=== PATIENT | male | born 1980 | race Caucasian/White ===

== ENCOUNTER 2019-06-19 14:44 | Outpatient (CLI) | payer MEDICAID, SELFPAY ==
[2019-06-19 16:00] LABS: Basophils # 0.1 10^3/uL (0.0-0.1); Basophils % 0.5 %; Eosinophils # 0.1 10^3/uL (0.0-0.8); Eosinophils % 0.8 %; Hematocrit 31.8 % (42.0-52.0); Hemoglobin 10.6 g/dL (11.7-16.6); Lymphocytes # 2.2 10^3/uL (0.8-4.8); Lymphocytes % 22.1 %; Mean Corpuscular HGB Conc 33.3 g/dL (30.0-36.0); Mean Corpuscular Hemoglobin 29.8 pg (28.0-34.0); Mean Corpuscular Volume 89.3 fL (80-94); Mean Platelet Volume 12.4 fL (7.4-10.4); Monocytes # 0.9 10^3/uL (0.2-0.9); Monocytes % 8.5 %; Neutrophils # 6.8 10^3/uL (1.8-7.7); Neutrophils % 67.5 %; Nucleated Red Blood Cells % 0 %; Platelet Count 339 10^3/cmm (130-400); Red Blood Count 3.56 10^6/uL (4.1-5.3); Red Cell Distribution Width 11.9 % (12.1-15.1)
== END 2019-06-19 14:45 | disposition home or self-care (01) ==
LOC: LAB 14:47
PROVIDERS: Family Provider Family Medicine; PCP Family Medicine; Visit Provider Family Medicine
DX: L02.91 Cutaneous abscess, unspecified (principal)
CPT/HCPCS: 85025

== ENCOUNTER 2019-06-23 13:16 | Outpatient (CLI) | payer MEDICAID, SELFPAY ==
[2019-06-23 13:33] LABS: Basophils % 0.4 %; Eosinophils # 0.1 10^3/uL (0.0-0.8); Eosinophils % 1.7 %; Hematocrit 33.8 % (42.0-52.0); Hemoglobin 11.1 g/dL (11.7-16.6); Lymphocytes # 2.1 10^3/uL (0.8-4.8); Lymphocytes % 28.7 %; Mean Corpuscular HGB Conc 32.8 g/dL (30.0-36.0); Mean Corpuscular Hemoglobin 29.6 pg (28.0-34.0); Mean Corpuscular Volume 90.1 fL (80-94); Mean Platelet Volume 11.8 fL (7.4-10.4); Monocytes # 0.5 10^3/uL (0.2-0.9); Monocytes % 7.2 %; Neutrophils # 4.6 10^3/uL (1.8-7.7); Neutrophils % 61.6 %; Nucleated Red Blood Cells % 0 %; Platelet Count 322 10^3/cmm (130-400); Red Blood Count 3.75 10^6/uL (4.1-5.3); Red Cell Distribution Width 11.9 % (12.1-15.1); White Blood Count 7.5 10^3/uL (4.0-10.0)
[2019-06-23 13:57] LABS: Alanine Aminotransferase 46 U/L (0-41); Albumin Level 3.9 g/dL (3.5-5.2); Alkaline Phosphatase 198 IU/L (40-130); Aspartate Amino Transferase 20 U/L (0-40); Blood Urea Nitrogen 5 mg/dL (6-20); C Reactive Protein 1.4 mg/L (0.0-4.9); Calcium 9.5 mg/Dl (8.6-10.0); Carbon Dioxide 30 mmol/L (22-29); Chloride 92 mmol/L (98-107); Creatine Phosphokinase 55 U/L (39-308); Glomerular Filtration Rate 185.1 mL/min (90-130); Glucose 433 mg/dL (74-109); Sodium 133 mmol/L (136-145); Total Bilirubin 0.2 mg/dL (0.15-1.2); Total Protein 6.9 g/dL (6.6-8.7)
[2019-06-23 14:25] LABS: Erythrocyte Sedimentation Rate 22 mm/hr (0-10)
== END 2019-06-23 13:17 | disposition home or self-care (01) ==
LOC: LAB 13:20
PROVIDERS: Family Provider Family Medicine; PCP Family Medicine; Visit Provider Family Medicine
DX: L02.91 Cutaneous abscess, unspecified (principal); E10.8 Type 1 diabetes mellitus with unspecified complications; K85.90 Acute pancreatitis without necrosis or infection, unspecified
CPT/HCPCS: 80053; 82550; 85025; 85651; 86140

== ENCOUNTER 2019-06-30 17:06 | Outpatient (CLI) | payer MEDICAID, SELFPAY ==
[2019-06-30 17:48] LABS: Basophils % 0.6 %; Eosinophils % 0.8 %; Hematocrit 33.2 % (42.0-52.0); Hemoglobin 10.8 g/dL (11.7-16.6); Lymphocytes # 1.4 10^3/uL (0.8-4.8); Mean Corpuscular HGB Conc 32.5 g/dL (30.0-36.0); Mean Corpuscular Hemoglobin 29.5 pg (28.0-34.0); Mean Corpuscular Volume 90.7 fL (80-94); Mean Platelet Volume 11.9 fL (7.4-10.4); Monocytes # 0.4 10^3/uL (0.2-0.9); Monocytes % 8.7 %; Neutrophils # 3.1 10^3/uL (1.8-7.7); Neutrophils % 61.5 %; Nucleated Red Blood Cells % 0 %; Platelet Count 264 10^3/cmm (130-400); Red Blood Count 3.66 10^6/uL (4.1-5.3); Red Cell Distribution Width 11.9 % (12.1-15.1); White Blood Count 5.1 10^3/uL (4.0-10.0)
[2019-06-30 18:00] LABS: Alanine Aminotransferase 45 U/L (0-41); Albumin Level 4.3 g/dL (3.5-5.2); Alkaline Phosphatase 183 IU/L (40-130); Anion Gap 16.2 (5-19); Aspartate Amino Transferase 44 U/L (0-40); Blood Urea Nitrogen 14 mg/dL (6-20); C Reactive Protein 10.4 mg/L (0.0-4.9); Calcium 9.6 mg/dL (8.5-10.5); Carbon Dioxide 30 mmol/L (22-29); Chloride 89 mmol/L (98-107); Globulin 3.2 g/dL (1.3-4.6); Potassium 4.2 mmol/L (3.5-5.1); Sodium 131 mmol/L (136-145); Total Bilirubin 0.5 mg/dL (0.15-1.2); Total Protein 7.5 g/dL (6.6-8.7)
[2019-06-30 18:05] LABS: Glucose 715 mg/dL (74-109)
[2019-06-30 18:06] LABS: Creatine Phosphokinase 362 U/L (39-308)
[2019-06-30 18:51] LABS: Erythrocyte Sedimentation Rate 37 mm/hr (0-10)
== END 2019-06-30 17:07 | disposition home or self-care (01) ==
PROVIDERS: Family Provider Family Medicine; PCP Family Medicine; Visit Provider Family Medicine
DX: L02.91 Cutaneous abscess, unspecified (principal); E11.9 Type 2 diabetes mellitus without complications
CPT/HCPCS: 80053; 82550; 85025; 85651; 86140

== ENCOUNTER 2019-07-13 04:40 | Emergency (ER) | payer MEDICAID, SELFPAY ==
--- NOTE | 2019-07-13 04:45 | ED_ITS ---
Documented by User: Atif Melton DO 07/13/19 06:51 HPI - Abdominal Pain General: Chief Complaint: Abdominal Pain Stated Complaint: LLQ ABD PAIN Time Seen by Provider: 07/13/19 04:44 History of Present Illness: HPI narrative: 39-year-old male here not infrequently. He complains of epigastric and left upper quadrant belly pain. This is been a problem for him in the past. He states that he has pancreatitis. He has been nauseated but has not vomited. No fever. MD elicited complaint: abdominal pain Onset (ago): day(s) Quality: stabbing Radiation: LUQ Relieving factors: nothing Associated Symptoms: Reports nausea; Denies chills, dysuria, fever(s), hematemesis and vomiting Review of Systems Const: Reports: fatigue; Denies: fever or chills Eyes: Denies: change in vision Card: Denies: chest pain, palpitations or edema Resp: Denies: shortness of breath, productive cough or wheezing GI: Reports: abdominal pain and nausea; Denies: vomiting or vomiting blood : Denies: painful urination, urinary frequency or urinary urgency Neuro: Reports: dizziness; Denies: headache Psych: Reports: anxiety PFSH ED PFSH: Statuses (acute, chronic, etc) shown below reflect problem list status as previously entered and may not be historically accurate Medical History ALC (alcoholic liver cirrhosis) (Acute) Anxiety and depression (Acute) Chronic pancreatitis due to acute alcohol intoxication (Acute) Diabetes (Acute) Social History Smoking and tobacco status: current every day smoker Alcohol intake: current Physical Exam Const: GENERAL APPEARANCE: in distress ORIENTATION/CONSCIOUSNESS: Yes awake, Yes oriented to person, Yes oriented to place and Yes oriented to time HENMT: COMMON NORMALS: normocephalic and external ears normal HEAD & SCALP: normocephalic FACE & SINUS: face symmetric NOSE: mucous membranes and turbinates abnormal (dry) EXTERNAL EAR: Yes external ears normal TEETH & GINGIVA: Yes edentulous Chest: COMMONS NORMALS: inspection of chest normal Resp: COMMON NORMALS: normal respiratory effort, no use of accessory muscles and clear to auscultation bilaterally AUSCULTATION: clear to auscultation bilaterally Cardio: COMMON NORMALS: regular rate and regular rhythm RATE: regular rate RHYTHM: regular rhythm HEART SOUNDS: no murmurs GI: INSPECTION: Yes normal to inspection AUSCULTATION: Yes hypoactive bowel sounds PALPATION: Yes tender Details: LUQ Neuro: SENSORIUM/ORIENTATION: Yes oriented to person, Yes oriented to place and Yes oriented to time Course Vital Signs: Vital signs: Vital Signs Temperature 98.9 F 07/13/19 04:46 Pulse Rate 80 07/13/19 10:10 Respiratory Rate 16 07/13/19 10:10 Blood Pressure 104/67 07/13/19 10:10 Pulse Oximetry 96 07/13/19 10:10 MDM - Abdominal Pain MDM Narrative: Medical decision making narrative: 39-year-old male here with epigastric pain. His blood sugar is 600. His white count is only 9. His lipase is normal. His alk phos however is significantly elevated along with mild elevation of his transaminases he will go to CT. Lab Data: Labs: Lab Results 07/13/19 07/13/19 07/13/19 Range/Units 04:12 04:12 04:51 WBC 9.0 (4.0-10.0) 10^3/ uL RBC 4.17 (4.1-5.3) 10^6/u L Hgb 12.2 (11.7-16.6) g/dL Hct 36.9 L (42.0-52.0) % MCV 88.5 (80-94) fL MCH 29.3 (28.0-34.0) pg MCHC 33.1 (30.0-36.0) g/dL RDW 12.7 (12.1-15.1) % Plt Count 408 H (130-400) 10^3/c mm MPV 11.7 H (7.4-10.4) fL Neut % (Auto) 66.1 % Lymph % (Auto) 24.9 % [place] % (Auto) 6.7 % Eos % (Auto) 0.4 % Baso % (Auto) 0.7 % Neut # (Auto) 5.9 (1.8-7.7) 10^3/u L Lymph # (Auto) 2.2 (0.8-4.8) 10^3/u L [place] # (Auto) 0.6 (0.2-0.9) 10^3/u L Eos # (Auto) 0.0 (0.0-0.8) 10^3/u L Baso # (Auto) 0.1 (0.0-0.1) 10^3/u L Nucleated RBC % (a uto) 0 % Nucleated RBCs # 0.0 /100WBC Sodium 126 L (136-145) mmol/L Potassium 3.7 (3.5-5.1) mmol/L Chloride 85 L (98-107) mmol/L Carbon Dioxide 23 (22-29) mmol/L Anion Gap 21.7 H (5-19) BUN 10 (6-20) mg/dL Creatinine 0.8 (0.7-1.2) mg/dL GFR Calculation 107.6 (90-130) mL/min Glucose 606 H* (65-115) mg/dL POC Glucose (70-110) mg/dL Calcium 9.4 (8.5-10.5) mg/dL Total Bilirubin 0.4 (0.15-1.2) mg/dL AST 42 H (0-40) U/L ALT 54 H (0-41) U/L Alkaline Phosphata se 305 H (40-130) IU/L C-Reactive Protein 8.0 H (0.0-4.9) mg/L Total Protein 6.7 (6.6-8.7) g/dL Albumin 3.6 (3.5-5.2) g/dL Globulin 3.1 (1.3-4.6) g/dL Lipase 4 L (13-60) U/L Urine Color Yellow (Yellow) Urine Appearance Clear (CLEAR) Urine pH 5 (5-7) Ur Specific Gravit y 1.005 (1.005-1.030) Urine Protein Neg (Negative) Urine Glucose (UA) 4+ H (Normal) Urine Ketones Negative (Negative) Urine Occult Blood Neg (Negative) Urine Nitrate Negative (Negative) Urine Bilirubin Neg (NEGATIVE) Urine Urobilinogen Norm (Negative) mg/dL Ur Leukocyte Raisa ase Negative (Negative) Urine Opiates Scre en (Negative) ng/mL Ur Barbiturates Sc reen (Negative) ng/mL Ur Phencyclidine S crn (Negative) ng/mL Ur Amphetamines Sc reen (Negative) ng/mL U Benzodiazepines Scrn (Negative) ng/mL Urine Cocaine Scre en (Negative) ng/mL U Marijuana (THC) Screen (Negative) ng/mL 07/13/19 07/13/19 07/13/19 Range/Units 04:51 07:13 08:15 WBC (4.0-10.0) 10^3/ uL RBC (4.1-5.3) 10^6/u L Hgb (11.7-16.6) g/dL Hct (42.0-52.0) % MCV (80-94) fL MCH (28.0-34.0) pg MCHC (30.0-36.0) g/dL RDW (12.1-15.1) % Plt Count (130-400) 10^3/c mm MPV (7.4-10.4) fL Neut % (Auto) % Lymph % (Auto) % [place] % (Auto) % Eos % (Auto) % Baso % (Auto) % Neut # (Auto) (1.8-7.7) 10^3/u L Lymph # (Auto) (0.8-4.8) 10^3/u L [place] # (Auto) (0.2-0.9) 10^3/u L Eos # (Auto) (0.0-0.8) 10^3/u L Baso # (Auto) (0.0-0.1) 10^3/u L Nucleated RBC % (a uto) % Nucleated RBCs # /100WBC Sodium 136 (136-145) mmol/L Potassium (3.5-5.1) mmol/L Chloride (98-107) mmol/L Carbon Dioxide (22-29) mmol/L Anion Gap (5-19) BUN (6-20) mg/dL Creatinine (0.7-1.2) mg/dL GFR Calculation (90-130) mL/min Glucose (65-115) mg/dL POC Glucose 210 (70-110) mg/dL Calcium (8.5-10.5) mg/dL Total Bilirubin (0.15-1.2) mg/dL AST (0-40) U/L ALT (0-41) U/L Alkaline Phosphata se (40-130) IU/L C-Reactive Protein (0.0-4.9) mg/L Total Protein (6.6-8.7) g/dL Albumin (3.5-5.2) g/dL Globulin (1.3-4.6) g/dL Lipase (13-60) U/L Urine Color (Yellow) Urine Appearance (CLEAR) Urine pH (5-7) Ur Specific Gravit y (1.005-1.030) Urine Protein (Negative) Urine Glucose (UA) (Normal) Urine Ketones (Negative) Urine Occult Blood (Negative) Urine Nitrate (Negative) Urine Bilirubin (NEGATIVE) Urine Urobilinogen (Negative) mg/dL Ur Leukocyte Raisa ase (Negative) Urine Opiates Scre en Positve (Negative) ng/mL Ur Barbiturates Sc reen Negative (Negative) ng/mL Ur Phencyclidine S crn Negative (Negative) ng/mL Ur Amphetamines Sc reen Negative (Negative) ng/mL U Benzodiazepines Scrn Negative (Negative) ng/mL Urine Cocaine Scre en Negative (Negative) ng/mL U Marijuana (THC) Screen Negative (Negative) ng/mL 07/13/19 Range/Units 08:16 WBC (4.0-10.0) 10^3/ uL RBC (4.1-5.3) 10^6/u L Hgb (11.7-16.6) g/dL Hct (42.0-52.0) % MCV (80-94) fL MCH (28.0-34.0) pg MCHC (30.0-36.0) g/dL RDW (12.1-15.1) % Plt Count (130-400) 10^3/c mm MPV (7.4-10.4) fL Neut % (Auto) % Lymph % (Auto) % [place] % (Auto) % Eos % (Auto) % Baso % (Auto) % Neut # (Auto) (1.8-7.7) 10^3/u L Lymph # (Auto) (0.8-4.8) 10^3/u L [place] # (Auto) (0.2-0.9) 10^3/u L Eos # (Auto) (0.0-0.8) 10^3/u L Baso # (Auto) (0.0-0.1) 10^3/u L Nucleated RBC % (a uto) % Nucleated RBCs # /100WBC Sodium (136-145) mmol/L Potassium (3.5-5.1) mmol/L Chloride (98-107) mmol/L Carbon Dioxide (22-29) mmol/L Anion Gap (5-19) BUN (6-20) mg/dL Creatinine (0.7-1.2) mg/dL GFR Calculation (90-130) mL/min Glucose (65-115) mg/dL POC Glucose 155 (70-110) mg/dL Calcium (8.5-10.5) mg/dL Total Bilirubin (0.15-1.2) mg/dL AST (0-40) U/L ALT (0-41) U/L Alkaline Phosphata se (40-130) IU/L C-Reactive Protein (0.0-4.9) mg/L Total Protein (6.6-8.7) g/dL Albumin (3.5-5.2) g/dL Globulin (1.3-4.6) g/dL Lipase (13-60) U/L Urine Color (Yellow) Urine Appearance (CLEAR) Urine pH (5-7) Ur Specific Gravit y (1.005-1.030) Urine Protein (Negative) Urine Glucose (UA) (Normal) Urine Ketones (Negative) Urine Occult Blood (Negative) Urine Nitrate (Negative) Urine Bilirubin (NEGATIVE) Urine Urobilinogen (Negative) mg/dL Ur Leukocyte Raisa ase (Negative) Urine Opiates Scre en (Negative) ng/mL Ur Barbiturates Sc reen (Negative) ng/mL Ur Phencyclidine S crn (Negative) ng/mL Ur Amphetamines Sc reen (Negative) ng/mL U Benzodiazepines Scrn (Negative) ng/mL Urine Cocaine Scre en (Negative) ng/mL U Marijuana (THC) Screen (Negative) ng/mL Discharge Plan Discharge Patient Disposition: Home, Self-Care Clinical Impression: Constipation, Diabetes Condition: Stable Prescriptions: New Citrate of Magnesia Solution 150 ml PO .Q6 hrs PRN (Reason: constipation) Qty: 296 RF: 0 No Action Lantus Solostar U-100 Insulin 100 unit/mL (3 mL) insulin pen 100 unit SUBCUT ONCE RF: 0 insulin lispro [Humalog U-100 Insulin] 100 unit/mL solution 10 unit SUBCUT TID RF: 0 metformin 1,000 mg tablet 1,000 mg PO BID RF: 0 metoprolol tartrate 50 mg tablet 50 mg PO QDAY RF: 0 lorazepam 1 mg tablet 1 mg PO BID PRNRF: 0 sildenafil [Viagra] 100 mg tablet 100 mg PO QDAY PRNRF: 0 pregabalin [Lyrica] 150 mg capsule 150 mg PO BID RF: 0 citalopram 20 mg tablet 20 mg PO BID RF: 0 hydrocodone-acetaminophen 10-325 mg tablet 1 tab PO Q6H PRN (Reason: pain) 30 Days Qty: 120 RF: 0 clonazepam 1 mg tablet 1 mg PO BID 30 Days Qty: 60 RF: 2 Discharge Orders: Discharge Order (Routine); Ordered 07/13/19 Ordered By: Jose Carlos Guillaume Referrals: Oumar Gonzalez MD [Primary Care Provider] - Discharge Diet: Usual diet Discharge Activity: Increase activity as tolerated Activity Restrictions/Additional Instructions: Follow-up with your primary care physician return if worsens Discharge Date/Time: 07/13/19 10:10 Sign Out Sign Out Data: Patient Sign Out occurred on 07/13/19 at 07:09. Patient's care was discussed, and care was transferred from Atif Melton DO to Jose Carlos Guillaume DO. Sign Out Comment: Follow-up on CT findings for epigastric pain, history of pancreatitis, with elevated alk phos. 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 Fwd Documented by User: Jose Carlos Guillaume DO 07/15/19 07:46 HPI - Abdominal Pain General: Chief Complaint: Abdominal Pain Stated Complaint: LLQ ABD PAIN Time Seen by Provider: 07/13/19 04:44 PFSH ED PFSH: Statuses (acute, chronic, etc) shown below reflect problem list status as previously entered and may not be historically accurate Medical History ALC (alcoholic liver cirrhosis) (Acute) Anxiety and depression (Acute) Chronic pancreatitis due to acute alcohol intoxication (Acute) Diabetes (Acute) Social History Smoking and tobacco status: current every day smoker Alcohol intake: current Course ED course: Patient noted to be hyponatremic. CT reviewed no significant findings. We will have lab repeat the sodium level to verify. Blood sugar is significantly improved. Patient has significant constipation. We will have him use mag citrate discharge home follow-up with primary care doctor Vital Signs: Vital signs: Vital Signs Temperature 98.9 F 07/13/19 04:46 Pulse Rate 80 07/13/19 10:10 Respiratory Rate 16 07/13/19 10:10 Blood Pressure 104/67 07/13/19 10:10 Pulse Oximetry 96 07/13/19 10:10 MDM - Abdominal Pain Lab Data: Labs: Lab Results 07/13/19 07/13/19 07/13/19 Range/Units 04:12 04:12 04:51 WBC 9.0 (4.0-10.0) 10^3/ uL RBC 4.17 (4.1-5.3) 10^6/u L Hgb 12.2 (11.7-16.6) g/dL Hct 36.9 L (42.0-52.0) % MCV 88.5 (80-94) fL MCH 29.3 (28.0-34.0) pg MCHC 33.1 (30.0-36.0) g/dL RDW 12.7 (12.1-15.1) % Plt Count 408 H (130-400) 10^3/c mm MPV 11.7 H (7.4-10.4) fL Neut % (Auto) 66.1 % Lymph % (Auto) 24.9 % [place] % (Auto) 6.7 % Eos % (Auto) 0.4 % Baso % (Auto) 0.7 % Neut # (Auto) 5.9 (1.8-7.7) 10^3/u L Lymph # (Auto) 2.2 (0.8-4.8) 10^3/u L [place] # (Auto) 0.6 (0.2-0.9) 10^3/u L Eos # (Auto) 0.0 (0.0-0.8) 10^3/u L Baso # (Auto) 0.1 (0.0-0.1) 10^3/u L Nucleated RBC % (a uto) 0 % Nucleated RBCs # 0.0 /100WBC Sodium 126 L (136-145) mmol/L Potassium 3.7 (3.5-5.1) mmol/L Chloride 85 L (98-107) mmol/L Carbon Dioxide 23 (22-29) mmol/L Anion Gap 21.7 H (5-19) BUN 10 (6-20) mg/dL Creatinine 0.8 (0.7-1.2) mg/dL GFR Calculation 107.6 (90-130) mL/min Glucose 606 H* (65-115) mg/dL POC Glucose (70-110) mg/dL Calcium 9.4 (8.5-10.5) mg/dL Total Bilirubin 0.4 (0.15-1.2) mg/dL AST 42 H (0-40) U/L ALT 54 H (0-41) U/L Alkaline Phosphata se 305 H (40-130) IU/L C-Reactive Protein 8.0 H (0.0-4.9) mg/L Total Protein 6.7 (6.6-8.7) g/dL Albumin 3.6 (3.5-5.2) g/dL Globulin 3.1 (1.3-4.6) g/dL Lipase 4 L (13-60) U/L Urine Color Yellow (Yellow) Urine Appearance Clear (CLEAR) Urine pH 5 (5-7) Ur Specific Gravit y 1.005 (1.005-1.030) Urine Protein Neg (Negative) Urine Glucose (UA) 4+ H (Normal) Urine Ketones Negative (Negative) Urine Occult Blood Neg (Negative) Urine Nitrate Negative (Negative) Urine Bilirubin Neg (NEGATIVE) Urine Urobilinogen Norm (Negative) mg/dL Ur Leukocyte Raisa ase Negative (Negative) Urine Opiates Scre en (Negative) ng/mL Ur Barbiturates Sc reen (Negative) ng/mL Ur Phencyclidine S crn (Negative) ng/mL Ur Amphetamines Sc reen (Negative) ng/mL U Benzodiazepines Scrn (Negative) ng/mL Urine Cocaine Scre en (Negative) ng/mL U Marijuana (THC) Screen (Negative) ng/mL 07/13/19 07/13/19 07/13/19 Range/Units 04:51 07:13 08:15 WBC (4.0-10.0) 10^3/ uL RBC (4.1-5.3) 10^6/u L Hgb (11.7-16.6) g/dL Hct (42.0-52.0) % MCV (80-94) fL MCH (28.0-34.0) pg MCHC (30.0-36.0) g/dL RDW (12.1-15.1) % Plt Count (130-400) 10^3/c mm MPV (7.4-10.4) fL Neut % (Auto) % Lymph % (Auto) % [place] % (Auto) % Eos % (Auto) % Baso % (Auto) % Neut # (Auto) (1.8-7.7) 10^3/u L Lymph # (Auto) (0.8-4.8) 10^3/u L [place] # (Auto) (0.2-0.9) 10^3/u L Eos # (Auto) (0.0-0.8) 10^3/u L Baso # (Auto) (0.0-0.1) 10^3/u L Nucleated RBC % (a uto) % Nucleated RBCs # /100WBC Sodium 136 (136-145) mmol/L Potassium (3.5-5.1) mmol/L Chloride (98-107) mmol/L Carbon Dioxide (22-29) mmol/L Anion Gap (5-19) BUN (6-20) mg/dL Creatinine (0.7-1.2) mg/dL GFR Calculation (90-130) mL/min Glucose (65-115) mg/dL POC Glucose 210 (70-110) mg/dL Calcium (8.5-10.5) mg/dL Total Bilirubin (0.15-1.2) mg/dL AST (0-40) U/L ALT (0-41) U/L Alkaline Phosphata se (40-130) IU/L C-Reactive Protein (0.0-4.9) mg/L Total Protein (6.6-8.7) g/dL Albumin (3.5-5.2) g/dL Globulin (1.3-4.6) g/dL Lipase (13-60) U/L Urine Color (Yellow) Urine Appearance (CLEAR) Urine pH (5-7) Ur Specific Gravit y (1.005-1.030) Urine Protein (Negative) Urine Glucose (UA) (Normal) Urine Ketones (Negative) Urine Occult Blood (Negative) Urine Nitrate (Negative) Urine Bilirubin (NEGATIVE) Urine Urobilinogen (Negative) mg/dL Ur Leukocyte Raisa ase (Negative) Urine Opiates Scre en Positve (Negative) ng/mL Ur Barbiturates Sc reen Negative (Negative) ng/mL Ur Phencyclidine S crn Negative (Negative) ng/mL Ur Amphetamines Sc reen Negative (Negative) ng/mL U Benzodiazepines Scrn Negative (Negative) ng/mL Urine Cocaine Scre en Negative (Negative) ng/mL U Marijuana (THC) Screen Negative (Negative) ng/mL 07/13/19 Range/Units 08:16 WBC (4.0-10.0) 10^3/ uL RBC (4.1-5.3) 10^6/u L Hgb (11.7-16.6) g/dL Hct (42.0-52.0) % MCV (80-94) fL MCH (28.0-34.0) pg MCHC (30.0-36.0) g/dL RDW (12.1-15.1) % Plt Count (130-400) 10^3/c mm MPV (7.4-10.4) fL Neut % (Auto) % Lymph % (Auto) % [place] % (Auto) % Eos % (Auto) % Baso % (Auto) % Neut # (Auto) (1.8-7.7) 10^3/u L Lymph # (Auto) (0.8-4.8) 10^3/u L [place] # (Auto) (0.2-0.9) 10^3/u L Eos # (Auto) (0.0-0.8) 10^3/u L Baso # (Auto) (0.0-0.1) 10^3/u L Nucleated RBC % (a uto) % Nucleated RBCs # /100WBC Sodium (136-145) mmol/L Potassium (3.5-5.1) mmol/L Chloride (98-107) mmol/L Carbon Dioxide (22-29) mmol/L Anion Gap (5-19) BUN (6-20) mg/dL Creatinine (0.7-1.2) mg/dL GFR Calculation (90-130) mL/min Glucose (65-115) mg/dL POC Glucose 155 (70-110) mg/dL Calcium (8.5-10.5) mg/dL Total Bilirubin (0.15-1.2) mg/dL AST (0-40) U/L ALT (0-41) U/L Alkaline Phosphata se (40-130) IU/L C-Reactive Protein (0.0-4.9) mg/L Total Protein (6.6-8.7) g/dL Albumin (3.5-5.2) g/dL Globulin (1.3-4.6) g/dL Lipase (13-60) U/L Urine Color (Yellow) Urine Appearance (CLEAR) Urine pH (5-7) Ur Specific Gravit y (1.005-1.030) Urine Protein (Negative) Urine Glucose (UA) (Normal) Urine Ketones (Negative) Urine Occult Blood (Negative) Urine Nitrate (Negative) Urine Bilirubin (NEGATIVE) Urine Urobilinogen (Negative) mg/dL Ur Leukocyte Raisa ase (Negative) Urine Opiates Scre en (Negative) ng/mL Ur Barbiturates Sc reen (Negative) ng/mL Ur Phencyclidine S crn (Negative) ng/mL Ur Amphetamines Sc reen (Negative) ng/mL U Benzodiazepines Scrn (Negative) ng/mL Urine Cocaine Scre en (Negative) ng/mL U Marijuana (THC) Screen (Negative) ng/mL Discharge Plan Discharge Patient Disposition: Home, Self-Care Clinical Impression: Constipation, Diabetes Condition: Stable Prescriptions: New Citrate of Magnesia Solution 150 ml PO .Q6 hrs PRN (Reason: constipation) Qty: 296 RF: 0 No Action Lantus Solostar U-100 Insulin 100 unit/mL (3 mL) insulin pen 100 unit SUBCUT ONCE RF: 0 insulin lispro [Humalog U-100 Insulin] 100 unit/mL solution 10 unit SUBCUT TID RF: 0 metformin 1,000 mg tablet 1,000 mg PO BID RF: 0 metoprolol tartrate 50 mg tablet 50 mg PO QDAY RF: 0 lorazepam 1 mg tablet 1 mg PO BID PRNRF: 0 sildenafil [Viagra] 100 mg tablet 100 mg PO QDAY PRNRF: 0 pregabalin [Lyrica] 150 mg capsule 150 mg PO BID RF: 0 citalopram 20 mg tablet 20 mg PO BID RF: 0 hydrocodone-acetaminophen 10-325 mg tablet 1 tab PO Q6H PRN (Reason: pain) 30 Days Qty: 120 RF: 0 clonazepam 1 mg tablet 1 mg PO BID 30 Days Qty: 60 RF: 2 Discharge Orders: Discharge Order (Routine); Ordered 07/13/19 Ordered By: Jose Carlos Guillaume Referrals: Oumar Gonzalez MD [Primary Care Provider] - Discharge Diet: Usual diet Discharge Activity: Increase activity as tolerated Activity Restrictions/Additional Instructions: Follow-up with your primary care physician return if worsens Discharge Date/Time: 07/13/19 10:10 Sign Out Sign Out Data: Patient Sign Out occurred on 07/13/19 at 07:09. Patient's care was discussed, and care was transferred from Atif Melton DO to Jose Carlos Guillaume DO. Sign Out Comment: Follow-up on CT findings for epigastric pain, history of pancreatitis, with elevated alk phos. 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
[2019-07-13 04:46] VITALS: BP 127/75; PULSE 107; RESP 18; TEMP 37.2; O2SAT 99; BMI 18.0
[2019-07-13 05:00] LABS: Add Urine Microscopic? NO
[2019-07-13 05:02] LABS: Basophils # 0.1 10^3/uL (0.0-0.1); Basophils % 0.7 %; Eosinophils % 0.4 %; Hematocrit 36.9 % (42.0-52.0); Hemoglobin 12.2 g/dL (11.7-16.6); Lymphocytes # 2.2 10^3/uL (0.8-4.8); Lymphocytes % 24.9 %; Mean Corpuscular HGB Conc 33.1 g/dL (30.0-36.0); Mean Corpuscular Hemoglobin 29.3 pg (28.0-34.0); Mean Corpuscular Volume 88.5 fL (80-94); Mean Platelet Volume 11.7 fL (7.4-10.4); Monocytes # 0.6 10^3/uL (0.2-0.9); Monocytes % 6.7 %; Neutrophils # 5.9 10^3/uL (1.8-7.7); Neutrophils % 66.1 %; Nucleated Red Blood Cells % 0 %; Platelet Count 408 10^3/cmm (130-400); Red Blood Count 4.17 10^6/uL (4.1-5.3); Red Cell Distribution Width 12.7 % (12.1-15.1)
[2019-07-13] MEDS: sodium chloride 0.9% 1,000 ML 999 ML IV (05:05)
[2019-07-13 05:08] LABS: Bilirubin Urine Neg (NEGATIVE); Blood Urine Neg (Negative); Glucose Urine UA 4+ (Normal); Ketones Urine Negative (Negative); Leukocyte Esterase Urine Negative (Negative); Nitrate Urine Negative (Negative); Protein Urine Neg (Negative); Specific Gravity, Urine 1.005 (1.005-1.030); Urine Appearance Clear (CLEAR); Urine Color Yellow (Yellow); Urobilinogen Urine Norm (Negative); pH Urine 5 (5-7)
[2019-07-13] MEDS: morphine 4 mg/mL SDV 1 mL IVP (05:16)
[2019-07-13] MEDS: haloperidol inj 5 mg/mL INJ 1 mL IVP (05:16)
[2019-07-13 05:17] LABS: Alanine Aminotransferase 54 U/L (0-41); Albumin Level 3.6 g/dL (3.5-5.2); Alkaline Phosphatase 305 IU/L (40-130); Anion Gap 21.7 (5-19); Aspartate Amino Transferase 42 U/L (0-40); Blood Urea Nitrogen 10 mg/dL (6-20); Calcium 9.4 mg/dL (8.5-10.5); Carbon Dioxide 23 mmol/L (22-29); Chloride 85 mmol/L (98-107); Globulin 3.1 g/dL (1.3-4.6); Glomerular Filtration Rate 107.6 mL/min (90-130); Lipase 4 U/L (13-60); Potassium 3.7 mmol/L (3.5-5.1); Sodium 126 mmol/L (136-145); Total Bilirubin 0.4 mg/dL (0.15-1.2); Total Protein 6.7 g/dL (6.6-8.7)
[2019-07-13] MEDS: ondansetron 2 mg/ML SDV 2 mL 4 MG IVP (05:18)
[2019-07-13 05:19] LABS: Amphetamines Screen Urine Negative (Negative); Barbiturates Screen Urine Negative (Negative); Benzodiazepines Screen Urine Negative (Negative); Cocaine Screen Urine Negative (Negative); PCP Screen Urine Negative (Negative); THC Screen Urine Negative (Negative)
[2019-07-13 05:20] LABS: Glucose 606 mg/dL (65-115)
--- NOTE | 2019-07-13 05:30 | PC.NURSE ---
Advised Dr. Melton on glucose 606, no orders at this time
[2019-07-13] MEDS: insulin regular-human 100 units/1 mL 12 UNIT IVP (05:40)
--- NOTE | 2019-07-13 05:49 | CTR_ITS ---
PROCEDURE INFORMATION: Exam: CT Abdomen And Pelvis With Contrast Exam date and time: 07/13/2019 6:02 AM Age: 39 years old Clinical indication: Abdominal pain; Patient HX: Epigastric pain. History of chronic pancreatitis. TECHNIQUE: Imaging protocol: Computed tomography of the abdomen and pelvis with intravenous contrast. Total DLP: 558.18 mGy-cm Radiation optimization: All CT scans at this facility use at least one of these dose optimization techniques: automated exposure control; mA and/or kV adjustment per patient size (includes targeted exams where dose is matched to clinical indication); or iterative reconstruction. Contrast material: OMNI 300; Contrast volume: 75 ml; Contrast route: 20G; COMPARISON: CT abdomen pelvis w con* [id number] 03/19/2019 12:27 AM FINDINGS: Lungs: Subtle airspace disease within the lung base. Likely atelectasis. Consider followup CT if indicated. Liver: Hepatomegaly. Mild fatty infiltration. Gallbladder and bile ducts: Normal. No calcified stones. No ductal dilation. Pancreas: Coarse calcifications within an atrophied pancreas consistent with chronic pancreatitis/prior pancreatitis. Spleen: Normal. No splenomegaly. Adrenals: Normal. No mass. Kidneys and ureters: Normal. No hydronephrosis. Stomach and bowel: Large amount of stool throughout the large bowel. Appendix: No evidence of appendicitis. Intraperitoneal space: No free fluid within the pelvis or within the dependent portions of the peritoneum. Vasculature: Unremarkable. No abdominal aortic aneurysm. Lymph nodes: Unremarkable. No enlarged lymph nodes. Bladder: Unremarkable as visualized. Reproductive: Unremarkable as visualized. Bones/joints: Unremarkable. No acute fracture. Soft tissues: Unremarkable. Other findings: No acute intra-abdominal process. No inflammatory process. No obstruction. CT/CT abdomen pelvis w con* [id number] IMPRESSION: 1. No acute intra-abdominal process. No inflammatory process. No obstruction. 2. No free fluid within the pelvis or within the dependent portions of the peritoneum. 3. Coarse calcifications within an atrophied pancreas consistent with chronic pancreatitis/prior pancreatitis. 4. Large amount of stool throughout the large bowel. 5. Subtle airspace disease within the lung base. Likely atelectasis. Consider followup CT if indicated. Possible subtle nodular density within the middle lobe. Radiation Dose CTDIVOL = (mGy): DLP = 558.18 (mGy-cm)
[2019-07-13] MEDS: iohexol 300 mg/mL 100 mL Btl IV (06:26)
[2019-07-13 07:06] VITALS: BP 117/83; PULSE 84; RESP 16; O2SAT 98
[2019-07-13] MEDS: insulin regular-human 100 units/1 mL 5 UNIT IVP (07:16)
[2019-07-13 07:27] LABS: Glucose Point of Care 210 mg/dL (70-110)
--- NOTE | 2019-07-13 07:41 | PC.NURSE ---
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
[2019-07-13] MEDS: sodium chlor 0.9% + KCl 20 mEq 20 MEQ/1,000 ML BAG 125 MEQ IV (08:06)
[2019-07-13 08:18] LABS: Glucose Point of Care 155 mg/dL (70-110)
[2019-07-13 08:24] VITALS: BP 110/54; RESP 17
[2019-07-13 08:46] LABS: Sodium 136 mmol/L (136-145)
[2019-07-13 10:10] VITALS: BP 104/67; PULSE 80; RESP 16; O2SAT 96
== END 2019-07-13 10:10 | disposition home or self-care (01) ==
PROVIDERS: Emergency Medicine; Emergency Provider Family Medicine; Family Provider Family Medicine; PCP Family Medicine
DX: K59.00 Constipation, unspecified (principal); E11.9 Type 2 diabetes mellitus without complications; Z79.4 Long term (current) use of insulin; F17.210 Nicotine dependence, cigarettes, uncomplicated
CPT/HCPCS: 36415; 36416; 74177; 80053; 80307; 81003; 82962; 83690; 84295; 85025; 86140; 96360; 96365; 96366; 96375; 99283; 99284; A9270; J1630; J1815; J2270; J2405; J7030; Q9967

== ENCOUNTER 2019-07-18 07:53 | Emergency (ER) | payer MEDICAID, SELFPAY | END 2019-07-18 09:34 | disposition left against medical advice (07) | LOC: ER 07-24 06:27 | PROVIDERS: Emergency Provider Family Medicine; Family Provider Family Medicine; PCP Family Medicine | DX: E11.65 Type 2 diabetes mellitus with hyperglycemia (principal); E87.1 Hypo-osmolality and hyponatremia; R10.9 Unspecified abdominal pain; G89.29 Other chronic pain; F17.210 Nicotine dependence, cigarettes, uncomplicated; K70.30 Alcoholic cirrhosis of liver without ascites; K86.1 Other chronic pancreatitis; F41.9 Anxiety disorder, unspecified ==

== ENCOUNTER 2019-07-18 07:53 | Emergency (ER) | payer MEDICAID, SELFPAY ==
[2019-07-18 07:54] VITALS: BMI 19.2
--- NOTE | 2019-07-18 07:55 | ED_ITS ---
Entered by Ann Robles, acting as scribe for HPI - General Adult General: Chief complaint: General Medical Stated complaint: HYPERGLYCEMIA; BACK PAIN Time Seen by Provider: 07/18/19 07:55 Source: patient and EMS Mode of arrival: EMS Limitations: no limitations History of Present Illness: MD complaint: high blood sugar, body aches Onset (ago): day(s) (today) Radiation: non-radiation Severity: mild Pain Consistency: constant Relieving factors: none Exacerbating factors: movement Associated symptoms: Reports cough, weakness and other (muscle aches); Deny chest pain or rash Treatments prior to arrival: none Review of Systems General: Reports: 10 or more systems reviewed and unremarkable except in HPI and below Const: Reports: body aches and fatigue ENMT: Denies: throat pain, ear pain, nasal discharge or nasal congestion Card: Denies: chest pain, edema, shortness of breath on exertion or shortness of breath when lying down Resp: Reports: productive cough GI: Reports: abdominal pain (tenderness) : Denies: flank pain, painful urination, urinary frequency or urinary urgency Skin/Breast: Denies: rash or itching PFSH ED PFSH: Social History Smoking and tobacco status: current every day smoker Alcohol intake: current Physical Exam Const: COMMON NORMALS: no apparent distress GENERAL APPEARANCE: cooperative and comfortable ORIENTATION/CONSCIOUSNESS: Yes awake, Yes oriented to person, Yes oriented to place and Yes oriented to time HENMT: COMMON NORMALS: normocephalic, head/scalp atraumatic, hearing grossly normal bilaterally, external ears normal, EAC's normal, TM's normal bilaterally, nasal mucous membranes and turbinates normal, moist oral mucous membranes and oropharynx normal HEAD & SCALP: normocephalic and atraumatic NOSE: nasal mucous membranes and turbinates normal EXTERNAL EAR: Yes external ears normal EXTERNAL AUDITORY CANAL: EAC's normal TYMPANIC MEMBRANE: TM's normal bilaterally Eye: COMMON NORMALS: PERRL, EOMs intact bilaterally, conjunctivae normal and no scleral icterus CONJUNCTIVA: Yes conjunctivae normal PUPIL: Yes PERRL Neck/C-Spine: COMMON NORMALS: full ROM, no lymphadenopathy, supple and no JVD Lymph: LYMPHATIC: no lymphadenopathy noted and no lymphedema noted Resp: COMMON NORMALS: normal respiratory effort, no retractions, no use of accessory muscles and clear to auscultation bilaterally AUSCULTATION: clear to auscultation bilaterally Cardio: COMMON NORMALS: no JVD, regular rate, regular rhythm and no murmurs RATE: regular rate RHYTHM: regular rhythm GI: COMMON NORMALS: soft to palpation and no hepatosplenomegaly AUSCULTATION: Yes normoactive bowel sounds PALPATION: Yes soft, No guarding and Yes no hepatosplenomegaly Extremity: COMMON NORMALS: normal to inspection, normal capillary refill, no clubbing, cyanosis or edema, no calf tenderness and no pedal edema Neuro: SENSORIUM/ORIENTATION: Yes oriented to person, Yes oriented to place and Yes oriented to time Skin: COMMON NORMALS: no rashes or lesions noted GENERAL SKIN EXAM: no rashes or lesions noted Course ED course: Is for sodium was low but on repeat was improved. I was recommending further work-up and IV fluids we did get his glucose down with the IV fluids and insulin. Recommend he stay a little longer for further evaluation but patient became upset he wanted was demanding narcotics immediately. Asked him to allow us to get some more work-up done his main complaint was of cramping in his legs which we are treating with fluids. Patient refused to wait. He stated he wanted to leave AGAINST MEDICAL ADVICE advised him I did not know for certain what all of his issues were today and this could be quite dangerous even potentially with his complicated medical history life-threatening he ackno wledges and still wishes to go. He was concerned about pancreatitis his pain lipase is low today. Vital Signs: Vital signs: Vital Signs Temperature 98.4 F 07/18/19 07:58 Pulse Rate 72 07/18/19 09:33 Respiratory Rate 18 07/18/19 09:33 Blood Pressure 128/64 07/18/19 09:33 Pulse Oximetry 97 07/18/19 09:33 [facility] - General Adult Lab Data: Attestation: I reviewed the patient's lab results. Labs: Lab Results 07/18/19 07/18/19 07/18/19 Range/Units 07:20 07:20 07:20 WBC 10.5 H (4.0-10.0) 10^3/ uL RBC 3.82 L (4.1-5.3) 10^6/u L Hgb 11.1 L (11.7-16.6) g/dL Hct 33.8 L (42.0-52.0) % MCV 88.5 (80-94) fL MCH 29.1 (28.0-34.0) pg MCHC 32.8 (30.0-36.0) g/dL RDW 12.9 (12.1-15.1) % Plt Count 398 (130-400) 10^3/c mm MPV 11.8 H (7.4-10.4) fL Neut % (Auto) 76.1 % Lymph % (Auto) 17.1 % Braxton % (Auto) 5.4 % Eos % (Auto) 0.3 % Baso % (Auto) 0.7 % Neut # (Auto) 8.0 H (1.8-7.7) 10^3/u L Lymph # (Auto) 1.8 (0.8-4.8) 10^3/u L Braxton # (Auto) 0.6 (0.2-0.9) 10^3/u L Eos # (Auto) 0.0 (0.0-0.8) 10^3/u L Baso # (Auto) 0.1 (0.0-0.1) 10^3/u L Nucleated RBC % (a uto) 0 % Nucleated RBCs # 0.0 /100WBC Specimen Type Sample Site ABG pH (7.35-7.45) ABG pCO2 (35-45) mmHg ABG pO2 (80.0-100.0) mmH g ABG HCO3 (22-26) mmol/L ABG O2 Saturation ABG Base Excess (-2.0-2.0) mmol/ L Jonathan Test A-a O2 Gradient (5-10) mmHg Hematocrit (42-52) % Hgb O2 Saturation (95-100) % Carboxyhemoglobin (0.4-20.1) %THgb Methemoglobin (0.4-1.5) % Total Hemoglobin (14-18) g/dL Ionized Calcium (1.1-1.4) mmol/L O2 Delivery Device FiO2 % Assistant Basketball Coach ID Sodium 123 L (136-145) mmol/L Potassium 3.8 (3.5-5.1) mmol/L Chloride 83 L (98-107) mmol/L Carbon Dioxide 24 (22-29) mmol/L Anion Gap 19.8 H (5-19) BUN 7 (6-20) mg/dL Creatinine 0.6 L (0.7-1.2) mg/dL GFR Calculation 150.0 H (90-130) mL/min Glucose 523 H* (65-115) mg/dL POC Glucose (70-110) mg/dL Calcium 9.8 (8.5-10.5) mg/dL Total Bilirubin 0.4 (0.15-1.2) mg/dL AST 100 H (0-40) U/L ALT 95 H (0-41) U/L Alkaline Phosphata se 261 H (40-130) IU/L Total Protein 7.5 (6.6-8.7) g/dL Albumin 4.1 (3.5-5.2) g/dL Globulin 3.4 (1.3-4.6) g/dL Lipase 3 L (13-60) U/L Urine Color (Yellow) Urine Appearance (CLEAR) Urine pH (5-7) Ur Specific Gravit y (1.005-1.030) Urine Protein (Negative) Urine Glucose (UA) (Normal) Urine Ketones (Negative) Urine Occult Blood (Negative) Urine Nitrate (Negative) Urine Bilirubin (NEGATIVE) Urine Urobilinogen (Negative) mg/dL Ur Leukocyte Raisa ase (Negative) Serum Ketones Negative (Negative) 07/18/19 07/18/19 07/18/19 Range/Units 08:00 08:12 08:18 WBC (4.0-10.0) 10^3/ uL RBC (4.1-5.3) 10^6/u L Hgb (11.7-16.6) g/dL Hct (42.0-52.0) % MCV (80-94) fL MCH (28.0-34.0) pg MCHC (30.0-36.0) g/dL RDW (12.1-15.1) % Plt Count (130-400) 10^3/c mm MPV (7.4-10.4) fL Neut % (Auto) % Lymph % (Auto) % Braxton % (Auto) % Eos % (Auto) % Baso % (Auto) % Neut # (Auto) (1.8-7.7) 10^3/u L Lymph # (Auto) (0.8-4.8) 10^3/u L Braxton # (Auto) (0.2-0.9) 10^3/u L Eos # (Auto) (0.0-0.8) 10^3/u L Baso # (Auto) (0.0-0.1) 10^3/u L Nucleated RBC % (a uto) % Nucleated RBCs # /100WBC Specimen Type Arterial Sample Site Radial, left ABG pH 7.40 (7.35-7.45) ABG pCO2 42.4 (35-45) mmHg ABG pO2 94.2 (80.0-100.0) mmH g ABG HCO3 26.3 H (22-26) mmol/L ABG O2 Saturation 98.4 ABG Base Excess 1.3 (-2.0-2.0) mmol/ L Jonathan Test Pos A-a O2 Gradient 3.6 L (5-10) mmHg Hematocrit 30.8 L (42-52) % Hgb O2 Saturation 92.0 L (95-100) % Carboxyhemoglobin 6.1 (0.4-20.1) %THgb Methemoglobin 0.4 (0.4-1.5) % Total Hemoglobin 10.0 L (14-18) g/dL Ionized Calcium 1.2 (1.1-1.4) mmol/L O2 Delivery Device Room air FiO2 21.0 % Assistant Basketball Coach ID amh Sodium 128.0 L (136-145) mmol/L Potassium 3.3 L (3.5-5.1) mmol/L Chloride (98-107) mmol/L Carbon Dioxide (22-29) mmol/L Anion Gap (5-19) BUN (6-20) mg/dL Creatinine (0.7-1.2) mg/dL GFR Calculation (90-130) mL/min Glucose 302.0 H (65-115) mg/dL POC Glucose 342 (70-110) mg/dL Calcium (8.5-10.5) mg/dL Total Bilirubin (0.15-1.2) mg/dL AST (0-40) U/L ALT (0-41) U/L Alkaline Phosphata se (40-130) IU/L Total Protein (6.6-8.7) g/dL Albumin (3.5-5.2) g/dL Globulin (1.3-4.6) g/dL Lipase (13-60) U/L Urine Color Yellow (Yellow) Urine Appearance Clear (CLEAR) Urine pH 5 (5-7) Ur Specific Gravit y 1.000 L (1.005-1.030) Urine Protein Neg (Negative) Urine Glucose (UA) 4+ H (Normal) Urine Ketones Negative (Negative) Urine Occult Blood Neg (Negative) Urine Nitrate Negative (Negative) Urine Bilirubin Neg (NEGATIVE) Urine Urobilinogen Norm (Negative) mg/dL Ur Leukocyte Raisa ase Negative (Negative) Serum Ketones (Negative) 07/18/19 07/18/19 Range/Units 08:52 09:21 WBC (4.0-10.0) 10^3/ uL RBC (4.1-5.3) 10^6/u L Hgb (11.7-16.6) g/dL Hct (42.0-52.0) % MCV (80-94) fL MCH (28.0-34.0) pg MCHC (30.0-36.0) g/dL RDW (12.1-15.1) % Plt Count (130-400) 10^3/c mm MPV (7.4-10.4) fL Neut % (Auto) % Lymph % (Auto) % Braxton % (Auto) % Eos % (Auto) % Baso % (Auto) % Neut # (Auto) (1.8-7.7) 10^3/u L Lymph # (Auto) (0.8-4.8) 10^3/u L Braxton # (Auto) (0.2-0.9) 10^3/u L Eos # (Auto) (0.0-0.8) 10^3/u L Baso # (Auto) (0.0-0.1) 10^3/u L Nucleated RBC % (a uto) % Nucleated RBCs # /100WBC Specimen Type Sample Site ABG pH (7.35-7.45) ABG pCO2 (35-45) mmHg ABG pO2 (80.0-100.0) mmH g ABG HCO3 (22-26) mmol/L ABG O2 Saturation ABG Base Excess (-2.0-2.0) mmol/ L Jonathan Test A-a O2 Gradient (5-10) mmHg Hematocrit (42-52) % Hgb O2 Saturation (95-100) % Carboxyhemoglobin (0.4-20.1) %THgb Methemoglobin (0.4-1.5) % Total Hemoglobin (14-18) g/dL Ionized Calcium (1.1-1.4) mmol/L O2 Delivery Device FiO2 % Assistant Basketball Coach ID Sodium 129 L (136-145) mmol/L Potassium (3.5-5.1) mmol/L Chloride (98-107) mmol/L Carbon Dioxide (22-29) mmol/L Anion Gap (5-19) BUN (6-20) mg/dL Creatinine (0.7-1.2) mg/dL GFR Calculation (90-130) mL/min Glucose (65-115) mg/dL POC Glucose 252 (70-110) mg/dL Calcium (8.5-10.5) mg/dL Total Bilirubin (0.15-1.2) mg/dL AST (0-40) U/L ALT (0-41) U/L Alkaline Phosphata se (40-130) IU/L Total Protein (6.6-8.7) g/dL Albumin (3.5-5.2) g/dL Globulin (1.3-4.6) g/dL Lipase (13-60) U/L Urine Color (Yellow) Urine Appearance (CLEAR) Urine pH (5-7) Ur Specific Gravit y (1.005-1.030) Urine Protein (Negative) Urine Glucose (UA) (Normal) Urine Ketones (Negative) Urine Occult Blood (Negative) Urine Nitrate (Negative) Urine Bilirubin (NEGATIVE) Urine Urobilinogen (Negative) mg/dL Ur Leukocyte Raisa ase (Negative) Serum Ketones (Negative) Discharge Plan Discharge Patient Disposition: Left Against Medical Advice Clinical Impression: Diabetes, Acute hyperglycemia Prescriptions: No Action Lantus Solostar U-100 Insulin 100 unit/mL (3 mL) insulin pen 100 unit SUBCUT ONCE RF: 0 insulin lispro [Humalog U-100 Insulin] 100 unit/mL solution 10 unit SUBCUT TID RF: 0 metformin 1,000 mg tablet 1,000 mg PO BID RF: 0 metoprolol tartrate 50 mg tablet 50 mg PO QDAY RF: 0 lorazepam 1 mg tablet 1 mg PO BID PRNRF: 0 sildenafil [Viagra] 100 mg tablet 100 mg PO QDAY PRNRF: 0 pregabalin [Lyrica] 150 mg capsule 150 mg PO BID RF: 0 citalopram 20 mg tablet 20 mg PO BID RF: 0 hydrocodone-acetaminophen 10-325 mg tablet 1 tab PO Q6H PRN (Reason: pain) 30 Days Qty: 120 RF: 0 clonazepam 1 mg tablet 1 mg PO BID 30 Days Qty: 60 RF: 2 Citrate of Magnesia Solution 150 ml PO .Q6 hrs PRN (Reason: constipation) Qty: 296 RF: 0 Referrals: Oumar Gonzalez MD [Primary Care Provider] - Interventions: ED Discharge Assessment Last Done: 07/18/19 09:33 Stand Alone Forms: Against Medical Advice Discharge Date/Time: 07/18/19 09:34 Coding Level of Care Code ED School Lunch Manager for Chg Fwd Exam Comprehensive The documentation recorded by the Travis de jesus Bridget Annette, accurately reflects the service I personally performed and the decisions made by Aundrea cherry Curtis L, DO Jul 18, 2019 07:53
[2019-07-18 07:58] VITALS: BP 127/85; PULSE 92; RESP 18; TEMP 36.9; O2SAT 98
[2019-07-18 08:02] VITALS: O2SAT 98
[2019-07-18 08:03] LABS: Glucose Point of Care 342 mg/dL (70-110)
--- NOTE | 2019-07-18 08:04 | ECG_ITS ---
Measurements Intervals Commerce Rate: 86 P: 42 TN: 159 QRS: 48 QRSD: 101 T: 41 QT: 381 QTc: 456 SINUS RHYTHM Compared to ECG 03/19/2019 04:09:42 No significant changes Electronically Signed On 07-18-2019 14:26:04 MARKETING INFORMATION MANAGER by Garcia Bang M.D. [email or web address]
--- NOTE | 2019-07-18 08:04 | XR_ITS ---
WS: [id number] XR chest 1V portable [id number] REASON FOR EXAM: dyspnea/cough FINDINGS: The lung loco are well aerated. No pneumonia, pleural effusion, pulmonary edema, or mass effect. No pneumothorax. The heart was normal mediastinal interface normal. There is a mild scoliotic curve convex to the right. Comparisons were made to March 18, 2019. XR/XR chest 1V portable [id number] IMPRESSION: Negative chest for acute findings.
[2019-07-18] MEDS: sodium chloride 0.9% 1,000 ML 999 ML IV (08:12)
[2019-07-18 08:29] LABS: ABG PCO2 42.4 mmHg (35-45); Alveolar-Arterial Oxygen Gradi 3.6 mmHg (5-10); Arterial Blood Gas Hematocrit 30.8 % (42-52); Base Excess ABG 1.3 mmol/L (-2.0-2.0); Blood Gas Allen Test Pos; Blood Gas Operator Identificat amh; Blood Gas Sample Site Radial, left; Blood Gas Sample Type Arterial; Carboxyhemoglobin 6.1 %THgb (0.4-20.1); HCO3 ABG 26.3 mmol/L (22-26); Ionized Calcium Level - ABG 1.2 mmol/L (1.1-1.4); Methemoglobin 0.4 % (0.4-1.5); Oxygen Device ROOM AIR; Oxygen Saturation ABG 98.4; PO2 ABG 94.2 mmHg (80.0-100.0); Potassium Level - ABG 3.3 mmol/L (3.5-5.0)
[2019-07-18 08:29] LABS: Add Urine Microscopic? NO
[2019-07-18 08:41] LABS: Alanine Aminotransferase 95 U/L (0-41); Albumin Level 4.1 g/dL (3.5-5.2); Alkaline Phosphatase 261 IU/L (40-130); Anion Gap 19.8 (5-19); Aspartate Amino Transferase 100 U/L (0-40); Blood Urea Nitrogen 7 mg/dL (6-20); Calcium 9.8 mg/dL (8.5-10.5); Carbon Dioxide 24 mmol/L (22-29); Chloride 83 mmol/L (98-107); Globulin 3.4 g/dL (1.3-4.6); Lipase 3 U/L (13-60); Potassium 3.8 mmol/L (3.5-5.1); Sodium 123 mmol/L (136-145); Total Bilirubin 0.4 mg/dL (0.15-1.2); Total Protein 7.5 g/dL (6.6-8.7)
[2019-07-18 08:44] LABS: Bilirubin Urine Neg (NEGATIVE); Blood Urine Neg (Negative); Glucose Urine UA 4+ (Normal); Ketones Urine Negative (Negative); Leukocyte Esterase Urine Negative (Negative); Nitrate Urine Negative (Negative); Protein Urine Neg (Negative); Urine Appearance Clear (CLEAR); Urine Color Yellow (Yellow); Urobilinogen Urine Norm (Negative); pH Urine 5 (5-7)
[2019-07-18 08:44] LABS: Basophils # 0.1 10^3/uL (0.0-0.1); Basophils % 0.7 %; Eosinophils % 0.3 %; Hematocrit 33.8 % (42.0-52.0); Hemoglobin 11.1 g/dL (11.7-16.6); Lymphocytes # 1.8 10^3/uL (0.8-4.8); Lymphocytes % 17.1 %; Mean Corpuscular HGB Conc 32.8 g/dL (30.0-36.0); Mean Corpuscular Hemoglobin 29.1 pg (28.0-34.0); Mean Corpuscular Volume 88.5 fL (80-94); Mean Platelet Volume 11.8 fL (7.4-10.4); Monocytes # 0.6 10^3/uL (0.2-0.9); Monocytes % 5.4 %; Neutrophils % 76.1 %; Nucleated Red Blood Cells % 0 %; Platelet Count 398 10^3/cmm (130-400); Red Blood Count 3.82 10^6/uL (4.1-5.3); Red Cell Distribution Width 12.9 % (12.1-15.1); White Blood Count 10.5 10^3/uL (4.0-10.0)
[2019-07-18 08:55] LABS: Glucose 523 mg/dL (65-115)
[2019-07-18 08:56] LABS: Ketone (Acetest) Serum Negative (Negative)
[2019-07-18 09:11] LABS: Sodium 129 mmol/L (136-145)
[2019-07-18 09:25] LABS: Glucose Point of Care 252 mg/dL (70-110)
[2019-07-18 09:33] VITALS: BP 128/64; PULSE 72; RESP 18; O2SAT 97
== END 2019-07-18 09:34 | disposition left against medical advice (07) ==
PROVIDERS: Emergency Provider Family Medicine; Family Provider Family Medicine; PCP Family Medicine
DX: E11.65 Type 2 diabetes mellitus with hyperglycemia (principal); Z79.4 Long term (current) use of insulin; F17.200 Nicotine dependence, unspecified, uncomplicated; Z53.29 Procedure and treatment not carried out because of patient's decision for other reasons
CPT/HCPCS: 36415; 36416; 36600; 71045; 80051; 80053; 81003; 82009; 82810; 82962; 83690; 83986; 84295; 85025; 93005; 96360; 96361; 99283; 99284; J7030

== ENCOUNTER 2019-08-10 06:40 | Emergency (ER) | payer MEDICAID, SELFPAY ==
[2019-08-10 06:40] VITALS: BP 132/73; PULSE 75; RESP 16; TEMP 37.2; O2SAT 99; BMI 17.7
--- NOTE | 2019-08-10 06:49 | W.ED.ABDPA2 ---
HPI - Abdominal Pain General: Chief Complaint: Abdominal Pain Stated Complaint: ABD PAIN/ HYPERGLYCEMIA Time Seen by Provider: 08/10/19 06:44 History of Present Illness: HPI narrative: 39-year-old male presents complaining of abdominal pain. Patient frequently is in the emergency room with abdominal pain elevated blood sugars blood sugar control is quite poor. Last several times he has been and he is complained of what he perceives as pancreatitis pain however his lipase has been normal. His exam is inconsistent today. He states he has been vomiting denies hematochezia melena hematemesis or coffee-ground emesis. MD elicited complaint: abdominal pain Associated Symptoms: Reports nausea and vomiting; Denies bloating, chills, coffee ground emesis, constipation, diarrhea, dysuria, fever(s), hematochezia, hematemesis and melena Review of Systems Const: Denies: fever, chills, body aches, change in appetite, fatigue or malaise ENMT: Denies: throat pain, ear pain, nasal discharge or nasal congestion Card: Denies: chest pain, edema, shortness of breath on exertion or shortness of breath when lying down Resp: Denies: shortness of breath, productive cough or non-productive cough GI: Reports: abdominal pain, nausea and vomiting; Denies: vomiting blood, coffee grounds in vomit, diarrhea, constipation, bloating, blood in stool or black tarry stool : Denies: flank pain, painful urination, urinary frequency or urinary urgency Skin/Breast: Denies: rash or itching PFSH ED PFSH: Medical History ALC (alcoholic liver cirrhosis) Anxiety and depression Chronic pancreatitis due to acute alcohol intoxication No change in chronic pain meds in combination w no reliability in compliance Diabetes Social History Smoking and tobacco status: current every day smoker Alcohol intake: current Physical Exam Const: COMMON NORMALS: no apparent distress GENERAL APPEARANCE: cooperative and comfortable ORIENTATION/CONSCIOUSNESS: Yes awake, Yes oriented to person, Yes oriented to place and Yes oriented to time HENMT: COMMON NORMALS: normocephalic, head/scalp atraumatic, hearing grossly normal bilaterally, external ears normal, EAC's normal, TM's normal bilaterally, nasal mucous membranes and turbinates normal, moist oral mucous membranes and oropharynx normal HEAD & SCALP: normocephalic and atraumatic NOSE: nasal mucous membranes and turbinates normal EXTERNAL EAR: Yes external ears normal EXTERNAL AUDITORY CANAL: EAC's normal TYMPANIC MEMBRANE: TM's normal bilaterally Eye: COMMON NORMALS: PERRL, EOMs intact bilaterally, conjunctivae normal and no scleral icterus CONJUNCTIVA: Yes conjunctivae normal PUPIL: Yes PERRL Neck/C-Spine: COMMON NORMALS: full ROM, no lymphadenopathy, supple and no JVD Lymph: LYMPHATIC: no lymphadenopathy noted and no lymphedema noted Resp: COMMON NORMALS: normal respiratory effort, no retractions, no use of accessory muscles and clear to auscultation bilaterally AUSCULTATION: clear to auscultation bilaterally Cardio: COMMON NORMALS: no JVD, regular rate, regular rhythm and no murmurs RATE: regular rate RHYTHM: regular rhythm GI: COMMON NORMALS: soft to palpation and no hepatosplenomegaly AUSCULTATION: Yes normoactive bowel sounds PALPATION: Yes soft, No tender, No guarding and Yes no hepatosplenomegaly OTHER: Patient up and active sitting up without any evidence of pain. Exam normal with distraction. Extremity: COMMON NORMALS: normal to inspection, normal capillary refill, no clubbing, cyanosis or edema, no calf tenderness and no pedal edema Neuro: SENSORIUM/ORIENTATION: Yes oriented to person, Yes oriented to place and Yes oriented to time Skin: COMMON NORMALS: no rashes or lesions noted GENERAL SKIN EXAM: no rashes or lesions noted Course ED course: Blood sugars improved his abdominal pain is inconsistent and does not present with distraction. We will go ahead and discharge him home strongly encouraged him to monitor blood sugars closely follow-up with primary care patient encouraged to use antiemetics. Vital Signs: Vital signs: Vital Signs Temperature 99 F 08/10/19 06:40 Pulse Rate 75 08/10/19 11:17 Respiratory Rate 14 08/10/19 11:17 Blood Pressure 140/75 08/10/19 11:17 Pulse Oximetry 97 08/10/19 11:17 MDM - Abdominal Pain Lab Data: Labs: Lab Results 08/10/19 08/10/19 08/10/19 Range/Units 06:12 06:12 06:48 WBC 11.8 H (4.0-10.0) 10^3/ uL RBC 3.70 L (4.1-5.3) 10^6/u L Hgb 11.0 L (11.7-16.6) g/dL Hct 33.4 L (42.0-52.0) % MCV 90.3 (80-94) fL MCH 29.7 (28.0-34.0) pg MCHC 32.9 (30.0-36.0) g/dL RDW 12.7 (12.1-15.1) % Plt Count 361 (130-400) 10^3/c mm MPV 11.9 H (7.4-10.4) fL Neut % (Auto) 80.1 % Lymph % (Auto) 11.4 % Elmore % (Auto) 7.5 % Eos % (Auto) 0.3 % Baso % (Auto) 0.3 % Neut # (Auto) 9.5 H (1.8-7.7) 10^3/u L Lymph # (Auto) 1.4 (0.8-4.8) 10^3/u L Elmore # (Auto) 0.9 (0.2-0.9) 10^3/u L Eos # (Auto) 0.0 (0.0-0.8) 10^3/u L Baso # (Auto) 0.0 (0.0-0.1) 10^3/u L Nucleated RBC % (a uto) 0 % Nucleated RBCs # 0.0 /100WBC Specimen Type Sample Site ABG pH (7.35-7.45) ABG pCO2 (35-45) mmHg ABG pO2 (80.0-100.0) mmH g ABG HCO3 (22-26) mmol/L ABG O2 Saturation ABG Base Excess (-2.0-2.0) mmol/ L Jonathan Test A-a O2 Gradient (5-10) mmHg Hematocrit (42-52) % Hgb O2 Saturation (95-100) % Carboxyhemoglobin (0.4-20.1) %THgb Methemoglobin (0.4-1.5) % Total Hemoglobin (14-18) g/dL Ionized Calcium (1.1-1.4) mmol/L O2 Delivery Device FiO2 % Water Server ID Sodium 124 L (136-145) mmol/L Potassium 4.1 (3.5-5.1) mmol/L Chloride 86 L (98-107) mmol/L Carbon Dioxide 25 (22-29) mmol/L Anion Gap 17.1 (5-19) BUN 5 L (6-20) mg/dL Creatinine 0.5 L (0.7-1.2) mg/dL GFR Calculation 185.1 H (90-130) mL/min Glucose 636 H* (65-115) mg/dL POC Glucose 581 (70-110) mg/dL Calculated Osmolal ity 284 L (285-295) mOsm/k g Calcium 8.9 (8.5-10.5) mg/dL Total Bilirubin 0.3 (0.15-1.2) mg/dL AST 24 (0-40) U/L ALT 20 (0-41) U/L Alkaline Phosphata se 168 H (40-130) IU/L Total Protein 7.0 (6.6-8.7) g/dL Albumin 3.4 L (3.5-5.2) g/dL Globulin 3.6 (1.3-4.6) g/dL Lipase 5 L (13-60) U/L 08/10/19 08/10/19 08/10/19 Range/Units 07:00 07:43 08:40 WBC (4.0-10.0) 10^3/ uL RBC (4.1-5.3) 10^6/u L Hgb (11.7-16.6) g/dL Hct (42.0-52.0) % MCV (80-94) fL MCH (28.0-34.0) pg MCHC (30.0-36.0) g/dL RDW (12.1-15.1) % Plt Count (130-400) 10^3/c mm MPV (7.4-10.4) fL Neut % (Auto) % Lymph % (Auto) % Elmore % (Auto) % Eos % (Auto) % Baso % (Auto) % Neut # (Auto) (1.8-7.7) 10^3/u L Lymph # (Auto) (0.8-4.8) 10^3/u L Elmore # (Auto) (0.2-0.9) 10^3/u L Eos # (Auto) (0.0-0.8) 10^3/u L Baso # (Auto) (0.0-0.1) 10^3/u L Nucleated RBC % (a uto) % Nucleated RBCs # /100WBC Specimen Type Arterial Sample Site Radial, right ABG pH 7.45 (7.35-7.45) ABG pCO2 40.7 (35-45) mmHg ABG pO2 81.2 (80.0-100.0) mmH g ABG HCO3 28.1 H (22-26) mmol/L ABG O2 Saturation 97.7 ABG Base Excess 3.7 H (-2.0-2.0) mmol/ L Jonathan Test Pos A-a O2 Gradient 18.2 H (5-10) mmHg Hematocrit 30.3 L (42-52) % Hgb O2 Saturation 91.9 L (95-100) % Carboxyhemoglobin 5.1 (0.4-20.1) %THgb Methemoglobin 0.9 (0.4-1.5) % Total Hemoglobin 9.9 L (14-18) g/dL Ionized Calcium 1.1 (1.1-1.4) mmol/L O2 Delivery Device Room air FiO2 21.0 % Water Server ID ed Sodium 125.0 L (136-145) mmol/L Potassium 3.7 (3.5-5.1) mmol/L Chloride (98-107) mmol/L Carbon Dioxide (22-29) mmol/L Anion Gap (5-19) BUN (6-20) mg/dL Creatinine (0.7-1.2) mg/dL GFR Calculation (90-130) mL/min Glucose 530.0 H (65-115) mg/dL POC Glucose 371 285 (70-110) mg/dL Calculated Osmolal ity (285-295) mOsm/k g Calcium (8.5-10.5) mg/dL Total Bilirubin (0.15-1.2) mg/dL AST (0-40) U/L ALT (0-41) U/L Alkaline Phosphata se (40-130) IU/L Total Protein (6.6-8.7) g/dL Albumin (3.5-5.2) g/dL Globulin (1.3-4.6) g/dL Lipase (13-60) U/L 08/10/19 08/10/19 Range/Units 09:30 09:56 WBC (4.0-10.0) 10^3/ uL RBC (4.1-5.3) 10^6/u L Hgb (11.7-16.6) g/dL Hct (42.0-52.0) % MCV (80-94) fL MCH (28.0-34.0) pg MCHC (30.0-36.0) g/dL RDW (12.1-15.1) % Plt Count (130-400) 10^3/c mm MPV (7.4-10.4) fL Neut % (Auto) % Lymph % (Auto) % Elmore % (Auto) % Eos % (Auto) % Baso % (Auto) % Neut # (Auto) (1.8-7.7) 10^3/u L Lymph # (Auto) (0.8-4.8) 10^3/u L Elmore # (Auto) (0.2-0.9) 10^3/u L Eos # (Auto) (0.0-0.8) 10^3/u L Baso # (Auto) (0.0-0.1) 10^3/u L Nucleated RBC % (a uto) % Nucleated RBCs # /100WBC Specimen Type Sample Site ABG pH (7.35-7.45) ABG pCO2 (35-45) mmHg ABG pO2 (80.0-100.0) mmH g ABG HCO3 (22-26) mmol/L ABG O2 Saturation ABG Base Excess (-2.0-2.0) mmol/ L Jonathan Test A-a O2 Gradient (5-10) mmHg Hematocrit (42-52) % Hgb O2 Saturation (95-100) % Carboxyhemoglobin (0.4-20.1) %THgb Methemoglobin (0.4-1.5) % Total Hemoglobin (14-18) g/dL Ionized Calcium (1.1-1.4) mmol/L O2 Delivery Device FiO2 % Water Server ID Sodium 134 L (136-145) mmol/L Potassium 3.7 (3.5-5.1) mmol/L Chloride 98 (98-107) mmol/L Carbon Dioxide 26 (22-29) mmol/L Anion Gap 13.7 (5-19) BUN 3 L (6-20) mg/dL Creatinine 0.4 L (0.7-1.2) mg/dL GFR Calculation 239.5 H (90-130) mL/min Glucose 296 H (65-115) mg/dL POC Glucose 258 (70-110) mg/dL Calculated Osmolal ity 285 (285-295) mOsm/k g Calcium 8.7 (8.5-10.5) mg/dL Total Bilirubin (0.15-1.2) mg/dL AST (0-40) U/L ALT (0-41) U/L Alkaline Phosphata se (40-130) IU/L Total Protein (6.6-8.7) g/dL Albumin (3.5-5.2) g/dL Globulin (1.3-4.6) g/dL Lipase (13-60) U/L Discharge Plan Discharge Patient Disposition: Home, Self-Care Clinical Impression: Chronic abdominal pain, Poorly controlled diabetes mellitus, Hyponatremia Condition: Stable Prescriptions: New Zofran 4 mg tablet 4 mg PO Q6H PRN (Reason: nausea and vomiting) Qty: 20 RF: 0 No Action Lantus Solostar U-100 Insulin 100 unit/mL (3 mL) insulin pen 100 unit SUBCUT ONCE RF: 0 insulin lispro [Humalog U-100 Insulin] 100 unit/mL solution 10 unit SUBCUT TID RF: 0 metformin 1,000 mg tablet 1,000 mg PO BID RF: 0 metoprolol tartrate 50 mg tablet 50 mg PO QDAY RF: 0 lorazepam 1 mg tablet 1 mg PO BID PRNRF: 0 pregabalin [Lyrica] 150 mg capsule 150 mg PO BID RF: 0 citalopram 20 mg tablet 20 mg PO BID RF: 0 clonazepam 1 mg tablet 1 mg PO BID 30 Days Qty: 60 RF: 2 hydrocodone-acetaminophen 10-325 mg tablet 1 tab PO Q6H PRN (Reason: pain) 30 Days Qty: 120 RF: 0 sildenafil [Viagra] 100 mg tablet 100 mg PO QDAY PRN (Reason: sexual activity) Qty: 10 RF: 5 Discharge Orders: Discharge Order (Routine); Ordered 08/10/19 Ordered By: Jose Carlos Guillaume Referrals: Oumar Gonzalez MD [Primary Care Provider] - Discharge Diet: Usual diet Discharge Activity: Increase activity as tolerated Activity Restrictions/Additional Instructions: Continue to use previously prescribed pain medications at home. Follow-up with your primary care doctor for further evaluation. Monitor blood sugars at least 4-5 times a day use sliding scale insulin to supplement your long-acting insulins to maintain blood sugar control. Discharge Date/Time: 08/10/19 11:18 Coding Level of Care Code ED Vp Treasurer for Bladimir Ortiz
[2019-08-10 06:52] LABS: Glucose Point of Care 581 mg/dL (70-110)
[2019-08-10] MEDS: sodium chloride 0.9% 1,000 ML 999 ML IV ×2 (06:56→07:46)
[2019-08-10] MEDS: insulin regular-human 100 units/1 mL 15 UNIT IVP (07:00)
[2019-08-10 07:07] LABS: ABG PCO2 40.7 mmHg (35-45); ABG PH Result 7.45 (7.35-7.45); Alveolar-Arterial Oxygen Gradi 18.2 mmHg (5-10); Arterial Blood Gas Hematocrit 30.3 % (42-52); Base Excess ABG 3.7 mmol/L (-2.0-2.0); Blood Gas Allen Test Pos; Blood Gas Sample Site Radial, right; Blood Gas Sample Type Arterial; Carboxyhemoglobin 5.1 %THgb (0.4-20.1); HCO3 ABG 28.1 mmol/L (22-26); HGB O2 Sat 91.9 % (95-100); Ionized Calcium Level - ABG 1.1 mmol/L (1.1-1.4); Methemoglobin 0.9 % (0.4-1.5); Oxygen Device ROOM AIR; Oxygen Saturation ABG 97.7; PO2 ABG 81.2 mmHg (80.0-100.0); Potassium Level - ABG 3.7 mmol/L (3.5-5.0); Total Hemoglobin 9.9 g/dL (14-18)
[2019-08-10 07:09] LABS: Basophils % 0.3 %; Eosinophils % 0.3 %; Hematocrit 33.4 % (42.0-52.0); Lymphocytes # 1.4 10^3/uL (0.8-4.8); Lymphocytes % 11.4 %; Mean Corpuscular HGB Conc 32.9 g/dL (30.0-36.0); Mean Corpuscular Hemoglobin 29.7 pg (28.0-34.0); Mean Corpuscular Volume 90.3 fL (80-94); Mean Platelet Volume 11.9 fL (7.4-10.4); Monocytes # 0.9 10^3/uL (0.2-0.9); Monocytes % 7.5 %; Neutrophils # 9.5 10^3/uL (1.8-7.7); Neutrophils % 80.1 %; Nucleated Red Blood Cells % 0 %; Platelet Count 361 10^3/cmm (130-400); Red Cell Distribution Width 12.7 % (12.1-15.1); White Blood Count 11.8 10^3/uL (4.0-10.0)
[2019-08-10 07:16] LABS: Alanine Aminotransferase 20 U/L (0-41); Albumin Level 3.4 g/dL (3.5-5.2); Alkaline Phosphatase 168 IU/L (40-130); Anion Gap 17.1 (5-19); Aspartate Amino Transferase 24 U/L (0-40); Blood Urea Nitrogen 5 mg/dL (6-20); Calcium 8.9 mg/dL (8.5-10.5); Carbon Dioxide 25 mmol/L (22-29); Chloride 86 mmol/L (98-107); Creatinine Clr Calc Pharmacy 152.7092; Globulin 3.6 g/dL (1.3-4.6); Glomerular Filtration Rate 185.1 mL/min (90-130); Lipase 5 U/L (13-60); Osmolality Calculated 284 mOsm/kg (285-295); Potassium 4.1 mmol/L (3.5-5.1); Sodium 124 mmol/L (136-145); Total Bilirubin 0.3 mg/dL (0.15-1.2)
[2019-08-10 07:18] LABS: Glucose 636 mg/dL (65-115)
[2019-08-10 07:51] LABS: Glucose Point of Care 371 mg/dL (70-110)
[2019-08-10] MEDS: insulin regular-human 100 units/1 mL 5 UNIT IVP (08:01)
[2019-08-10 08:43] LABS: Glucose Point of Care 285 mg/dL (70-110)
--- NOTE | 2019-08-10 08:44 | PC.NURSE ---
Bedside Glucose: 285 mg/dL @ 0844
--- NOTE | 2019-08-10 08:55 | XRR_ITS ---
PROCEDURE INFORMATION: Exam: XR Chest, 1 View Exam date and time: 08/10/2019 8:55 AM Age: 39 years old Clinical indication: Cough and dyspnea; Additional info: Dyspnea/cough TECHNIQUE: Imaging protocol: XR of the chest Views: 1 view. COMPARISON: CR XR chest 1V portable [id number] 07/18/2019 8:40 AM FINDINGS: Lungs: Unremarkable. No consolidation. Pleural space: Unremarkable. No pleural effusion. No pneumothorax. Heart/Mediastinum: Unremarkable. No cardiomegaly. Bones/joints: Unremarkable. XR/XR chest 1V portable [id number] IMPRESSION: No acute findings.
[2019-08-10 09:49] LABS: Anion Gap 13.7 (5-19); Blood Urea Nitrogen 3 mg/dL (6-20); Calcium 8.7 mg/dL (8.5-10.5); Carbon Dioxide 26 mmol/L (22-29); Chloride 98 mmol/L (98-107); Glomerular Filtration Rate 239.5 mL/min (90-130); Glucose 296 mg/dL (65-115); Osmolality Calculated 285 mOsm/kg (285-295); Potassium 3.7 mmol/L (3.5-5.1); Sodium 134 mmol/L (136-145)
[2019-08-10 09:59] LABS: Glucose Point of Care 258 mg/dL (70-110)
[2019-08-10 11:17] VITALS: BP 140/75; PULSE 75; RESP 14; O2SAT 97
== END 2019-08-10 11:18 | disposition home or self-care (01) ==
PROVIDERS: Emergency Provider Family Medicine; Family Provider Family Medicine; PCP Family Medicine
DX: R10.9 Unspecified abdominal pain (principal); G89.29 Other chronic pain; E11.65 Type 2 diabetes mellitus with hyperglycemia; E87.1 Hypo-osmolality and hyponatremia; F17.200 Nicotine dependence, unspecified, uncomplicated; Z79.4 Long term (current) use of insulin
CPT/HCPCS: 12345; 36415; 36416; 36600; 71045; 80048; 80051; 80053; 82810; 82962; 83690; 83986; 85025; 96360; 96361; 96374; 96375; 96376; 99282; 99284; J1815; J7030

== ENCOUNTER → 2019-08-11 10:58 | Outpatient (BNVA) | payer MEDICAID, SELFPAY | PROVIDERS: Family Provider Family Medicine; PCP Family Medicine; Referring Provider Family Medicine; Visit Provider Orthopaedic Surgery | DX: M25.561 Pain in right knee (principal); M25.562 Pain in left knee | CPT/HCPCS: 73560; 73565 ==

== ENCOUNTER → 2019-10-29 10:38 | Outpatient (BNVA) | payer MEDICAID, SELFPAY | PROVIDERS: Family Provider Family Medicine; PCP Family Medicine; Referring Provider Family Medicine; Visit Provider Family Medicine | DX: M25.461 Effusion, right knee (principal); M25.462 Effusion, left knee; F41.9 Anxiety disorder, unspecified; F32.9 Major depressive disorder, single episode, unspecified; N52.9 Male erectile dysfunction, unspecified; E11.42 Type 2 diabetes mellitus with diabetic polyneuropathy | CPT/HCPCS: 80053; 83036; 85025 ==

== ENCOUNTER → 2019-11-05 10:26 | Outpatient (BNVA) | payer MEDICAID, SELFPAY | PROVIDERS: Family Provider Family Medicine; PCP Family Medicine; Referring Provider Family Medicine; Visit Provider Family Medicine | DX: D50.9 Iron deficiency anemia, unspecified (principal); J18.9 Pneumonia, unspecified organism | CPT/HCPCS: 71046; 80048; 82728; 83540; 85025 ==

== ENCOUNTER 2019-11-08 19:02 | Emergency (ER) | payer MEDICAID, SELFPAY ==
[2019-11-08 19:06] VITALS: PULSE 99; RESP 22; TEMP 36.5; O2SAT 98; BMI 22.1
--- NOTE | 2019-11-08 19:07 | ECG_ITS ---
Measurements Intervals [place] Rate: 97 P: 47 AR: 138 QRS: 26 QRSD: 91 T: 73 QT: 339 QTc: 432 SINUS RHYTHM NONSPECIFIC T-WAVE ABNORMALITY Compared to ECG 07/18/2019 08:23:07 T-wave abnormality now present Electronically Signed On 11-09-2019 19:28:07 CDT by Randell Pedro M.D. [id number]
--- NOTE | 2019-11-08 19:07 | XR_ITS ---
WS: [id number] PORTABLE CHEST HISTORY: cp COMPARISON: 11/05/2019 Prior median sternotomy with valve replacement. Slight elevation of the RIGHT hemidiaphragm and continued airspace disease over the RIGHT hilum and R IGHT lower lung field. LEFT lung is clear with a small amount of pleural fluid or thickening at the L EFT costophrenic angle. No pneumothorax. Cardiac size: Mildly enlarged cardiac silhouette. Mediastinum/Aorta: Normal mediastinum. No osseous abnormality seen. XR/XR chest 1V portable [id number] IMPRESSION: 1. Persistent volume loss and slight elevation of the RIGHT hemidiaphragm and changes suspicious for pneumonia. No improvement since 11/05/2019. 2. Prior CABG. 3. Small bilateral pleural effusions.
--- NOTE | 2019-11-08 19:25 | ED_ITS ---
HPI - Chest Pain General: Chief Complaint: Chest Pain Stated Complaint: cp Time Seen by Provider: 11/08/19 19:07 Source: patient Mode of arrival: ambulatory Limitations: no limitations History of Present Illness: HPI narrative: 39-year-old male who has a history of valve disease and had open heart surgery 1 month ago for valve replacement. Patient states he has chronic chest pain is had increasing pain over the last week. He states the pain is very sharp in nature and rates it an 8 out of 10. He denies any shortness of breath or nausea. He denies any worsening or improv ing factors. MD complaint: chest pain Onset (ago): week(s) Timing of current episode: constant Prior episodes: Yes Associated symptoms: Deny abdominal pain, dyspnea, fever(s), nausea or vomiting Review of Systems Const: Denies: fever(s), chills, body aches or change in appetite Eyes: Denies: blurry vision or eye discomfort ENMT: Denies: throat pain or dental pain Card: Reports: chest pain Resp: Denies: dyspnea GI: Denies: abdominal pain, nausea, vomiting or diarrhea : Denies: dysuria Musc: Denies: neck pain or back pain Skin/Breast: Denies: rash Neuro: Denies: headache(s) Psych: Denies: depression Khanh/Lymph: Denies: easy bruising All/Imm: Denies: urticaria PFSH ED PFSH: Medical History ALC (alcoholic liver cirrhosis) Anxiety and depression Chronic pancreatitis due to acute alcohol intoxication No change in chronic pain meds in combination w no reliability in compliance Diabetes Diabetic peripheral neuropathy Erectile dysfunction Social History Smoking and tobacco status: current every day smoker Alcohol intake: current Physical Exam Const: COMMON NORMALS: no acute distress, patient oriented x3 and healthy appearing HENMT: COMMON NORMALS: normocephalic and atraumatic HEAD & SCALP: normocephalic and atraumatic Eye: COMMON NORMALS: Equal, round and reactive pupils present and EOMs intact bilaterally PUPIL: Yes Equal, round and reactive pupils present Neck/C-Spine: COMMON NORMALS: full ROM and supple Chest: COMMONS NORMALS: normal inspection of the chest and normal palpation of entire chest wall Resp: COMMON NORMALS: normal respiratory effort, No retractions, No use of accessory muscles and clear to auscultation bilaterally AUSCULTATION: clear to auscultation bilaterally Cardio: COMMON NORMALS: regular rate, regular rhythm and No murmurs present (Cardio) RATE: regular rate RHYTHM: regular rhythm GI: COMMON NORMALS: Normal to inspection, nondistended, normoactive bowel sounds present, Soft to palpation, non-tender and no masses PALPATION: Yes Soft to palpation Extremity: COMMON NORMALS: normal to inspection and full ROM Neuro: COMMON NORMALS: patient oriented x3, moves all extremities and no focal motor deficits Psych: COMMON NORMALS: mental status grossly normal, Normal thought process present and cooperative THOUGHT PROCESS: Normal thought process present Skin: COMMON NORMALS: no rashes or lesions noted and no wounds GENERAL SKIN EXAM: no rashes or lesions noted Course Vital Signs: Vital signs: Vital Signs Temperature 97.7 F 11/08/19 19:06 Pulse Rate 99 11/08/19 19:06 Respiratory Rate 22 H 11/08/19 19:06 Pulse Oximetry 98 11/08/19 19:06 MDM - Chest Pain MDM Narrative: Medical decision making narrative: Jagdish presents here with chest pain. Patient is also hyperglycemic and has an elevated troponin. Patient here became upset because he was not able to eat. Patient had already signed out of another hospital earlier today and states that he just does not want to stay in any hospital wants to go and eat. Patient understands the risks and will sign out. Lab Data: Labs: Lab Results 11/08/19 11/08/19 11/08/19 Range/Units 19:45 19:45 19:45 WBC 11.2 H (4.0-10.0) 10^3/ uL RBC 3.26 L (4.1-5.3) 10^6/u L Hgb 8.8 L (11.7-16.6) g/dL Hct 28.9 L (42.0-52.0) % MCV 88.7 (80-94) fL MCH 27.0 L (28.0-34.0) pg MCHC 30.4 (30.0-36.0) g/dL RDW 15.9 H (12.1-15.1) % Plt Count 275 (130-400) 10^3/c mm MPV 10.7 H (7.4-10.4) fL Neut % (Auto) 85.3 % Lymph % (Auto) 6.8 % Sunflower % (Auto) 6.2 % Eos % (Auto) 0.7 % Baso % (Auto) 0.4 % Neut # (Auto) 9.6 H (1.8-7.7) 10^3/u L Lymph # (Auto) 0.8 (0.8-4.8) 10^3/u L Sunflower # (Auto) 0.7 (0.2-0.9) 10^3/u L Eos # (Auto) 0.1 (0.0-0.8) 10^3/u L Baso # (Auto) 0.0 (0.0-0.1) 10^3/u L Nucleated RBC % (a uto) 0 % Nucleated RBCs # 0.0 /100WBC PT 16.60 H (10.5-13.3) SECO NDS INR 1.30 H (0.8-1.2) Specimen Type Sample Site ABG pH (7.35-7.45) ABG pCO2 (35-45) mmHg ABG pO2 (80.0-100.0) mmH g ABG HCO3 (22-26) mmol/L ABG Base Excess (-2.0-2.0) mmol/ L Jonathan Test Hematocrit (42-52) % O2 Delivery Device Technology Sales Consultant ID Sodium 131 L (136-145) mmol/L Potassium 4.0 (3.5-5.1) mmol/L Chloride 93 L (98-107) mmol/L Carbon Dioxide 21 L (22-29) mmol/L Anion Gap 21.0 H (5-19) BUN 8 (6-20) mg/dL Creatinine 0.8 (0.7-1.2) mg/dL GFR Calculation 107.6 (90-130) mL/min Glucose 671 H* (65-115) mg/dL POC Glucose (70-110) mg/dL Calculated Osmolal ity 300 H (285-295) mOsm/k g Calcium 9.0 (8.5-10.5) mg/dL Total Bilirubin 0.2 (0.15-1.2) mg/dL AST 56 H (0-40) U/L ALT 29 (0-41) U/L Alkaline Phosphata se 177 H (40-130) IU/L Troponin T Baselin e (0-15) ng/L Total Protein 6.6 (6.6-8.7) g/dL Albumin 3.1 L (3.5-5.2) g/dL Globulin 3.5 (1.3-4.6) g/dL Lipase 6 L (13-60) U/L 11/08/19 11/08/19 11/08/19 Range/Units 19:45 20:35 20:38 WBC (4.0-10.0) 10^3/ uL RBC (4.1-5.3) 10^6/u L Hgb (11.7-16.6) g/dL Hct (42.0-52.0) % MCV (80-94) fL MCH (28.0-34.0) pg MCHC (30.0-36.0) g/dL RDW (12.1-15.1) % Plt Count (130-400) 10^3/c mm MPV (7.4-10.4) fL Neut % (Auto) % Lymph % (Auto) % Sunflower % (Auto) % Eos % (Auto) % Baso % (Auto) % Neut # (Auto) (1.8-7.7) 10^3/u L Lymph # (Auto) (0.8-4.8) 10^3/u L Sunflower # (Auto) (0.2-0.9) 10^3/u L Eos # (Auto) (0.0-0.8) 10^3/u L Baso # (Auto) (0.0-0.1) 10^3/u L Nucleated RBC % (a uto) % Nucleated RBCs # /100WBC PT (10.5-13.3) SECO NDS INR (0.8-1.2) Specimen Type Arterial Sample Site Radial, right ABG pH 7.44 (7.35-7.45) ABG pCO2 37.6 (35-45) mmHg ABG pO2 66.0 L (80.0-100.0) mmH g ABG HCO3 25.4 (22-26) mmol/L ABG Base Excess 1.2 (-2.0-2.0) mmol/ L Jonathan Test Pos Hematocrit 26.9 L (42-52) % O2 Delivery Device [employer] Sales Consultant ID ellpe Sodium (136-145) mmol/L Potassium (3.5-5.1) mmol/L Chloride (98-107) mmol/L Carbon Dioxide (22-29) mmol/L Anion Gap (5-19) BUN (6-20) mg/dL Creatinine (0.7-1.2) mg/dL GFR Calculation (90-130) mL/min Glucose (65-115) mg/dL POC Glucose > 600 (70-110) mg/dL Calculated Osmolal ity (285-295) mOsm/k g Calcium (8.5-10.5) mg/dL Total Bilirubin (0.15-1.2) mg/dL AST (0-40) U/L ALT (0-41) U/L Alkaline Phosphata se (40-130) IU/L Troponin T Baselin e 104 H* (0-15) ng/L Total Protein (6.6-8.7) g/dL Albumin (3.5-5.2) g/dL Globulin (1.3-4.6) g/dL Lipase (13-60) U/L EKG Data^: EKG 1: Attestation: I personally reviewed and interpreted this EKG as follows: EKG interpretation date: 11/08/19 EKG interpretation time: 19:19 Interpretation: nsr hr [address] or t wave abnormalities qrs 91 qtc 394 Discharge Plan Discharge Patient Disposition: Left Against Medical Advice Clinical Impression: Hyperglycemia Chest pain Qualifiers: Chest pain type: unspecified Qualified Code(s): R07.9 - Chest pain, unspecified Prescriptions: No Action furosemide [Lasix] 40 mg tablet 40 mg PO BID RF: 0 potassium chloride 10 mEq tablet,ER particles/crystals 10 meq PO BID RF: 0 clonazepam 1 mg tablet 1 mg PO BID 30 Days Qty: 60 RF: 2 sildenafil [Viagra] 100 mg tablet 100 mg PO QDAY PRN (Reason: sexual activity) Qty: 10 RF: 2 pregabalin [Lyrica] 150 mg capsule 150 mg PO BID 30 Days Qty: 60 RF: 2 Lantus Solostar U-100 Insulin 100 unit/mL (3 mL) insulin pen 100 unit SUBCUT ONCE RF: 0 insulin lispro [Humalog U-100 Insulin] 100 unit/mL solution 10 unit SUBCUT TID RF: 0 citalopram 20 mg tablet 20 mg PO BID RF: 0 levofloxacin [Levaquin] 500 mg tablet 500 mg PO DAILY Qty: 7 RF: 0 sildenafil [Viagra] 100 mg tablet 100 mg PO QDAY PRN (Reason: sexual activity) Qty: 10 RF: 5 hydrocodone-acetaminophen 10-325 mg tablet 1 tab PO Q6H PRN (Reason: pain) 30 Days Qty: 120 RF: 0 Injectafer 50 iron mg/mL solution 750 mg IVP Q7D Qty: 30 RF: 0 Zofran 4 mg tablet 4 mg PO Q6H PRN (Reason: nausea and vomiting) Qty: 20 RF: 0 Referrals: Oumar Gonzalez MD [Primary Care Provider] - Discharge Date/Time: 11/08/19 21:02 Coding Level of Care Code ED Ethnoarchaeologist for Chg Fwd Exam Comprehensive
[2019-11-08] MEDS: HYDROmorphone 1 mg/mL INJ 1 mL IVP (19:49)
[2019-11-08 19:56] LABS: Basophils % 0.4 %; Eosinophils # 0.1 10^3/uL (0.0-0.8); Eosinophils % 0.7 %; Hematocrit 28.9 % (42.0-52.0); Hemoglobin 8.8 g/dL (11.7-16.6); Lymphocytes # 0.8 10^3/uL (0.8-4.8); Lymphocytes % 6.8 %; Mean Corpuscular HGB Conc 30.4 g/dL (30.0-36.0); Mean Corpuscular Volume 88.7 fL (80-94); Mean Platelet Volume 10.7 fL (7.4-10.4); Monocytes # 0.7 10^3/uL (0.2-0.9); Monocytes % 6.2 %; Neutrophils # 9.6 10^3/uL (1.8-7.7); Neutrophils % 85.3 %; Nucleated Red Blood Cells % 0 %; Platelet Count 275 10^3/cmm (130-400); Red Blood Count 3.26 10^6/uL (4.1-5.3); Red Cell Distribution Width 15.9 % (12.1-15.1); White Blood Count 11.2 10^3/uL (4.0-10.0)
[2019-11-08 20:17] LABS: Alanine Aminotransferase 29 U/L (0-41); Albumin Level 3.1 g/dL (3.5-5.2); Alkaline Phosphatase 177 IU/L (40-130); Aspartate Amino Transferase 56 U/L (0-40); Blood Urea Nitrogen 8 mg/dL (6-20); Carbon Dioxide 21 mmol/L (22-29); Chloride 93 mmol/L (98-107); Creatinine Clr Calc Pharmacy 122.1041; Globulin 3.5 g/dL (1.3-4.6); Glomerular Filtration Rate 107.6 mL/min (90-130); Lipase 6 U/L (13-60); Osmolality Calculated 300 mOsm/kg (285-295); Sodium 131 mmol/L (136-145); Total Bilirubin 0.2 mg/dL (0.15-1.2); Total Protein 6.6 g/dL (6.6-8.7)
[2019-11-08 20:19] LABS: Glucose 671 mg/dL (65-115); Troponin(5th) Baseline 104 ng/L (0-15)
[2019-11-08] MEDS: insulin regular-human 100 units/1 mL 10 UNIT IVP (20:35)
[2019-11-08 20:42] LABS: ABG PCO2 37.6 mmHg (35-45); ABG PH Result 7.44 (7.35-7.45); Arterial Blood Gas Hematocrit 26.9 % (42-52); Base Excess ABG 1.2 mmol/L (-2.0-2.0); Blood Gas Allen Test Pos; Blood Gas Sample Site Radial, right; Blood Gas Sample Type Arterial; HCO3 ABG 25.4 mmol/L (22-26); Oxygen Device NC
[2019-11-08 20:42] LABS: Glucose Point of Care > 600 mg/dL (70-110)
== END 2019-11-08 21:02 | disposition left against medical advice (07) ==
PROVIDERS: Emergency Provider Emergency Medicine; PCP Family Medicine
DX: R07.9 Chest pain, unspecified (principal); E11.65 Type 2 diabetes mellitus with hyperglycemia; Z79.4 Long term (current) use of insulin; Z53.21 Procedure and treatment not carried out due to patient leaving prior to being seen by health care provider; F17.210 Nicotine dependence, cigarettes, uncomplicated
CPT/HCPCS: 12345; 36416; 36600; 71045; 80053; 82803; 82962; 83690; 84484; 85025; 85610; 93005; 96374; 96375; 99282; 99284; J1170; J1815

== ENCOUNTER 2019-11-11 13:22 | Outpatient (RCR) | payer MEDICAID, SELFPAY ==
[2019-11-11 13:40] VITALS: BP 104/89; PULSE 99; RESP 18; TEMP 37.2; O2SAT 98; BMI 22.1
[2019-11-11] MEDS: ferric carboxy (IVPB) 750 MG in sodium chloride 0.9% (100 ml) 100 ML 345 MG IV (14:10)
--- NOTE | 2019-11-18 13:53 | SUR.PREOP ---
[id number] Patient missed appointment for injectafer. When called, significant other in the home stated, He is sleeping . Significant other stated the patient is scheduled to see the doctor tomorrow (11/18) and they will go from there. Dr. Gonzalez's office notified. Spoke with Kiki.
== END 2019-12-01 23:59 | disposition home or self-care (01) ==
LOC: GILAB 13:22
PROVIDERS: PCP Family Medicine; Visit Provider Family Medicine
DX: D50.9 Iron deficiency anemia, unspecified (principal)
CPT/HCPCS: 96365; J1439

== ENCOUNTER 2019-11-26 16:23 | Emergency (ER) | payer MEDICAID, SELFPAY ==
[2019-11-26 16:30] VITALS: BP 114/80; PULSE 94; RESP 16; TEMP 36.9; O2SAT 98
--- NOTE | 2019-11-26 16:30 | XR_ITS ---
WS: [id number] PORTABLE CHEST HISTORY: cp COMPARISON: 11/08/2019 Mild persistent thickening along the minor fissure. Better aeration at the RIGHT lung base as compare d to the prior study. There are several small amount pleural thickening at the RIGHT costophrenic ang le. No pneumonia. No pneumothorax. Cardiac size: Mildly enlarged cardiac silhouette. Mediastinum/Aorta: Prior CABG. Prior cardiac valve replacements. No osseous abnormality seen. XR/XR chest 1V portable [id number] IMPRESSION: 1. Improved aeration at the RIGHT lung base. Minimal persistent pleural thicke rick or effusion on the RIGHT. 2. No pneumonia.
--- NOTE | 2019-11-26 16:30 | ECG_ITS ---
[facility] Test Date: 2019-11-26 Pat Name: Jagdish Clinton Department: Room: Gender: Male Rn Utilization Management Um: : 1980 Requested By: Elfego Benjamin Order Number: [id number] Kendall MD: Randell Pedro M.D. Measurements Intervals [place] Rate: 97 P: 69 VT: 155 QRS: 52 QRSD: 93 T: 40 QT: 285 QTc: 363 Interpretive Statements SINUS RHYTHM POSSIBLE LEFT ATRIAL ENLARGEMENT [-0.1mV P WAVE IN V1/V2] NONSPECIFIC T-WAVE ABNORMALITY Compared to ECG 11/08/2019 19:19:00 No significant changes Electronically Signed On 11-26-2019 21:14:10 CDT by Randell Pedro M.D. [id number]
[2019-11-26 17:06] LABS: Add Urine Microscopic? NO
[2019-11-26 17:15] LABS: Bilirubin Urine Neg (NEGATIVE); Blood Urine Neg (Negative); Glucose Urine UA 4+ (Normal); Ketones Urine Negative (Negative); Leukocyte Esterase Urine Negative (Negative); Nitrate Urine Negative (Negative); Protein Urine Neg (Negative); Specific Gravity, Urine 1.005 (1.005-1.030); Urine Appearance Clear (CLEAR); Urine Color Straw (Yellow); Urobilinogen Urine Norm (Negative); pH Urine 7 (5-7)
[2019-11-26 17:35] LABS: Basophils # 0.1 10^3/uL (0.0-0.1); Basophils % 0.9 %; Eosinophils # 0.3 10^3/uL (0.0-0.8); Eosinophils % 3.2 %; Hematocrit 36.2 % (42.0-52.0); Hemoglobin 11.2 g/dL (11.7-16.6); Lymphocytes # 1.7 10^3/uL (0.8-4.8); Lymphocytes % 21.2 %; Mean Corpuscular HGB Conc 30.9 g/dL (30.0-36.0); Mean Corpuscular Hemoglobin 27.1 pg (28.0-34.0); Mean Corpuscular Volume 87.7 fL (80-94); Mean Platelet Volume 12.1 fL (7.4-10.4); Monocytes # 0.7 10^3/uL (0.2-0.9); Neutrophils # 5.4 10^3/uL (1.8-7.7); Neutrophils % 66.3 %; Nucleated Red Blood Cells % 0 %; Platelet Count 240 10^3/cmm (130-400); Red Blood Count 4.13 10^6/uL (4.1-5.3); Red Cell Distribution Width 18.4 % (12.1-15.1); White Blood Count 8.1 10^3/uL (4.0-10.0)
[2019-11-26] MEDS: nitroglycerin 1 gm/inch oint Pkt 1 INCH TOPICAL (17:35)
[2019-11-26 17:38] VITALS: RESP 18
[2019-11-26] MEDS: fentaNYL 50 mcg/mL INJ 2mL IVP (17:38)
[2019-11-26 17:52] LABS: Troponin(5th) Baseline 64 ng/L (0-15)
[2019-11-26 17:58] LABS: Alanine Aminotransferase 40 U/L (0-41); Albumin Level 3.8 g/dL (3.5-5.2); Alkaline Phosphatase 244 IU/L (40-130); Anion Gap 15.1 (5-19); Aspartate Amino Transferase 47 U/L (0-40); Blood Urea Nitrogen 11 mg/dL (6-20); Calcium 9.1 mg/dL (8.5-10.5); Carbon Dioxide 27 mmol/L (22-29); Chloride 82 mmol/L (98-107); Globulin 2.8 g/dL (1.3-4.6); NT Pro B Type Natriuretic Pept 547 pg/mL (0-125); Potassium 4.1 mmol/L (3.5-5.1); Sodium 120 mmol/L (136-145); Total Bilirubin 0.4 mg/dL (0.15-1.2); Total Protein 6.6 g/dL (6.6-8.7)
[2019-11-26 18:06] LABS: Osmolality Calculated 284 mOsm/kg (285-295)
[2019-11-26 18:26] LABS: Glucose 787 mg/dL (65-115)
--- NOTE | 2019-11-26 18:30 | ECG_ITS ---
[facility] Test Date: 2019-11-26 Pat Name: Jagdish Clinton Department: Room: Gender: Male Cv Tech: : 1980 Requested By: Elfego Benjamin Order Number: [id number] Kendall MD: Randell Pedro M.D. Measurements Intervals [place] Rate: 77 P: 60 OK: 162 QRS: 23 QRSD: 98 T: 47 QT: 428 QTc: 487 Interpretive Statements SINUS RHYTHM Compared to ECG 11/26/2019 16:51:42 T-wave abnormality no longer present Electronically Signed On 11-26-2019 21:15:05 CDT by Randell Pedro M.D. [email or web address].[email or web address] hospitalPerformance Indicatorcleveland clinic union [email or web address]/store/[id number]
[2019-11-26] MEDS: sodium chloride 0.9% 1,000 ML 999 ML IV (18:51)
[2019-11-26 18:53] VITALS: BP 101/79; PULSE 87; RESP 16; O2SAT 100
[2019-11-26 19:08] VITALS: BP 125/81; PULSE 80; RESP 18; TEMP 36.9
[2019-11-26 19:13] LABS: Amphetamines Screen Urine Negative (Negative); Barbiturates Screen Urine Negative (Negative); Benzodiazepines Screen Urine Positive (Negative); Cocaine Screen Urine Negative (Negative); Opiate Screen Urine Positive (Negative); PCP Screen Urine Negative (Negative); THC Screen Urine Negative (Negative)
--- NOTE | 2019-11-26 19:14 | W.ED.CHESTPA ---
HPI - Chest Pain General: Chief Complaint: Chest Pain Stated Complaint: CHEST PAIN Time Seen by Provider: 11/26/19 16:57 Source: patient Mode of arrival: EMS Limitations: no limitations History of Present Illness: HPI narrative: 39-year-old gentleman complains of chest pain that started yesterday.. Is left-sided and nonradiating. No nausea or vomiting. Was given nitro and aspirin in the ambulance with no relief of his pain. Patient states that prior to this the only thing that has helped his pain is Dilaudid. 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 He denies a fever, denies shortness of breath. The patient is also a poorly controlled diabetic. MD complaint: chest pain Associated symptoms: Deny abdominal pain, dyspnea, fever(s), nausea, palpitations or vomiting Review of Systems General: Reports: 10 or more systems reviewed and unremarkable except in HPI and below Const: Denies: fever(s), chills or body aches Eyes: Denies: change in vision or blurry vision ENMT: Denies: throat pain, enlarged tonsils, odynophagia, hoarseness, mouth pain or swelling of lips/tongue Card: Reports: chest pain; Denies: palpitations, irregular heart rhythm, edema or swelling of feet/ankles Resp: Denies: dyspnea, productive cough or non-productive cough GI: Denies: abdominal pain, nausea or vomiting : Denies: flank pain, dysuria, urinary frequency, urinary urgency or urinary hesitancy Musc: Denies: neck pain, back pain or extremity swelling Skin/Breast: Denies: rash, pruritus or erythema Neuro: Denies: headache(s), numbness in extremities or weakness in extremities Endo: Denies: polyuria, polydipsia or tired all the time PFS ED PFSH: Medical History ALC (alcoholic liver cirrhosis) Anxiety and depression Chronic pancreatitis due to acute alcohol intoxication No change in chronic pain meds in combination w no reliability in compliance Diabetes Diabetic peripheral neuropathy Erectile dysfunction Social History Smoking and tobacco status: current every day smoker Alcohol intake: current Physical Exam Const: COMMON NORMALS: no acute distress, average body habitus, patient oriented x3, no limitations, healthy appearing, alert and well nourished HENMT: COMMON NORMALS: normocephalic, atraumatic and moist oral mucous membranes HEAD & SCALP: normocephalic and atraumatic Neck/C-Spine: COMMON NORMALS: no meningeal signs and no JVD Resp: COMMON NORMALS: normal respiratory effort, No retractions, No use of accessory muscles, clear to auscultation bilaterally and percussion normal AUSCULTATION: clear to auscultation bilaterally PERCUSSION: percussion normal Cardio: COMMON NORMALS: no JVD, regular rate, regular rhythm, S1 normal heart sound present, S2 normal heart sound present, No gallops present (Cardio), No clicks present (Cardio), No murmurs present (Cardio), No rub (Cardio) and Peripheral pulses 2+ throughout RATE: regular rate RHYTHM: regular rhythm HEART SOUNDS: S1 normal heart sound present and S2 normal heart sound present PERIPHERAL PULSES: Peripheral pulses 2+ throughout GI: COMMON NORMALS: Normal to inspection, nondistended, normoactive bowel sounds present, Soft to palpation, non-tender, No hepatosplenomegaly present, no masses and no bruits PALPATION: Yes Soft to palpation and Yes No hepatosplenomegaly present : COMMON NORMALS: Yes no CVA tenderness BLADDER/KIDNEY EXAM: Yes no CVA tenderness Back/Pelvis: COMMON NORMALS: no CVA tenderness Extremity: COMMON NORMALS: normal to inspection, full ROM, capillary refill normal, no calf tenderness and no pedal edema Neuro: COMMON NORMALS: patient oriented x3 SENSORIUM/ORIENTATION: Yes alert MENINGEAL SIGNS: Yes no meningeal signs Skin: COMMON NORMALS: no rashes or lesions noted, no wounds, turgor normal, no jaundice, no petechiae and no mottling GENERAL SKIN EXAM: no rashes or lesions noted and turgor normal Course Reevaluation(s): Reevaluation #1: Discussed his lab and imaging findings with the patient and his mother. Elevated glucose improved following the fluid bolus. Baseline troponin elevated but he is delta was flat. And looking through his chart his prior troponin levels have been higher. The patient states that he thinks he needs to be in a fdc to help regulate his glucose and maybe for some physical therapy. I explained that that is probably a good idea but his primary care provider will need to arrange that as he does not meet inpatient criteria. He voiced understanding and he is in agreement with the plan. Time: 21:39 Vital Signs: Vital signs: Vital Signs Temperature 98.4 F 11/26/19 19:08 Pulse Rate 88 11/26/19 21:52 Respiratory Rate 13 11/26/19 21:52 Blood Pressure 120/85 11/26/19 21:52 Pulse Oximetry 98 11/26/19 21:52 MDM - Chest Pain MDM Narrative: Medical decision making narrative: 39-year-old poorly controlled diabetic who presents to the emergency department with chest pain. Evaluation in this emergency department showed an elevated baseline troponin but a flat delta. Last time he was seen his troponins were higher. He also had markedly elevated blood glucose but improved following hydration only. The patient and his mother feel the patient will be best served if he is admitted to a nursing home facility for management of his diabetes. I think this may be a good idea and advised that his primary care provider assist with that. No indication for inpatient care. Chest pain resolved following fentanyl. He slept for several hours following discharge. Medical Records: Attestation: I reviewed the patient's medical records. Lab Data: Attestation: I reviewed the patient's lab results. Labs: Lab Results 11/26/19 11/26/19 11/26/19 Range/Units 16:50 16:50 17:25 WBC 8.1 (4.0-10.0) 10^3/ uL RBC 4.13 (4.1-5.3) 10^6/u L Hgb 11.2 L (11.7-16.6) g/dL Hct 36.2 L (42.0-52.0) % MCV 87.7 (80-94) fL MCH 27.1 L (28.0-34.0) pg MCHC 30.9 (30.0-36.0) g/dL RDW 18.4 H (12.1-15.1) % Plt Count 240 (130-400) 10^3/c mm MPV 12.1 H (7.4-10.4) fL Neut % (Auto) 66.3 % Lymph % (Auto) 21.2 % Craven % (Auto) 8.0 % Eos % (Auto) 3.2 % Baso % (Auto) 0.9 % Neut # (Auto) 5.4 (1.8-7.7) 10^3/u L Lymph # (Auto) 1.7 (0.8-4.8) 10^3/u L Craven # (Auto) 0.7 (0.2-0.9) 10^3/u L Eos # (Auto) 0.3 (0.0-0.8) 10^3/u L Baso # (Auto) 0.1 (0.0-0.1) 10^3/u L Nucleated RBC % (a uto) 0 % Nucleated RBCs # 0.0 /100WBC Sodium (136-145) mmol/L Potassium (3.5-5.1) mmol/L Chloride (98-107) mmol/L Carbon Dioxide (22-29) mmol/L Anion Gap (5-19) BUN (6-20) mg/dL Creatinine (0.7-1.2) mg/dL GFR Calculation (90-130) mL/min Glucose (65-115) mg/dL POC Glucose (70-110) mg/dL Calculated Osmolal ity (285-295) mOsm/k g Calcium (8.5-10.5) mg/dL Total Bilirubin (0.15-1.2) mg/dL AST (0-40) U/L ALT (0-41) U/L Alkaline Phosphata se (40-130) IU/L Troponin T Baselin e (0-15) ng/L Troponin T 120 Min upper [place] (0-15) ng/L Delta Troponin T (0-10) ABS# NT-Pro-B Natriuret Pep (0-125) pg/mL Total Protein (6.6-8.7) g/dL Albumin (3.5-5.2) g/dL Globulin (1.3-4.6) g/dL Urine Color Straw (Yellow) Urine Appearance Clear (CLEAR) Urine pH 7 (5-7) Ur Specific Gravit y 1.005 (1.005-1.030) Urine Protein Neg (Negative) Urine Glucose (UA) 4+ H (Normal) Urine Ketones Negative (Negative) Urine Blood Neg (Negative) Urine Nitrate Negative (Negative) Urine Bilirubin Neg (NEGATIVE) Urine Urobilinogen Norm (Negative) mg/dL Ur Leukocyte Raisa ase Negative (Negative) Urine Opiates Scre en Positive H (Negative) ng/mL Ur Barbiturates Sc reen Negative (Negative) ng/mL Ur Phencyclidine S crn Negative (Negative) ng/mL Ur Amphetamines Sc reen Negative (Negative) ng/mL U Benzodiazepines Scrn Positive H (Negative) ng/mL Urine Cocaine Scre en Negative (Negative) ng/mL U Marijuana (THC) Screen Negative (Negative) ng/mL 11/26/19 11/26/19 11/26/19 Range/Units 17:25 17:25 19:33 WBC (4.0-10.0) 10^3/ uL RBC (4.1-5.3) 10^6/u L Hgb (11.7-16.6) g/dL Hct (42.0-52.0) % MCV (80-94) fL MCH (28.0-34.0) pg MCHC (30.0-36.0) g/dL RDW (12.1-15.1) % Plt Count (130-400) 10^3/c mm MPV (7.4-10.4) fL Neut % (Auto) % Lymph % (Auto) % Craven % (Auto) % Eos % (Auto) % Baso % (Auto) % Neut # (Auto) (1.8-7.7) 10^3/u L Lymph # (Auto) (0.8-4.8) 10^3/u L Craven # (Auto) (0.2-0.9) 10^3/u L Eos # (Auto) (0.0-0.8) 10^3/u L Baso # (Auto) (0.0-0.1) 10^3/u L Nucleated RBC % (a uto) % Nucleated RBCs # /100WBC Sodium 120 L (136-145) mmol/L Potassium 4.1 (3.5-5.1) mmol/L Chloride 82 L (98-107) mmol/L Carbon Dioxide 27 (22-29) mmol/L Anion Gap 15.1 (5-19) BUN 11 (6-20) mg/dL Creatinine 0.6 L (0.7-1.2) mg/dL GFR Calculation 150.0 H (90-130) mL/min Glucose 787 H* (65-115) mg/dL POC Glucose (70-110) mg/dL Calculated Osmolal ity 284 L (285-295) mOsm/k g Calcium 9.1 (8.5-10.5) mg/dL Total Bilirubin 0.4 (0.15-1.2) mg/dL AST 47 H (0-40) U/L ALT 40 (0-41) U/L Alkaline Phosphata se 244 H (40-130) IU/L Troponin T Baselin e 64 H (0-15) ng/L Troponin T 120 Min upper [place] 64.18 H (0-15) ng/L Delta Troponin T 0.18 (0-10) ABS# NT-Pro-B Natriuret Pep 547 H (0-125) pg/mL Total Protein 6.6 (6.6-8.7) g/dL Albumin 3.8 (3.5-5.2) g/dL Globulin 2.8 (1.3-4.6) g/dL Urine Color (Yellow) Urine Appearance (CLEAR) Urine pH (5-7) Ur Specific Gravit y (1.005-1.030) Urine Protein (Negative) Urine Glucose (UA) (Normal) Urine Ketones (Negative) Urine Blood (Negative) Urine Nitrate (Negative) Urine Bilirubin (NEGATIVE) Urine Urobilinogen (Negative) mg/dL Ur Leukocyte Raisa ase (Negative) Urine Opiates Scre en (Negative) ng/mL Ur Barbiturates Sc reen (Negative) ng/mL Ur Phencyclidine S crn (Negative) ng/mL Ur Amphetamines Sc reen (Negative) ng/mL U Benzodiazepines Scrn (Negative) ng/mL Urine Cocaine Scre en (Negative) ng/mL U Marijuana (THC) Screen (Negative) ng/mL 11/25/ Range/Units 21:17 WBC (4.0-10.0) 10^3/ uL RBC (4.1-5.3) 10^6/u L Hgb (11.7-16.6) g/dL Hct (42.0-52.0) % MCV (80-94) fL MCH (28.0-34.0) pg MCHC (30.0-36.0) g/dL RDW (12.1-15.1) % Plt Count (130-400) 10^3/c mm MPV (7.4-10.4) fL Neut % (Auto) % Lymph % (Auto) % Craven % (Auto) % Eos % (Auto) % Baso % (Auto) % Neut # (Auto) (1.8-7.7) 10^3/u L Lymph # (Auto) (0.8-4.8) 10^3/u L Craven # (Auto) (0.2-0.9) 10^3/u L Eos # (Auto) (0.0-0.8) 10^3/u L Baso # (Auto) (0.0-0.1) 10^3/u L Nucleated RBC % (a uto) % Nucleated RBCs # /100WBC Sodium (136-145) mmol/L Potassium (3.5-5.1) mmol/L Chloride (98-107) mmol/L Carbon Dioxide (22-29) mmol/L Anion Gap (5-19) BUN (6-20) mg/dL Creatinine (0.7-1.2) mg/dL GFR Calculation (90-130) mL/min Glucose (65-115) mg/dL POC Glucose 406 (70-110) mg/dL Calculated Osmolal ity (285-295) mOsm/k g Calcium (8.5-10.5) mg/dL Total Bilirubin (0.15-1.2) mg/dL AST (0-40) U/L ALT (0-41) U/L Alkaline Phosphata se (40-130) IU/L Troponin T Baselin e (0-15) ng/L Troponin T 120 Min upper [place] (0-15) ng/L Delta Troponin T (0-10) ABS# NT-Pro-B Natriuret Pep (0-125) pg/mL Total Protein (6.6-8.7) g/dL Albumin (3.5-5.2) g/dL Globulin (1.3-4.6) g/dL Urine Color (Yellow) Urine Appearance (CLEAR) Urine pH (5-7) Ur Specific Gravit y (1.005-1.030) Urine Protein (Negative) Urine Glucose (UA) (Normal) Urine Ketones (Negative) Urine Blood (Negative) Urine Nitrate (Negative) Urine Bilirubin (NEGATIVE) Urine Urobilinogen (Negative) mg/dL Ur Leukocyte Raisa ase (Negative) Urine Opiates Scre en (Negative) ng/mL Ur Barbiturates Sc reen (Negative) ng/mL Ur Phencyclidine S crn (Negative) ng/mL Ur Amphetamines Sc reen (Negative) ng/mL U Benzodiazepines Scrn (Negative) ng/mL Urine Cocaine Scre en (Negative) ng/mL U Marijuana (THC) Screen (Negative) ng/mL Imaging Data^: CXR: Attestation: I personally reviewed and interpreted this imaging study as follows: My impression: No acute findings. EKG Data^: EKG 1: Attestation: I personally reviewed and interpreted this EKG as follows: EKG interpretation date: 11/26/19 EKG interpretation time: 16:51 Prior EKG tracings: not available for review Interpretation: Normal sinus rhythm. Heart rate [address] changes. Normal axis. EKG 2: Attestation: I personally reviewed and interpreted this EKG as follows: EKG interpretation date: 11/26/19 EKG interpretation time: 19:55 Prior EKG tracings: available for review Interpretation: Normal sinus rhythm. Heart rate [address] changes. Normal axis. Discharge Plan Discharge Patient Disposition: Home, Self-Care Clinical Impression: Chest pain Qualifiers: Chest pain type: unspecified Qualified Code(s): R07.9 - Chest pain, unspecified Diabetes mellitus Qualifiers: Diabetes mellitus type: type 2 Diabetes mellitus shelter insulin use: with shelter use Diabetes mellitus complication status: with hyperglycemia Qualified Code(s): E11.65 - Type 2 diabetes mellitus with hyperglycemia Condition: Stable Prescriptions: Continued furosemide [Lasix] 40 mg tablet 40 mg PO BID RF: 0 potassium chloride 10 mEq tablet,ER particles/crystals 10 meq PO BID RF: 0 clonazepam 1 mg tablet 1 mg PO BID 30 Days Qty: 60 RF: 2 pregabalin [Lyrica] 150 mg capsule 150 mg PO BID 30 Days Qty: 60 RF: 2 hydrocodone-acetaminophen 10-325 mg tablet 1 tab PO Q6H PRN (Reason: pain) 30 Days Qty: 120 RF: 0 Lantus Solostar U-100 Insulin 100 unit/mL (3 mL) insulin pen 100 unit SUBCUT ONCE RF: 0 insulin lispro [Humalog U-100 Insulin] 100 unit/mL solution 10 unit SUBCUT TID RF: 0 Injectafer 50 iron mg/mL solution 750 mg IVP Q7D Qty: 30 RF: 0 ondansetron HCl [Zofran] 4 mg tablet 4 mg PO Q6H PRN (Reason: nausea and vomiting) Qty: 20 RF: 0 sildenafil [Viagra] 100 mg tablet 100 mg PO DAILY PRN (Reason: sexual activity) RF: 0 Discharge Orders: Discharge Order (Routine); Ordered 11/26/19 Ordered By: Kinga Hung Referrals: Oumar Gonzalez MD [Primary Care Provider] - 1-3 days Patient Instructions: Chest Pain (ED), Diabetes Mellitus Type 2 in Adults (ED) Activity Restrictions/Additional Instructions: Return for any new or worsening symptoms. Follow-up with your primary care provider tomorrow for further evaluation and to initiate the process of getting you into a fdc. Continue your home medications as prescribed. Discharge Date/Time: 11/26/19 21:55 Coding Level of Care Code ED [employer] for Chg Fwd Exam Comprehensive
[2019-11-26 19:56] LABS: Troponin 5 2HR 64.18 ng/L (0-15); Troponin 5 2HR Delta 0.18 ABS# (0-10)
[2019-11-26 21:21] LABS: Glucose Point of Care 406 mg/dL (70-110)
[2019-11-26 21:52] VITALS: BP 120/85; PULSE 88; RESP 13; O2SAT 98
== END 2019-11-26 21:55 | disposition home or self-care (01) ==
PROVIDERS: Nurse Practitioner Family; Emergency Provider Family Medicine; PCP Family Medicine
DX: R07.9 Chest pain, unspecified (principal); E11.65 Type 2 diabetes mellitus with hyperglycemia; Z79.4 Long term (current) use of insulin; F17.210 Nicotine dependence, cigarettes, uncomplicated
CPT/HCPCS: 12345; 36415; 36416; 71045; 80053; 80306; 81003; 82962; 83880; 84484; 85025; 93005; 96361; 96374; 96375; 99283; 99284; A9270; J3010; J7030

== ENCOUNTER 2019-12-20 04:11 | Inpatient (IN) | payer MEDICAID, SELFPAY ==
[2019-12-20] VITALS (27 sets, daily range): BP systolic 100–147; BP diastolic 55–109; PULSE 74–128; RESP 12–26; TEMP 36.6–37.1; O2SAT 94–99; BMI 17.7
--- NOTE | 2019-12-20 04:15 | XRR_ITS ---
PROCEDURE INFORMATION: Exam: XR Chest, 1 View Exam date and time: 12/20/2019 4:16 AM Age: 39 years old Clinical indication: Chest pain; Type not specified; Prior surgery; Surgery date: 6+ months; Surgery type: Cabg; Additional info: Cp TECHNIQUE: Imaging protocol: XR of the chest Views: 1 view. COMPARISON: CR XR chest 1V portable [id number] 11/26/2019 5:42 PM FINDINGS: Lungs: No pneumonia or pulmonary edema. Pleural space: No pleural effusion or pneumothorax. Heart/Mediastinum: The cardiac silhouette is not enlarged. Prior aortic and mitral valve replacement. The mediastinal contours are normal. Bones/joints: Prior median sternotomy. XR/XR chest 1V portable [id number] IMPRESSION: No acute abnormality.
--- NOTE | 2019-12-20 04:15 | ECG_ITS ---
[facility] Test Date: 2019-12-20 Pat Name: Jagdish Clinton Department: Room: ICU11 Gender: Male [employer]: : 1980 Requested By: Padilla Frias Order Number: [id number] Kendall MD: Randell Pedro M.D. Measurements Intervals [place] Rate: 131 P: 71 MD: 144 QRS: 55 QRSD: 94 T: 15 QT: 310 QTc: 458 Interpretive Statements SINUS TACHYCARDIA LEFT VENTRICULAR HYPERTROPHY AND ST-T CHANGE [VOLTAGE CRITERIA PLUS ST/T ABNORMALITY] Compared to ECG 11/26/2019 19:55:38 Left ventricular hypertrophy now present ST (T wave) deviation now present Sinus rhythm no longer present Electronically Signed On 12-20-2019 22:03:18 CDT by Randell Pedro M.D. [email or web address]
--- NOTE | 2019-12-20 04:17 | W.ED.ABDPA2 ---
HPI - Abdominal Pain General: Chief Complaint: Abdominal Pain Stated Complaint: ABDOMINAL PAIN Time Seen by Provider: 12/20/19 04:14 Source: patient and EMS Mode of arrival: EMS Limitations: no limitations History of Present Illness: HPI narrative: 39-year-old male who states he has chronic pancreatitis. He states he started having abdominal pain today at 3 states his pain is currently a 7 out of 10. States feels like pancreatitis in the past. He states he also had slight radiation into his chest. Denies any vomiting or diarrhea. MD elicited complaint: abdominal pain Severity: severe Quality: sharp Exacerbating factors: nothing Relieving factors: nothing Associated Symptoms: Reports nausea and vomiting; Denies chills, dysuria and fever(s) Review of Systems Const: Denies: fever(s), chills, body aches or change in appetite Eyes: Denies: blurry vision or eye discomfort ENMT: Denies: throat pain or dental pain Card: Denies: chest pain Resp: Denies: dyspnea GI: Reports: abdominal pain, nausea and vomiting : Denies: dysuria Musc: Denies: neck pain or back pain Skin/Breast: Denies: rash Neuro: Denies: headache(s) Psych: Denies: depression Khanh/Lymph: Denies: easy bruising All/Imm: Denies: urticaria PFSH ED PFSH: Medical History ALC (alcoholic liver cirrhosis) Alcohol abuse Anxiety and depression Chronic pancreatitis due to acute alcohol intoxication No change in chronic pain meds in combination w no reliability in compliance Diabetes Diabetic peripheral neuropathy Erectile dysfunction 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 Substance/Drug Use: never Lives independently: Yes Household members: family and other Details: Parents Marital status: Legally Current occupational status: unemployed Physical Exam Const: COMMON NORMALS: no acute distress, patient oriented x3 and healthy appearing HENMT: COMMON NORMALS: normocephalic and atraumatic HEAD & SCALP: normocephalic and atraumatic Eye: COMMON NORMALS: Equal, round and reactive pupils present and EOMs intact bilaterally PUPIL: Yes Equal, round and reactive pupils present Neck/C-Spine: COMMON NORMALS: full ROM and supple Chest: COMMONS NORMALS: normal inspection of the chest and normal palpation of entire chest wall Resp: COMMON NORMALS: normal respiratory effort, No retractions, No use of accessory muscles and clear to auscultation bilaterally AUSCULTATION: clear to auscultation bilaterally Cardio: COMMON NORMALS: regular rhythm and No murmurs present (Cardio) RATE: tachycardic RHYTHM: regular rhythm GI: COMMON NORMALS: Normal to inspection, nondistended, normoactive bowel sounds present, Soft to palpation and no masses PALPATION: Yes Soft to palpation OTHER: Epigastric tenderness Extremity: COMMON NORMALS: normal to inspection and full ROM Neuro: COMMON NORMALS: patient oriented x3, moves all extremities and no focal motor deficits Psych: COMMON NORMALS: mental status grossly normal, Normal thought process present and cooperative THOUGHT PROCESS: Normal thought process present Skin: COMMON NORMALS: no rashes or lesions noted and no wounds GENERAL SKIN EXAM: no rashes or lesions noted Course Vital Signs: Vital signs: Vital Signs Temperature 97.9 F 12/20/19 04:20 Pulse Rate 103 H 12/20/19 16:00 Respiratory Rate 23 H 12/20/19 16:00 Blood Pressure 130/94 12/20/19 16:00 Pulse Oximetry 96 12/20/19 16:00 MDM - Abdominal Pain MDM Narrative: Medical decision making narrative: Patient presents here with abdominal pain and also found in DKA. Patient started on insulin drip and given IV fluids here. Spoke to hospitalist who will admit to the ICU on insulin drip. Lab Data: Labs: Lab Results 12/20/19 12/20/19 12/20/19 Range/Units 04:27 04:40 04:50 WBC 18.9 H (4.0-10.0) 10^3/ uL RBC 6.15 H (4.1-5.3) 10^6/u L Hgb 16.4 (11.7-16.6) g/dL Hct 53.1 H (42.0-52.0) % MCV 86.3 (80-94) fL MCH 26.7 L (28.0-34.0) pg MCHC 30.9 (30.0-36.0) g/dL RDW 16.6 H (12.1-15.1) % Plt Count 280 (130-400) 10^3/c mm MPV 12.3 H (7.4-10.4) fL Neut % (Auto) 85.3 % Lymph % (Auto) 7.8 % Mckean % (Auto) 5.8 % Eos % (Auto) 0.1 % Baso % (Auto) 0.3 % Neut # (Auto) 16.10 H (1.8-7.7) 10^3/u L Lymph # (Auto) 1.5 (0.8-4.8) 10^3/u L Mckean # (Auto) 1.1 H (0.2-0.9) 10^3/u L Eos # (Auto) 0.0 (0.0-0.8) 10^3/u L Baso # (Auto) 0.1 (0.0-0.1) 10^3/u L Nucleated RBC % (a uto) 0 % Nucleated RBCs # 0.0 /100WBC Specimen Type Arterial Sample Site Radial, left ABG pH 7.27 L (7.35-7.45) ABG pCO2 28.5 L (35-45) mmHg ABG pO2 92.6 (80.0-100.0) mmH g ABG HCO3 13.0 L (22-26) mmol/L ABG Base Excess -12.3 L (-2.0-2.0) mmol/ L Jonathan Test Pos Hematocrit 47.2 (42-52) % [employer] Blind Worker ID ellpe Sodium (136-145) mmol/L Potassium (3.5-5.1) mmol/L Chloride (98-107) mmol/L Carbon Dioxide (22-29) mmol/L Anion Gap (5-19) BUN (6-20) mg/dL Creatinine (0.7-1.2) mg/dL GFR Calculation (90-130) mL/min Glucose (65-115) mg/dL POC Glucose > 600 (70-110) mg/dL Calculated Osmolal ity (285-295) mOsm/k g Calcium (8.5-10.5) mg/dL Phosphorus (2.5-4.5) mg/dL Magnesium (1.7-2.3) mg/dL Total Bilirubin (0.15-1.2) mg/dL AST (0-40) U/L ALT (0-41) U/L Alkaline Phosphata se (40-130) IU/L Troponin T Baselin e (0-15) ng/L Total Protein (6.6-8.7) g/dL Albumin (3.5-5.2) g/dL Globulin (1.3-4.6) g/dL Lipase (13-60) U/L Serum Ketones (Negative) 12/20/19 12/20/19 12/20/19 Range/Units 04:50 04:50 04:50 WBC (4.0-10.0) 10^3/ uL RBC (4.1-5.3) 10^6/u L Hgb (11.7-16.6) g/dL Hct (42.0-52.0) % MCV (80-94) fL MCH (28.0-34.0) pg MCHC (30.0-36.0) g/dL RDW (12.1-15.1) % Plt Count (130-400) 10^3/c mm MPV (7.4-10.4) fL Neut % (Auto) % Lymph % (Auto) % Mckean % (Auto) % Eos % (Auto) % Baso % (Auto) % Neut # (Auto) (1.8-7.7) 10^3/u L Lymph # (Auto) (0.8-4.8) 10^3/u L Mckean # (Auto) (0.2-0.9) 10^3/u L Eos # (Auto) (0.0-0.8) 10^3/u L Baso # (Auto) (0.0-0.1) 10^3/u L Nucleated RBC % (a uto) % Nucleated RBCs # /100WBC Specimen Type Sample Site ABG pH (7.35-7.45) ABG pCO2 (35-45) mmHg ABG pO2 (80.0-100.0) mmH g ABG HCO3 (22-26) mmol/L ABG Base Excess (-2.0-2.0) mmol/ L Jonathan Test Hematocrit (42-52) % [employer] Worker ID Sodium 126 L (136-145) mmol/L Potassium 4.8 (3.5-5.1) mmol/L Chloride 76 L (98-107) mmol/L Carbon Dioxide 13 L (22-29) mmol/L Anion Gap 41.8 H (5-19) BUN 24 H (6-20) mg/dL Creatinine 1.2 (0.7-1.2) mg/dL GFR Calculation 67.4 L (90-130) mL/min Glucose 693 H* (65-115) mg/dL POC Glucose (70-110) mg/dL Calculated Osmolal ity 292 (285-295) mOsm/k g Calcium 10.5 (8.5-10.5) mg/dL Phosphorus (2.5-4.5) mg/dL Magnesium (1.7-2.3) mg/dL Total Bilirubin 0.6 (0.15-1.2) mg/dL AST 13 (0-40) U/L ALT 23 (0-41) U/L Alkaline Phosphata se 226 H (40-130) IU/L Troponin T Baselin e 68 H (0-15) ng/L Total Protein 8.1 (6.6-8.7) g/dL Albumin 5.2 (3.5-5.2) g/dL Globulin 2.9 (1.3-4.6) g/dL Lipase 6 L (13-60) U/L Serum Ketones Positive H (Negative) 12/20/19 Range/Units 04:50 WBC (4.0-10.0) 10^3/ uL RBC (4.1-5.3) 10^6/u L Hgb (11.7-16.6) g/dL Hct (42.0-52.0) % MCV (80-94) fL MCH (28.0-34.0) pg MCHC (30.0-36.0) g/dL RDW (12.1-15.1) % Plt Count (130-400) 10^3/c mm MPV (7.4-10.4) fL Neut % (Auto) % Lymph % (Auto) % Mckean % (Auto) % Eos % (Auto) % Baso % (Auto) % Neut # (Auto) (1.8-7.7) 10^3/u L Lymph # (Auto) (0.8-4.8) 10^3/u L Mckean # (Auto) (0.2-0.9) 10^3/u L Eos # (Auto) (0.0-0.8) 10^3/u L Baso # (Auto) (0.0-0.1) 10^3/u L Nucleated RBC % (a uto) % Nucleated RBCs # /100WBC Specimen Type Sample Site ABG pH (7.35-7.45) ABG pCO2 (35-45) mmHg ABG pO2 (80.0-100.0) mmH g ABG HCO3 (22-26) mmol/L ABG Base Excess (-2.0-2.0) mmol/ L Jonathan Test Hematocrit (42-52) % [employer] Blind Worker ID Sodium (136-145) mmol/L Potassium (3.5-5.1) mmol/L Chloride (98-107) mmol/L Carbon Dioxide (22-29) mmol/L Anion Gap (5-19) BUN (6-20) mg/dL Creatinine (0.7-1.2) mg/dL GFR Calculation (90-130) mL/min Glucose (65-115) mg/dL POC Glucose (70-110) mg/dL Calculated Osmolal ity (285-295) mOsm/k g Calcium (8.5-10.5) mg/dL Phosphorus 6.1 H (2.5-4.5) mg/dL Magnesium 1.9 (1.7-2.3) mg/dL Total Bilirubin (0.15-1.2) mg/dL AST (0-40) U/L ALT (0-41) U/L Alkaline Phosphata se (40-130) IU/L Troponin T Baselin e (0-15) ng/L Total Protein (6.6-8.7) g/dL Albumin (3.5-5.2) g/dL Globulin (1.3-4.6) g/dL Lipase (13-60) U/L Serum Ketones (Negative) EKG Data ^: EKG 1: Attestation: I personally reviewed and interpreted this EKG as follows: EKG interpretation date: 12/20/19 EKG interpretation time: 04:23 Interpretation: Sinus tachycardia heart rate [address] or T wave abnormalities Critical Care Time Critical Care Time: Critical Care Time: Yes Total Critical Care Time: 36 Attestation: This case had a high probability of a clinically significant, sudden, or life threatening deterioration of this patient's condition which required my full and direct attention, intervention and personal management. Discharge Plan Discharge Patient Disposition: Admitted As Inpatient Admit Provider: Chace Perera Clinical Impression: DKA (diabetic ketoacidoses) Qualifiers: Diabetes mellitus type: type 1 Diabetes mellitus complication detail: without coma Qualified Code(s): E10.10 - Type 1 diabetes mellitus with ketoacidosis without coma Condition: Stable Referrals: Oumar Gonzalez MD [Primary Care Provider] - Discharge Date/Time: 12/20/19 07:41 Coding Level of Care Code ED Quality Assurance Lab Technician for Chg Fwd Exam Comprehensive
[2019-12-20] MEDS: sodium chloride 0.9% 1,000 ML 999 ML IV ×2 (04:20→04:45)
[2019-12-20] MEDS: diphenhydrAMINE 50 mg/mL SDV 1mL IVP (04:25)
[2019-12-20] MEDS: metoclopramide 5 mg/mL SDV 2 mL 10 MG IVP (04:30)
[2019-12-20 04:32] LABS: Glucose Point of Care > 600 mg/dL (70-110)
[2019-12-20 04:47] LABS: ABG PCO2 28.5 mmHg (35-45); ABG PH Result 7.27 (7.35-7.45); Arterial Blood Gas Hematocrit 47.2 % (42-52); Base Excess ABG -12.3 mmol/L (-2.0-2.0); Blood Gas Allen Test Pos; Blood Gas Sample Site Radial, left; Blood Gas Sample Type Arterial; PO2 ABG 92.6 mmHg (80.0-100.0)
[2019-12-20 05:02] LABS: Basophils # 0.1 10^3/uL (0.0-0.1); Basophils % 0.3 %; Eosinophils % 0.1 %; Hematocrit 53.1 % (42.0-52.0); Hemoglobin 16.4 g/dL (11.7-16.6); Lymphocytes # 1.5 10^3/uL (0.8-4.8); Lymphocytes % 7.8 %; Mean Corpuscular HGB Conc 30.9 g/dL (30.0-36.0); Mean Corpuscular Hemoglobin 26.7 pg (28.0-34.0); Mean Corpuscular Volume 86.3 fL (80-94); Mean Platelet Volume 12.3 fL (7.4-10.4); Monocytes # 1.1 10^3/uL (0.2-0.9); Monocytes % 5.8 %; Neutrophils % 85.3 %; Nucleated Red Blood Cells % 0 %; Platelet Count 280 10^3/cmm (130-400); Red Blood Count 6.15 10^6/uL (4.1-5.3); Red Cell Distribution Width 16.6 % (12.1-15.1); White Blood Count 18.9 10^3/uL (4.0-10.0)
[2019-12-20] MEDS: insulin regular-human 100 units/1 mL 8 UNIT IVP (05:09)
[2019-12-20] MEDS: morphine 4 mg/mL SDV 1 mL IVP (05:14)
[2019-12-20 05:17] LABS: Alanine Aminotransferase 23 U/L (0-41); Albumin Level 5.2 g/dL (3.5-5.2); Alkaline Phosphatase 226 IU/L (40-130); Anion Gap 41.8 (5-19); Aspartate Amino Transferase 13 U/L (0-40); Blood Urea Nitrogen 24 mg/dL (6-20); Calcium 10.5 mg/dL (8.5-10.5); Carbon Dioxide 13 mmol/L (22-29); Chloride 76 mmol/L (98-107); Globulin 2.9 g/dL (1.3-4.6); Glomerular Filtration Rate 67.4 mL/min (90-130); Lipase 6 U/L (13-60); Osmolality Calculated 292 mOsm/kg (285-295); Potassium 4.8 mmol/L (3.5-5.1); Sodium 126 mmol/L (136-145); Total Bilirubin 0.6 mg/dL (0.15-1.2); Total Protein 8.1 g/dL (6.6-8.7); Troponin(5th) Baseline 68 ng/L (0-15)
[2019-12-20 05:23] LABS: Ketone (Acetest) Serum Positive (Negative)
--- NOTE | 2019-12-20 05:27 | CTR_ITS ---
PROCEDURE INFORMATION: Exam: CT Abdomen And Pelvis With Contrast Exam date and time: 12/20/2019 6:12 AM Age: 39 years old Clinical indication: Nausea and vomiting; Abdominal pain; Generalized; Additional info: Abd pain TECHNIQUE: Imaging protocol: Computed tomography of the abdomen and pelvis with intravenous contrast. Radiation optimization: All CT scans at this facility use at least one of these dose optimization techniques: automated exposure control; mA and/or kV adjustment per patient size (includes targeted exams where dose is matched to clinical indication); or iterative reconstruction. Contrast material: OMNI 300; Contrast volume: 75 ml; Contrast route: INTRAVENOUS (IV); COMPARISON: CT abdomen pelvis w con* [id number] 07/13/2019 6:37 AM RADIATION DOSE METRICS: Total DLP (mGy-cm): 517.27 FINDINGS: Lungs: There is asymmetric bibasilar airspace disease, more so on the right, primarily manifesting as ground-glass opacities, though there is focal consolidation in the posterior basal segment of the right lower lobe. This can be due to pneumonia or aspiration pneumonitis. Liver: The liver is not enlarged. There is an ill-defined focus of diminished subcapsular attenuation in segment 4B adjacent to the fissure for the falciform ligament which can be due to focal fatty change or an area of anomalous perfusion. Gallbladder and bile ducts: No calcified gallstones, gallbladder wall thickening, or pericholecystic inflammation. No biliary ductal dilation. Pancreas: Multiple calcifications within the pancreas compatible with chronic calcific pancreatitis. There is dilatation of the pancreatic duct in the body with some atrophy of the pancreatic parenchyma in the body and tail. This might be due to an obstructing calculus in the lumen of the duct at the level of the pancreatic neck. No peripancreatic inflammation. Spleen: The spleen is homogeneous and is not enlarged. Adrenals: No adrenal mass. Kidneys and ureters: No hydronephrosis. No nephrolithiasis. Simple appearing 11 mm right renal cyst. Stomach and bowel: No bowel obstruction, colitis or diverticulitis. Appendix: The appendix has a normal caliber with no wall thickening. No periappendiceal stranding. Intraperitoneal space: No ascites or pneumoperitoneum. Vasculature: No abdominal aortic aneurysm. No iliac or common femoral artery aneurysm. Lymph nodes: No pathologically enlarged lymph nodes. Bladder: No urinary bladder calculus or wall thickening. Reproductive: Unremarkable as visualized. Bones/joints: No acute osseous abnormality. Soft tissues: No acute soft tissue abnormality. CT/CT abdomen pelvis w con* [id number] IMPRESSION: 1. No bowel obstruction, colitis or diverticulitis. 2. Chronic calcific pancreatitis. 3. Normal appendix. COMMENTS: Consistent with the [place] [employer]'s Incidental Findings Committee white paper (J Am Nik Radiol 2018): Any incidental renal lesion less than 1.0 cm or classified as too small to characterize, or any incidental cystic renal lesion characterized as simple-appearing, is likely benign. No follow-up imaging is recommended for these lesions per consensus recommendations based on imaging criteria. Radiation Dose CTDIVOL = (mGy): DLP = 517.27 (mGy-cm)
[2019-12-20 05:28] LABS: Glucose 693 mg/dL (65-115)
[2019-12-20 05:35] LABS: Magnesium 1.9 mg/dL (1.7-2.3); Phosphorus 6.1 mg/dL (2.5-4.5)
--- NOTE | 2019-12-20 05:46 | PC.NURSE ---
during pt rounds, pt stating he is having pain 8/10, requesting pain meds. notified
[2019-12-20 05:58] LABS: Glucose Point of Care 572 mg/dL (70-110)
--- NOTE | 2019-12-20 06:15 | ECG_ITS ---
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 Measurements Intervals [place] Rate: 117 P: 69 MI: 145 QRS: 51 QRSD: 90 T: 89 QT: 340 QTc: 476 Interpretive Statements SINUS TACHYCARDIA LEFT ATRIAL ENLARGEMENT [-0.15mV P WAVE IN V1/V2] NONSPECIFIC ST & T-WAVE ABNORMALITY WARNING: DATA QUALITY MAY AFFECT INTERPRETATION Compared to ECG 12/20/2019 04:26:39 Atrial abnormality now present T-wave abnormality now present Left ventricular hypertrophy no longer present ST (T wave) deviation no longer present Electronically Signed On 12-20-2019 22:05:52 CDT by Randell Pedro M.D. [email or web address]
[2019-12-20] MEDS: iohexol 300 mg/mL 100 mL Btl IV (06:18)
[2019-12-20] MEDS: insulin regular-human 250 UNIT in sodium chloride 0.9% 250 ML 15.6 UNIT IV (06:39)
[2019-12-20 06:59] LABS: Glucose Point of Care 510 mg/dL (70-110)
--- NOTE | 2019-12-20 07:30 | P.HP_ITS ---
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 Pichardo who recently performed a DAGMAR on him with valves found to be functioning well, although denies taking any antiplatelet or anticoagulant, patient reports also history of alcoholic cirrhosis. States that has not had a drink in about 3 years. Presents to the hospital with abdominal pain, lower chest pain. He says the pain has been coming and going. It is central, nonradiating. No particular trigger. It is somewhat confluent with his epigastric pain. He reports history of recurrent pancreatitis previously used to heavy alcohol intake. Reports having oily stools. Reports previously was on Creon, however, has run out of prescription. He reports that yesterday he had a greasy, but also reddish/bloody appearing loose stool. Denies having prior history of colonoscopy or upper endoscopy. He reports that his appetite has not been good since last week. He says that his glucose has been staying okay at home, but does not provide any values. He says he continue taking his insulin. He denies having past history of DKA. He reports he has been having some mild headache, but otherwise denies any fever, chills, muscle aches, or cough. Has mild shortness of breath in that says has some discomfort taking a very deep breath which she ascribes to his abdominal pain. Review of Systems Const: Denies: fever(s), chills, body aches or malaise Eyes: Denies: change in vision or eye redness ENMT: Denies: throat pain, oral sores or ear or mastoid pain Card: Denies: chest pain, edema, pre-syncope or dyspnea on exertion Resp: Denies: dyspnea, productive cough, change in phlegm color or hemoptysis GI: Denies: abdominal pain, nausea, vomiting, diarrhea, constipation, hematochezia or melena : Denies: flank pain, difficulty urinating, urinary frequency or hematuria Musc: Denies: back pain, joint swelling or joint redness Skin/Breast: Denies: rash, sores or new lesions Neuro: Denies: headache(s), numbness in extremities, weakness in extremities, dizziness, confusion or seizure-like activity Endo: Denies: polyuria or polydipsia Khanh/Lymph: Denies: easy bleeding or purpura All/Imm: Denies: urticaria, throat swelling or tongue swelling Medications/Allergies Home Medications Medication Instructions Recorded Confirmed Last Taken Type insulin glargine 100 unit/mL (3 100 unit SUBCUT ONCE 06/22/19 11/26/19 Unknown History mL) subcutaneous pen insulin lispro 100 unit/mL 10 unit SUBCUT TID 06/22/19 11/26/19 11/26/19 History subcutaneous solution ondansetron HCl [Zofran] 4 mg PO Q6H PRN #20 tab 08/10/19 11/26/19 Unknown Rx clonazepam 1 mg tablet 1 mg PO BID 30 Days #60 tab 10/29/19 11/26/19 11/25/19 Rx furosemide 40 mg tablet 40 mg PO BID 10/29/19 11/26/19 11/26/19 History potassium chloride 10 mEq 10 meq PO BID 10/29/19 11/26/19 11/26/19 History tablet,extended release(part/cryst) pregabalin 150 mg capsule 150 mg PO BID 30 Days #60 cap 10/29/19 11/26/19 11/26/19 Rx ferric carboxymaltose 750 mg IVP Q7D #30 ml 11/05/19 11/26/19 11/19/19 Rx hydrocodone 10 mg-acetaminophen 1 tab PO Q6H PRN 30 Days #120 tab 11/19/19 11/26/19 11/26/19 Rx 325 mg tablet sildenafil [Viagra] 100 mg PO DAILY PRN 11/26/19 11/26/19 Unknown History insulin syr/ndl U100 half mckinley #100 each 12/16/19 Unknown Rx pen needle, diabetic 32 gauge x #100 each 12/16/19 Unknown Rx 1/4 Allergies Allergy/AdvReac Type Severity Reaction Status Date / Time codeine Allergy ADR-Headach Verified 11/26/19 16:38 e PFSH Acute PFSH: Medical History ALC (alcoholic liver cirrhosis) Anxiety and depression Chronic pancreatitis due to acute alcohol intoxication No change in chronic pain meds in combination w no reliability in compliance Diabetes Diabetic peripheral neuropathy Erectile dysfunction Surgical History Mitral valve replaced Family History Father CAD (coronary artery disease) Diabetes Stroke Social History Smoking and tobacco status: current every day smoker cigarettes Packs smoked per day: 0.75 Alcohol intake: former Former alcohol use details: Says has not drank any alcohol in 3 years. Substance/Drug Use: never Lives independently: Yes Household members: family and other Details: Parents Marital status: Legally Current occupational status: unemployed Vitals/I&O/Wt Last Vital Signs Temp 97.9 F 12/20/19 04:20 Pulse 95 12/20/19 05:30 Resp 22 H 12/20/19 05:30 BP 145/90 12/20/19 05:30 Pulse Ox 97 12/20/19 05:30 Weight last 48 hrs Weight 54.431 kg Physical Exam Const: COMMON NORMALS: no acute distress, patient oriented x3 and alert GENERAL APPEARANCE: frail appearing OTHER: In discomfort from abdo pain. HENMT: COMMON NORMALS: oropharynx normal Neck/C-Spine: COMMON NORMALS: no JVD Resp: COMMON NORMALS: normal respiratory effort and clear to auscultation bilaterally AUSCULTATION: clear to auscultation bilaterally Cardio: COMMON NORMALS: no JVD, regular rhythm, S1 normal heart sound present, S2 normal heart sound present and No murmurs present (Cardio) RHYTHM: regular rhythm HEART SOUNDS: S1 normal heart sound present and S2 normal heart sound present GI: COMMON NORMALS: Normal to inspection, nondistended, normoactive bowel s ounds present and Soft to palpation PALPATION: Yes Soft to palpation and Yes Tenderness to palpation present (GI) (Epigastrium, LUQ) Extremity: COMMON NORMALS: no joint enlargement and no pedal edema Neuro: COMMON NORMALS: patient oriented x3 and moves all extremities Skin: COMMON NORMALS: no rashes or lesions noted GENERAL SKIN EXAM: no rashes or lesions noted Data : 12/20/19 04:50 12/20/19 04:50 A&P Assessment and plan (1) DKA (diabetic ketoacidoses): Please 7.27, pulse of serum ketones. Glucose 693 on presentation. Dehydrated. Mild acute kidney injury. Admitted to ICU for insulin drip, IV hydration. Will recheck BMP, magnesium, phosphorus at 9 AM. Replace electrolytes as needed. He is agreeable to continue n.p.o. for now. Does not appear to have a clear trigger. Has had a poor appetite over the last week or so. Perhaps mild acute on chronic pancreatitis, although lipase is not, but possibly from being burnt out. Status: Acute Qualifiers: Diabetes mellitus complication detail: without coma Diabetes mellitus type: type 1 Qualified Code(s): E10.10 - Type 1 diabetes mellitus with ketoacidosis without coma (2) Hematochezia: Reports 1 loose stool yesterday with reddish appearance, thought perhaps it was blood. Hemoglobin is not low, although he is given likely hemoconcentrated. Monitor. We will request for Hemoccult. PPI Status: Acute (3) Abdominal pain: CT abdomen pelvis performed, with chronic pancreatitis, otherwise no significant abnormality. This is most likely either secondary to AKA, or chronic or possibly acute on chronic pancreatitis. He reports history of liver cirrhosis as well, but there is no ascites. There is chronically elevated alkaline phosphatase, although without right upper quad tenderness, and without biliary abnormality seen on CT. Would treat DKA, supportive care for pancrea titis at this time, serial abdominal sounds. Monitor alkaline phosphatase and other liver parameters. Sitter additional evaluation depending on clinical course. Status: Acute (4) Chest pain: Reports lower chest pain, daughter, severe, appears to be compliant with his gastric pain. Is in on all 4 quadrants. Pain sounds atypical. Does have a elevation of troponin up to 6-8. EKG discussed with him he is at L of the risk of CT. Complete troponin and EKG series. I not sure why he is not on aspirin given history of mitral replacement. He is receiving iron, perhaps there was anemia ports blood in yesterday. For now hold off on adding aspirin possible GI eating. Or for any recurrence. Check Hemoccult. Monitor hemoglobin. If is not found to have non-STEMI, due to recurrent episodes and risk factors for coronary disease from additional risk education subsequently on less urgent basis. Will request for TTE. He does also report mild difficulty taking very deep breaths. Denies any cough or hemoptysis. No unilateral extremity swelling. Suspicion for PE at this time is probably lower, although given DKA will assess by VQ scan since he has just also gotten IV contrast. For now started only on prophylactic Lovenox. Low threshold to escalate in case concern for PE rises. Status: Acute (5) Chronic pancreatitis due to acute alcohol intoxication: Chronic alcoholic pink otitis. Reports has drank any alcohol in about 3 years. Previously on Creon. May need a new prescription assess ran out of medication. Currently possibly episode of acute on chronic pancreatitis. Status: Acute (6) Mitral valve replaced: [facility] hospital in October. Reports after bloodstream infection due to skin infection. Denies history of IV drug use. Reportedly has had a DAGMAR just recently done by Dr. kaye, and valves were found to be functioning normally. Says it was done to double check that everything was in order. At the same time says he is not on aspirin, other antiplatelet or anticoagulant. Valves are reported to be bioprosthetic. May need to obtain additional records from radiology director office. Status: Acute (7) Troponin level elevated: Mild elevation of troponin up to 68. As above under chest pain. Status: Acute (8) Alkaline phosphatase elevation: Isolated alkaline phosphatase elevation. This appears to be chronic. For now monitor clinical condition and reassess. Status: Acute (9) Metabolic acidosis: Secondary to DKA. Treat as above. Status: Acute (10) Leukocytosis: Suspect this is secondary to hemoconcentration. At this time there is no evidence of acute infection. Monitor clinical condition. Low threshold for additional evaluation given DKA. Status: Acute (11) Hyponatremia: Pseudohyponatremia due to severe hyperglycemia. Follow-up sodium level with improvement in glucose. Status: Acute (12) ALC (alcoholic liver cirrhosis): Reports also alcoholic liver cirrhosis. Denies any history of ascites. No ascites noted on abdominal imaging. Monitor for additional complications. Continue follow-up with outpatient provider. He denies seeing a managing editor or liver specialist. Status: Acute (13) Acute kidney injury: Normal baseline creatinine. Currently elevated up to 1.2. Suspect prerenal with poor oral intake, DKA, dehydration. Fluid challenge bolus given in ER. Continue IVF infusion. Monitor I&O, renal function. Status: Acute Attestations Medical Necessity Statement*: Admission of over 2 midnights is continued for assessment management of DKA, metabolic acidosis, abdominal pain, hematochezia, acute on chronic pancreatitis, chest pain, in the setting of bioprosthetic mitral valve, as well as other problems outlined above. Critical Care Time: 70 minutes critical care time spent on assessment management of mainly life-threatening problems including DKA, with metabolic acidosis, severe hyperglycemia, dehydration, with acute kidney injury, chest pain, in the setting of DKA, reported GI bleeding, acute on chronic pancreatitis, and underlying liver cirrhosis. Patient's condition, assessment and plan discussed in detail with him, to which he verbalized understanding and agreement. Coding Level of Care Code Acute Diorama Model Maker for [facility] Diagnoses DKA (diabetic ketoacidoses) E10.10 Diabetes mellitus complication detail: without coma Diabetes mellitus type: type 1 Hematochezia K92.1 Abdominal pain R10.9 Chest pain R07.9 Chronic pancreatitis due to acute alcohol intoxication K86.0; F10.929 Mitral valve replaced Z95.2 Troponin level elevated R79.89 Alkaline phosphatase elevation R74.8 Metabolic acidosis E87.2 Leukocytosis D72.829 Hyponatremia E87.1 ALC (alcoholic liver cirrhosis) K70.30 Acute kidney injury N17.9
--- NOTE | 2019-12-20 07:33 | PC.NURSE ---
Pt arrives to ICU. Alert ad oriented. Immediately asking for ice chips. Insulin gtt noted to be at 18 unit/hour., infusing into #18 in left arm.
--- NOTE | 2019-12-20 07:35 | PC.NURSE ---
Received report , no changes noted from report. Bood sugar at shift change 510. Insulin bolus completed. According to protocol drip needs to be at 18 units/hr. Confirmed by 2 nurses and pharmacy. Informed nurse in ICU, another blood sugar should be taken at 0804. Pt stable and ready to be taken to floor with monitor and nurse. Insulin on pump. Full report given prior to pt taken to room. Vitals in ICU 11. 132/89, 109. 98%. No temp because has been eating ice.
[2019-12-20] MEDS: enoxaparin 40 mg/0.4 mL Syringe SUBCUT (08:06)
[2019-12-20] MEDS: sodium chloride 0.45% 1,000 ML 150 ML IV (09:02)
[2019-12-20] MEDS: CLONazepam 1 mg Tablet PO ×2 (09:02→17:11)
[2019-12-20] MEDS: pantoprazole DR 40 mg Tablet PO (09:02)
[2019-12-20] MEDS: pregabalin 150 mg Capsule PO ×2 (09:03→17:11)
--- NOTE | 2019-12-20 09:17 | PM.PN ---
Subjective Subjective: Interval history: Admitted overnight. H&P labs noted. Patient was in DKA. This morning he is on insulin drip of 9. No IV fluids running. He is complaining of abdominal pain. Denies of having any further nausea. Labs and vitals noted. Vitals/I&O/Wt Last Vital Signs Temp 97.9 F 12/20/19 04:20 Pulse 120 H 12/20/19 08:45 Resp 18 12/20/19 08:45 BP 135/83 12/20/19 08:45 Pulse Ox 98 12/20/19 08:45 12/19/19 12/20/19 12/20/19 22:59 06:59 14:59 Output Total 400 / 400 Balance -400 / -400 Weight last 48 hrs Weight 54.431 kg Physical Exam Narrative: EXAM NARRATIVE: General: No acute distress, AO x3, severely cachectic HEENT: PERRLA, pupils bilaterally equal and reactive Chest: Normal vesicular breath sounds, no added sounds, equal good air entry bilaterally CVS: S1-S2 regular, no murmurs, no tachycardia, no gallops, no rubs Abdomen: Tender in epigastric region, soft, bowel sounds present. Neuro: No focal deficits, no facial deformity, AO x3, power 5/5 in all limbs Data : 12/20/19 09:35 12/20/19 13:08 A&P Assessment and plan (1) DKA (diabetic ketoacidoses): Status: Acute Qualifiers: Diabetes mellitus complication detail: without coma Diabetes mellitus type: type 1 Qualified Code(s): E10.10 - Type 1 diabetes mellitus with ketoacidosis without coma (2) Metabolic acidosis: Secondary to DKA. Treat as above. Status: Acute (3) Hematochezia: Status: Acute (4) Chronic pancreatitis due to acute alcohol intoxication: Status: Acute (5) Mitral valve replaced: Status: Acute (6) Acute kidney injury: Status: Acute (7) Hyponatremia: Pseudohyponatremia due to severe hyperglycemia. Follow-up sodium level with improvement in glucose. Status: Acute (8) Leukocytosis: Suspect this is secondary to hemoconcentration. At this time there is no evidence of acute infection. Monitor clinical condition. Low threshold for additional evaluation given DKA. Status: Acute (9) Alkaline phosphatase elevation: Status: Acute (10) Troponin level elevated: Mild elevation of troponin up to 68. As above under chest pain. Status: Acute (11) Abdominal pain: Status: Acute (12) Chest pain: Status: Acute (13) ALC (alcoholic liver cirrhosis): Reports also alcoholic liver cirrhosis. Denies any history of ascites. No ascites noted on abdominal imaging. Monitor for additional complications. Continue follow-up with outpatient provider. He denies seeing a petroleum engineering teacher or liver specialist. Status: Acute Additional A&P Information DKA: Continue with insulin drip at DKA protocol. Start patient on normal saline at 100 cc/h. Check BMP every 4 hours. If blood sugars drop below 250 start patient on D5 NS. Once the gap is closed we will stop the insulin drip and start patient on insulin sliding scale. N.p.o. for now. Once the gap closed we will start patient on GI soft diet. Mitral valve replaced: Patient states he had the surgery done after he had infective endocarditis. Done at [facility]. Patient is not on aspirin or any other anticoagulation. Mitral valve replaced shadow on the chest x-ray which was not present from a chest x-ray in August. Check echocardiogram. Check blood cultures to rule out repeat infection. That could be the cause of congenital DKA. For now we will hold off any further antibiotics until patient develops fever. FILEMON: Most likely from dehydration due to DKA. Continue IV hydration. Stat CMP. Continue monitor daily. Medical reconciliation done for nephrotoxic drug. Chronic Pancreatitis/ ALP elevated: CT abdomen done on admission shows dilatation of the pancreatic duct in the body with some atrophy of the pancreatic parenchyma in the body and tail. This might be due to an obstructing calculus in the lumen of the duct at the level of the pancreatic neck. No peripancreatic inflammation. MRCP to r/o pancreatic mass Once patient is started on diet we will also start patient on pancrelipase. Hematochezia: Reports he had 1 bloody bowel movement yesterday. Hemoglobin seems to be stable. Iron panel. Stool softeners are still awaited. Continue Protonix. Abdominal pain: CT abdomen results appreciated. No concerns for colitis/diverticulitis. Most likely because of chronic pancreatitis. We will get MRCP as above. Morphine for pain. Anemia: Most likely because of chronic alcohol abuse in the past. Check iron panel. Start patient on IV iron supplementation. Chest pain: Not having that at present. Troponins negative. We will continue to monitor. We will code. N.p.o. Lovenox for DVT prophylaxis. Attestations Medical Necessity Statement*: DKA, history of mitral valve replacement, FILEMON, chronic pancreatitis Time Spent in Patient Care: Greater than 35 minutes (>than 50% of time spent in counselling and/or direct pt care on unit). Coding Level of Care Code Acute Adult School Counselor for [facility] Fwd Diagnoses DKA (diabetic ketoacidoses) E10.10 Diabetes mellitus complication detail: without coma Diabetes mellitus type: type 1 Metabolic acidosis E87.2 Hematochezia K92.1 Chronic pancreatitis due to acute alcohol intoxication K86.0; F10.929 Mitral valve replaced Z95.2 Acute kidney injury N17.9 Hyponatremia E87.1 Leukocytosis D72.829 Alkaline phosphatase elevation R74.8 Troponin level elevated R79.89 Abdominal pain R10.9 Chest pain R07.9 ALC (alcoholic liver cirrhosis) K70.30
[2019-12-20 10:11] LABS: Basophils % 0.1 %; Eosinophils % 0.1 %; Hematocrit 44.1 % (42.0-52.0); Hemoglobin 14.7 g/dL (11.7-16.6); Lymphocytes # 2.4 10^3/uL (0.8-4.8); Lymphocytes % 15.1 %; Mean Corpuscular Hemoglobin 27.6 pg (28.0-34.0); Mean Corpuscular Volume 82.9 fL (80-94); Mean Platelet Volume 11.9 fL (7.4-10.4); Monocytes % 6.3 %; Neutrophils # 12.51 10^3/uL (1.8-7.7); Neutrophils % 77.7 %; Nucleated Red Blood Cells % 0 %; Platelet Count 279 10^3/cmm (130-400); Red Blood Count 5.32 10^6/uL (4.1-5.3); Red Cell Distribution Width 16.4 % (12.1-15.1); White Blood Count 16.1 10^3/uL (4.0-10.0)
--- NOTE | 2019-12-20 10:15 | ECG_ITS ---
[facility] Test Date: 2019-12-20 Pat Name: Jagdish Clinton Department: Room: ICU11 Gender: Male Analytics Developer: CHANCE : 1980 Requested By: Padilla Frias Order Number: [id number] Reading MD: Randell Pedro M.D. Measurements Intervals Coila Rate: 117 P: 70 KY: 145 QRS: 52 QRSD: 98 T: 81 QT: 341 QTc: 477 Interpretive Statements SINUS TACHYCARDIA LEFT ATRIAL ENLARGEMENT [-0.15mV P WAVE IN V1/V2] ST DEVIATION AND MODERATE T-WAVE ABNORMALITY, CONSIDER LATERAL ISCHEMIA [-0.1+ mV T WAVE IN I/aVL/V5/V6] Compared to ECG 12/20/2019 08:48:52 Possible ischemia now present T-wave abnormality still present Electronically Signed On 12-20-2019 22:05:56 CDT by Randell Pedro M.D. [email or web address]
[2019-12-20] MEDS: ondansetron 2 mg/ML SDV 2 mL 4 MG IVP (10:20)
[2019-12-20] MEDS: morphine 4 mg/mL SDV 1 mL 2 MG IVP ×2 (10:22→17:23)
[2019-12-20 10:28] LABS: Mean Corpuscular HGB Conc 33.3 g/dL (30.0-36.0)
[2019-12-20 10:41] LABS: Anion Gap 19.9 (5-19); Blood Urea Nitrogen 22 mg/dL (6-20); Calcium 10.1 mg/dL (8.5-10.5); Carbon Dioxide 24 mmol/L (22-29); Chloride 93 mmol/L (98-107); Glomerular Filtration Rate 93.9 mL/min (90-130); Glucose 245 mg/dL (65-115); Magnesium 1.7 mg/dL (1.7-2.3); Osmolality Calculated 281 mOsm/kg (285-295); Phosphorus 3.3 mg/dL (2.5-4.5); Potassium 3.9 mmol/L (3.5-5.1); Sodium 133 mmol/L (136-145); Thyroid Stimulating Hormone 0.34 uIU/mL (0.27-4.20)
[2019-12-20] MEDS: dextrose 5%-sod chloride 0.45% 1,000 ML 150 ML IV (11:05)
--- NOTE | 2019-12-20 11:07 | PC.NURSE ---
blood sugar below 200 ivf changed to d51/2 ns at 150
[2019-12-20 11:09] LABS: Procalcitonin 0.43 ng/mL (0-0.5)
[2019-12-20 11:13] LABS: Troponin T (5th) Once 81 ng/L (0-15)
[2019-12-20 11:20] LABS: Iron 34 ug/dL (59-158); Percent Saturation 11.8 % (20-50); Total Iron Binding Capacity 288 mcg/dl; Unsaturated Iron Binding 254 ug/dL (112-347)
[2019-12-20 13:33] LABS: Anion Gap 14.8 (5-19); Blood Urea Nitrogen 19 mg/dL (6-20); Calcium 9.6 mg/dL (8.5-10.5); Carbon Dioxide 27 mmol/L (22-29); Chloride 97 mmol/L (98-107); Glomerular Filtration Rate 107.6 mL/min (90-130); Glucose 119 mg/dL (65-115); Osmolality Calculated 278 mOsm/kg (285-295); Potassium 3.8 mmol/L (3.5-5.1); Sodium 135 mmol/L (136-145)
--- NOTE | 2019-12-20 16:26 | PC.NURSE ---
insulin gtt off at this time after orders to transition to sq sliding scale
[2019-12-20 17:05] LABS: Glucose Point of Care 114 mg/dL (70-110)
[2019-12-20 17:05] LABS: Glucose Point of Care 133 mg/dL (70-110)
[2019-12-20 17:05] LABS: Glucose Point of Care 230 mg/dL (70-110)
[2019-12-20 17:05] LABS: Glucose Point of Care 131 mg/dL (70-110)
[2019-12-20 17:05] LABS: Glucose Point of Care 326 mg/dL (70-110)
[2019-12-20 17:06] LABS: Glucose Point of Care 165 mg/dL (70-110)
[2019-12-20 17:06] LABS: Glucose Point of Care 112 mg/dL (70-110)
[2019-12-20 17:06] LABS: Glucose Point of Care 209 mg/dL (70-110)
[2019-12-20] MEDS: lipase-protease-amylase Capsule 2 EACH PO (17:11)
[2019-12-20] MEDS: iron sucrose 200 MG in sodium chloride 0.9% (100 ml) 100 ML 220 MG IV (17:15)
[2019-12-20] MEDS: sodium chloride 0.9% 1,000 ML 100 ML IV (17:22)
[2019-12-20] MEDS: HYDROcodone-acetaminophen 10-325 mg Tablet 1 TAB PO (20:41)
[2019-12-20 20:45] LABS: Blood Urea Nitrogen 13 mg/dL (6-20); Calcium 9.1 mg/dL (8.5-10.5); Carbon Dioxide 25 mmol/L (22-29); Chloride 100 mmol/L (98-107); Glomerular Filtration Rate 125.5 mL/min (90-130); Glucose 152 mg/dL (65-115); Osmolality Calculated 279 mOsm/kg (285-295); Sodium 135 mmol/L (136-145)
[2019-12-20 21:01] LABS: Glucose Point of Care 152 mg/dL (70-110)
[2019-12-21] VITALS (21 sets, daily range): BP systolic 103–144; BP diastolic 69–92; PULSE 78–98; RESP 8–23; TEMP 36.3–37.1; O2SAT 96–100; BMI 17.7
[2019-12-21] MEDS: morphine 4 mg/mL SDV 1 mL 2 MG IVP ×3 (00:59→10:07)
[2019-12-21] MEDS: sodium chloride 0.9% 1,000 ML 100 ML IV ×3 (01:00→17:40)
[2019-12-21] MEDS: HYDROcodone-acetaminophen 10-325 mg Tablet 1 TAB PO ×4 (02:32→17:39)
[2019-12-21 02:44] LABS: Glucose Point of Care 230 mg/dL (70-110)
[2019-12-21] MEDS: morphine 4 mg/mL SDV 1 mL IVP (04:07)
[2019-12-21 04:57] LABS: Basophils % 0.4 %; Eosinophils # 0.2 10^3/uL (0.0-0.8); Eosinophils % 1.9 %; Hematocrit 38.4 % (42.0-52.0); Hemoglobin 12.4 g/dL (11.7-16.6); Lymphocytes # 1.8 10^3/uL (0.8-4.8); Lymphocytes % 20.8 %; Mean Corpuscular HGB Conc 32.3 g/dL (30.0-36.0); Mean Corpuscular Hemoglobin 27.3 pg (28.0-34.0); Mean Corpuscular Volume 84.6 fL (80-94); Mean Platelet Volume 12.5 fL (7.4-10.4); Monocytes # 0.7 10^3/uL (0.2-0.9); Monocytes % 8.5 %; Neutrophils # 5.74 10^3/uL (1.8-7.7); Neutrophils % 67.8 %; Nucleated Red Blood Cells % 0 %; Platelet Count 223 10^3/cmm (130-400); Red Blood Count 4.54 10^6/uL (4.1-5.3); Red Cell Distribution Width 17.3 % (12.1-15.1); White Blood Count 8.5 10^3/uL (4.0-10.0)
[2019-12-21 05:14] LABS: Alanine Aminotransferase 21 U/L (0-41); Albumin Level 3.6 g/dL (3.5-5.2); Alkaline Phosphatase 180 IU/L (40-130); Anion Gap 13.1 (5-19); Aspartate Amino Transferase 52 U/L (0-40); Blood Urea Nitrogen 13 mg/dL (6-20); Calcium 8.5 mg/dL (8.5-10.5); Carbon Dioxide 24 mmol/L (22-29); Chloride 100 mmol/L (98-107); Glucose 316 mg/dL (65-115); Osmolality Calculated 284 mOsm/kg (285-295); Potassium 4.1 mmol/L (3.5-5.1); Sodium 133 mmol/L (136-145); Total Bilirubin 0.4 mg/dL (0.15-1.2); Total Protein 6.6 g/dL (6.6-8.7)
[2019-12-21 05:28] LABS: Estmated Average Glucose 309; Hemoglobin A1C 12.4 % (4.0-6.0)
--- NOTE | 2019-12-21 06:00 | USCV_ITS ---
Jagdish Clinton Age: 39 Gender: M : 1980 Exam Date: 12/21/2019 09:24 Ordering Phys: Chace Perera MD Technologist: Simon Merchant Exam Location: [facility] [place] Indication: AP POST INCREASED CARD ENZIMES BP: 103 / 69 HR: 163 Rhythm: Sinus Technical Quality: Adequate MEASUREMENTS (Male / Female) Normal Values 2D ECHO LV Diastolic Diameter PLAX 4.0 cm 4.2 - 5.9 / 3.9 - 5.3 cm LV Systolic Diameter PLAX 2.9 cm IVS Diastolic Thickness 1.0 cm 0.6 - 1.0 / 0.6 - 0.9 cm IVS Systolic Thickness 1.5 cm LVPW Diastolic Thickness 0.9 cm 0.6 - 1.0 / 0.6 - 0.9 cm LVPW Systolic Thickness 1.4 cm LVOT Diameter 2.0 cm LV Ejection Fraction 2D Teich 53.4 % LV Ejection Fraction MOD 2C 54.5 % LV Ejection Fraction 2C AL 54.0 % LA Diameter 3.7 cm LA Width 3.7 cm LA Height 2.9 cm RA Width 3.4 cm RA Height 4.2 cm Aorta at Sinotubular Diameter 2.5 cm M-MODE LV Diastolic Diameter MM 5.6 cm 4.2 - 5.9 / 3.9 - 5.3 cm LV Systolic Diameter MM 4.1 cm LV Ejection Fraction MM Teich 52.3 % IVS Diastolic Thickness MM 1.1 cm 0.6 - 1.0 / 0.6 - 0.9 cm IVS Systolic Thickness MM 1.6 cm LVPW Diastolic Thickness MM 0.9 cm 0.6 - 1.0 / 0.6 - 0.9 cm LVPW Systolic Thickness MM 1.9 cm RV Diastolic Diameter MM 1.3 cm Aortic Annulus Diameter 3.4 cm LA Ao Ratio MM 1.1 MV E Point Septal Separation 1.5 cm DOPPLER AV Peak Velocity 189.0 cm/s LVOT Peak Velocity 86.0 cm/s AV Area Cont Eq vti 1.5 cm squared AV Area Cont Eq pk 1.4 cm squared MV Area PHT 5.0 cm squared Mitral E to A Ratio 1.0 MV E' Velocity 6.0 cm/s Mitral E to MV E' Ratio 10.0 Mitral E to LV E' Lateral Ratio 12.1 Mitral E to LV E' Septal Ratio 8.5 TR Peak Velocity 146.0 cm/s TR Peak Gradient 8.5 mmHg Right Atrial Pressure 3.0 mmHg Pulmonary Artery Systolic Pressu 11.5 mmHg FINDINGS Left Ventricle Normal left ventricular cavity size. Mild left ventricular hypertrophy. Mildly decreased left ventricular systolic function. Global left ventricular hypokinesis. Grade I/IV diastolic dysfunction (abnormal relaxation filling pattern), normal to mildly elevated filling pressures. Left ventricular ejection fraction is estimated at 45 %. Right Ventricle Normal right ventricular size and systolic function. Normal right ventricular systolic pressure. Right Atrium The right atrium is normal in size. Left Atrium The left atrium is normal in size. Mitral Valve Structurally normal mitral valve. No obvious mitral regurgitation or stenosis Aortic Valve Aortic valve is poorly seen. There appears to be some calcification. There also appears to be an increase in the velocity across the valve. Mild aortic valve stenosis, mean gradient 6.6 mmHg, MICHELLE 1.5 cm squared. No obvious aortic insufficiency Tricuspid Valve Structurally normal tricuspid valve. Trace tricuspid valve regurgitation. Pulmonic Valve Pulmonic valve not well visualized. Pericardium Normal pericardium without effusion. Aorta Normal ascending aorta dimension. CONCLUSIONS Normal left ventricular cavity size. Mild left ventricular hypertrophy. Mildly decreased left ventricular systolic function. Global left ventricular hypokinesis. Grade I/IV diastolic dysfunction (abnormal relaxation filling pattern), normal to mildly elevated filling pressures. Left ventricular ejection fraction is estimated at 45 %. Aortic valve is poorly seen. There appears to be some calcification. There also appears to be an increase in the velocity across the valve. Mild aortic valve stenosis, mean gradient 6.6 mmHg, MICHELLE 1.5 cm squared. No obvious aortic insufficiency. From the previous echo dictated a year ago, there appears to be a decrease in the ejection fraction from 60% to 45% and now the absence of aortic insufficiency in the presence of mild aortic stenosis. Has there been a TAVR or replacement of the aortic valve? Dr. Garcia Bang MD (Electronically Signed) Final Date: 21 December 2019 17:15 S
[2019-12-21 08:03] LABS: Glucose Point of Care 337 mg/dL (70-110)
[2019-12-21] MEDS: pregabalin 150 mg Capsule PO ×2 (08:15→17:17)
[2019-12-21] MEDS: CLONazepam 1 mg Tablet PO ×2 (08:15→17:18)
[2019-12-21] MEDS: enoxaparin 40 mg/0.4 mL Syringe SUBCUT (08:16)
[2019-12-21] MEDS: pantoprazole DR 40 mg Tablet PO (08:16)
--- NOTE | 2019-12-21 09:07 | PM.PN ---
Subjective Subjective: Interval history: Jagdish reports he is in pain. He wants something to eat 2. He is awaiting his MRI. Medications: Reviewed: Yes Vitals/I&O/Wt Last Vital Signs Temp 98.7 F 12/21/19 04:00 Pulse 86 12/21/19 08:45 Resp 12 12/21/19 08:00 BP 111/84 12/21/19 08:00 Pulse Ox 98 12/21/19 08:45 12/20/19 12/21/19 12/21/19 22:59 06:59 14:59 Intake Total 450 / 506.436 763.333 / 1269.769 Output Total 800 / 1600 700 / 2300 850 / 850 Balance -350 / -1093.564 63.333 / -1030.231 -850 / -850 Weight last 48 hrs Weight 54.431 kg Weight 54.431 kg Physical Exam Narrative: EXAM NARRATIVE: General exam is a cachectic appearing white male, in no obvious distress Cardiovascular regular rate and rhythm Lungs clear Abdomen is soft, subjective global tenderness. Positive bowel sounds. Extremities no cyanosis clubbing or edema Data : 12/21/19 04:37 12/21/19 04:37 Micro: Microbiology 12/20/19 04:50 Blood Culture - Preliminary Blood SPECIMEN COLLECTED 12/20/19 09:35 Blood Culture - Preliminary Blood SPECIMEN COLLECTED A&P Assessment and plan (1) DKA (diabetic ketoacidoses): This appears to have resolved. When he can eat p.o., initiate long-acting insulin Status: Acute Qualifiers: Diabetes mellitus complication detail: without coma Diabetes mellitus type: type 1 Qualified Code(s): E10.10 - Type 1 diabetes mellitus with ketoacidosis without coma (2) Metabolic acidosis: Resolved, secondary to DKA Status: Acute (3) Hematochezia: Consider outpatient work-up. Hemoglobin has remained stable. 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 Resolved Status: Acute (8) Leukocytosis: Resolve Blood cultures negative to date Status: Acute (9) Alkaline phosphatase elevation: Awaiting MRI, ordered for pancreatic duct dilation Status: Acute (10) Troponin level elevated: Type II Status: Acute (11) Abdominal pain: Secondary to pancreatitis Status: Acute (12) Chest pain: Status: Acute (13) ALC (alcoholic liver cirrhosis): Reports also alcoholic liver cirrhosis. Denies any history of ascites. No ascites noted on abdominal imaging. Consider outpatient GI referral Status: Acute Additional A&P Information Anemia, chronic. Iron supplementation given. Lovenox for DVT prophylaxis Full code Attestations Medical Necessity Statement*: Needs continued hospitalization, for treatment of pancreatitis with IV pain medications and to monitor for close resolution of DKA and initiation of long-acting insulin. Coding Level of Care Code Acute Perinatal Tech for [facility] Fwd Diagnoses DKA (diabetic ketoacidoses) E10.10 Diabetes mellitus complication detail: without coma Diabetes mellitus type: type 1 Metabolic acidosis E87.2 Hematochezia K92.1 Chronic pancreatitis due to acute alcohol intoxication K86.0; F10.929 Mitral valve replaced Z95.2 Acute kidney injury N17.9 Hyponatremia E87.1 Leukocytosis D72.829 Alkaline phosphatase elevation R74.8 Troponin level elevated R79.89 Abdominal pain R10.9 Chest pain R07.9 ALC (alcoholic liver cirrhosis) K70.30
[2019-12-21] MEDS: iron sucrose 200 MG in sodium chloride 0.9% (100 ml) 100 ML 220 MG IV (09:24)
[2019-12-21 09:37] LABS: Glucose Point of Care 305 mg/dL (70-110)
--- NOTE | 2019-12-21 09:55 | PC.NURSE ---
consent obtained for MRI.
--- NOTE | 2019-12-21 10:15 | MR_ITS ---
WS: [id number] MRCP (MAGNETIC RESONANCE CHOLANGIOPANCREATOGRAPHY) HISTORY: Chronic pancreatitis, pancreatic duct dilatation, rule out mass COMPARISON: 12/20/2019, 07/21/2017 TECHNIQUE: Multiple sequences are performed to evaluate the intra and extrahepatic ducts. Well-distended gallbladder. No pericholecystic fluid or stones identified. Common bile duct and the i ntrahepatic ducts are normal caliber. The common bile duct through the pancreatic head is normal josh craig. No mass identified. As seen by CT the pancreas is atrophic and the duct is dilated. Consistent w ith history of chronic pancreatitis. Calcifications are better seen on the CT which indicate chronic pancreatitis which has been present since 07/21/2017. Progression of duct dilatation and atrophy pancr eas. Spleen is normal size. No adrenal mass. No significant amount of ascites. 1.2 cm RIGHT renal cyst. MR/MR MRCP [id number] IMPRESSION: 1. No common bile duct dilatation. 2. No pancreatic head mass. 3. Marked dilatation/ectasia of the pancreatic duct with severe pancreas atrop hy. Consistent with history of chronic pancreatitis.
[2019-12-21 11:22] LABS: Glucose Point of Care 137 mg/dL (70-110)
[2019-12-21] MEDS: LORazepam 2 mg/mL INJ 1 mL 1 MG IVP (12:40)
--- NOTE | 2019-12-21 13:53 | PC.NURSE ---
MRI Patient taken to MRI at 1230, patient tolerated well. Patient back to room at this time.
--- NOTE | 2019-12-21 16:04 | PC.RESP ---
Smoking Cessation information sent to patient.
--- NOTE | 2019-12-21 16:21 | PC.NURSE ---
admission Pt arrived to unit by wheelchair. Alert and oriented x3 and able to follow commands. All vitals WNL. No complaints were noted at this time.
[2019-12-21 16:58] LABS: Glucose Point of Care 331 mg/dL (70-110)
[2019-12-21] MEDS: lipase-protease-amylase Capsule 2 EACH PO (17:14)
[2019-12-21 20:43] LABS: Glucose Point of Care 156 mg/dL (70-110)
[2019-12-21] MEDS: insulin glargine 100 units/1 mL 10 UNIT SUBCUT (21:15)
[2019-12-22] VITALS (9 sets, daily range): BP systolic 114–131; BP diastolic 70–88; PULSE 74–89; RESP 18–20; TEMP 36.4–37.2; O2SAT 98–100
[2019-12-22] MEDS: HYDROcodone-acetaminophen 10-325 mg Tablet 1 TAB PO ×3 (00:18→10:11)
[2019-12-22] MEDS: morphine 4 mg/mL SDV 1 mL 2 MG IVP ×2 (01:51→06:57)
[2019-12-22] MEDS: HYDROmorphone 1 mg/mL INJ 1 mL 2 MG IVP (04:02)
[2019-12-22 05:24] LABS: Basophils % 0.3 %; Eosinophils # 0.3 10^3/uL (0.0-0.8); Eosinophils % 3.4 %; Hematocrit 37.6 % (42.0-52.0); Hemoglobin 11.7 g/dL (11.7-16.6); Lymphocytes # 1.8 10^3/uL (0.8-4.8); Lymphocytes % 24.6 %; Mean Corpuscular HGB Conc 31.1 g/dL (30.0-36.0); Mean Corpuscular Hemoglobin 26.6 pg (28.0-34.0); Mean Corpuscular Volume 85.5 fL (80-94); Mean Platelet Volume 12.2 fL (7.4-10.4); Monocytes # 0.7 10^3/uL (0.2-0.9); Monocytes % 9.9 %; Neutrophils # 4.46 10^3/uL (1.8-7.7); Neutrophils % 61.5 %; Nucleated Red Blood Cells % 0 %; Platelet Count 177 10^3/cmm (130-400); Red Cell Distribution Width 17.2 % (12.1-15.1); White Blood Count 7.3 10^3/uL (4.0-10.0)
[2019-12-22 06:11] LABS: Alanine Aminotransferase 18 U/L (0-41); Albumin Level 3.5 g/dL (3.5-5.2); Alkaline Phosphatase 127 IU/L (40-130); Anion Gap 9.7 (5-19); Aspartate Amino Transferase 25 U/L (0-40); Blood Urea Nitrogen 7 mg/dL (6-20); Calcium 8.5 mg/dL (8.5-10.5); Carbon Dioxide 27 mmol/L (22-29); Chloride 102 mmol/L (98-107); Globulin 2.8 g/dL (1.3-4.6); Glomerular Filtration Rate 185.1 mL/min (90-130); Glucose 123 mg/dL (65-115); Osmolality Calculated 277 mOsm/kg (285-295); Potassium 3.7 mmol/L (3.5-5.1); Sodium 135 mmol/L (136-145); Total Bilirubin 0.4 mg/dL (0.15-1.2); Total Protein 6.3 g/dL (6.6-8.7)
[2019-12-22 06:32] LABS: Glucose Point of Care 97 mg/dL (70-110)
[2019-12-22] MEDS: sodium chloride 0.9% 1,000 ML 100 ML IV (08:36)
[2019-12-22] MEDS: CLONazepam 1 mg Tablet PO (08:36)
[2019-12-22] MEDS: pregabalin 150 mg Capsule PO (08:37)
[2019-12-22] MEDS: pantoprazole DR 40 mg Tablet PO (08:37)
[2019-12-22] MEDS: lipase-protease-amylase Capsule 2 EACH PO ×2 (08:42→12:02)
[2019-12-22] MEDS: iron sucrose 200 MG in sodium chloride 0.9% (100 ml) 100 ML 220 MG IV (09:11)
--- NOTE | 2019-12-22 11:09 | PC.NURSE ---
Updated Family This nurse called and updated family member, Daisha. Pt to be discharge today, looking for correction placement. Family member verbalized understanding. All questions were answered. Physician notified.
[2019-12-22 12:00] LABS: Glucose Point of Care 391 mg/dL (70-110)
--- NOTE | 2019-12-22 15:47 | P.DS_ITS ---
Discharge Providers Date of Admission: 12/20/19 05:28 Date of Discharge: December 22, 2019 Attending Provider at Admission: Chace Perera Attending Provider at Discharge: Franklin Mcclelland MD Primary Care Provider: Oumar Gonzalez MD Diagnoses at Discharge Discharge Diagnosis (1) DKA (diabetic ketoacidoses): Status: Acute Problem details: Resolved Qualifiers: Diabetes mellitus complication detail: without coma Diabetes mellitus type: type 1 Qualified Code(s): E10.10 - Type 1 diabetes mellitus with ketoacidosis without coma (2) Metabolic acidosis: Status: Acute (3) Hematochezia: Status: Acute (4) Chronic pancreatitis due to acute alcohol intoxication: Status: Acute Problem details: No change in chronic pain meds in combination w no reliability in compliance (5) Mitral valve replaced: Status: Acute (6) Acute kidney injury: Status: Acute (7) Hyponatremia: Status: Acute (8) Leukocytosis: Status: Acute (9) Alkaline phosphatase elevation: Status: Acute (10) Troponin level elevated: Status: Acute (11) Abdominal pain: Status: Acute (12) Chest pain: Status: Acute (13) ALC (alcoholic liver cirrhosis): Status: Acute Reason for Visit Reason for Visit: ABDOMINAL PAIN Hospital Course Hospital Course: Jagdish is a 39-year-old white male admitted on December 19 with evidence of DKA with metabolic acidosis and elevated sugar. He was reporting chronic abdominal pain consistent with his chronic pancreatitis. He was placed in the ICU, on an insulin drip. Anion gap quickly closed and he was able to start p.o. During his entire hospital stay he continued to complain of significant abdominal discomfort. CT as well as MRI was done demonstrating changes consistent with chronic calcific pancreatitis. Echocardiogram was done secondary to prior history of valve replacement secondary to endocarditis and this demonstrated an EF of 45%, and mildly decreased function. After resolution of the DKA the patient was vigorous about eating, not necessarily following prescribed diet while in the hospital. A day of discharge although complaining of some abdominal pain he ate 3 cheeseburgers, chicken nuggets and a sonic drink. He complained of significant weakness and wanted consideration of retirement placement. We attempted to find placement for him but 3 nursing homes refused. He was ambulatory in the room going back and forth to the bathroom. Physical Exam Narrative: EXAM NARRATIVE: General exam no apparent distress Cardiovascular regular rate and rhythm Lungs clear Abdomen is soft, positive bowel sounds, subjective tenderness Extremities no cyanosis clubbing or edema Discharge Data Data Completed and Pending: Completed Studies During Hospitalization Category Date Time Status CT abdomen pelvis w con* [id number] Urge nt Cat Scan 12/20/19 05:27 Completed XR chest 1V apolinar ble [id number] Stat Exams 12/20/19 04:15 Completed MR MRCP [id number] Rou fabiana MRI 12/21/19 10:15 Completed CV echo complete* [id number] Routine Ultrasound 12/21/19 06:00 Completed Pending at discharge Category Date Time Status Blood Culture Sta t Lab 12/20/19 04:50 Results Complete Blood Co unt w/Auto AM LABS Lab 12/23/19 04:00 Ordered Comprehensive Met abolic Panel AM LA BS Lab 12/23/19 04:00 Ordered Immunochemical Fe mao OCB Routine Lab 12/20/19 07:59 Uncollected Urinalysis Stat Lab 12/20/19 05:15 Uncollected Labs from last 24 hours 12/22/19 12/22/19 12/22/19 11:57 06:17 04:30 WBC RBC Hgb Hct MCV MCH MCHC RDW Plt Count MPV Neut % (Auto) Lymph % (Auto) [place] % (Auto) Eos % (Auto) Baso % (Auto) Neut # (Auto) Lymph # (Auto) [place] # (Auto) Eos # (Auto) Baso # (Auto) Nucleated RBC % (a uto) Nucleated RBCs # Sodium 135 L Potassium 3.7 Chloride 102 Carbon Dioxide 27 Anion Gap 9.7 BUN 7 Creatinine 0.5 L GFR Calculation 185.1 H Glucose 123 H POC Glucose 391 97 Calculated Osmolal ity 277 L Calcium 8.5 Total Bilirubin 0.4 AST 25 ALT 18 Alkaline Phosphata se 127 Total Protein 6.3 L Albumin 3.5 Globulin 2.8 12/22/19 12/21/19 12/21/19 04:30 20:39 16:52 WBC 7.3 RBC 4.40 Hgb 11.7 Hct 37.6 L MCV 85.5 MCH 26.6 L MCHC 31.1 RDW 17.2 H Plt Count 177 MPV 12.2 H Neut % (Auto) 61.5 Lymph % (Auto) 24.6 [place] % (Auto) 9.9 Eos % (Auto) 3.4 Baso % (Auto) 0.3 Neut # (Auto) 4.46 Lymph # (Auto) 1.8 [place] # (Auto) 0.7 Eos # (Auto) 0.3 Baso # (Auto) 0.0 Nucleated RBC % (a uto) 0 Nucleated RBCs # 0.0 Sodium Potassium Chloride Carbon Dioxide Anion Gap BUN Creatinine GFR Calculation Glucose POC Glucose 156 331 Calculated Osmolal ity Calcium Total Bilirubin AST ALT Alkaline Phosphata se Total Protein Albumin Globulin Vitals: Last Vital Signs Temp 98.6 F 12/22/19 15:31 Pulse 74 12/22/19 15:31 Resp 18 12/22/19 15:31 BP 114/70 12/22/19 15:31 Pulse Ox 98 12/22/19 15:31 Discharge Plan Discharge Patient Disposition: Home, Self-Care Condition: Stable Prescriptions: New pantoprazole 40 mg Tablet,Delayed Release (Dr/Ec) 40 mg PO DAILY Qty: 30 RF: 0 Zenpep 5,000-17,000- 24,000 unit Capsule,Delayed Release(Dr/Ec) 2 ea PO TIDWM Qty: 180 RF: 0 Continued clonazepam 1 mg tablet 1 mg PO BID 30 Days Qty: 60 RF: 2 pregabalin [Lyrica] 150 mg capsule 150 mg PO BID 30 Days Qty: 60 RF: 2 Lantus Solostar U-100 Insulin 100 unit/mL (3 mL) insulin pen 20 unit SUBCUT QPM RF: 0 insulin lispro [Humalog U-100 Insulin] 100 unit/mL solution 10 unit SUBCUT TID RF: 0 (DME) pen needle, diabetic [TechLITE Pen Needle] 32 gauge x 1/4 needle See Rx Instructions .ROUTE .MEDSUPPLY Qty: 100 RF: 3 (DME) BD Veo Insulin Syr Half Unit 0.3 mL 31 gauge x 15/64 syringe See Rx Instructions .ROUTE .MEDSUPPLY Qty: 100 RF: 11 ondansetron HCl [Zofran] 4 mg tablet 4 mg PO Q6H PRN (Reason: nausea and vomiting) Qty: 20 RF: 0 hydrocodone-acetaminophen 10-325 mg tablet 1 tab PO Q6H PRN (Reason: pain) 30 Days Qty: 20 RF: 0 Discontinued furosemide [Lasix] 40 mg tablet 40 mg PO BID RF: 0 potassium chloride 10 mEq tablet,ER particles/crystals 10 meq PO BID RF: 0 Injectafer 50 iron mg/mL solution 750 mg IVP Q7D Qty: 30 RF: 0 sildenafil [Viagra] 100 mg tablet 100 mg PO DAILY PRN (Reason: sexual activity) RF: 0 Discharge Orders: Discharge Order (Routine); Ordered 12/22/19 Ordered By: Franklin Mcclelland Referrals: Oumar Gonzalez MD [Primary Care Provider] - 4-7 days Discharge Diet: Diabetic Discharge Activity: Increase activity as tolerated Activity Restrictions/Additional Instructions: Low-fat diet Avoid alcohol Take all medicine as prescribed Follow-up with your primary care provider 3 to 5 days Consideration of outpatient work-up for blood in stool. Discharge Attestations Time Spent in Discharge Care*: greater than 30 min Quality Metrics Clinical Quality Measures During this hospital stay, did patient experience: None Coding Level of Care Code Acute Qa Internship for [facility] Fwd Diagnoses DKA (diabetic ketoacidoses) E10.10 Diabetes mellitus complication detail: without coma Diabetes mellitus type: type 1 Metabolic acidosis E87.2 Hematochezia K92.1 Chronic pancreatitis due to acute alcohol intoxication K86.0; F10.929 Mitral valve replaced Z95.2 Acute kidney injury N17.9 Hyponatremia E87.1 Leukocytosis D72.829 Alkaline phosphatase elevation R74.8 Troponin level elevated R79.89 Abdominal pain R10.9 Chest pain R07.9 ALC (alcoholic liver cirrhosis) K70.30
== END 2019-12-22 16:37 | disposition home or self-care (01) | DRG 638 ==
LOC: ER 05:20 → ICU 06:01 → MEDSURG 12-21 16:04
PROVIDERS: Emergency Medicine; Student in an Organized Health Care Education/Training Program; Admitting Provider Internal Medicine; PCP Family Medicine; Visit Provider Internal Medicine
DX: E10.10 Type 1 diabetes mellitus with ketoacidosis without coma (principal); K92.1 Melena; E87.1 Hypo-osmolality and hyponatremia; N17.9 Acute kidney failure, unspecified; E86.0 Dehydration; K70.30 Alcoholic cirrhosis of liver without ascites; Z95.2 Presence of prosthetic heart valve; F41.8 Other specified anxiety disorders; E10.42 Type 1 diabetes mellitus with diabetic polyneuropathy; F17.210 Nicotine dependence, cigarettes, uncomplicated
CPT/HCPCS: 12345; 36415; 36416; 36600; 71045; 74177; 74181; 80048; 80053; 82009; 82803; 82962; 83036; 83540; 83550; 83690; 83735; 84100; 84145; 84443; 84484; 85025; 87040; 87641; 93005; 93306; 94664; 96365; 96372; 96375; 99283; 99285; J1170; J1200; J1650; J1756; J1815 ×2; J2060; J2270; J2405; J2765; J7030; J7050; J7799; Q9967

== ENCOUNTER 2019-12-26 20:09 | Inpatient (IN) | payer MEDICAID, SELFPAY ==
[2019-12-26 20:11] VITALS: BP 138/103; PULSE 94; RESP 18; TEMP 37; O2SAT 96; BMI 17.7
[2019-12-26] MEDS: sodium chloride 0.9% 1,000 ML 999 ML IV (20:24)
[2019-12-26] MEDS: ondansetron 2 mg/ML SDV 2 mL 4 MG IVP ×2 (20:24→22:37)
[2019-12-26 20:37] LABS: ABG PCO2 42.4 mmHg (35-45); ABG PH Result 7.44 (7.35-7.45); Arterial Blood Gas Hematocrit 38.8 % (42-52); Base Excess ABG 4.1 mmol/L (-2.0-2.0); Blood Gas Allen Test Pos; Blood Gas Sample Site Radial, right; Blood Gas Sample Type Arterial; HCO3 ABG 28.8 mmol/L (22-26); PO2 ABG 72.9 mmHg (80.0-100.0)
[2019-12-26 20:39] LABS: Basophils % 0.6 %; Eosinophils # 0.2 10^3/uL (0.0-0.8); Eosinophils % 2.4 %; Hematocrit 41.5 % (42.0-52.0); Hemoglobin 13.2 g/dL (11.7-16.6); Lymphocytes # 1.7 10^3/uL (0.8-4.8); Lymphocytes % 24.5 %; Mean Corpuscular HGB Conc 31.8 g/dL (30.0-36.0); Mean Corpuscular Hemoglobin 26.7 pg (28.0-34.0); Mean Platelet Volume 11.6 fL (7.4-10.4); Monocytes # 0.6 10^3/uL (0.2-0.9); Neutrophils # 4.48 10^3/uL (1.8-7.7); Neutrophils % 63.1 %; Nucleated Red Blood Cells % 0 %; Platelet Count 262 10^3/cmm (130-400); Red Blood Count 4.94 10^6/uL (4.1-5.3); White Blood Count 7.1 10^3/uL (4.0-10.0)
[2019-12-26 20:57] LABS: INR 0.95 (0.8-1.2)
[2019-12-26 21:05] LABS: Alanine Aminotransferase 21 U/L (0-41); Alkaline Phosphatase 149 IU/L (40-130); Aspartate Amino Transferase 42 U/L (0-40); Blood Urea Nitrogen 4 mg/dL (6-20); C Reactive Protein 5.5 mg/L (0.0-4.9); Calcium 8.7 mg/dL (8.5-10.5); Carbon Dioxide 30 mmol/L (22-29); Chloride 89 mmol/L (98-107); Creatinine Clr Calc Pharmacy 152.7092; Globulin 3.2 g/dL (1.3-4.6); Glomerular Filtration Rate 185.1 mL/min (90-130); Glucose 497 mg/dL (65-115); Lipase 4 U/L (13-60); Osmolality Calculated 284 mOsm/kg (285-295); Sodium 128 mmol/L (136-145); Total Bilirubin 0.3 mg/dL (0.15-1.2); Total Protein 7.2 g/dL (6.6-8.7)
[2019-12-26 21:30] LABS: Alcohol Level < 10 mg/dL (0-10)
--- NOTE | 2019-12-26 21:31 | CTR_ITS ---
PROCEDURE INFORMATION: Exam: CT Abdomen And Pelvis With Contrast Exam date and time: 12/26/2019 9:47 PM Age: 39 years old Clinical indication: Abdominal pain; Generalized; Patient HX: C/O abd pain w n/v TECHNIQUE: Imaging protocol: Computed tomography of the abdomen and pelvis with intravenous contrast. Radiation optimization: All CT scans at this facility use at least one of these dose optimization techniques: automated exposure control; mA and/or kV adjustment per patient size (includes targeted exams where dose is matched to clinical indication); or iterative reconstruction. Contrast material: OMNI 300; Contrast volume: 75 ml; Contrast route: INTRAVENOUS (IV); COMPARISON: CT abdomen pelvis w con* [id number] 12/20/2019 6:11 AM RADIATION DOSE METRICS: Total DLP (mGy-cm): 560.24 FINDINGS: Lungs: There are some strandy opacities present in the right lung base and some consolidation superimposed over the right pleural effusion likely representing atelectasis and infiltrate and pneumonia cannot be excluded. Pleural space: There is a small right pleural effusion. Heart: Status post mitral aortic replacement. Liver: Hypoattenuation seen adjacent to falciform fissure compatible with focal fatty infiltration. Gallbladder and bile ducts: Normal. No calcified stones. No ductal dilation. Pancreas: Diffuse calcifications are seen within the pancreas, findings compatible with chronic pancreatitis. There is irregular dilatation the main pancreatic duct measuring to 7.6 mm. There is a 2.7 mm calcification may be present within the main pancreatic duct causing partial obstruction at the level of the pancreatic neck. Spleen: Normal. No splenomegaly. Adrenals: Normal. No mass. Kidneys and ureters: There is a stable 12 mm right renal cyst present. Stomach and bowel: Unremarkable. No obstruction. No mucosal thickening. Appendix: No evidence of appendicitis. Intraperitoneal space: Unremarkable. No free air. No significant fluid collection. Vasculature: Unremarkable. No abdominal aortic aneurysm. Lymph nodes: Multiple small retroperitoneal lymph nodes are seen that are below CT criteria for lymphadenopathy. Bladder: Unremarkable as visualized. Reproductive: Unremarkable as visualized. Bones/joints: Unremarkable. No acute fracture. Soft tissues: Unremarkable. CT/CT abdomen pelvis w con* [id number] IMPRESSION: 1. Diffuse calcifications within the pancreatic parenchyma compatible with chronic pancreatitis. There is irregular dilatation of the main pancreatic duct maximally measuring 7.6 mm in diameter. Calcification may be present within the main pancreatic duct at the level of the neck the pancreas measuring 2.7 mm. 2. Small right pleural effusion 3. There are strandy opacities present in right lung base most probably representing atelectasis or parenchymal or pleural scarring. Consolidation is seen superimposed over the right pleural effusion possibly representing rounded atelectasis although pneumonia cannot be excluded. Radiation Dose CTDIVOL = (mGy): DLP = 560.24 (mGy-cm)
[2019-12-26] MEDS: iohexol 300 mg/mL 100 mL Btl IV (22:01)
[2019-12-26] MEDS: ketorolac 30 mg/mL INJ IVP (22:38)
[2019-12-26 22:39] VITALS: RESP 18; O2SAT 98
[2019-12-26] MEDS: HYDROmorphone 1 mg/mL INJ 1 mL IVP (22:39)
[2019-12-26 22:43] VITALS: BP 181/118; PULSE 82; RESP 20; O2SAT 99
[2019-12-26] MEDS: insulin regular-human 100 units/1 mL 12 UNIT IVP (23:17)
[2019-12-26 23:20] LABS: Lactate (Lactic Acid level) 0.9 mmol/L (0.5-2.2)
[2019-12-26 23:48] VITALS: BP 160/106; PULSE 68; RESP 18; O2SAT 99
[2019-12-26 23:50] LABS: Add Urine Microscopic? NO
[2019-12-26 23:51] LABS: Urine Appearance Clear (CLEAR); Urine Color Straw (Yellow); pH Urine 7 (5-7)
[2019-12-26 23:52] LABS: Bilirubin Urine Neg (NEGATIVE); Blood Urine Neg (Negative); Glucose Urine UA 4+ (Normal); Ketones Urine Negative (Negative); Leukocyte Esterase Urine Negative (Negative); Nitrate Urine Negative (Negative); Protein Urine Neg (Negative); Specific Gravity, Urine 1.005 (1.005-1.030); Urobilinogen Urine Norm (Negative)
--- NOTE | 2019-12-26 23:56 | PM.HP ---
Providers/Chief Complaint Primary Care Provider: Oumar Gonzalez MD Chief Complaint: ABDOMINAL PAIN/ NAUSEA History of Present Illness Jagdish Clinton is a 39 year old male who carries history of type 2 diabetes, chronic pancreatitis with calcification, noncompliance, alcoholic liver cirrhosis, bioprosthetic mitral valve secondary to endocarditis at [facility], was recently discharged from the hospital about a week ago, today presenting with chief complaint of worsening abdominal pain. Patient is stating that even on day of discharge he was having abdominal pain, his pain never got better, at home he was trying to avoid eating because of worsening abdominal pain. He did not notice any fever, nausea, vomiting, his stools have been semisolid, he has not taken any pancreatic enzymes because he has been trying to avoid eating. His mother is endorsing giving him 10 units of long-acting insulin at night however at the time of discharge 20 units were prescribed. Today he came to the hospital because of worsening abdominal pain. He is endorsing to smoking 1 pack/day, his last alcoholic drink was few years back. Patient endorsing hoarseness of voice in July before his mitral valve replacement. He is denying any history of thyroid disease. Diagnostics in the ER revealed normal hemodynamics with normal lipase level normal ALT mildly abnormal AST, alk phos 149 Emaciated with low creatinine CT abdomen is revealing calcification causing stricture in the pancreatic duct without active pancreatitis Review of Systems Const: Reports: change in appetite, change in weight, fatigue and malaise; Denies: fever(s) or chills Eyes: Denies: change in vision ENMT: Denies: throat pain Card: Denies: chest pain or palpitations Resp: Denies: dyspnea GI: Reports: abdominal pain, nausea and diarrhea; Denies: vomiting or constipation : Denies: flank pain Musc: Denies: neck pain Skin/Breast: Denies: rash Neuro: Denies: headache(s) Psych: Denies: anxiety Endo: Denies: polyuria Khanh/Lymph: Denies: easy bruising All/Imm: Denies: urticaria Medications/Allergies Home Medications Medication Instructions Recorded Confirmed Last Taken Type insulin glargine 100 unit/mL (3 20 unit SUBCUT QPM 06/22/19 12/21/19 Unknown History mL) subcutaneous pen insulin lispro 100 unit/mL 10 unit SUBCUT TID 06/22/19 11/26/1911/25/20 History subcutaneous solution clonazepam 1 mg tablet 1 mg PO BID 30 Days #60 tab 10/29/19 11/26/19 11/25/19 Rx pregabalin 150 mg capsule 150 mg PO BID 30 Days #60 cap 10/29/19 11/26/19 11/26/19 Rx insulin syr/ndl U100 half mckinley #100 each 12/16/19 Unknown Rx pen needle, diabetic 32 gauge x #100 each 12/16/19 Unknown Rx 1/4 Zofran 4 mg PO Q6H PRN #20 tab 12/22/19 Unknown Rx hydrocodone-acetaminophen 1 tab PO Q6H PRN 30 Days #20 tab 12/22/19 Unknown Rx [id number] [Zenpep] 2 ea PO TIDWM #180 cap 12/22/19 Unknown Rx pantoprazole 40 mg PO DAILY #30 tab 12/22/19 Unknown Rx hydrocodone 10 mg-acetaminophen 1 tab PO Q6H PRN 30 Days #120 tab 12/26/19 Unknown Rx 325 mg tablet Allergies Allergy/AdvReac Type Severity Reaction Status Date / Time codeine Allergy ADR-Headach Verified 11/26/19 16:38 e PFSH Acute PFSH: Medical History ALC (alcoholic liver cirrhosis) Alcohol abuse Anxiety and depression Chronic pancreatitis due to acute alcohol intoxication No change in chronic pain meds in combination w no reliability in compliance Diabetes Diabetic peripheral neuropathy Erectile dysfunction 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 Lives independently: Yes Household members: family and other Details: Parents Marital status: Legally Current occupational status: unemployed Vitals/I&O/Wt Last Vital Signs Temp 98.6 F 07/25/20 20:11 Pulse 68 12/26/19 23:48 Resp 18 12/26/19 23:48 BP 160/106 12/26/19 23:48 Pulse Ox 99 12/26/19 23:48 12/26/19 12/26/19 12/27/19 14:59 22:59 06:59 Intake Total 1000 / 1000 Balance 1000 / 1000 Weight last 48 hrs Weight 54.431 kg Physical Exam Narrative: EXAM NARRATIVE: Young male Emaciated malnourished appearance Dehydrated Hoarseness of voice noted S1, S2 loud murmur all over precordium No acute signs of heart failure Abdomen tender on deep palpation around epigastric region, open heart surgery scar mckinley without any active sensitivity or discharge Bowel sounds sluggish Mild rigidity at epigastric area EOMI, PERRLA Sunken eyes Irritable mood Skin shows thin hair Malnourished muscle mass loss Data : 12/26/19 19:55 12/26/19 19:55 A&P Assessment and plan (1) Acute hyperglycemia: Status: Acute (2) Alkaline phosphatase elevation: Status: Acute (3) Mitral valve replaced: Status: Acute (4) Abdominal pain: Status: Acute (5) Diabetes: Status: Acute Qualifiers: Diabetes mellitus type: type 2 Diabetes mellitus fdc insulin use: with tank terminal gauger use Diabetes mellitus complication status: with diabetic arthropathy Diabetes mellitus complication detail: with neuropathic arthropathy Qualified Code(s): E11.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; Z79.4 - terminal carman (current) use of insulin (6) Pancreatic calcification: Status: Acute (7) Sarcopenia: Status: Acute (8) Malnourished: Status: Acute Additional A&P Information Hyperglycemia without DKA Patient is not acidotic Despite taking insulin at home his blood sugar has been consistently above 200 as per his mother, current blood sugar 457 received 12 units of regular insulin in the ER Would manage with high dose sliding scale Continue current regimen of 20 units of Lantus along scheduled pre-meal insulin and sliding scale Last A1c level 12.4 I would avoid increasing Lantus dose to avoid hypoglycemia because he is avoiding to eat because of recurrent abdominal pain Recurrent abdominal pain Patient has 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 I believe he might need ERCP for stent placement because of his persistent abdominal pain Chronic elevated alkaline phosphatase level noted No active pancreatitis noted Family is agreeable to have him transfer to higher level of care once blood sugar and pain is under control, no active signs of cholangitis, cholecystitis, recent MRCP did not show CBD dilation Bioprosthetic mitral valve No active exacerbation Sarco pi?a/malnourished Malnourishment secondary to poor protein calorie intake secondary to abdominal pain Unfortunately I cannot give him supplemental diet because of above-mentioned reasons, patient counseled to use pancreatic enzyme however I do feel he might need pancreatic duct stent for improvement of his symptoms Full code Full liquid diet DVT prophylaxis Lovenox Attestations Medical Necessity Statement*: Anticipating discharge in less than 48 hours currently need management of hyperglycemia and pain management, might need higher level of care Time Spent in Patient Care: (>than 50% of time spent in counselling and/or direct pt care on unit). 40mins Coding Level of Care Code Acute Science Faculty Member for [facility] Fwd Diagnoses Acute hyperglycemia R73.9 Alkaline phosphatase elevation R74.8 Mitral valve replaced Z95.2 Abdominal pain R10.9 Diabetes E11.610; Z79.4 Diabetes mellitus type: type 2 Diabetes mellitus tank terminal gauger insulin use: with tank terminal gauger use Diabetes mellitus complication status: with diabetic arthropathy Diabetes mellitus complication detail: with neuropathic arthropathy Pancreatic calcification K86.89 Sarcopenia M62.84 Malnourished E46
[2019-12-27] VITALS (13 sets, daily range): BP systolic 123–151; BP diastolic 78–92; PULSE 74–97; RESP 16–20; TEMP 36.6–37.3; O2SAT 96–99
[2019-12-27] MEDS: HYDROmorphone 1 mg/mL INJ 1 mL IVP (00:16)
--- NOTE | 2019-12-27 00:20 | W.ED.ABDPA2 ---
HPI - Abdominal Pain General: Chief Complaint: Abdominal Pain Stated Complaint: ABDOMINAL PAIN/ NAUSEA Time Seen by Provider: 12/26/19 20:15 History of Present Illness: HPI narrative: 39-year-old male with a history of chronic pancreatitis here with epigastric discomfort. He denies any fever. He states he is nauseated, but has not vomited. He also notes that his sugars been quite high. He was here last week for the same symptoms, and was in DKA. His pain was controlled at that point, and he was started on a different insulin. It is unclear whether he is using this insulin currently or not. MD elicited complaint: abdominal pain Pertinent past history: other (Pancreatitis) Onset (ago): day(s) Pain Consistency: intermittent Associated Symptoms: Reports hematochezia and nausea; Denies fever(s), hematuria, melena and vomiting Review of Systems Const: Denies: fever(s) Eyes: Denies: change in vision or blurry vision ENMT: Denies: swelling of lips/tongue, change in hearing, post nasal drip or sinus pain Card: Denies: chest pain, palpitations or irregular heart rhythm Resp: Denies: dyspnea, productive cough, non-productive cough or wheezing GI: Reports: abdominal pain, nausea and hematochezia; Denies: vomiting or melena : Denies: difficulty urinating or hematuria Musc: Reports: back pain; Denies: neck pain Skin/Breast: Denies: rash, pruritus or erythema Neuro: Denies: headache(s), dizziness or vertigo Psych: Denies: anxiety or auditory hallucinations PFS ED PFSH: Medical History (Updated 12/27/19 @ 00:34 by Atif Melton DO) ALC (alcoholic liver cirrhosis) Alcohol abuse Anxiety and depression Chronic pancreatitis due to acute alcohol intoxication No change in chronic pain meds in combination w no reliability in compliance Diabetes Diabetic peripheral neuropathy Erectile dysfunction 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 Lives independently: Yes Household members: family and other Details: Parents Marital status: Legally Current occupational status: unemployed Physical Exam Const: GENERAL APPEARANCE: well developed ORIENTATION/CONSCIOUSNESS: Yes oriented to person, Yes oriented to place and Yes oriented to time HENMT: COMMON NORMALS: external ears normal FACE & SINUS: normal facial exam EXTERNAL EAR: Yes external ears normal MOUTH: tongue normal Eye: COMMON NORMALS: Equal, round and reactive pupils present, EOMs intact bilaterally and conjunctivae normal EYELID: eyelids normal CONJUNCTIVA: Yes conjunctivae normal PUPIL: Yes Equal, round and reactive pupils present Neck/C-Spine: GENERAL: No tracheal deviation Chest: COMMONS NORMALS: normal inspection of the chest CHEST: No tenderness Resp: COMMON NORMALS: clear to auscultation bilaterally EFFORT & INSPECTION: No tachypneic, No respiratory distress, No retractions, No uses accessory muscles and No tracheal deviation AUSCULTATION: clear to auscultation bilaterally, no rhonchi, no wheezes and lung sounds not diminished Cardio: COMMON NORMALS: regular rate and regular rhythm RATE: regular rate RHYTHM: regular rhythm HEART SOUNDS: no murmurs PERIPHERAL PULSES: radial pulses present GI: INSPECTION: No abdominal distension AUSCULTATION: No Hyperactive bowel sounds present and No Hypoactive bowel sounds present PALPATION: Yes Tenderness to palpation present (GI) (diffuse), Yes Guarding due to palpation present (GI) and No Rigid due to palpation PERCUSSION: no dullness to percussion and no tympanic to percussion Neuro: SENSORIUM/ORIENTATION: Yes oriented to person, Yes oriented to place and Yes oriented to time Psych: COMMON NORMALS: mental status grossly normal Skin: COMMON NORMALS: no rashes or lesions noted GENERAL SKIN EXAM: no rashes or lesions noted Course Consultations: Consultation #1: betty Vital Signs: Vital signs: Vital Signs Temperature 98.6 F 12/26/19 20:11 Pulse Rate 68 12/26/19 23:48 Respiratory Rate 18 12/27/19 00:16 Blood Pressure 160/106 12/26/19 23:48 Pulse Oximetry 96 12/27/19 00:16 MDM - Abdominal Pain MDM Narrative: Medical decision making narrative: 39-year-old male with a history of chronic pancreatitis. He presents with similar symptoms he presented with last week. The difference is that he is not in DKA this time. He has been given IV insulin. His blood sugars will be checked. His white count 7.1. Sodium is 128. Bicarbonate is 30. 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 This is uncertain as to clinical relevance at this point. He will be observed overnight for control of his sugar, control of his pain, fluid support, etc. Lab Data: Labs: Lab Results 12/26/19 12/26/19 12/26/19 Range/Units 19:55 19:55 19:55 WBC 7.1 (4.0-10.0) 10^3/ uL RBC 4.94 (4.1-5.3) 10^6/u L Hgb 13.2 (11.7-16.6) g/dL Hct 41.5 L (42.0-52.0) % MCV 84.0 (80-94) fL MCH 26.7 L (28.0-34.0) pg MCHC 31.8 (30.0-36.0) g/dL RDW 17.0 H (12.1-15.1) % Plt Count 262 (130-400) 10^3/c mm MPV 11.6 H (7.4-10.4) fL Neut % (Auto) 63.1 % Lymph % (Auto) 24.5 % [place] % (Auto) 9.0 % Eos % (Auto) 2.4 % Baso % (Auto) 0.6 % Neut # (Auto) 4.48 (1.8-7.7) 10^3/u L Lymph # (Auto) 1.7 (0.8-4.8) 10^3/u L [place] # (Auto) 0.6 (0.2-0.9) 10^3/u L Eos # (Auto) 0.2 (0.0-0.8) 10^3/u L Baso # (Auto) 0.0 (0.0-0.1) 10^3/u L Nucleated RBC % (a uto) 0 % Nucleated RBCs # 0.0 /100WBC PT 13.00 (10.5-13.3) SECO NDS INR 0.95 (0.8-1.2) Specimen Type Sample Site ABG pH (7.35-7.45) ABG pCO2 (35-45) mmHg ABG pO2 (80.0-100.0) mmH g ABG HCO3 (22-26) mmol/L ABG Base Excess (-2.0-2.0) mmol/ L Jonathan Test Hematocrit (42-52) % Sterilization Specialist ID Sodium 128 L (136-145) mmol/L Potassium 4.0 (3.5-5.1) mmol/L Chloride 89 L (98-107) mmol/L Carbon Dioxide 30 H (22-29) mmol/L Anion Gap 13.0 (5-19) BUN 4 L (6-20) mg/dL Creatinine 0.5 L (0.7-1.2) mg/dL GFR Calculation 185.1 H (90-130) mL/min Glucose 497 H (65-115) mg/dL Calculated Osmolal ity 284 L (285-295) mOsm/k g Lactate Calcium 8.7 (8.5-10.5) mg/dL Total Bilirubin 0.3 (0.15-1.2) mg/dL AST 42 H (0-40) U/L ALT 21 (0-41) U/L Alkaline Phosphata se 149 H (40-130) IU/L C-Reactive Protein 5.5 H (0.0-4.9) mg/L Total Protein 7.2 (6.6-8.7) g/dL Albumin 4.0 (3.5-5.2) g/dL Globulin 3.2 (1.3-4.6) g/dL Lipase 4 L (13-60) U/L Urine Color (Yellow) Urine Appearance (CLEAR) Urine pH (5-7) Ur Specific Gravit y (1.005-1.030) Urine Protein (Negative) Urine Glucose (UA) (Normal) Urine Ketones (Negative) Urine Blood (Negative) Urine Nitrate (Negative) Urine Bilirubin (NEGATIVE) Urine Urobilinogen (Negative) mg/dL Ur Leukocyte Raisa ase (Negative) Ethyl Alcohol < 10 (0-10) mg/dL 12/26/19 12/26/19 12/26/19 Range/Units 20:20 21:03 22:20 WBC (4.0-10.0) 10^3/ uL RBC (4.1-5.3) 10^6/u L Hgb (11.7-16.6) g/dL Hct (42.0-52.0) % MCV (80-94) fL MCH (28.0-34.0) pg MCHC (30.0-36.0) g/dL RDW (12.1-15.1) % Plt Count (130-400) 10^3/c mm MPV (7.4-10.4) fL Neut % (Auto) % Lymph % (Auto) % [place] % (Auto) % Eos % (Auto) % Baso % (Auto) % Neut # (Auto) (1.8-7.7) 10^3/u L Lymph # (Auto) (0.8-4.8) 10^3/u L [place] # (Auto) (0.2-0.9) 10^3/u L Eos # (Auto) (0.0-0.8) 10^3/u L Baso # (Auto) (0.0-0.1) 10^3/u L Nucleated RBC % (a uto) % Nucleated RBCs # /100WBC PT (10.5-13.3) SECO NDS INR (0.8-1.2) Specimen Type Arterial Sample Site Radial, right ABG pH 7.44 (7.35-7.45) ABG pCO2 42.4 (35-45) mmHg ABG pO2 72.9 L (80.0-100.0) mmH g ABG HCO3 28.8 H (22-26) mmol/L ABG Base Excess 4.1 H (-2.0-2.0) mmol/ L Jonathan Test Pos Hematocrit 38.8 L (42-52) % Sterilization Specialist ID ellpe Sodium (136-145) mmol/L Potassium (3.5-5.1) mmol/L Chloride (98-107) mmol/L Carbon Dioxide (22-29) mmol/L Anion Gap (5-19) BUN (6-20) mg/dL Creatinine (0.7-1.2) mg/dL GFR Calculation (90-130) mL/min Glucose (65-115) mg/dL Calculated Osmolal ity (285-295) mOsm/k g Lactate Cancelled Calcium (8.5-10.5) mg/dL Total Bilirubin (0.15-1.2) mg/dL AST (0-40) U/L ALT (0-41) U/L Alkaline Phosphata se (40-130) IU/L C-Reactive Protein (0.0-4.9) mg/L Total Protein (6.6-8.7) g/dL Albumin (3.5-5.2) g/dL Globulin (1.3-4.6) g/dL Lipase (13-60) U/L Urine Color Straw (Yellow) Urine Appearance Clear (CLEAR) Urine pH 7 (5-7) Ur Specific Gravit y 1.005 (1.005-1.030) Urine Protein Neg (Negative) Urine Glucose (UA) 4+ H (Normal) Urine Ketones Negative (Negative) Urine Blood Neg (Negative) Urine Nitrate Negative (Negative) Urine Bilirubin Neg (NEGATIVE) Urine Urobilinogen Norm (Negative) mg/dL Ur Leukocyte Raisa ase Negative (Negative) Ethyl Alcohol (0-10) mg/dL 12/25/ Range/Units 23:00 WBC (4.0-10.0) 10^3/ uL RBC (4.1-5.3) 10^6/u L Hgb (11.7-16.6) g/dL Hct (42.0-52.0) % MCV (80-94) fL MCH (28.0-34.0) pg MCHC (30.0-36.0) g/dL RDW (12.1-15.1) % Plt Count (130-400) 10^3/c mm MPV (7.4-10.4) fL Neut % (Auto) % Lymph % (Auto) % [place] % (Auto) % Eos % (Auto) % Baso % (Auto) % Neut # (Auto) (1.8-7.7) 10^3/u L Lymph # (Auto) (0.8-4.8) 10^3/u L [place] # (Auto) (0.2-0.9) 10^3/u L Eos # (Auto) (0.0-0.8) 10^3/u L Baso # (Auto) (0.0-0.1) 10^3/u L Nucleated RBC % (a uto) % Nucleated RBCs # /100WBC PT (10.5-13.3) SECO NDS INR (0.8-1.2) Specimen Type Sample Site ABG pH (7.35-7.45) ABG pCO2 (35-45) mmHg ABG pO2 (80.0-100.0) mmH g ABG HCO3 (22-26) mmol/L ABG Base Excess (-2.0-2.0) mmol/ L Jonathan Test Hematocrit (42-52) % Sterilization Specialist ID Sodium (136-145) mmol/L Potassium (3.5-5.1) mmol/L Chloride (98-107) mmol/L Carbon Dioxide (22-29) mmol/L Anion Gap (5-19) BUN (6-20) mg/dL Creatinine (0.7-1.2) mg/dL GFR Calculation (90-130) mL/min Glucose (65-115) mg/dL Calculated Osmolal ity (285-295) mOsm/k g Lactate 0.9 Calcium (8.5-10.5) mg/dL Total Bilirubin (0.15-1.2) mg/dL AST (0-40) U/L ALT (0-41) U/L Alkaline Phosphata se (40-130) IU/L C-Reactive Protein (0.0-4.9) mg/L Total Protein (6.6-8.7) g/dL Albumin (3.5-5.2) g/dL Globulin (1.3-4.6) g/dL Lipase (13-60) U/L Urine Color (Yellow) Urine Appearance (CLEAR) Urine pH (5-7) Ur Specific Gravit y (1.005-1.030) Urine Protein (Negative) Urine Glucose (UA) (Normal) Urine Ketones (Negative) Urine Blood (Negative) Urine Nitrate (Negative) Urine Bilirubin (NEGATIVE) Urine Urobilinogen (Negative) mg/dL Ur Leukocyte Raisa ase (Negative) Ethyl Alcohol (0-10) mg/dL Discharge Plan Discharge Patient Disposition: Placed in Observation Admit Provider: Randell Olivera Clinical Impression: Acute hyperglycemia Pancreatitis Qualifiers: Chronicity: chronic Pancreatitis type: other Qualified Code(s): K86.1 - Other chronic pancreatitis Condition: Stable Coding Level of Care Code ED Employment Counselor for Chg Fwd Exam Comprehensive
[2019-12-27 01:23] LABS: Glucose Point of Care 240 mg/dL (70-110)
[2019-12-27] MEDS: enoxaparin 40 mg/0.4 mL Syringe SUBCUT (01:30)
[2019-12-27] MEDS: HYDROmorphone 1 mg/mL INJ 1 mL 2 MG IVP ×4 (01:47→11:55)
[2019-12-27 02:26] LABS: Glucose Point of Care 181 mg/dL (70-110)
[2019-12-27] MEDS: ondansetron 2 mg/ML SDV 2 mL 4 MG IVP (06:03)
[2019-12-27 06:07] LABS: Basophils % 0.5 %; Eosinophils # 0.2 10^3/uL (0.0-0.8); Eosinophils % 2.1 %; Hematocrit 35.3 % (42.0-52.0); Hemoglobin 11.3 g/dL (11.7-16.6); Lymphocytes # 2.3 10^3/uL (0.8-4.8); Lymphocytes % 28.6 %; Mean Corpuscular Hemoglobin 27.6 pg (28.0-34.0); Mean Corpuscular Volume 86.1 fL (80-94); Mean Platelet Volume 12.3 fL (7.4-10.4); Monocytes # 0.9 10^3/uL (0.2-0.9); Monocytes % 10.6 %; Neutrophils # 4.65 10^3/uL (1.8-7.7); Neutrophils % 57.8 %; Nucleated Red Blood Cells % 0 %; Platelet Count 238 10^3/cmm (130-400)
[2019-12-27 06:31] LABS: Alanine Aminotransferase 14 U/L (0-41); Albumin Level 3.6 g/dL (3.5-5.2); Alkaline Phosphatase 112 IU/L (40-130); Anion Gap 10.7 (5-19); Aspartate Amino Transferase 23 U/L (0-40); Blood Urea Nitrogen 4 mg/dL (6-20); Calcium 8.8 mg/dL (8.5-10.5); Carbon Dioxide 27 mmol/L (22-29); Chloride 100 mmol/L (98-107); Globulin 2.2 g/dL (1.3-4.6); Glomerular Filtration Rate 239.5 mL/min (90-130); Glucose 101 mg/dL (65-115); Magnesium 1.5 mg/dL (1.7-2.3); Osmolality Calculated 274 mOsm/kg (285-295); Potassium 3.7 mmol/L (3.5-5.1); Sodium 134 mmol/L (136-145); Total Bilirubin 0.2 mg/dL (0.15-1.2); Total Protein 5.8 g/dL (6.6-8.7)
[2019-12-27 06:35] LABS: Glucose Point of Care 112 mg/dL (70-110)
[2019-12-27] MEDS: pantoprazole DR 40 mg Tablet PO (08:36)
[2019-12-27] MEDS: thiamine 100 mg Tablet PO (08:36)
[2019-12-27] MEDS: lipase-protease-amylase Capsule 2 EACH PO ×3 (08:36→17:13)
[2019-12-27] MEDS: magnesium sulfate premix 4 GM/100 ML PREMIX IV (08:36)
[2019-12-27] MEDS: folic acid 1 mg Tablet PO (08:36)
[2019-12-27] MEDS: CLONazepam 1 mg Tablet PO ×2 (08:36→17:13)
[2019-12-27] MEDS: HYDROcodone-acetaminophen 10-325 mg Tablet 1 TAB PO ×3 (10:52→19:25)
[2019-12-27 11:40] LABS: Glucose Point of Care 454 mg/dL (70-110)
--- NOTE | 2019-12-27 14:09 | P.PN_ITS ---
Subjective Subjective: Interval history: Patient continues to have epigastric area abdominal pain. Analgesics improve his pain. He is asking for more substantial food. He tolerated clear liquids well. Vitals/I&O/Wt Last Vital Signs Temp 98.4 F 12/27/19 11:11 Pulse 85 12/27/19 11:11 Resp 20 H 12/27/19 11:55 BP 130/84 12/27/19 11:11 Pulse Ox 96 12/27/19 11:11 12/26/19 12/27/19 12/27/19 22:59 06:59 14:59 Intake Total 1000 / 1000 1980 / 2980 1580 / 1580 Output Total 375 / 375 300 / 300 Balance 1000 / 1000 1605 / 2605 1280 / 1280 Weight last 48 hrs Weight 54.431 kg Physical Exam Const: COMMON NORMALS: no acute distress and patient oriented x3 Resp: COMMON NORMALS: normal respiratory effort and clear to auscultation bilaterally AUSCULTATION: clear to auscultation bilaterally Cardio: COMMON NORMALS: regular rate, regular rhythm and S2 normal heart sound present RATE: regular rate RHYTHM: regular rhythm HEART SOUNDS: S2 normal heart sound present OTHER: No lower extremity edema GI: COMMON NORMALS: Normal to inspection, nondistended, normoactive bowel sounds present, Soft to palpation and non-tender PALPATION: Yes Soft to pa lpation Neuro: COMMON NORMALS: patient oriented x3 and no focal motor deficits Data : 12/27/19 05:02 12/27/19 05:02 A&P Assessment and plan (1) Acute hyperglycemia: Status: Acute (2) Alkaline phosphatase elevation: Status: Acute (3) Mitral valve replaced: Status: Acute (4) Abdominal pain: Status: Acute (5) Diabetes: Status: Acute Qualifiers: Diabetes mellitus type: type 2 Diabetes mellitus group home insulin use: with group home use Diabetes mellitus complication status: with diabetic arthropathy Diabetes mellitus complication detail: with neuropathic arthropathy Qualified Code(s): E11.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; Z79.4 - termination clerk (current) use of insulin (6) Pancreatic calcification: Status: Acute (7) Sarcopenia: Status: Acute (8) Malnourished: Status: Acute Additional A&P Information Hyperglycemia without DKA Patient is not acidotic Despite taking insulin at home his blood sugar has been consistently above 200 as per his mother, current blood sugar 457 received 12 units of regular insulin in the ER Would manage with high dose sliding scale Continue current regimen of 20 units of Lantus along scheduled pre-meal insulin and sliding scale Last A1c level 12.4 I would avoid increasing Lantus dose to avoid hypoglycemia because he is avoiding to eat because of recurrent abdominal pain Recurrent abdominal pain Patient has 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 I believe he might need ERCP for stent placement because of his persistent abdominal pain Chronic elevated alkaline phosphatase level noted No active pancreatitis noted Family is agreeable to have him transfer to higher level of care once blood sugar and pain is under control, no active signs of cholangitis, cholecystitis, recent MRCP did not show CBD dilation Bioprosthetic mitral valve No active exacerbation [place] pi?a/malnourished Malnourishment secondary to poor protein calorie intake secondary to abdominal pain Unfortunately I cannot give him supplemental diet because of above-mentioned reasons, patient counseled to use pancreatic enzyme however I do feel he might need pancreatic duct stent for improvement of his symptoms Full code Full liquid diet DVT prophylaxis Lovenox PLAN: I have discussed with patient extensively regarding importance of medical compliance including pancreatic enzymes. Patient voiced understanding. We will advance patient's diet and continue with pain control. If patient tolerates oral intake we will be able to dismiss him home tomorrow. I have discussed with patient options of treatment including EUS for celiac blo ck. Patient agreed to proceed and prefers procedure to be done in [place]. Discussed case with Dr. Soliz, GI specialist who reports that they do not perform this procedure and they send their patients to [facility] or [place]. Discussed case with GI physician at [facility] in [place] as patient's second choice. This procedure is only done by Dr. Alan Cannon and recommendation was to call on outpatient basis at [phone] arrange appointment. Attestations Medical Necessity Statement*: Patient with chronic pancreatitis requires inpatient monitoring and treatment until deemed safe for discharge. Time Spent in Patient Care: Greater than 35 minutes Coding Level of Care Code Acute Effervescent Salts Compounder for Chg Fwd Diagnoses Acute hyperglycemia R73.9 Alkaline phosphatase elevation R74.8 Mitral valve replaced Z95.2 Abdominal pain R10.9 Diabetes E11.610; Z79.4 Diabetes mellitus type: type 2 Diabetes mellitus intermission coordinator insulin use: with intermission coordinator use Diabetes mellitus complication status: with diabetic arthropathy Diabetes mellitus complication detail: with neuropathic arthropathy Pancreatic calcification K86.89 Sarcopenia M62.84 Malnourished E46
[2019-12-27 14:15] LABS: Glucose Point of Care 278 mg/dL (70-110)
[2019-12-27 16:36] LABS: Glucose Point of Care 313 mg/dL (70-110)
[2019-12-27] MEDS: insulin glargine 100 units/1 mL 20 UNIT SUBCUT (17:13)
[2019-12-27 22:04] LABS: Glucose Point of Care 115 mg/dL (70-110)
[2019-12-28 00:30] VITALS: BP 151/89; PULSE 74; RESP 18; TEMP 37; O2SAT 98
[2019-12-28] MEDS: HYDROcodone-acetaminophen 10-325 mg Tablet 1 TAB PO ×3 (01:05→09:11)
[2019-12-28 02:55] LABS: Glucose Point of Care 272 mg/dL (70-110)
[2019-12-28 04:00] VITALS: BP 174/110; PULSE 72; RESP 20; TEMP 36.9; O2SAT 98
[2019-12-28 06:41] LABS: Glucose Point of Care 286 mg/dL (70-110)
[2019-12-28 08:00] VITALS: BP 130/92; PULSE 70; RESP 14; TEMP 37.2; O2SAT 96
[2019-12-28] MEDS: CLONazepam 1 mg Tablet PO (08:25)
[2019-12-28] MEDS: pantoprazole DR 40 mg Tablet PO (08:25)
[2019-12-28] MEDS: lipase-protease-amylase Capsule 2 EACH PO (08:25)
[2019-12-28] MEDS: thiamine 100 mg Tablet PO (08:26)
[2019-12-28] MEDS: folic acid 1 mg Tablet PO (08:26)
--- NOTE | 2019-12-28 09:04 | PM.DCS ---
Discharge Providers Date of Admission: 12/27/19 14:45 Date of Discharge: December 28, 2019 Attending Provider at Admission: Randell Olivera MD Attending Provider at Discharge: Missael Singleton MD Primary Care Provider: Oumar Gonzalez MD Diagnoses at Discharge Discharge Diagnosis (1) Acute hyperglycemia: Status: Acute Problem details: Improved (2) Alkaline phosphatase elevation: Status: Acute Problem details: Resolved. 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 Patient tolerated oral intake well and this morning reports feeling better and strong enough to be dismissed home. We had extensive discussion regarding importance of medical compliance including pancreatic enzymes and insulin. I have discussed with patient's mother yesterday at the bedside as well. I have recommended patient to see Dr. Alan Cannon [phone] for EUS with celiac block procedure and if successful patient may get up to 6 months pain relief. We have discussed regarding chronic nature of his condition which may cause pain off and on. Patient has appointment to see Dr. Gonzalez this morning at 11:00 therefore we will go ahead and dismiss him now. Physical Exam Const: COMMON NORMALS: no acute distress and patient oriented x3 Resp: COMMON NORMALS: normal respiratory effort and clear to auscultation bilaterally AUSCULTATION: clear to auscultation bilaterally Cardio: COMMON NORMALS: regular rate, regular rhythm and S2 normal heart sound present RATE: regular rate RHYTHM: regular rhythm HEART SOUNDS: S2 normal heart sound present OTHER: No lower extremity edema GI: COMMON NORMALS: Normal to inspection, nondistended, normoactive bowel sounds present and Soft to palpation PALPATION: Yes Soft to palpation OTHER: Tender to palpation mostly in epigastric area. Patient does not appear to be in any distress when abdomen not palpated. He is eating without difficulty. Neuro: COMMON NORMALS: patient oriented x3 and no focal motor deficits Discharge Data Data Completed and Pending: Completed Studies During Hospitalization Category Date Time Status CT abdomen pelvis w con* [id number] Urge nt Cat Scan 12/26/19 21:31 Completed Labs from last 24 hours 12/28/19 12/28/19 12/27/19 06:37 02:50 21:20 O2 Delivery Device POC Glucose 286 272 115 12/27/19 12/27/19 12/27/19 16:28 14:12 11:04 O2 Delivery Device POC Glucose 313 278 454 12/26/19 20:20 O2 Delivery Device Not Reportable POC Glucose Vitals: Last Vital Signs Temp 98.9 F 12/28/19 08:00 Pulse 70 12/28/19 08:00 Resp 14 12/28/19 08:00 BP 130/92 12/28/19 08:00 Pulse Ox 96 12/28/19 08:00 Discharge Plan Discharge Patient Disposition: Home Condition: Stable Prescriptions: New ibuprofen 800 mg Tablet 800 mg PO TID PRN (Reason: Pain) Qty: 10 RF: 0 Continued clonazepam 1 mg tablet 1 mg PO BID 30 Days Qty: 60 RF: 2 pregabalin [Lyrica] 150 mg capsule 150 mg PO BID 30 Days Qty: 60 RF: 2 Lantus Solostar U-100 Insulin 100 unit/mL (3 mL) insulin pen 20 unit SUBCUT QPM RF: 0 insulin lispro [Humalog U-100 Insulin] 100 unit/mL solution 10 unit SUBCUT TID RF: 0 (DME) pen needle, diabetic [TechLITE Pen Needle] 32 gauge x 1/4 needle See Rx Instructions .ROUTE .MEDSUPPLY Qty: 100 RF: 3 (DME) BD Veo Insulin Syr Half Unit 0.3 mL 31 gauge x 15/64 syringe See Rx Instructions .ROUTE .MEDSUPPLY Qty: 100 RF: 11 hydrocodone-acetaminophen 10-325 mg tablet 1 tab PO Q6H PRN (Reason: pain) 30 Days Qty: 120 RF: 0 pantoprazole 40 mg Tablet,Delayed Release (Dr/Ec) 40 mg PO DAILY Qty: 30 RF: 0 Zenpep 5,000-17,000- 24,000 unit Capsule,Delayed Release(Dr/Ec) 2 ea PO TIDWM Qty: 180 RF: 0 hydrocodone-acetaminophen 10-325 mg tablet 1 tab PO Q6H PRN (Reason: pain) 30 Days Qty: 20 RF: 0 Zofran 4 mg tablet 4 mg PO Q6H PRN (Reason: nausea and vomiting) Qty: 20 RF: 0 Discharge Orders: Discharge Order (Routine); Ordered 12/28/19 Ordered By: Missael Singleton Referrals: Alan Cannon MD [Referring] - (HIS OFFICE WILL CALL YOU WITH APPOINTMENT WITH ALAN KITCHEN [phone]) Oumar Gonzalez MD [Primary Care Provider] - 12/28/19 11:00 am Discharge Diet: Usual diet Discharge Activity: Resume usual activity Patient Instructions: Ibuprofen (By mouth), Pancreatitis (DC), Diabetic Hyperglycemia (DC) Activity Restrictions/Additional Instructions: Please call your doctor or present to emergency department if your condition worsens or you develop diarrhea, lightheadedness, fatigue or see blood in your stool or black stool. Please take ibuprofen in addition to [place] only if you have severe pain otherwise try to limit ibuprofen as much as possible. We will try to arrange appointment with Dr. Alan Cannon [phone] for EUS to be performed for celiac block to address your chronic pancreatitis pain. Please make sure you take your pancreatic enzymes and make sure you do not run out of prescription. Please keep blood sugar log 3 times daily to present to primary care physician for medication adjustment. Discharge Attestations Time Spent in Discharge Care*: greater than 30 min Quality Metrics Clinical Quality Measures During this hospital stay, did patient experience: None Coding Level of Care Code Acute Welding Machine Operator Electron Beam for Chg Fwd Diagnoses Acute hyperglycemia R73.9 Alkaline phosphatase elevation R74.8 Mitral valve replaced Z95.2 Abdominal pain R10.9 Diabetes E11.610; Z79.4 Diabetes mellitus type: type 2 Diabetes mellitus intermediate insulin use: with intermediate use Diabetes mellitus complication status: with diabetic arthropathy Diabetes mellitus complication detail: with neuropathic arthropathy Pancreatic calcification K86.89 Malnourished E46
[2019-12-28 09:17] VITALS: BP 130/92; PULSE 70; RESP 14; TEMP 37.2; O2SAT 96
== END 2019-12-28 09:19 | disposition home or self-care (01) | DRG 638 ==
LOC: ER 20:53 → MEDSURG 12-27 00:07
PROVIDERS: Emergency Medicine; Admitting Provider Internal Medicine; PCP Family Medicine; Visit Provider Internal Medicine
DX: E11.65 Type 2 diabetes mellitus with hyperglycemia (principal); E46 Unspecified protein-calorie malnutrition; Z68.1 Body mass index [BMI] 19.9 or less, adult; E11.610 Type 2 diabetes mellitus with diabetic neuropathic arthropathy; Z79.4 Long term (current) use of insulin; Z95.2 Presence of prosthetic heart valve; K86.89 Other specified diseases of pancreas; F41.8 Other specified anxiety disorders; G47.01 Insomnia due to medical condition; E11.42 Type 2 diabetes mellitus with diabetic polyneuropathy; F17.210 Nicotine dependence, cigarettes, uncomplicated
CPT/HCPCS: 12345; 36415; 36416; 36600; 74177; 80053; 80307; 81003; 82803; 82962; 83605; 83690; 83735; 85025; 85610; 86140; 96361; 96372; 96374; 96375; 96376; 99283; 99285; G0378; J1170; J1650; J1815 ×2; J1885; J2405; J3475; J7030; Q9967

== ENCOUNTER 2020-01-13 09:47 | Emergency (ER) | payer MEDICAID, SELFPAY ==
[2020-01-13 09:55] VITALS: BP 122/94; PULSE 101; RESP 18; TEMP 36.7; O2SAT 98; BMI 17.7
--- NOTE | 2020-01-13 10:10 | ED_ITS ---
HPI - Abdominal Pain General: Chief Complaint: Abdominal Pain Stated Complaint: LEFT QUAD PAIN Time Seen by Provider: 01/13/20 10:00 History of Present Illness: HPI narrative: Patient states his pancreatitis is been acting up for couple days he has abdominal pain and come in here for relief abdominal pain. Denies any other symptoms MD elicited complaint: abdominal pain Onset (ago): day(s) Pain Consistency: constant Location: Diffuse Severity: severe Associated Symptoms: Denies chills, fever(s), nausea and vomiting Review of Systems Const: Denies: fever(s), chills or body aches Eyes: Denies: change in vision or blurry vision ENMT: Denies: throat pain or nasal congestion Card: Denies: chest pain or dyspnea on exertion Resp: Denies: dyspnea, productive cough or non-productive cough GI: Reports: abdominal pain; Denies: nausea or vomiting : Denies: difficulty urinating Musc: Denies: extremity pain Skin/Breast: Denies: rash Neuro: Denies: headache(s) Psych: Denies: anxiety or depression Khanh/Lymph: Denies: easy bruising PFSH ED PFSH: Medical History ALC (alcoholic liver cirrhosis) Alcohol abuse Anxiety and depression Chronic pancreatitis due to acute alcohol intoxication No change in chronic pain meds in combination w no reliability in compliance Diabetes Diabetic peripheral neuropathy Erectile dysfunction 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 Lives independently: Yes Household members: family and other Details: Parents Marital status: Legally Current occupational status: unemployed Physical Exam Const: COMMON NORMALS: no acute distress, average body habitus and patient oriented x3 HENMT: COMMON NORMALS: normocephalic HEAD & SCALP: normal to inspection and normocephalic FACE & SINUS: normal facial exam Eye: COMMON NORMALS: conjunctivae normal GENERAL EYE: appearance normal, both eyes and all related structures CONJUNCTIVA: Yes conjunctivae normal Neck/C-Spine: COMMON NORMALS: no JVD Chest: COMMONS NORMALS: normal inspection of the chest Resp: COMMON NORMALS: normal respiratory effort and clear to auscultation bilaterally AUSCULTATION: clear to auscultation bilaterally Cardio: COMMON NORMALS: no JVD, regular rate and regular rhythm RATE: regular rate RHYTHM: regular rhythm GI: COMMON NORMALS: Normal to inspection, nondistended, normoactive bowel soun ds present PALPATION: Yes Tenderness to palpation present (GI) (Diffuse) Extremity: COMMON NORMALS: normal to inspection and full ROM Neuro: COMMON NORMALS: patient oriented x3 Course Vital Signs: Vital signs: Vital Signs Temperature 98.1 F 01/13/20 09:55 Pulse Rate 101 H 01/13/20 09:55 Respiratory Rate 18 01/13/20 09:55 Blood Pressure 122/94 01/13/20 09:55 Pulse Oximetry 98 01/13/20 09:55 Discharge Plan Discharge Prescriptions: No Action clonazepam 1 mg tablet 1 mg PO BID 30 Days Qty: 60 RF: 2 pregabalin [Lyrica] 150 mg capsule 150 mg PO BID 30 Days Qty: 60 RF: 2 Lantus Solostar U-100 Insulin 100 unit/mL (3 mL) insulin pen 20 unit SUBCUT QPM RF: 0 insulin lispro [Humalog U-100 Insulin] 100 unit/mL solution 10 unit SUBCUT TID RF: 0 (DME) pen needle, diabetic [TechLITE Pen Needle] 32 gauge x 1/4 needle See Rx Instructions .ROUTE .MEDSUPPLY Qty: 100 RF: 3 (DME) BD Veo Insulin Syr Half Unit 0.3 mL 31 gauge x 15/64 syringe See Rx Instructions .ROUTE .MEDSUPPLY Qty: 100 RF: 11 hydrocodone-acetaminophen 10-325 mg tablet 1 tab PO Q6H PRN (Reason: pain) 30 Days Qty: 120 RF: 0 pantoprazole 40 mg Tablet,Delayed Release (Dr/Ec) 40 mg PO DAILY Qty: 30 RF: 0 Zenpep 5,000-17,000- 24,000 unit Capsule,Delayed Release(Dr/Ec) 2 ea PO TIDWM Qty: 180 RF: 0 Zofran 4 mg tablet 4 mg PO Q6H PRN (Reason: nausea and vomiting) Qty: 20 RF: 0 ibuprofen 800 mg Tablet 800 mg PO TID PRN (Reason: Pain) Qty: 10 RF: 0 Coding Level of Care Code ED Regional Sales Manager for Bladimir Ortiz
[2020-01-13] MEDS: ondansetron 2 mg/ML SDV 2 mL 4 MG IVP (10:18)
[2020-01-13 10:19] VITALS: RESP 16
[2020-01-13] MEDS: morphine 4 mg/mL SDV 1 mL IVP ×2 (10:19→11:14)
[2020-01-13] MEDS: sodium chloride 0.9% 1,000 ML 999 ML IV (10:21)
[2020-01-13 10:24] LABS: Basophils # 0.1 10^3/uL (0.0-0.1); Basophils % 0.9 %; Eosinophils # 0.2 10^3/uL (0.0-0.8); Eosinophils % 2.6 %; Hematocrit 38.4 % (42.0-52.0); Hemoglobin 11.6 g/dL (11.7-16.6); Lymphocytes # 1.8 10^3/uL (0.8-4.8); Lymphocytes % 25.6 %; Mean Corpuscular HGB Conc 30.2 g/dL (30.0-36.0); Mean Corpuscular Volume 89.5 fL (80-94); Monocytes # 0.5 10^3/uL (0.2-0.9); Monocytes % 7.3 %; Neutrophils # 4.33 10^3/uL (1.8-7.7); Neutrophils % 62.9 %; Nucleated Red Blood Cells % 0 %; Platelet Count 299 10^3/cmm (130-400); Red Blood Count 4.29 10^6/uL (4.1-5.3); Red Cell Distribution Width 17.6 % (12.1-15.1); White Blood Count 6.9 10^3/uL (4.0-10.0)
[2020-01-13 10:41] LABS: Alanine Aminotransferase 23 U/L (0-41); Albumin Level 3.6 g/dL (3.5-5.2); Alkaline Phosphatase 143 IU/L (40-130); Anion Gap 10.3 (5-19); Aspartate Amino Transferase 15 U/L (0-40); Blood Urea Nitrogen 10 mg/dL (6-20); Calcium 9.2 mg/dL (8.5-10.5); Carbon Dioxide 28 mmol/L (22-29); Chloride 95 mmol/L (98-107); Creatinine Clr Calc Pharmacy 152.7092; Globulin 2.7 g/dL (1.3-4.6); Glomerular Filtration Rate 185.1 mL/min (90-130); Glucose 425 mg/dL (65-115); Lipase 4 U/L (13-60); Magnesium 1.7 mg/dL (1.7-2.3); Osmolality Calculated 282 mOsm/kg (285-295); Potassium 4.3 mmol/L (3.5-5.1); Sodium 129 mmol/L (136-145); Total Bilirubin 0.2 mg/dL (0.15-1.2); Total Protein 6.3 g/dL (6.6-8.7)
[2020-01-13 10:42] LABS: Lactate (Lactic Acid level) 1.1 mmol/L (0.5-2.2)
[2020-01-13 10:51] LABS: Add Urine Microscopic? NO
[2020-01-13 11:02] LABS: Bilirubin Urine Neg (NEGATIVE); Blood Urine Neg (Negative); Glucose Urine UA 4+ (Normal); Ketones Urine Negative (Negative); Leukocyte Esterase Urine Negative (Negative); Nitrate Urine Negative (Negative); Protein Urine Neg (Negative); Urine Appearance Clear (CLEAR); Urine Color Straw (Yellow); Urobilinogen Urine Norm (Negative); pH Urine 5 (5-7)
[2020-01-13 11:07] LABS: C Reactive Protein 1.6 mg/L (0.0-4.9)
[2020-01-13 11:13] VITALS: BP 132/92; PULSE 90; RESP 14; O2SAT 98
[2020-01-13 11:14] VITALS: RESP 14
[2020-01-13 11:31] VITALS: BP 127/80; PULSE 89; RESP 14; O2SAT 97
== END 2020-01-13 11:32 | disposition home or self-care (01) ==
PROVIDERS: Emergency Provider Nurse Practitioner Family
DX: R10.9 Unspecified abdominal pain (principal); Z79.4 Long term (current) use of insulin; E11.9 Type 2 diabetes mellitus without complications; F17.210 Nicotine dependence, cigarettes, uncomplicated
CPT/HCPCS: 12345; 36415; 80053; 81003; 83605; 83690; 83735; 85025; 86140; 96361; 96374; 96375; 96376; 99282; 99284; J2270; J2405; J7030

== ENCOUNTER 2020-01-15 21:02 | Inpatient (IN) | payer MEDICAID, SELFPAY ==
[2020-01-15 21:11] VITALS: BP 138/103; PULSE 115; RESP 17; TEMP 36.6; O2SAT 99; BMI 20.7
--- NOTE | 2020-01-15 21:35 | ECG_ITS ---
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 Measurements Intervals [place] Rate: 108 P: 58 DC: 162 QRS: 40 QRSD: 91 T: 71 QT: 342 QTc: 459 Interpretive Statements SINUS TACHYCARDIA ABNORMAL RHYTHM ECG Compared to ECG 12/20/2019 08:50:32 Atrial abnormality no longer present T-wave abnormality no longer present Possible ischemia no longer present Electronically Signed On 01-17-2020 18:08:50 CDT by Randell Pedro M.D. [id number]
[2020-01-15 21:45] VITALS: BP 127/84; PULSE 109; RESP 14; O2SAT 98
[2020-01-15 21:46] VITALS: RESP 14; O2SAT 99
[2020-01-15] MEDS: ondansetron 2 mg/ML SDV 2 mL 4 MG IVP (21:46)
[2020-01-15] MEDS: fentaNYL 50 mcg/mL INJ 2mL IVP (21:46)
[2020-01-15 21:57] LABS: Basophils % 0.5 %; Eosinophils # 0.2 10^3/uL (0.0-0.8); Eosinophils % 2.8 %; Hematocrit 38.9 % (42.0-52.0); Hemoglobin 11.9 g/dL (11.7-16.6); Lymphocytes # 1.9 10^3/uL (0.8-4.8); Lymphocytes % 25.4 %; Mean Corpuscular HGB Conc 30.6 g/dL (30.0-36.0); Mean Corpuscular Volume 88.2 fL (80-94); Mean Platelet Volume 11.7 fL (7.4-10.4); Monocytes # 0.7 10^3/uL (0.2-0.9); Monocytes % 9.2 %; Neutrophils # 4.62 10^3/uL (1.8-7.7); Neutrophils % 61.6 %; Nucleated Red Blood Cells % 0 %; Platelet Count 318 10^3/cmm (130-400); Red Blood Count 4.41 10^6/uL (4.1-5.3); Red Cell Distribution Width 17.2 % (12.1-15.1); White Blood Count 7.5 10^3/uL (4.0-10.0)
[2020-01-15 22:15] LABS: Alanine Aminotransferase 28 U/L (0-41); Albumin Level 3.9 g/dL (3.5-5.2); Alkaline Phosphatase 156 IU/L (40-130); Anion Gap 15.8 (5-19); Aspartate Amino Transferase 23 U/L (0-40); Blood Urea Nitrogen 10 mg/dL (6-20); Calcium 9.1 mg/dL (8.5-10.5); Carbon Dioxide 25 mmol/L (22-29); Chloride 93 mmol/L (98-107); Creatine Phosphokinase 41 U/L (39-308); Globulin 2.2 g/dL (1.3-4.6); Glomerular Filtration Rate 107.6 mL/min (90-130); Lipase 5 U/L (13-60); Osmolality Calculated 287 mOsm/kg (285-295); Potassium 4.8 mmol/L (3.5-5.1); Sodium 129 mmol/L (136-145); Total Bilirubin 0.2 mg/dL (0.15-1.2); Total Protein 6.1 g/dL (6.6-8.7)
[2020-01-15 22:19] LABS: Alcohol Level < 10 mg/dL (0-10); Glucose 513 mg/dL (65-115); Lactate (Lactic Acid level) 4.6 mmol/L (0.5-2.2)
[2020-01-15 22:38] LABS: Add Urine Microscopic? NO
[2020-01-15 22:42] LABS: Troponin(5th) Baseline 36 ng/L (0-15)
[2020-01-15 22:44] LABS: Bilirubin Urine Neg (NEGATIVE); Blood Urine Neg (Negative); Glucose Urine UA 4+ (Normal); Ketones Urine Negative (Negative); Leukocyte Esterase Urine Negative (Negative); Nitrate Urine Negative (Negative); Protein Urine Neg (Negative); Urine Appearance Clear (CLEAR); Urine Color Straw (Yellow); Urobilinogen Urine Norm (Negative); pH Urine 5 (5-7)
[2020-01-15 22:50] VITALS: RESP 18
[2020-01-15] MEDS: HYDROmorphone 1 mg/mL INJ 1 mL IVP (22:50)
[2020-01-15] MEDS: sodium chloride 0.9% 2,000 ML 999 ML IV (22:54)
--- NOTE | 2020-01-15 23:08 | CTR_ITS ---
PROCEDURE INFORMATION: Exam: CT Abdomen And Pelvis With Contrast Exam date and time: 01/15/2020 11:21 PM Age: 39 years old Clinical indication: Abdominal pain; Generalized; Prior surgery; Surgery date: 1-6 months; Surgery type: Avr TECHNIQUE: Imaging protocol: Computed tomography of the abdomen and pelvis with intravenous contrast. Radiation optimization: All CT scans at this facility use at least one of these dose optimization techniques: automated exposure control; mA and/or kV adjustment per patient size (includes targeted exams where dose is matched to clinical indication); or iterative reconstruction. Contrast material: OMNI 300; Contrast volume: 95 ml; Contrast route: INTRAVENOUS (IV); COMPARISON: CT abdomen pelvis w con* [id number] 12/26/2019 9:54 PM RADIATION DOSE METRICS: Total DLP (mGy-cm): 326.83 FINDINGS: Lungs: Continued although slightly smaller airspace opacity/consolidation is noted in the right middle lobe and right lower lobe. There is subpleural atelectasis of the dependent portions of the lungs. Pleural space: There is a small right pleural effusion decreased compared to the prior exam. Mediastinal space: A small hiatal hernia is present. Liver: Unremarkable.No mass. Gallbladder and bile ducts: Normal. No calcified stones. No ductal dilation. Pancreas: There are calcifications within the pancreas compatible sequela of chronic pancreatitis. There is unchanged dilatation of the pancreatic duct measuring 11 mm. No findings of acute pancreatitis. Spleen: Normal. No splenomegaly. Adrenals: Normal. No mass. Kidneys and ureters: There are multiple renal hypodensities that cannot be further characterized on the current examination. There is no evidence of hydronephrosis. There is no evidence of renal calcifications. Stomach and bowel: There is mild wall thickening and fluid distention of loops of small bowel compatible with probable mild enteritis. There is a large amount of colonic stool compatible with constipation without impaction. There is no evidence of intestinal perforation or obstruction. Appendix: The appendix is not definitively identified. However, there is no CT evidence of a right lower quadrant inflammatory process. Intraperitoneal space: Unremarkable. No free air. No significant fluid collection. Vasculature: Unremarkable.No abdominal aortic aneurysm. Lymph nodes: Unremarkable.No enlarged lymph nodes. Bladder: Unremarkable as visualized. Reproductive: Unremarkable as visualized. Bones/joints: Unremarkable. No acute fracture. Soft tissues: Unremarkable. Other findings: Basal ganglia and in the ventricles she does have some mild and diffuse edema arm no shift or anything she does have a large mass in her left temporal lobe and skull base and may be weight though was inter basal ganglia was a mass that we really icing but that it hemorrhage at head thank you [address]/CT abdomen pelvis w con* [id number] IMPRESSION: 1. Continued although slightly smaller airspace opacity/consolidation is noted in the right middle lobe and right lower lobe. Decreasing right pleural effusion. 2. There is mild wall thickening and fluid distention of loops of small bowel compatible with probable mild enteritis. No colitis. 3. There are calcifications compatible sequela of chronic pancreatitis. No acute pancreatitis. Unchanged dilated pancreatic duct. 4. There is a large amount of colonic stool compatible with constipation without impaction. Radiation Dose CTDIVOL = (mGy): DLP = 326.83 (mGy-cm)
[2020-01-15 23:30] LABS: C Reactive Protein 0.7 mg/L (0.0-4.9)
--- NOTE | 2020-01-15 23:35 | ECG_ITS ---
[facility] Test Date: 2020-01-16 Pat Name: Jagdish Clinton Department: Room: Gender: Male Supervisor Malted Milk: : 1980 Requested By: Kinga Hung I Order Number: [id number] Kendall MD: Randell Pedro M.D. Measurements Intervals [place] Rate: 95 P: 59 MS: 166 QRS: 41 QRSD: 96 T: 70 QT: 373 QTc: 469 Interpretive Statements SINUS RHYTHM Compared to ECG 01/15/2020 22:19:37 Sinus tachycardia no longer present Electronically Signed On 01-17-2020 18:13:57 CDT by Randell Pedro M.D. [id number]
[2020-01-15] MEDS: iohexol 300 mg/mL 100 mL Btl IV (23:41)
[2020-01-16] VITALS (12 sets, daily range): BP systolic 120–146; BP diastolic 82–90; PULSE 82–91; RESP 17–18; TEMP 36.7–37.1; O2SAT 97–99
[2020-01-16 00:23] LABS: Troponin 5 2HR 38.11 ng/L (0-15); Troponin 5 2HR Delta 2.11 ABS# (0-10)
--- NOTE | 2020-01-16 00:31 | PC.NURSE ---
pt states during pt rounds that pain has increased to 6/10. dr notified
--- NOTE | 2020-01-16 01:25 | W.ED.ABDPA2 ---
HPI - Abdominal Pain General: Chief Complaint: Abdominal Pain Stated Complaint: abd pain Time Seen by Provider: 01/15/20 21:07 Source: patient and family Mode of arrival: ambulatory History of Present Illness: HPI narrative: Patient with a history of chronic pancreatitis and several ED and hospital admissions. Presents with abdominal pain that has been present for several days. Nothing is helping. MD elicited complaint: abdominal pain Pertinent past history: other (Pancreatitis) Onset (ago): day(s) (5) Pain Consistency: constant Location: Epigastric Severity: severe Quality: stabbing Radiation: chest Exacerbating factors: eating and movement Relieving factors: nothing Context: history of similar episodes Associated Symptoms: Reports anorexia, diarrhea, nausea and poor appetite; Denies bloating, change in bowel habits, change in stool character, chills, coffee ground emesis, constipation, GI cramping, dyspepsia, dysuria, excessive flatus, fever(s), heartburn, hematochezia, hematuria, hematemesis, fecal incontinence, loose stools, melena and syncope Review of Systems General: Reports: 10 or more systems reviewed and unremarkable except in HPI and below Const: Denies: fever(s) or chills Eyes: Denies: change in vision or blurry vision ENMT: Denies: throat pain, enlarged tonsils, odynophagia, hoarseness, mouth pain or swelling of lips/tongue Card: Denies: syncope Resp: Denies: dyspnea, productive cough or non-productive cough GI: Reports: nausea and diarrhea; Denies: hematemesis, coffee ground emesis, heartburn, constipation, bloating, GI cramping, excessive flatus, fecal incontinence, change in bowel habits, change in stool character, hematochezia or melena : Denies: dysuria or hematuria Musc: Denies: neck pain, back pain or extremity swelling Skin/Breast: Denies: rash, pruritus or erythema Neuro: Denies: headache(s), numbness in extremities or weakness in extremities Endo: Denies: polyuria, polydipsia or tired all the time PFS ED PFSH: Medical History ALC (alcoholic liver cirrhosis) Alcohol abuse Anxiety and depression Chronic pancreatitis due to acute alcohol intoxication No change in chronic pain meds in combination w no reliability in compliance Diabetes Diabetic peripheral neuropathy Erectile dysfunction 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 Lives independently: Yes Household members: family and other Details: Parents Marital status: Legally Current occupational status: unemployed Physical Exam Const: COMMON NORMALS: no acute distress, average body habitus, patient oriented x3, no limitations, healthy appearing, alert and well nourished HENMT: COMMON NORMALS: normocephalic, atraumatic and moist oral mucous membranes HEAD & SCALP: normocephalic and atraumatic Eye: COMMON NORMALS: Equal, round and reactive pupils present, EOMs intact bilaterally, conjunctivae normal and no scleral icterus CONJUNCTIVA: Yes conjunctivae normal PUPIL: Yes Equal, round and reactive pupils present Neck/C-Spine: COMMON NORMALS: no meningeal signs and no JVD Resp: COMMON NORMALS: normal respiratory effort, No retractions, No use of accessory muscles, clear to auscultation bilaterally and percussion normal AUSCULTATION: clear to auscultation bilaterally PERCUSSION: percussion normal Cardio: COMMON NORMALS: no JVD, regular rate, regular rhythm, S1 normal heart sound present, S2 normal heart sound present, No gallops present (Cardio), No clicks present (Cardio), No murmurs present (Cardio), No rub (Cardio) and Peripheral pulses 2+ throughout RATE: regular rate RHYTHM: regular rhythm HEART SOUNDS: S1 normal heart sound present and S2 normal heart sound present PERIPHERAL PULSES: Peripheral pulses 2+ throughout GI: COMMON NORMALS: Normal to inspection, nondistended, normoactive bowel sounds present, Soft to palpation, No hepatosplenomegaly present, no masses and no bruits PALPATION: Yes Soft to palpation, Yes Tenderness to palpation present (GI) (vague generalized) and Yes No hepatosplenomegaly present Extremity: COMMON NORMALS: normal to inspection, full ROM, capillary refill normal, no calf tenderness and no pedal edema Neuro: COMMON NORMALS: patient oriented x3 SENSORIUM/ORIENTATION: Yes alert MENINGEAL SIGNS: Yes no meningeal signs Skin: COMMON NORMALS: no rashes or lesions noted, no wounds, turgor normal, no jaundice, no petechiae and no mottling GENERAL SKIN EXAM: no rashes or lesions noted and turgor normal Course ED course: 39-year-old gentleman with intractable abdominal pain. Initial evaluation showed severe hyperglycemia but looking through his old labs that is not unusual for him. He also had lactic acidosis but that resolved following fluid resuscitation. Because his pain is well controlled he is admitted overnight for observation and pain control. He has a follow-up appointment with a technical training coordinator in about 2 weeks. Vital Signs: Vital signs: Vital Signs Temperature 97.9 F 01/15/20 21:11 Pulse Rate 109 H 01/15/20 21:45 Respiratory Rate 18 01/15/20 22:50 Blood Pressure 127/84 01/15/20 21:45 Pulse Oximetry 99 01/15/20 21:46 MDM - Abdominal Pain MDM Narrative: Medical decision making narrative: Patient with uncontrolled abdominal pain and uncontrolled diabetes. He had a history of chronic pancreatitis. He is admitted overnight for pain control Medical Records: Attestation: I reviewed the patient's medical records. Lab Data: Attestation: I reviewed the patient's lab results. Labs: Lab Results 01/15/20 01/15/20 01/15/20 Range/Units 21:45 21:45 21:45 WBC 7.5 (4.0-10.0) 10^3/ uL RBC 4.41 (4.1-5.3) 10^6/u L Hgb 11.9 (11.7-16.6) g/dL Hct 38.9 L (42.0-52.0) % MCV 88.2 (80-94) fL MCH 27.0 L (28.0-34.0) pg MCHC 30.6 (30.0-36.0) g/dL RDW 17.2 H (12.1-15.1) % Plt Count 318 (130-400) 10^3/c mm MPV 11.7 H (7.4-10.4) fL Neut % (Auto) 61.6 % Lymph % (Auto) 25.4 % [place] % (Auto) 9.2 % Eos % (Auto) 2.8 % Baso % (Auto) 0.5 % Neut # (Auto) 4.62 (1.8-7.7) 10^3/u L Lymph # (Auto) 1.9 (0.8-4.8) 10^3/u L [place] # (Auto) 0.7 (0.2-0.9) 10^3/u L Eos # (Auto) 0.2 (0.0-0.8) 10^3/u L Baso # (Auto) 0.0 (0.0-0.1) 10^3/u L Nucleated RBC % (a uto) 0 % Nucleated RBCs # 0.0 /100WBC Sodium 129 L (136-145) mmol/L Potassium 4.8 (3.5-5.1) mmol/L Chloride 93 L (98-107) mmol/L Carbon Dioxide 25 (22-29) mmol/L Anion Gap 15.8 (5-19) BUN 10 (6-20) mg/dL Creatinine 0.8 (0.7-1.2) mg/dL GFR Calculation 107.6 (90-130) mL/min Glucose 513 H* (65-115) mg/dL Calculated Osmolal ity 287 (285-295) mOsm/k g Lactic Acid (0.5-2.2) mmol/L Lactate 4.6 H* (0.5-2.2) mmol/L Calcium 9.1 (8.5-10.5) mg/dL Total Bilirubin 0.2 (0.15-1.2) mg/dL AST 23 (0-40) U/L ALT 28 (0-41) U/L Alkaline Phosphata se 156 H (40-130) IU/L Creatine Kinase 41 (39-308) U/L Troponin T Baselin e (0-15) ng/L Troponin T 120 Min [place] (0-15) ng/L Delta Troponin T (0-10) ABS# C-Reactive Protein 0.7 (0.0-4.9) mg/L Total Protein 6.1 L (6.6-8.7) g/dL Albumin 3.9 (3.5-5.2) g/dL Globulin 2.2 (1.3-4.6) g/dL Lipase 5 L (13-60) U/L Urine Color (Yellow) Urine Appearance (CLEAR) Urine pH (5-7) Ur Specific Gravit y (1.005-1.030) Urine Protein (Negative) Urine Glucose (UA) (Normal) Urine Ketones (Negative) Urine Blood (Negative) Urine Nitrate (Negative) Urine Bilirubin (NEGATIVE) Urine Urobilinogen (Negative) mg/dL Ur Leukocyte Rais[place] ase (Negative) Ethyl Alcohol < 10 (0-10) mg/dL 01/15/20 01/15/20 01/15/20 Range/Units 21:45 21:53 23:50 WBC (4.0-10.0) 10^3/ uL RBC (4.1-5.3) 10^6/u L Hgb (11.7-16.6) g/dL Hct (42.0-52.0) % MCV (80-94) fL MCH (28.0-34.0) pg MCHC (30.0-36.0) g/dL RDW (12.1-15.1) % Plt Count (130-400) 10^3/c mm MPV (7.4-10.4) fL Neut % (Auto) % Lymph % (Auto) % [place] % (Auto) % Eos % (Auto) % Baso % (Auto) % Neut # (Auto) (1.8-7.7) 10^3/u L Lymph # (Auto) (0.8-4.8) 10^3/u L [place] # (Auto) (0.2-0.9) 10^3/u L Eos # (Auto) (0.0-0.8) 10^3/u L Baso # (Auto) (0.0-0.1) 10^3/u L Nucleated RBC % (a uto) % Nucleated RBCs # /100WBC Sodium (136-145) mmol/L Potassium (3.5-5.1) mmol/L Chloride (98-107) mmol/L Carbon Dioxide (22-29) mmol/L Anion Gap (5-19) BUN (6-20) mg/dL Creatinine (0.7-1.2) mg/dL GFR Calculation (90-130) mL/min Glucose (65-115) mg/dL Calculated Osmolal ity (285-295) mOsm/k g Lactic Acid (0.5-2.2) mmol/L Lactate (0.5-2.2) mmol/L Calcium (8.5-10.5) mg/dL Total Bilirubin (0.15-1.2) mg/dL AST (0-40) U/L ALT (0-41) U/L Alkaline Phosphata se (40-130) IU/L Creatine Kinase (39-308) U/L Troponin T Baselin e 36 H (0-15) ng/L Troponin T 120 Min [place] 38.11 H (0-15) ng/L Delta Troponin T 2.11 (0-10) ABS# C-Reactive Protein (0.0-4.9) mg/L Total Protein (6.6-8.7) g/dL Albumin (3.5-5.2) g/dL Globulin (1.3-4.6) g/dL Lipase (13-60) U/L Urine Color Straw (Yellow) Urine Appearance Clear (CLEAR) Urine pH 5 (5-7) Ur Specific Gravit y 1.010 (1.005-1.030) Urine Protein Neg (Negative) Urine Glucose (UA) 4+ H (Normal) Urine Ketones Negative (Negative) Urine Blood Neg (Negative) Urine Nitrate Negative (Negative) Urine Bilirubin Neg (NEGATIVE) Urine Urobilinogen Norm (Negative) mg/dL Ur Leukocyte R[place] a[place] Negative (Negative) Ethyl Alcohol (0-10) mg/dL 01/16/20 Range/Units 01:00 WBC (4.0-10.0) 10^3/ uL RBC (4.1-5.3) 10^6/u L Hgb (11.7-16.6) g/dL Hct (42.0-52.0) % MCV (80-94) fL MCH (28.0-34.0) pg MCHC (30.0-36.0) g/dL RDW (12.1-15.1) % Plt Count (130-400) 10^3/c mm MPV (7.4-10.4) fL Neut % (Auto) % Lymph % (Auto) % [place] % (Auto) % Eos % (Auto) % Baso % (Auto) % Neut # (Auto) (1.8-7.7) 10^3/u L Lymph # (Auto) (0.8-4.8) 10^3/u L [place] # (Auto) (0.2-0.9) 10^3/u L Eos # (Auto) (0.0-0.8) 10^3/u L Baso # (Auto) (0.0-0.1) 10^3/u L Nucleated RBC % (a uto) % Nucleated RBCs # /100WBC Sodium (136-145) mmol/L Potassium (3.5-5.1) mmol/L Chloride (98-107) mmol/L Carbon Dioxide (22-29) mmol/L Anion Gap (5-19) BUN (6-20) mg/dL Creatinine (0.7-1.2) mg/dL GFR Calculation (90-130) mL/min Glucose (65-115) mg/dL Calculated Osmolal ity (285-295) mOsm/k g Lactic Acid 0.7 (0.5-2.2) mmol/L Lactate (0.5-2.2) mmol/L Calcium (8.5-10.5) mg/dL Total Bilirubin (0.15-1.2) mg/dL AST (0-40) U/L ALT (0-41) U/L Alkaline Phosphata se (40-130) IU/L Creatine Kinase (39-308) U/L Troponin T Baselin e (0-15) ng/L Troponin T 120 Min [place] (0-15) ng/L Delta Troponin T (0-10) ABS# C-Reactive Protein (0.0-4.9) mg/L Total Protein (6.6-8.7) g/dL Albumin (3.5-5.2) g/dL Globulin (1.3-4.6) g/dL Lipase (13-60) U/L Urine Color (Yellow) Urine Appearance (CLEAR) Urine pH (5-7) Ur Specific Gravit y (1.005-1.030) Urine Protein (Negative) Urine Glucose (UA) (Normal) Urine Ketones (Negative) Urine Blood (Negative) Urine Nitrate (Negative) Urine Bilirubin (NEGATIVE) Urine Urobilinogen (Negative) mg/dL Ur Leukocyte Raisa ase (Negative) Ethyl Alcohol (0-10) mg/dL Imaging Data ^: CT Abd/Pel: Radiologist's impression: [address] [place] [address] CT Scan Report Signed with Addenda Patient: Jagdish Clinton #: [id number] : 1980Acct#:[id number] Age/Sex: 39 / MADM Date: 01/15/20 Loc: ERRoom/Bed: Attending Dr: Ordering Provider/Ordering MD: Kinga Hung MD, [facility] [place] Date of Service: 01/15/20 Procedure(s): CT abdomen pelvis w con* [id number] Accession Number(s): [id number] Report Number: [id number]/CT abdomen pelvis w con* [id number] 01/16/2020 1:21 AM CDT ADDENDUM: The paragraph labeled Other Findings should be ignored or removed as it refers to head findings. Radiation Dose CTDIVOL = (mGy): DLP = 326.83 (mGy-cm) Addendum Dictated By: Obdulia Ramirez MD Addendum Signed By: Obdulia Ramirez MDSigned Date/Time:01/16/20 0127 Addendum Cosigned By: PROCEDURE INFORMATION: Exam: CT Abdomen And Pelvis With Contrast Exam date and time: 01/15/2020 11:21 PM Age: 39 years old Clinical indication: Abdominal pain; Generalized; Prior surgery; Surgery date: 1-6 months; Surgery type: Avr TECHNIQUE: Imaging protocol: Computed tomography of the abdomen and pelvis with intravenous contrast. Radiation optimization: All CT scans at this facility use at least one of these dose optimization techniques: automated exposure control; mA and/or kV adjustment per patient size (includes targeted exams where dose is matched to clinical indication); or iterative reconstruction. Contrast material: OMNI 300; Contrast volume: 95 ml; Contrast route: INTRAVENOUS (IV); COMPARISON: CT abdomen pelvis w con* [id number] 12/26/2019 9:54 PM RADIATION DOSE METRICS: Total DLP (mGy-cm): 326.83 FINDINGS: Lungs: Continued although slightly smaller airspace opacity/consolidation is noted in the right middle lobe and right lower lobe. There is subpleural atelectasis of the dependent portions of the lungs. Pleural space: There is a small right pleural effusion decreased compared to the prior exam. Mediastinal space: A small hiatal hernia is present. Liver: Unremarkable.No mass. Gallbladder and bile ducts: Normal. No calcified stones. No ductal dilation. Pancreas: There are calcifications within the pancreas compatible sequela of chronic pancreatitis. There is unchanged dilatation of the pancreatic duct measuring 11 mm. No findings of acute pancreatitis. Spleen: Normal. No splenomegaly. Adrenals: Normal. No mass. Kidneys and ureters: There are multiple renal hypodensities that cannot be further characterized on the current examination. There is no evidence of hydronephrosis. There is no evidence of renal calcifications. Stomach and bowel: There is mild wall thickening and fluid distention of loops of small bowel compatible with probable mild enteritis. There is a large amount of colonic stool compatible with constipation without impaction. There is no evidence of intestinal perforation or obstruction. Appendix: The appendix is not definitively identified. However, there is no CT evidence of a right lower quadrant inflammatory process. Intraperitoneal space: Unremarkable. No free air. No significant fluid collection. Vasculature: Unremarkable.No abdominal aortic aneurysm. Lymph nodes: Unremarkable.No enlarged lymph nodes. Bladder: Unremarkable as visualized. Reproductive: Unremarkable as visualized. Bones/joints: Unremarkable. No acute fracture. Soft tissues: Unremarkable. CT/CT abdomen pelvis w con* [id number] IMPRESSION: 1. Continued although slightly smaller airspace opacity/consolidation is noted in the right middle lobe and right lower lobe. Decreasing right pleural effusion. 2. There is mild wall thickening and fluid distention of loops of small bowel compatible with probable mild enteritis. No colitis. 3. There are calcifications compatible sequela of chronic pancreatitis. No acute pancreatitis. Unchanged dilated pancreatic duct. 4. There is a large amount of colonic stool compatible with constipation without impaction. Radiation Dose CTDIVOL = (mGy): DLP = 326.83 (mGy-cm) Dictated By:Casandra Leahy Signed By:Panda Leahyigned Date/Time:01/16/209 DD/ Discharge Plan Discharge Prescriptions: No Action clonazepam 1 mg tablet 1 mg PO BID 30 Days Qty: 60 RF: 2 pregabalin [Lyrica] 150 mg capsule 150 mg PO BID 30 Days Qty: 60 RF: 2 Lantus Solostar U-100 Insulin 100 unit/mL (3 mL) insulin pen 20 unit SUBCUT QPM RF: 0 (DME) pen needle, diabetic [TechLITE Pen Needle] 32 gauge x 1/4 needle See Rx Instructions .ROUTE .MEDSUPPLY Qty: 100 RF: 3 (DME) BD Veo Insulin Syr Half Unit 0.3 mL 31 gauge x 15/64 syringe See Rx Instructions .ROUTE .MEDSUPPLY Qty: 100 RF: 11 hydrocodone-acetaminophen 10-325 mg tablet 1 tab PO Q6H PRN (Reason: pain) 30 Days Qty: 120 RF: 0 Novolog Flexpen U-100 Insulin 100 unit/mL (3 mL) insulin pen See Rx Instructions .ROUTE .COMPLEX RF: 0 pantoprazole 40 mg Tablet,Delayed Release (Dr/Ec) 40 mg PO DAILY Qty: 30 RF: 0 Zenpep 5,000-17,000- 24,000 unit Capsule,Delayed Release(Dr/Ec) 2 ea PO TIDWM Qty: 180 RF: 0 ibuprofen 800 mg Tablet 800 mg PO TID PRN (Reason: Pain) Qty: 10 RF: 0 ondansetron HCl [Zofran] 4 mg tablet 4 mg PO TID PRN (Reason: nausea and vomiting) 5 Days Qty: 7 RF: 0 Coding Level of Care Code ED [employer] 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
[2020-01-16 01:29] LABS: Lactic Sepsis W/Reflex 0.7 mmol/L (0.5-2.2)
[2020-01-16] MEDS: ondansetron 2 mg/ML SDV 2 mL 4 MG IVP (03:08)
[2020-01-16] MEDS: sodium chloride 0.9% 1,000 ML 100 ML IV (03:08)
[2020-01-16] MEDS: HYDROmorphone 1 mg/mL INJ 1 mL 2 MG IVP (03:08)
[2020-01-16] MEDS: piperacillin-tazobactam 3.375 GM in sodium chloride 0.9% (plus) 50 ML IV (03:12)
[2020-01-16 03:41] LABS: Glucose Point of Care 376 mg/dL (70-110)
[2020-01-16 06:12] LABS: Glucose Point of Care 391 mg/dL (70-110)
[2020-01-16 07:05] LABS: Glucose Point of Care 385 mg/dL (70-110)
--- NOTE | 2020-01-16 07:48 | P.HP_ITS ---
Providers/Chief Complaint Admitting Physician: Maci Almazan MD Chief Complaint: abd pain History of Present Illness Jagdish Clinton is a 39 year old male with a history of chronic pancreatitis and diabetes mellitus who presents to the emergency room with recurrent acute abdominal pain and inability to tolerate oral intake. He states that pain medication which he has been prescribed does not help. Review of available external medication records indicates that he has had several prescriptions for hydrocodone lately. It is not clear which ones he picked up in which ones he may not have due to cost. He gives me several different answers when I asked him more specific questions about pain medicines that help him or do not help him. He states that the Dilaudid is the most effective for him. He says that the hydrocodone is no longer work. He also asked about having Phenergan for nausea instead of Zofran. Pain he states is located all over his abdomen, sharp, going into his back. It a 10 out of 10. Says it is unrelenting. Work- up in the emergency room including CT of the abdomen and pelvis did not reveal evidence of acute pancreatitis. Patient has a chronically dilated pancreatic duct and calcifications consistent with chronic pancreatitis. There was some mild wall thickening and fluid distention of the loops of small bowel compatible with probable mild enteritis but no colitis. A large amount of colonic stool was also seen. CT described continued though smaller airspace opacities or consolidations in the right middle lobe and right lower lobe. Patient denied any respiratory symptoms to speak of. He was most recently hospitalized December 26 to the . Arrangements were made for him to see a GI specialist in [place] for consideration of a celiac block. That appointment is upcoming according to Mr. Clinton. Hospital stay prior to the last he had had an MRCP. Beyond symptomatic treatment, there is not much more we can offer here. In the ED his blood sugar was elevated at 500 but with some insulin therapy was down to 300s. He received some fluids received a dose of fentanyl and 2 subsequent doses of Dilaudid while in the ER. Him and his mother did not feel comfortable with him going home. He is being admitted for treatment. Denies active vomiting or diarrhea. Review of Systems Const: Reports: change in appetite and malaise; Denies: fever(s) or chills Eyes: Denies: change in vision ENMT: Reports: dry mouth; Denies: throat pain or nasal congestion Card: Denies: chest pain, palpitations or edema Resp: Denies: dyspnea, productive cough or non-productive cough GI: Reports: abdominal pain, nausea, heartburn, bloating and GI cramping; Denies: vomiting, hematemesis, diarrhea, constipation, hematochezia or melena : Denies: difficulty urinating Musc: Reports: back pain Skin/Breast: Denies: rash or pruritus Neuro: Denies: headache(s), numbness in extremities, weakness in extremities or dizziness Psych: Denies: anxiety or depression Khanh/Lymph: Denies: easy bruising or easy bleeding Medications/Allergies Home Medications Medication Instructions Recorded Confirmed Last Taken Type insulin glargine 100 unit/mL (3 20 unit SUBCUT QPM 06/22/19 01/15/20 01/14/20 History mL) subcutaneous pen clonazepam 1 mg tablet 1 mg PO BID 30 Days #60 tab 10/29/19 01/15/20 01/15/20 Rx pregabalin 150 mg capsule 150 mg PO BID 30 Days #60 cap 10/29/19 01/15/20 01/15/20 Rx insulin syr/ndl U100 half mckinley #100 each 12/16/19 01/15/20 Unknown Rx pen needle, diabetic 32 gauge x #100 each 12/16/19 01/15/20 Unknown Rx 1/4 Zenpep 2 ea PO TIDWM #180 cap 12/22/19 01/15/20 01/15/20 Rx pantoprazole 40 mg PO DAILY #30 tab 12/22/19 01/15/20 01/15/20 Rx ibuprofen 800 mg PO TID PRN #10 tab 12/28/19 01/15/20 01/15/20 Rx hydrocodone 10 mg-acetaminophen 1 tab PO Q6H PRN 30 Days #120 tab 01/13/20 01/15/20 01/15/20 Rx 325 mg tablet ondansetron HCl [Zofran] 4 mg PO TID PRN 5 Days #7 tab 01/13/20 01/15/2001/01 Rx insulin aspart U-100 [Novolog See Rx Instructions .ROUTE .COMPLEX 01/15/20 01/15/20 01/15/20 History Flexpen U-100 Insulin] Allergies Allergy/AdvReac Type Severity Reaction Status Date / Time codeine Allergy Intermediate ADR-Headach Verified 01/15/20 21:41 e PFSH Acute PFSH: Medical History (Updated 01/16/20 @ 08:52 by Maci Almazan MD) ALC (alcoholic liver cirrhosis) Alcohol abuse Anxiety and depression Chronic pancreatitis due to acute alcohol intoxication Diabetes Diabetic peripheral neuropathy Erectile dysfunction 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 Pichardo Family History Father CAD (coronary artery disease) Diabetes Stroke Social History Smoking and tobacco status: current every day smoker cigarettes Packs smoked per day: 0.75 Alcohol intake: former Former alcohol use details: Says has not drank any alcohol in 3 years. Lives independently: Yes Household members: family and other Details: Parents Marital status: Legally Current occupational status: unemployed Vitals/I&O/Wt Last Vital Signs Temp 98.4 F 01/16/20 07:29 Pulse 91 01/16/20 07:29 Resp 17 01/16/20 07:29 BP 137/82 01/16/20 07:29 Pulse Ox 98 01/16/20 07:29 Weight last 48 hrs Weight 63.503 kg Physical Exam Const: OTHER: Alert, oriented x3, thin body habitus, chronic rather than acutely ill appearance upon my entry to the room and initial discussion. This however progressed gradually and then more suddenly to him being in acute pain when I began to physically examine him even before I palpated his abdomen. He was tearful during this portion and continued to be so for several minutes after but had calmed down and looks more comfortable prior to my leaving the room HENMT: OTHER: Normocephalic atraumatic, mucous membranes moist Eye: OTHER: Pupils equally round, extraocular movements intact, conjunctive a noninjected Neck/C-Spine: OTHER: Supple Resp: OTHER: Clear to auscultation bilaterally no rales rhonchi or wheezes noted, no accessory muscle use noted Cardio: OTHER: Regular rate and rhythm, no murmurs gallops or rubs. Pulses 2+ and equal at both feet. GI: OTHER: Abdomen soft, nondistended, diffusely tender with voluntary guarding, no rebound, decreased bowel sounds. Pain was most prominent in the left lower quadrant followed by right lower quadrant followed by left upper quadrant then right upper quadrant : OTHER: Deferred Extremity: NARRATIVE EXTREMITY EXAM: No cyanosis, clubbing or edema Neuro: OTHER: Face symmetric, speech clear, handgrip equal, strength equal both feet Skin: NARRATIVE SKIN EXAM: Skin pale, no rashes Data : 01/15/20 21:45 01/15/20 21:45 A&P Assessment and plan (1) Abdominal pain: Status: Acute Qualifiers: Abdominal location: generalized Qualified Code(s): R10.84 - Generalized abdominal pain (2) Elevated lactic acid level: transient Status: Acute (3) Pancreatitis: Status: Chronic Qualifiers: Chronicity: chronic Pancreatitis type: alcohol induced Qualified Code(s): K86.0 - Alcohol-induced chronic pancreatitis (4) Diabetes: Status: Acute Qualifiers: Diabetes mellitus type: type 2 Diabetes mellitus 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 insulin use: with 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 use Diabetes mellitus complication status: with diabetic arthropathy Diabetes mellitus complication detail: with neuropathic arthropathy Qualified Code(s): E11.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; Z79.4 - long term (current) use of insulin (5) ALC (alcoholic liver cirrhosis): Status: Chronic Qualifiers: Ascites presence: without ascites Qualified Code(s): K70.30 - Alcoholic cirrhosis of liver without ascites (6) Anxiety and depression: Status: Chronic Additional A&P Information Narcotic dependence Benzodiazepne dependence CT imaging demonstrating opacities in the right lung without any clinical symptoms to go along with this Observation admission IV fluids Clear liquid diet only Monitor for signs of worsening symptoms Insulin therapy with both long and short acting Try oral Dilaudid for pain control Zofran followed by Phenergan if needed for nausea Explained to patient that he needs to keep the scheduled appointment with GI specialist as there is not much if anything further that we can offer for him here. Reviewed with the patient that he needs to be very upfront about medications that he is taking or not taking and what he has picked up or not picked up due to cost or other reasons. He let me know he not get the ibuprofen last prescribed because it cost $11. I discussed with him that [id number] ibuprofen can usually be purchased for smaller amount. He mentioned not getting some other medications because they cost too much. He does have insurance coverage. He was inconsistent in what he reported to me today, particularly around pain medicines, and explained to him that that is not something that can be tolerated long-term given the chronic narcotic use. We reviewed that chronic pancreatitis can be challenging to treat and can also be associated with narcotic abuse and drug-seeking behavior and that it required cooperation by both him and the providers caring for him to come up with the best options for management without causing more harm. He did express understanding what I was trying to get at and indicated that he would be better prepared to answer questions about the medications he has filled or not filled in the future. Can try to clarify with pharmacist today which narcotic prescriptions he has picked up lately as there are several that have been listed in the last month Continue Zenpep (I seriously question if he is picking this medication up as it is also quite expensive and if he cannot afford $11 ibuprofen I do not know that he could afford the Zenpep) Continue other home medications including clonazepam, Protonix, Lyrica Lovenox for DVT prophylaxis Significant amount of stool noted on CT imaging so we will add laxatives. Producing a good bowel movement may help with pain control For development of any respiratory symptoms that would necessitate further evaluation of findings on CT scan Plans were discussed with patient and he was given an opportunity to ask questions Full code Attestations Medical Necessity Statement*: Anticipated stay less than 2 midnights in a patient with chronic pancreatitis presenting with acute Niels worsening abdominal pain and difficulty taking in oral intake. He had a transiently elevated lactic acid in the emergency room of unclear significance. He is being admitted overnight to ensure no acute worsening. 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
[2020-01-16] MEDS: lactated ringers 1,000 ML 125 ML IV ×2 (08:29→17:10)
[2020-01-16] MEDS: CLONazepam 1 mg Tablet PO ×2 (08:29→17:10)
[2020-01-16] MEDS: pantoprazole DR 40 mg Tablet PO (08:30)
[2020-01-16] MEDS: pregabalin 150 mg Capsule PO ×2 (08:30→17:10)
[2020-01-16] MEDS: HYDROcodone-acetaminophen 10-325 mg Tablet 1 TAB PO (08:30)
[2020-01-16] MEDS: HYDROmorphone 1 mg/mL INJ 1 mL IVP ×2 (08:31→17:12)
[2020-01-16] MEDS: lipase-protease-amylase Capsule 2 EACH PO ×3 (09:49→17:10)
[2020-01-16 11:03] LABS: Glucose Point of Care 445 mg/dL (70-110)
[2020-01-16 11:03] LABS: Glucose Point of Care 496 mg/dL (70-110)
--- NOTE | 2020-01-16 11:49 | PC.CHAP ---
Pastoral Care Encounter/Spiritual Assessment Type of Contact [] Declined business services representative visit [] Patient/Family/Request visit [] Outpatient visit [] Follow-up visit [] Physician referral [] Code/Alert [X] Routine visit [] Staff referral [] Actively dying [] Patient sleeping [] Family support [] [] Out of room [] Palliative care [] [] Receiving care in room [] Pre-surgical visit [] Trauma [] Long length of stay [] ICU visit [] Other: Relational/Emotional Strength [] Patient feels connected with others/family/visitors/staff [] Distress [] Loneliness/isolation [] Abandonment Spirituality of Patient [] Person of Suzie [] Attends Congregational of their Suzie [] Believes in Prayer [] Reads Bible or Sikh materials [] There are Spiritual issues to be addressed Amusement Or Recreation Card Checker Interventions [] Prayer [] Active listening [] Non-anxious presence [] Spiritual/emotional support [] Crisis/trauma care [] Spiritual counseling [] Bereavement support [] Provided bereavement packet [] Provided Bible/devotional materials [] Provided toy/stuffed animal, coloring book to patient or family member [] Provided Communion [] Anointing/[place] [] Salvation [] Completed spiritual assessment [] Other: Impact on Illness or Injury [] Angry [] Fearful [] Anxious [] Often cries [] Exhaustion [] Unable to work [] Unable to attend advent [] Unable to walk/stand [] Unable to read [] Unable to drive [] Unable to eat/drink [] Unable to sleep [] Unable to be with family [] Patient intubated [] Other: Summary Time spent with patient
--- NOTE | 2020-01-16 13:59 | P.PN_ITS ---
Subjective Subjective: Interval history: Chart reviewed, admitted earlier this morning. Accu-Cheks noted, remain in the 3 80-500 range. Hemodynamically stable, afebrile and on room air. On IV fluid hydration, clear liquid diet. Has had multiple Jellos, somnolent. Medications: Reviewed: Yes Medication Review Details: Active Medications Generic Name Dose Route Start Last Admin Trade Name Freq PRN Reason Stop Dose Admin Hydrocodone Bitart /Acetaminophen 1 tab 01/16/20 07:46 01/16/20 08:30 [place] 10-325 Mg PO 1 tab Q6H PRN Administration MODERATE PAIN Lipase/Protease/Am ylase 2 each 01/16/20 08:00 01/16/20 11:07 Zenpep PO 2 each TIDWM DARION Administration Bisacodyl 10 mg 01/16/20 07:41 Dulcolax PO DAILY PRN CONSTIPATION Clonazepam 1 mg 01/16/20 09:00 01/16/20 08:29 Klonopin PO 1 mg BID DARION Administration Dextrose 25 ml 01/16/20 08:35 D50w IVP ONCE PRN hypoglycemia prot ocol Protocol Dextrose 50 ml 01/16/20 08:35 D50w IVP PRN PRN hypoglycemia prot ocol Protocol Docusate Sodium 100 mg 01/16/20 09:00 01/16/20 08:29 Colace PO Not Given BID DARION Enoxaparin Sodium 40 mg 01/16/20 09:00 01/16/20 08:29 Lovenox SUBCUT Not Given Q24H DARION Glucagon 1 mg 01/16/20 08:35 Glucagen IM ONCE PRN Adult Acute Hypog lycemia Prot. Protocol Hydromorphone HCl 2 mg 01/16/20 07:41 Dilaudid Tab PO Q6H PRN Severe Pain first Hydromorphone HCl 1 mg 01/16/20 07:46 01/16/20 08:31 Dilaudid Inj IVP 1 mg 6XD PRN Administration severe pain secon d line Lactated Ringer's 1,000 mls @ 125 m ls/hr 01/16/20 07:45 01/16/20 08:29 Lactated Ringers IV 125 mls/hr .Q8H DARION Administration Dextrose 500 mls @ 100 mls /hr 01/16/20 08:35 D5w IV ONCE PRN Adult Acute Hypog lycemia Prot Protocol Ibuprofen 800 mg 01/16/20 07:46 01/16/20 08:30 Motrin PO 800 mg TID PRN Administration MILD PAIN Insulin Aspart 0 unit 01/16/20 21:00 Novolog SUBCUT BEDTIME DARION Protocol Insulin Aspart 0 unit 01/16/20 12:00 01/16/20 11:07 Novolog SUBCUT 16 unit TIDWM DARION Administration Protocol Insulin Glargine 20 unit 01/16/20 21:00 Lantus SUBCUT BEDTIME DARION Ondansetron HCl 4 mg 01/16/20 02:04 01/16/20 03:08 Zofran IVP 4 mg Q6H PRN Administration NAUSEA AND VOMITI NG Pantoprazole Sodiu m 40 mg 01/16/20 09:00 01/16/20 08:30 Protonix PO 40 mg DAILY DARION Administration Pregabalin 150 mg 01/16/20 09:00 01/16/20 08:30 Lyrica PO 150 mg BID DARION Administration Promethazine HCl 25 mg 01/16/20 07:41 Phenergan PO Q6H PRN Nausea second olayinka e Senna 17.2 mg 01/16/20 21:00 Senna Lax PO BEDTIME DARION codeine Allergy (Intermediate, Verified 01/15/20 21:41) ADR-Headache Vitals/I&O/Wt Last Vital Signs Temp 98.6 F 01/16/20 11:46 Pulse 85 01/16/20 11:46 Resp 18 01/16/20 11:46 BP 146/86 01/16/20 11:46 Pulse Ox 98 01/16/20 11:46 01/15/20 01/16/20 01/16/20 22:59 06:59 14:59 Intake Total 650 / 650 Output Total 600 / 600 Balance 50 / 50 Weight last 48 hrs Weight 63.503 kg Physical Exam Const: COMMON NORMALS: no acute distress and patient oriented x3 GENERAL APPEARANCE: cooperative, comfortable, lethargic and appears older than stated age ORIENTATION/CONSCIOUSNESS: Yes lethargic HENMT: COMMON NORMALS: normocephalic, atraumatic, hearing grossly normal bilaterally and moist oral mucous membranes HEAD & SCALP: normocephalic and atraumatic Eye: COMMON NORMALS: Equal, round and reactive pupils present, EOMs intact bilaterally and conjunctivae normal CONJUNCTIVA: Yes conjunctivae normal PUPIL: Yes Equal, round and reactive pupils present Neck/C-Spine: COMMON NORMALS: full ROM GENERAL: Yes normal visual inspection and Yes trachea midline Resp: COMMON NORMALS: normal respiratory effort, No retractions, No use of accessory muscles and clear to auscultation bilaterally EFFORT & INSPECTION: Yes able to speak in complete sentences, Yes symmetric chest movement and No tachypneic AUSCULTATION: clear to auscultation bilaterally Cardio: COMMON NORMALS: regular rate, regular rhythm, S1 normal heart sound present, S2 normal heart sound present and No murmurs present (Cardio) RATE: regular rate RHYTHM: regular rhythm HEART SOUNDS: S1 normal heart sound present and S2 normal heart sound present GI: COMMON NORMALS: Normal to inspection, nondistended, normoactive bowel sounds present, Soft to palpation and non-tender PALPATION: Yes Soft to palpation, No Guarding due to palpation present (GI) and No Rigid due to palpation Extremity: COMMON NORMALS: normal to inspection, full ROM and no clubbing, cyanosis or edema; negative for no pedal edema Neuro: COMMON NORMALS: patient oriented x3, moves all extremities, no focal motor deficits and no sensory deficits noted SENSORIUM/ORIENTATION: Yes lethargic Psych: COMMON NORMALS: mental status grossly normal, Normal thought process present, cooperative, normal affect and speech normal SPEECH: Yes normal speech THOUGHT PROCESS: Normal thought process present Skin: COMMON NORMALS: no rashes or lesions noted, no jaundice, no petechiae and no mottling GENERAL SKIN EXAM: no rashes or lesions noted Data : 01/15/20 21:45 01/15/20 21:45 A&P Assessment and plan (1) Abdominal pain: -Has had issues with recurrent abdominal pain likely secondary to chronic pancreatitis and noted constipation on imaging -Had previously been referred to GI specialist in [place], pending appointment for consideration of celiac block given persistent pain despite narcotic use -Pain control, antiemetics as needed -Bowel regimen -Clear liquid diet for now, IV fluid hydration -Has had multiple CT scans including yesterday showing mild wall thickening and fluid distention of small bowel loops indicative of possible mild enteritis, chronic pancreatitis, no acute inflammation, large amount of colonic stool, right middle lobe and right lower lobe consolidation and decreasing right pleural effusion -No leukocytosis, afebrile -Continue to monitor vital signs -on PPI -Need to clarify medications particularly narcotics given recent multiple prescriptions for hydrocodone and question of affordability Status: Acute Qualifiers: Abdominal location: generalized Qualified Code(s): R10.84 - Generalized abdominal pain (2) Elevated lactic acid level: -Resolved -Was likely due to dehydration Status: Acute (3) Pancreatitis: -Alcohol screen negative -As noted above, lipase wnl Status: Chronic Qualifiers: Chronicity: chronic Pancreatitis type: alcohol induced Qualified Code(s): K86.0 - Alcohol-induced chronic pancreatitis (4) Chronic hyponatremia: -Baseline sodium appears to be about 129-133 -On IV fluid hydration -Continue to trend sodium levels Status: Chronic (5) Diabetes: -A1c-12.4 -Quite hyperglycemic initially with blood sugars greater than 500; improved with insulin -On Lantus, ISS, may consider initiating scheduled short acting insulin with improved oral intake -Accu-Cheks, hypoglycemia precautions Status: Chronic Qualifiers: Diabetes mellitus complication detail: with neuropathic arthropathy Diabetes mellitus complication status: with diabetic arthropathy Diabetes mellitus prison insulin use: with prison use Diabetes mellitus type: type 2 Qualified Code(s): E11.610 - Type 2 diabetes mellitus with diabetic neuro pathic arthropathy; Z79.4 - cap coverer (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 Time Spent in Patient Care: Greater than 35 minutes (>than 50% of time spent in counselling and/or direct pt care on unit) . Coding Level of Care Code Acute Signal Tower Director for [facility] Fwd Exam Comprehensive Diagnoses Abdominal pain R10.84 Abdominal location: generalized Elevated lactic acid level R79.89 Pancreatitis K86.0 Chronicity: chronic Pancreatitis type: alcohol induced Chronic hyponatremia E87.1 Diabetes E11.610; Z79.4 Diabetes mellitus complication detail: with neuropathic arthropathy Diabetes mellitus complication status: with diabetic arthropathy Diabetes mellitus lead inspector insulin use: with prison use Diabetes mellitus type: type 2
[2020-01-16 17:03] LABS: Glucose Point of Care 300 mg/dL (70-110)
[2020-01-16] MEDS: promethazine 25 mg Tablet PO (17:10)
--- NOTE | 2020-01-16 17:24 | PC.NURSE ---
Pt. blood sugar was 300 per POC at 1700 and was delivered a perera limeade by family. Patient was informed of blood sugar and was educated that side effects of hyperglycemia. Patient stated understanding and wanted the drink anyway. Patient was given 10 units lf Novolog per sliding scale. Patient also refused his stool softner stating that he has had multiple loose stools.
[2020-01-16 21:22] LABS: Glucose Point of Care 179 mg/dL (70-110)
[2020-01-16] MEDS: insulin glargine 100 units/1 mL 20 UNIT SUBCUT (22:10)
[2020-01-17] VITALS (10 sets, daily range): BP systolic 121–159; BP diastolic 68–92; PULSE 70–86; RESP 16–20; TEMP 36.4–37.5; O2SAT 97–99
[2020-01-17] MEDS: lactated ringers 1,000 ML 125 ML IV ×3 (02:45→16:35)
[2020-01-17 04:53] LABS: Basophils % 0.5 %; Eosinophils # 0.2 10^3/uL (0.0-0.8); Eosinophils % 3.2 %; Hemoglobin 11.9 g/dL (11.7-16.6); Lymphocytes # 2.1 10^3/uL (0.8-4.8); Mean Corpuscular HGB Conc 31.3 g/dL (30.0-36.0); Mean Corpuscular Hemoglobin 26.9 pg (28.0-34.0); Monocytes # 0.6 10^3/uL (0.2-0.9); Monocytes % 8.5 %; Neutrophils # 4.41 10^3/uL (1.8-7.7); Neutrophils % 59.4 %; Nucleated Red Blood Cells % 0 %; Platelet Count 316 10^3/cmm (130-400); Red Blood Count 4.42 10^6/uL (4.1-5.3); Red Cell Distribution Width 17.4 % (12.1-15.1); White Blood Count 7.4 10^3/uL (4.0-10.0)
[2020-01-17 05:14] LABS: Magnesium 1.8 mg/dL (1.7-2.3); Phosphorus 4.3 mg/dL (2.5-4.5)
[2020-01-17 05:15] LABS: Alanine Aminotransferase 28 U/L (0-41); Albumin Level 3.7 g/dL (3.5-5.2); Alkaline Phosphatase 134 IU/L (40-130); Anion Gap 11.7 (5-19); Aspartate Amino Transferase 22 U/L (0-40); Blood Urea Nitrogen 5 mg/dL (6-20); Calcium 9.6 mg/dL (8.5-10.5); Carbon Dioxide 28 mmol/L (22-29); Chloride 106 mmol/L (98-107); Globulin 2.5 g/dL (1.3-4.6); Glomerular Filtration Rate 185.1 mL/min (90-130); Glucose 133 mg/dL (65-115); Lipase 3 U/L (13-60); Osmolality Calculated 292 mOsm/kg (285-295); Potassium 3.7 mmol/L (3.5-5.1); Sodium 142 mmol/L (136-145); Total Bilirubin 0.3 mg/dL (0.15-1.2); Total Protein 6.2 g/dL (6.6-8.7)
[2020-01-17 06:33] LABS: Glucose Point of Care 135 mg/dL (70-110)
[2020-01-17] MEDS: pantoprazole DR 40 mg Tablet PO ×2 (08:21→16:35)
[2020-01-17] MEDS: CLONazepam 1 mg Tablet PO ×2 (08:21→16:35)
[2020-01-17] MEDS: pregabalin 150 mg Capsule PO ×2 (08:21→16:36)
[2020-01-17] MEDS: lipase-protease-amylase Capsule 2 EACH PO ×3 (08:38→16:35)
[2020-01-17] MEDS: HYDROcodone-acetaminophen 10-325 mg Tablet 1 TAB PO ×3 (08:38→21:01)
[2020-01-17 11:36] LABS: Glucose Point of Care 400 mg/dL (70-110)
[2020-01-17] MEDS: HYDROmorphone 1 mg/mL INJ 1 mL IVP (13:31)
--- NOTE | 2020-01-17 13:46 | PC.NURSE ---
Pt. had had copious amounts of liquids to drink and to jello to eat. Patient had requested solid food multiple times after being told that he was on GI rest. Diet advanced to GI soft for lunch. Patient tolerated diet well. No nausea or vomiting this shift or over night. Patient still complains of abdominal pain, but only a 4/5 on a 1-10scale. Patient had ambulated the halls with no difficulty. Patient drank 10 large cups of decaf coffee and continues to request it even after educating patient that coffee may cause diarrhea.
[2020-01-17 16:48] LABS: Glucose Point of Care 413 mg/dL (70-110)
--- NOTE | 2020-01-17 19:40 | P.PN_ITS ---
Subjective Subjective: Interval history: Patient seen and examined several times throughout the day, requesting to have his diet advanced, continues to complain of pain though has no difficulty tolerating oral intake and does not look overtly uncomfortable. Discussed discrepancy with his prescribed hydrocodone and timeline which will need to be confirmed once pharmacy is open. He fills his prescriptions at [facility] neither of which are open today. He does not feel comfortable going home without pain medications which she states he ran out of. Updated mother at bedside in the afternoon. She inquires about having him follow-up with endocrinology in light of his poorly controlled diabetes. Seen ambulating without difficulty though states that he may require skilled nursing placement due to difficulty getting around at home. Medications: Reviewed: Yes Medication Review Details: Active Medications Generic Name Dose Route Start Last Admin Trade Name Freq PRN Reason Stop Dose Admin Hydrocodone Bitart /Acetaminophen 1 tab 01/16/20 07:46 01/17/20 15:05 [place] 10-325 Mg PO 1 tab Q6H PRN Administration MODERATE PAIN Lipase/Protease/Am ylase 2 each 01/16/20 08:00 01/17/20 16:35 Zenpep PO 2 each TIDWM DARION Administration Bisacodyl 10 mg 01/16/20 07:41 Dulcolax PO DAILY PRN CONSTIPATION Clonazepam 1 mg 01/16/20 09:00 01/17/20 16:35 Klonopin PO 1 mg BID DARION Administration Dextrose 25 ml 01/16/20 08:35 D50w IVP ONCE PRN hypoglycemia prot ocol Protocol Dextrose 50 ml 01/16/20 08:35 D50w IVP PRN PRN hypoglycemia prot ocol Protocol Docusate Sodium 100 mg 01/16/20 09:00 01/17/20 16:36 Colace PO Not Given BID DARION Enoxaparin Sodium 40 mg 01/16/20 09:00 01/17/20 08:22 Lovenox SUBCUT Not Given Q24H DARION Glucagon 1 mg 01/16/20 08:35 Glucagen IM ONCE PRN Adult Acute Hypog lycemia Prot. Protocol Hydromorphone HCl 2 mg 01/16/20 07:41 01/17/20 18:17 Dilaudid Tab PO 2 mg Q6H PRN Administration Severe Pain first Hydromorphone HCl 1 mg 01/16/20 07:46 01/17/20 13:31 Dilaudid Inj IVP 1 mg 6XD PRN Administration severe pain secon d line Lactated Ringer's 1,000 mls @ 125 m ls/hr 01/16/20 07:45 01/17/20 16:35 Lactated Ringers IV 125 mls/hr .Q8H DARION Administration Dextrose 500 mls @ 100 mls /hr 01/16/20 08:35 D5w IV ONCE PRN Adult Acute Hypog lycemia Prot Protocol Ibuprofen 800 mg 01/16/20 07:46 01/16/20 08:30 Motrin PO 800 mg TID PRN Administration MILD PAIN Insulin Aspart 0 unit 01/16/20 21:00 01/16/20 22:10 Novolog SUBCUT 2 unit BEDTIME DARION Administration Protocol Insulin Aspart 0 unit 01/16/20 12:00 01/17/20 16:50 Novolog SUBCUT 16 unit TIDWM DARION Administration Protocol Insulin Glargine 20 unit 01/16/20 21:00 01/16/20 22:10 Lantus SUBCUT 20 unit BEDTIME DARION Administration Ondansetron HCl 4 mg 01/16/20 02:04 01/16/20 03:08 Zofran IVP 4 mg Q6H PRN Administration NAUSEA AND VOMITI NG Pantoprazole Sodiu m 40 mg 01/16/20 09:00 01/17/20 16:35 Protonix PO 40 mg DAILY DARION Administration Pregabalin 150 mg 01/16/20 09:00 01/17/20 16:36 Lyrica PO 150 mg BID DARION Administration Promethazine HCl 25 mg 01/16/20 07:41 01/16/20 17:10 Phenergan PO 25 mg Q6H PRN Administration Nausea second olayinka e Senna 17.2 mg 01/16/20 21:00 01/16/20 22:12 Senna Lax PO Not Given BEDTIME DARION codeine Allergy (Intermediate, Verified 01/15/20 21:41) ADR-Headache Vitals/I&O/Wt Last Vital Signs Temp 98.3 F 01/17/20 16:00 Pulse 84 01/17/20 16:00 Resp 17 01/17/20 18:17 BP 159/91 01/17/20 16:00 Pulse Ox 98 01/17/20 16:00 01/17/20 01/17/20 01/17/20 06:59 14:59 22:59 Intake Total 1000 / 4090 3682.083 / 3682.083 999 / 4682.083 Balance 1000 / 3490 3682.083 / 3682.083 999 / 4682.083 Weight last 48 hrs Weight 63.503 kg Physical Exam Const: COMMON NORMALS: no acute distress, patient oriented x3 and alert GENERAL APPEARANCE: cooperative, comfortable and appears older than stated age HENMT: COMMON NORMALS: normocephalic, atraumatic, hearing grossly normal rd aterally and moist oral mucous membranes HEAD & SCALP: normocephalic and atraumatic Eye: COMMON NORMALS: Equal, round and reactive pupils present, EOMs intact bilaterally and conjunctivae normal CONJUNCTIVA: Yes conjunctivae normal PUPIL: Yes Equal, round and reactive pupils present Neck/C-Spine: COMMON NORMALS: full ROM GENERAL: Yes normal visual inspection and Yes trachea midline Resp: COMMON NORMALS: normal respiratory effort, No retractions, No use of accessory muscles and clear to auscultation bilaterally EFFORT & INSPECTION: Yes able to speak in complete sentences, Yes symmetric chest movement and No tachypneic AUSCULTATION: clear to auscultation bilaterally Cardio: COMMON NORMALS: regular rate, regular rhythm, S1 normal heart sound present, S2 normal heart sound present and No murmurs present (Cardio) RATE: regular rate RHYTHM: regular rhythm HEART SOUNDS: S1 normal heart sound present and S2 normal heart sound present GI: COMMON NORMALS: Normal to inspection, nondistended, normoactive bowel sounds present, Soft to palpation and non-tender PALPATION: Yes Soft to palpation, No Guarding due to palpation present (GI) and No Rigid due to palpation Extremity: COMMON NORMALS: normal to inspection, full ROM and no clubbing, cyanosis or edema; negative for no pedal edema Neuro: COMMON NORMALS: patient oriented x3, moves all extremities, no focal motor deficits, no sensory deficits noted and gait normal SENSORIUM/ORIENTATION: Yes alert Psych: COMMON NORMALS: mental status grossly normal, Normal thought process present, cooperative, normal affect and speech normal SPEECH: Yes normal speech THOUGHT PROCESS: Normal thought process present Skin: COMMON NORMALS: no rashes or lesions noted, no jaundice, no petechiae and no mottling GENERAL SKIN EXAM: no rashes or lesions noted Data : 01/17/20 04:30 01/17/20 04:30 A&P Assessment and plan (1) Abdominal pain: -Has had issues with recurrent abdominal pain likely secondary to chronic pancreatitis and noted constipation on imaging -Had previously been referred to GI specialist in [place], pending appointment for consideration of celiac block given persistent pain despite narcotic use -Pain control, antiemetics as needed -Bowel regimen; declined as he reports having diarrhea -advance to GI soft diet, d/c IVF as oral hydration improved -Has had multiple CT scans including on 01/14 showing mild wall thickening and fluid distention of small bowel loops indicative of possible mild enteritis, chronic pancreatitis, no acute inflammation, large amount of colonic stool, right middle lobe and right lower lobe consolidation and decreasing right pleural effusion -No leukocytosis, afebrile -Continue to monitor vital signs -on PPI -Need to clarify medications particularly narcotics given recent multiple prescriptions for hydrocodone and question of affordability Status: Acute Qualifiers: Abdominal location: generalized Qualified Code(s): R10.84 - Generalized abdominal pain (2) Elevated lactic acid level: -Resolved -Was likely due to dehydration Status: Resolved (3) Pancreatitis: -Alcohol screen negative -As noted above, lipase wnl Status: Chronic Qualifiers: Chronicity: chronic Pancreatitis type: alcohol induced Qualified Code(s): K86.0 - Alcohol-induced chronic pancreatitis (4) Chronic hyponatremia: -Baseline sodium appears to be about 129-133 -d/c IVF; encourage oral hydration -sodium levels normalized Status: Resolved (5) Diabetes: -A1c-12.4 -Quite hyperglycemic initially with blood sugars greater than 500; improved with insulin -On Lantus, ISS, may consider initiating scheduled short acting insulin with improved oral intake -Accu-Cheks, hypoglycemia precautions -may benefit from Endocrinology f/u as outpatient Status: Chronic Qualifiers: Diabetes mellitus type: type 2 Diabetes mellitus termite renewal inspector insulin use: with termite renewal inspector use Diabetes mellitus complication status: with diabetic arthropathy Diabetes mellitus complication detail: with neuropathic arthropathy Qualified Code(s): E11.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; Z79.4 - intermediate manager (current) use of insulin Additional A&P Information -Anxiety, depression -Alcoholic liver cirrhosis -advance to GI soft diet -GI ppx with PPI -DVT ppx with lovenox -Dispo: lives at home with mother, has in-home services ([facility]) -Code status: FULL code Attestations Medical Necessity Statement*: Patient requires hospitalization for improved pain control and oral intake, diet advanced today, as well as improved BG control. Time Spent in Patient Care: 16 - 35 minutes (>than 50% of time spent in counselling and/or direct pt care on unit) . Coding Level of Care Code Acute System Engineer for Chg Fwd Diagnoses Abdominal pain R10.84 Abdominal location: generalized Elevated lactic acid level R79.89 Pancreatitis K86.0 Chronicity: chronic Pancreatitis type: alcohol induced Chronic hyponatremia E87.1 Diabetes E11.610; Z79.4 Diabetes mellitus type: type 2 Diabetes mellitus retirement insulin use: with termite renewal inspector use Diabetes mellitus complication status: with diabetic arthropathy Diabetes mellitus complication detail: with neuropathic arthropathy
[2020-01-17] MEDS: ondansetron 2 mg/ML SDV 2 mL 4 MG IVP (20:27)
[2020-01-17 21:00] LABS: Glucose Point of Care 323 mg/dL (70-110)
[2020-01-17] MEDS: insulin glargine 100 units/1 mL 20 UNIT SUBCUT (21:00)
[2020-01-17] MEDS: sennosides 8.6 mg Tablet 17.2 MG PO (21:01)
[2020-01-18] VITALS: BP 162/91; PULSE 78; RESP 18; TEMP 36.6; O2SAT 99
[2020-01-18 00:09] VITALS: RESP 17
[2020-01-18] MEDS: HYDROmorphone 1 mg/mL INJ 1 mL IVP (00:09)
--- NOTE | 2020-01-18 01:49 | PC.NURSE ---
pt has been consuming multiple food item/drinks about 2 -3 times an hour tonight. No complaints of nausea or vomiting. pt is resting comfortably in bed w no visible or objective signs of distress, breathing is even and unlabored.
--- NOTE | 2020-01-18 01:56 | PC.NURSE ---
Pt resistant to reeducation attempts on proper diet as it is ordered (GI soft) and diet as it pertains to his elevated blood glucose this evening.
[2020-01-18] MEDS: HYDROcodone-acetaminophen 10-325 mg Tablet 1 TAB PO ×2 (02:54→10:29)
[2020-01-18 04:00] VITALS: BP 137/87; PULSE 94; RESP 18; TEMP 36.8; O2SAT 99
--- NOTE | 2020-01-18 06:21 | PC.NURSE ---
pt has repeatedly came to the nurses station asking for food and drink. i have attempted to educate the patient on his diet order numerous times. To which he stated i haven't given him anything all night . Pt received numerous food and drink items that i myself have given him, as well as other staff. I also provided him education on specific diet plan of GI Soft . Pt is very irritated this morning in regards to the limitations on his diet and would like to speak to the doctor about advancing diet.
[2020-01-18 06:33] VITALS: RESP 18; O2SAT 99
[2020-01-18 07:53] VITALS: BP 157/99; PULSE 78; RESP 18; TEMP 36.8; O2SAT 100
[2020-01-18 08:08] LABS: Glucose Point of Care 370 mg/dL (70-110)
[2020-01-18] MEDS: lipase-protease-amylase Capsule 2 EACH PO (08:50)
[2020-01-18] MEDS: pregabalin 150 mg Capsule PO (08:50)
[2020-01-18] MEDS: CLONazepam 1 mg Tablet PO (08:50)
--- NOTE | 2020-01-18 09:52 | PC.NURSE ---
Pt. has been non-compliant with diet even after education of what makes pancreatitis worse and what foods increase the pain from it. Hand-outs given to patient on pancreatitis and diabetes. Patient verbalizes understanding, but remains non-compliant by asking for multiple cups of coffee, sandwiches, pudding and other foods. Patient also has had food delivered to his room from family from [facility]. Consumed this on top of his breakfast from dietary and and extra sandwich. Tolerated diet well. Requests pain medication as soon as he can have it. Pain reported to be a 4/10. Patient ambulating around the floor with no difficulty. States he wants to go to a prison, but does not qualify under his Medicaid insurance for skilled. Pt. informed of this.
--- NOTE | 2020-01-18 10:51 | P.DS_ITS ---
Discharge Providers Date of Admission: 01/17/20 19:45 Date of Discharge: January 18, 2020 Attending Provider at Admission: Maci Almazan MD Attending Provider at Discharge: Franklin Mcclelland MD Diagnoses at Discharge Discharge Diagnosis (1) Abdominal pain: Status: Acute Problem details: Thought to be secondary to chronic pancreatitis. Qualifiers: Abdominal location: generalized Qualified Code(s): R10.84 - Generalized abdominal pain (2) Elevated lactic acid level: Status: Resolved (3) Pancreatitis: Status: Chronic Qualifiers: Chronicity: chronic Pancreatitis type: alcohol induced Qualified Code(s): K86.0 - Alcohol-induced chronic pancreatitis (4) Chronic hyponatremia: Status: Resolved Problem details: Resolved fall in the hospital (5) Diabetes: Status: Chronic Qualifiers: Diabetes mellitus type: type 2 Diabetes mellitus senior care insulin use: with termite control representative use Diabetes mellitus complication status: with diabetic arthropathy Diabetes mellitus complication detail: with neuropathic arthropathy Qualified Code(s): E11.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; 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 He has a history of chronic pancreatitis. He had had several recent admissions. On admission his lipase was normal. CT scan demonstrated changes consistent with chronic pancreatitis. He was unclear on admission whether he had picked up his hydrocodone,, or whether he was out of this medication. Throughout his hospital stay he remained stable, was able to eat he was noncompliant with his low-fat diet while in the hospital. He had appropriate liquid intake. At the end of his hospital stay when medicines could be reconciled it was found that he had filled 120 hydrocodone on December 27. He has a refill already scheduled for January 26. He h as follow-up with a Dr. Alan Cannon in February for potential celiac block. I discussed with the patient concern for taking too much of his pain medication. I discussed this with his mother as well after I received verbal consent from the patient to discuss his care with his mother. Secondary to his overuse of prescribed medication, just receiving a prescription for narcotics on December 27 another refill of his pain medication was not given at discharge. He should have enough hydrocodone from his prior prescription to last until a refill which is already on hold on January 26 at the pharmacy per his primary. He will need to discuss with his primary if any refill needs to be completed earlier. I also noted that he had a hoarse voice when I evaluated him on his day of discharge. I asked that he follow-up with his primary regarding this. Patient reports this is been consistently present since his heart surgery. Physical Exam Narrative: EXAM NARRATIVE: General exam no apparent distress Cardiovascular regular in rhythm without murmur Lungs clear Abdomen is soft with positive bowel sounds. Tenderness to palpation epigastric area Extremities no cyanosis clubbing or edema Discharge Data Data Completed and Pending: Completed Studies During Hospitalization Category Date Time Status CT abdomen pelvis w con* [id number] Stat Cat Scan 01/15/20 23:08 Completed Labs from last 24 hours 01/18/20 01/17/20 01/17/20 08:00 20:53 16:45 POC Glucose 370 323 413 01/17/20 11:22 POC Glucose 400 Vitals: Last Vital Signs Temp 98.2 F 01/18/20 07:53 Pulse 78 01/18/20 07:53 Resp 18 01/18/20 07:53 BP 157/99 01/18/20 07:53 Pulse Ox 100 01/18/20 07:53 Discharge Plan Discharge Patient Disposition: Home Condition: Stable Prescriptions: Continued clonazepam 1 mg tablet 1 mg PO BID 30 Days Qty: 60 RF: 2 pregabalin [Lyrica] 150 mg capsule 150 mg PO BID 30 Days Qty: 60 RF: 2 Lantus Solostar U-100 Insulin 100 unit/mL (3 mL) insulin pen 20 unit SUBCUT QPM RF: 0 (DME) pen needle, diabetic [TechLITE Pen Needle] 32 gauge x 1/4 needle See Rx Instructions .ROUTE .MEDSUPPLY Qty: 100 RF: 3 (DME) BD Veo Insulin Syr Half Unit 0.3 mL 31 gauge x 15/64 syringe See Rx Instructions .ROUTE .MEDSUPPLY Qty: 100 RF: 11 hydrocodone-acetaminophen 10-325 mg tablet 1 tab PO Q6H PRN (Reason: pain) 30 Days Qty: 120 RF: 0 Novolog Flexpen U-100 Insulin 100 unit/mL (3 mL) insulin pen See Rx Instructions .ROUTE .COMPLEX RF: 0 pantoprazole 40 mg Tablet,Delayed Release (Dr/Ec) 40 mg PO DAILY Qty: 30 RF: 0 Zenpep 5,000-17,000- 24,000 unit Capsule,Delayed Release(Dr/Ec) 2 ea PO TIDWM Qty: 180 RF: 0 ondansetron HCl [Zofran] 4 mg tablet 4 mg PO TID PRN (Reason: nausea and vomiting) 5 Days Qty: 7 RF: 0 Discontinued ibuprofen 800 mg Tablet 800 mg PO TID PRN (Reason: Pain) Qty: 10 RF: 0 Discharge Orders: Discharge Order (Routine); Ordered 01/18/20 Ordered By: Franklin Mcclelland Referrals: Oumar Gonzalez MD [Physician] - 1-3 days Discharge Diet: Diabetic, Low Cholesterol, Low Fat and GI Soft Activity Restrictions/Additional Instructions: Take all medicine as prescribed. Low-fat diet. Discharge Attestations Time Spent in Discharge Care*: greater than 30 min Quality Metrics Clinical Quality Measures During this hospital stay, did patient experience: None Coding Level of Care Code Acute Perpetual Inventory Clerk for g Fwd Diagnoses Abdominal pain R10.84 Abdominal location: generalized Elevated lactic acid level R79.89 Pancreatitis K86.0 Chronicity: chronic Pancreatitis type: alcohol induced Chronic hyponatremia E87.1 Diabetes E11.610; Z79.4 Diabetes mellitus type: type 2 Diabetes mellitus termite control representative insulin use: with senior care use Diabetes mellitus complication status: with diabetic arthropathy Diabetes mellitus complication detail: with neuropathic arthropathy
[2020-01-18 10:56] LABS: Glucose Point of Care 204 mg/dL (70-110)
[2020-01-18 11:22] VITALS: BP 157/99; PULSE 78; RESP 18; TEMP 36.8; O2SAT 100
--- NOTE | 2020-01-18 12:04 | PC.RESP ---
Smoking Cessation information sent to patient.
== END 2020-01-18 12:19 | disposition home or self-care (01) | DRG 440 ==
LOC: ER 21:25 → MEDSURG 01-16 02:32
PROVIDERS: Family Medicine; Admitting Provider Hospitalist; Visit Provider Internal Medicine
DX: K86.0 Alcohol-induced chronic pancreatitis (principal); F10.21 Alcohol dependence, in remission; K70.30 Alcoholic cirrhosis of liver without ascites; E11.42 Type 2 diabetes mellitus with diabetic polyneuropathy; E11.618 Type 2 diabetes mellitus with other diabetic arthropathy; F41.8 Other specified anxiety disorders; N52.9 Male erectile dysfunction, unspecified; Z95.2 Presence of prosthetic heart valve; G47.01 Insomnia due to medical condition; F17.210 Nicotine dependence, cigarettes, uncomplicated; Z79.891 Long term (current) use of opiate analgesic
CPT/HCPCS: 12345; 36415; 36416; 74177; 80053; 80307; 81003; 82550; 82962; 83605; 83690; 83735; 84100; 84484; 85025; 86140; 93005; 96372; 96375; 99283; G0378; J1170; J1815 ×2; J2405; J2543; J3010; J7030; Q0169; Q9967

== ENCOUNTER 2020-01-22 18:52 | Emergency (ER) | payer MEDICAID, SELFPAY ==
[2020-01-22] VITALS (7 sets, daily range): BP systolic 132–168; BP diastolic 78–98; PULSE 76–134; RESP 15–18; TEMP 36.8; O2SAT 96–99; BMI 17.7
[2020-01-22 20:12] LABS: Basophils # 0.1 10^3/uL (0.0-0.1); Basophils % 0.7 %; Eosinophils # 0.3 10^3/uL (0.0-0.8); Eosinophils % 3.7 %; Hematocrit 42.1 % (42.0-52.0); Hemoglobin 13.3 g/dL (11.7-16.6); Lymphocytes # 1.9 10^3/uL (0.8-4.8); Lymphocytes % 28.4 %; Mean Corpuscular HGB Conc 31.6 g/dL (30.0-36.0); Mean Corpuscular Hemoglobin 27.7 pg (28.0-34.0); Mean Corpuscular Volume 87.5 fL (80-94); Mean Platelet Volume 11.7 fL (7.4-10.4); Monocytes # 0.8 10^3/uL (0.2-0.9); Monocytes % 12.1 %; Neutrophils # 3.65 10^3/uL (1.8-7.7); Neutrophils % 54.8 %; Nucleated Red Blood Cells % 0 %; Platelet Count 275 10^3/cmm (130-400); Red Blood Count 4.81 10^6/uL (4.1-5.3); Red Cell Distribution Width 17.4 % (12.1-15.1); White Blood Count 6.7 10^3/uL (4.0-10.0)
[2020-01-22 20:15] LABS: Add Urine Microscopic? NO
[2020-01-22] MEDS: sodium chloride 0.9% 1,000 ML 999 ML IV (20:15)
[2020-01-22 20:25] LABS: INR 0.95 (0.8-1.2)
[2020-01-22 20:27] LABS: Alanine Aminotransferase 42 U/L (0-41); Albumin Level 4.7 g/dL (3.5-5.2); Alkaline Phosphatase 135 IU/L (40-130); Anion Gap 15.1 (5-19); Aspartate Amino Transferase 22 U/L (0-40); Blood Urea Nitrogen 11 mg/dL (6-20); Calcium 9.6 mg/dL (8.5-10.5); Carbon Dioxide 28 mmol/L (22-29); Chloride 99 mmol/L (98-107); Glomerular Filtration Rate 124.9 mL/min (90-130); Glucose 58 mg/dL (65-115); Lipase 3 U/L (13-60); Magnesium 1.9 mg/dL (1.7-2.3); Osmolality Calculated 280 mOsm/kg (285-295); Potassium 4.1 mmol/L (3.5-5.1); Sodium 138 mmol/L (136-145); Total Bilirubin 0.2 mg/dL (0.15-1.2); Total Protein 7.7 g/dL (6.6-8.7)
[2020-01-22 20:28] LABS: Bilirubin Urine Neg (NEGATIVE); Blood Urine Neg (Negative); Glucose Urine UA 4+ (Normal); Ketones Urine Negative (Negative); Leukocyte Esterase Urine Negative (Negative); Nitrate Urine Negative (Negative); Protein Urine Neg (Negative); Specific Gravity, Urine 1.015 (1.005-1.030); Urine Appearance Clear (CLEAR); Urine Color Yellow (Yellow); Urobilinogen Urine Norm (Negative); pH Urine 5 (5-7)
[2020-01-22] MEDS: insulin regular-human 100 units/1 mL 12 UNIT IVP (20:37)
[2020-01-22] MEDS: HYDROmorphone 1 mg/mL INJ 1 mL IVP ×2 (20:37→23:03)
[2020-01-22] MEDS: ondansetron 2 mg/ML SDV 2 mL 4 MG IVP (20:48)
[2020-01-22 21:14] LABS: Glucose Point of Care 45 mg/dL (70-110)
--- NOTE | 2020-01-22 21:22 | PC.NURSE ---
In triage patient had FSBS of 432, patient was given 12 units of insulin following protocol and MD order, before giving insulin patient stated, I have not taken insulin today insulin was given, later patient was in room appeared pale and diaphoretic, FSBS was taken, sugar was 45, patient given 1/2 amp of D50 following MD orders, patient then stated, I think I took some insulin before I came today, I think my mother gave it to me
[2020-01-22 21:39] LABS: Glucose Point of Care 119 mg/dL (70-110)
--- NOTE | 2020-01-22 22:34 | ED_ITS ---
HPI - Abdominal Pain General: Chief Complaint: Abdominal Pain Stated Complaint: ABDOMINAL PAIN Time Seen by Provider: 01/22/20 19:53 History of Present Illness: HPI narrative: 40-year-old male recently discharged from this facility on 01/17. He has a history of chronic pancreatitis. After being sent home from here, he presented the same day to [facility] in [place] with the same complaint. He was treated for pancreatitis and pneumonia there. He came home today from that facility, and re-presents to the emergency department here complaining of belly pain. He was evidently discharged without pain medication from both facilities. This is due to overuse of pain medication, more than prescribed in the past. He is a history of insulin-dependent diabetes, and notes that his sugars have been hard to control. MD elicited complaint: abdominal pain Pertinent past history: other (Pancreatitis) Onset (ago): day(s) Pain Consistency: constant Location: Epigastric and RUQ Severity: similar to previous episodes Radiation: none Exacerbating factors: eating Relieving factors: other (Pain medication) Associated Symptoms: Reports GI cramping and vomiting; Denies chills, constipation, fever(s), hematuria and hematemesis Review of Systems Const: Denies: fever(s) or chills Eyes: Denies: change in vision or blurry vision ENMT: Denies: swelling of lips/tongue or sinus pain Card: Denies: chest pain, palpitations, edema, dyspnea on exertion or orthopnea Resp: Reports: non-productive cough; Denies: dyspnea, productive cough or wheezing GI: Reports: vomiting and GI cramping; Denies: hematemesis or constipation : Denies: difficulty urinating or hematuria Musc: Reports: back pain; Denies: neck pain Skin/Breast: Denies: rash, pruritus or erythema Neuro: Denies: headache(s), dizziness, vertigo, confusion or seizure-like activity Psych: Denies: anxiety PFSH ED PFSH: Medical History (Updated 01/22/20 @ 22:49 by Atif Melton DO) Abdominal pain Thought to be secondary to chronic pancreatitis. 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 Pichardo Family History Father CAD (coronary artery disease) Diabetes Stroke Social History Smoking and tobacco status: current every day smoker cigarettes Packs smoked per day: 0.75 Alcohol intake: former Former alcohol use details: Says has not drank any alcohol in 3 years. Lives independently: Yes Household members: family and other Details: Parents Marital status: Legally Current occupational status: unemployed Physical Exam Const: GENERAL APPEARANCE: cooperative and ill appearing ORIENTATION/CONSCIOUSNESS: Yes oriented to person, Yes oriented to place and Yes oriented to time HENMT: COMMON NORMALS: normocephalic, external ears normal and Normal external nose present HEAD & SCALP: normocephalic FACE & SINUS: normal facial exam NOSE: Normal external nose present and No nasal discharge present EXTERNAL EAR: Yes external ears normal MOUTH: tongue normal Eye: COMMON NORMALS: Equal, round and reactive pupils present, EOMs intact bilaterally and conjunctivae normal EYELID: eyelids normal CONJUNCTIVA: Yes conjunctivae normal PUPIL: Yes Equal, round and reactive pupils present Neck/C-Spine: GENERAL: No tracheal deviation Chest: COMMONS NORMALS: normal inspection of the chest CHEST: No tenderness Resp: COMMON NORMALS: clear to auscultation bilaterally EFFORT & INSPECTION: No tachypneic, No respiratory distress, No retractions, No uses accessory muscles and No tracheal deviation AUSCULTATION: clear to auscultation bilaterally, no rhonchi, no wheezes and lung sounds not diminished Cardio: COMMON NORMALS: regular rate and regular rhythm RATE: regular rate RHYTHM: regular rhythm HEART SOUNDS: no murmurs PERIPHERAL PULSES: radial pulses present GI: INSPECTION: No abdominal distension AUSCULTATION: No Hyperactive bowel sounds present and No Hypoactive bowel sounds present PALPATION: Yes Tenderness to palpation present (GI) (epigastric) Details: RUQ, No Guarding due to palpation present (GI) and No Rigid due to palpation PERCUSSION: no dullness to percussion and no tympanic to percussion Neuro: SENSORIUM/ORIENTATION: Yes oriented to person, Yes oriented to place and Yes oriented to time Psych: COMMON NORMALS: mental status grossly normal Skin: COMMON NORMALS: no rashes or lesions noted GENERAL SKIN EXAM: no rashes or lesions noted Course Vital Signs: Vital signs: Vital Signs Temperature 98.3 F 01/22/20 19:32 Pulse Rate 76 01/22/20 23:30 Respiratory Rate 16 01/22/20 23:30 Blood Pressure 132/87 01/22/20 23:30 Pulse Oximetry 98 01/22/20 22:00 MDM - Abdominal Pain MDM Narrative: Medical decision making narrative: 40-year-old patient with a history of pancreatitis. He is an insulin-dependent diabetic. His blood sugar on arrival was 422. He was given IV insulin. He told his nurse that he had not had any insulin today. About 45 minutes later, his blood sugar was 45. He was given orange juice and peanut butter, and one half amp of D50. This brought her sugar up to 119. He then relayed to the nurse that his mother had given him insulin before leaving for the hospital. His white blood cell count is 6.7. His CRP is not elevated. Electrolytes are normal. His renal function is normal. He had a CT a few days ago, I do not see reason to repeat it. He notes that he was dissatisfied with his pain control at [facility], and that is why he is come here. He is obviously out of pain medication at home. I believe most of his symptoms are coming from narcotic withdrawal, not necessarily pancreatitis. I am not sure if there is any malingering present or not. He has not vomited here. Given lack of objective findings, I do not see a reason for him to be admitted here. He will be sent home with a prescription for a few pain pills, Zofran, and a liquid diet. Lab Data: Labs: Lab Results 01/22/20 01/22/20 01/22/20 Range/Units 20:04 20:04 20:04 WBC 6.7 (4.0-10.0) 10^3/ uL RBC 4.81 (4.1-5.3) 10^6/u L Hgb 13.3 (11.7-16.6) g/dL Hct 42.1 (42.0-52.0) % MCV 87.5 (80-94) fL MCH 27.7 L (28.0-34.0) pg MCHC 31.6 (30.0-36.0) g/dL RDW 17.4 H (12.1-15.1) % Plt Count 275 (130-400) 10^3/c mm MPV 11.7 H (7.4-10.4) fL Neut % (Auto) 54.8 % Lymph % (Auto) 28.4 % [place] % (Auto) 12.1 % Eos % (Auto) 3.7 % Baso % (Auto) 0.7 % Neut # (Auto) 3.65 (1.8-7.7) 10^3/u L Lymph # (Auto) 1.9 (0.8-4.8) 10^3/u L [place] # (Auto) 0.8 (0.2-0.9) 10^3/u L Eos # (Auto) 0.3 (0.0-0.8) 10^3/u L Baso # (Auto) 0.1 (0.0-0.1) 10^3/u L Nucleated RBC % (a uto) 0 % Nucleated RBCs # 0.0 /100WBC PT 13.00 (12.1-14.9) SECO NDS INR 0.95 (0.8-1.2) Sodium 138 (136-145) mmol/L Potassium 4.1 (3.5-5.1) mmol/L Chloride 99 (98-107) mmol/L Carbon Dioxide 28 (22-29) mmol/L Anion Gap 15.1 (5-19) BUN 11 (6-20) mg/dL Creatinine 0.7 (0.7-1.2) mg/dL GFR Calculation 124.9 (90-130) mL/min Glucose 58 L (65-115) mg/dL POC Glucose (70-110) mg/dL Calculated Osmolal ity 280 L (285-295) mOsm/k g Lactate (0.5-2.2) mmol/L Calcium 9.6 (8.5-10.5) mg/dL Magnesium 1.9 (1.7-2.3) mg/dL Total Bilirubin 0.2 (0.15-1.2) mg/dL AST 22 (0-40) U/L ALT 42 H (0-41) U/L Alkaline Phosphata se 135 H (40-130) IU/L Total Protein 7.7 (6.6-8.7) g/dL Albumin 4.7 (3.5-5.2) g/dL Globulin 3.0 (1.3-4.6) g/dL Lipase 3 L (13-60) U/L Urine Color (Yellow) Urine Appearance (CLEAR) Urine pH (5-7) Ur Specific Gravit y (1.005-1.030) Urine Protein (Negative) Urine Glucose (UA) (Normal) Urine Ketones (Negative) Urine Blood (Negative) Urine Nitrate (Negative) Urine Bilirubin (NEGATIVE) Urine Urobilinogen (Negative) mg/dL Ur Leukocyte Raisa ase (Negative) 01/22/20 01/22/20 01/22/20 Range/Units 20:04 20:04 21:09 WBC (4.0-10.0) 10^3/ uL RBC (4.1-5.3) 10^6/u L Hgb (11.7-16.6) g/dL Hct (42.0-52.0) % MCV (80-94) fL MCH (28.0-34.0) pg MCHC (30.0-36.0) g/dL RDW (12.1-15.1) % Plt Count (130-400) 10^3/c mm MPV (7.4-10.4) fL Neut % (Auto) % Lymph % (Auto) % [place] % (Auto) % Eos % (Auto) % Baso % (Auto) % Neut # (Auto) (1.8-7.7) 10^3/u L Lymph # (Auto) (0.8-4.8) 10^3/u L [place] # (Auto) (0.2-0.9) 10^3/u L Eos # (Auto) (0.0-0.8) 10^3/u L Baso # (Auto) (0.0-0.1) 10^3/u L Nucleated RBC % (a uto) % Nucleated RBCs # /100WBC PT (12.1-14.9) SECO NDS INR (0.8-1.2) Sodium (136-145) mmol/L Potassium (3.5-5.1) mmol/L Chloride (98-107) mmol/L Carbon Dioxide (22-29) mmol/L Anion Gap (5-19) BUN (6-20) mg/dL Creatinine (0.7-1.2) mg/dL GFR Calculation (90-130) mL/min Glucose (65-115) mg/dL POC Glucose 45 (70-110) mg/dL Calculated Osmolal ity (285-295) mOsm/k g Lactate 2.0 (0.5-2.2) mmol/L Calcium (8.5-10.5) mg/dL Magnesium (1.7-2.3) mg/dL Total Bilirubin (0.15-1.2) mg/dL AST (0-40) U/L ALT (0-41) U/L Alkaline Phosphata se (40-130) IU/L Total Protein (6.6-8.7) g/dL Albumin (3.5-5.2) g/dL Globulin (1.3-4.6) g/dL Lipase (13-60) U/L Urine Color Yellow (Yellow) Urine Appearance Clear (CLEAR) Urine pH 5 (5-7) Ur Specific Gravit y 1.015 (1.005-1.030) Urine Protein Neg (Negative) Urine Glucose (UA) 4+ H (Normal) Urine Ketones Negative (Negative) Urine Blood Neg (Negative) Urine Nitrate Negative (Negative) Urine Bilirubin Neg (NEGATIVE) Urine Urobilinogen Norm (Negative) mg/dL Ur Leukocyte Raisa ase Negative (Negative) 01/22/20 01/22/20 Range/Units 21:35 23:00 WBC (4.0-10.0) 10^3/ uL RBC (4.1-5.3) 10^6/u L Hgb (11.7-16.6) g/dL Hct (42.0-52.0) % MCV (80-94) fL MCH (28.0-34.0) pg MCHC (30.0-36.0) g/dL RDW (12.1-15.1) % Plt Count (130-400) 10^3/c mm MPV (7.4-10.4) fL Neut % (Auto) % Lymph % (Auto) % [place] % (Auto) % Eos % (Auto) % Baso % (Auto) % Neut # (Auto) (1.8-7.7) 10^3/u L Lymph # (Auto) (0.8-4.8) 10^3/u L [place] # (Auto) (0.2-0.9) 10^3/u L Eos # (Auto) (0.0-0.8) 10^3/u L Baso # (Auto) (0.0-0.1) 10^3/u L Nucleated RBC % (a uto) % Nucleated RBCs # /100WBC PT (12.1-14.9) SECO NDS INR (0.8-1.2) Sodium (136-145) mmol/L Potassium (3.5-5.1) mmol/L Chloride (98-107) mmol/L Carbon Dioxide (22-29) mmol/L Anion Gap (5-19) BUN (6-20) mg/dL Creatinine (0.7-1.2) mg/dL GFR Calculation (90-130) mL/min Glucose (65-115) mg/dL POC Glucose 119 244 (70-110) mg/dL Calculated Osmolal ity (285-295) mOsm/k g Lactate (0.5-2.2) mmol/L Calcium (8.5-10.5) mg/dL Magnesium (1.7-2.3) mg/dL Total Bilirubin (0.15-1.2) mg/dL AST (0-40) U/L ALT (0-41) U/L Alkaline Phosphata se (40-130) IU/L Total Protein (6.6-8.7) g/dL Albumin (3.5-5.2) g/dL Globulin (1.3-4.6) g/dL Lipase (13-60) U/L Urine Color (Yellow) Urine Appearance (CLEAR) Urine pH (5-7) Ur Specific Gravit y (1.005-1.030) Urine Protein (Negative) Urine Glucose (UA) (Normal) Urine Ketones (Negative) Urine Blood (Negative) Urine Nitrate (Negative) Urine Bilirubin (NEGATIVE) Urine Urobilinogen (Negative) mg/dL Ur Leukocyte Raisa ase (Negative) Discharge Plan Discharge Patient Disposition: Home Clinical Impression: Pancreatitis Qualifiers: Chronicity: chronic Pancreatitis type: unspecified pancreatitis type Qualified Code(s): K86.1 - Other chronic pancreatitis Condition: Stable Prescriptions: [place] 7.5-325 mg tablet 1 tab PO Q8H PRN (Reason: pain) Qty: 10 RF: 0 Zofran 4 mg tablet 4 mg PO Q6H PRN (Reason: nausea and vomiting) Qty: 10 RF: 0 No Action clonazepam 1 mg tablet 1 mg PO BID 30 Days Qty: 60 RF: 2 pregabalin [Lyrica] 150 mg capsule 150 mg PO BID 30 Days Qty: 60 RF: 2 Lantus Solostar U-100 Insulin 100 unit/mL (3 mL) insulin pen 20 unit SUBCUT QPM RF: 0 (DME) pen needle, diabetic [TechLITE Pen Needle] 32 gauge x 1/4 needle See Rx Instructions .ROUTE .MEDSUPPLY Qty: 100 RF: 3 (DME) BD Veo Insulin Syr Half Unit 0.3 mL 31 gauge x 15/64 syringe See Rx Instructions .ROUTE .MEDSUPPLY Qty: 100 RF: 11 hydrocodone-acetaminophen 10-325 mg tablet 1 tab PO Q6H PRN (Reason: pain) 30 Days Qty: 120 RF: 0 Novolog Flexpen U-100 Insulin 100 unit/mL (3 mL) insulin pen See Rx Instructions .ROUTE .COMPLEX RF: 0 pantoprazole 40 mg Tablet,Delayed Release (Dr/Ec) 40 mg PO DAILY Qty: 30 RF: 0 Zenpep 5,000-17,000- 24,000 unit Capsule,Delayed Release(Dr/Ec) 2 ea PO TIDWM Qty: 180 RF: 0 Discharge Orders: Discharge Order (Routine); Ordered 01/22/20 Ordered By: Atif Melton Discharge Diet: Clear Liquid Discharge Activity: Increase activity as tolerated Patient Instructions: Pancreatitis (ED), Diabetic Hyperglycemia (ED) Activity Restrictions/Additional Instructions: Watch your sugars very closely, check them often. Follow a liquid diet for the next 48 hours, then you may slowly add food if your pain and vomiting improved. Pain and nausea medication as directed. Return for fever greater than 100, vomiting liquids or medications, other concerning symptoms. Your lab findings did not show objective need for hospitalization. Discharge Date/Time: 01/22/20 23:42 Coding Level of Care Code ED Pneumatic Tube Fitter for Chg Fwd Exam Comprehensive
--- NOTE | 2020-01-22 22:41 | XR_ITS ---
WS: [id number] EXAM: AP CHEST: PORTABLE UPRIGHT DATE OF EXAM: 01/22/2020, 2322 hours COMPARISON: Chest x-ray from 12/20/2019. HISTORY: Patient is 40 years old with shortness of breath and cough. Prior valve replacement procedures. FINDINGS: The cardiac silhouette is normal in size. The mediastinal contours again demonstrate postop sterno brandon changes with findings of aortic as well as mitral valve replacement changes demonstrated. Medias tinal contours are otherwise normal. The pulmonary vascularity is normal. The lungs are clear of i nfiltrate. There is no effusion or pneumothorax. No acute bony abnormality is seen. XR/XR chest 1V [id number] IMPRESSION: No acute pulmonary disease. Old postop aortic and mitral valve replacement brewster ges demonstrated.
[2020-01-22 23:07] LABS: Glucose Point of Care 244 mg/dL (70-110)
[2020-01-22] MEDS: HYDROcodone-acetaminophen 5-325 mg Tablet 2 TAB PO (23:42)
== END 2020-01-22 23:42 | disposition home or self-care (01) ==
PROVIDERS: Emergency Provider Emergency Medicine
DX: K86.1 Other chronic pancreatitis (principal); Z79.4 Long term (current) use of insulin; E11.9 Type 2 diabetes mellitus without complications; F17.210 Nicotine dependence, cigarettes, uncomplicated
CPT/HCPCS: 12345; 36416; 71045; 80053; 81003; 82962; 83605; 83690; 83735; 85025; 85610; 96361; 96374; 96375; 96376; 99283; 99284; J1170; J1815; J2405; J7030

== ENCOUNTER 2020-02-07 22:48 | Emergency (ER) | payer MEDICAID, SELFPAY ==
[2020-02-07 22:49] VITALS: BP 140/96; PULSE 113; RESP 16; TEMP 36.8; O2SAT 96; BMI 17.7
--- NOTE | 2020-02-07 22:58 | ED_ITS ---
HPI - Abdominal Pain General: Chief Complaint: Abdominal Pain Stated Complaint: abd pain History of Present Illness: HPI narrative: Patient arrives via ambulance complaint of chronic pancreatic pain. Recently out of the hospital couple visits for pain control and hyperglycemia patient says prescription Dr. Gonzalez gave him here recently is not controlling his pain. Says blood sugar was 400 here just an hour to go and give himself 10 units of insulin. MD elicited complaint: abdominal pain Pertinent past history: other (Chronic pancreatitis) Onset (ago): year(s) Pain Consistency: intermittent Location: Diffuse Severity: severe Quality: aching Radiation: none Migration to: no migration Associated Symptoms: Reports no associated symptoms and nausea; Denies chills, fever(s) and vomiting Review of Systems Const: Denies: fever(s), chills or body aches Eyes: Denies: change in vision or blurry vision ENMT: Denies: throat pain or nasal congestion Card: Denies: chest pain or dyspnea on exertion Resp: Denies: dyspnea, productive cough or non-productive cough GI: Reports: abdominal pain and nausea; Denies: vomiting : Denies: difficulty urinating Musc: Denies: extremity pain Skin/Breast: Denies: rash Neuro: Denies: headache(s) Psych: Denies: anxiety or depression Endo: Reports: polyuria and polydipsia [place]/Lymph: Denies: easy bruising PFSH ED PFSH: Medical History (Updated 01/30/20 @ 00:01 by ) Abdominal pain Thought to be secondary to chronic pancreatitis. 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 Pichardo Family History Father CAD (coronary artery disease) Diabetes Stroke Social History Smoking and tobacco status: current every day smoker cigarettes Packs smoked per day: 0.75 Alcohol intake: former Former alcohol use details: Says has not drank any alcohol in 3 years. Lives independently: Yes Household members: family and other Details: Parents Marital status: Legally Current occupational status: unemployed Physical Exam Const: COMMON NORMALS: no acute distress, average body habitus and patient oriented x3 HENMT: COMMON NORMALS: normocephalic HEAD & SCALP: normal to inspection and normocephalic FACE & SINUS: normal facial exam Eye: COMMON NORMALS: conjunctivae normal GENERAL EYE: appearance normal, both eyes and all related structures CONJUNCTIVA: Yes conjunctivae normal Neck/C-Spine: COMMON NORMALS: no JVD Chest: COMMONS NORMALS: normal inspection of the chest Resp: COMMON NORMALS: normal respiratory effort and clear to auscultation bilaterally AUSCULTATION: clear to auscultation bilaterally Cardio: COMMON NORMALS: no JVD, regular rate and regular rhythm RATE: regular rate RHYTHM: regular rhythm GI: COMMON NORMALS: Normal to inspection, nondistended, normoactive bowel so unds present PALPATION: Yes Tenderness to palpation present (GI) Extremity: COMMON NORMALS: normal to inspection and full ROM Neuro: COMMON NORMALS: patient oriented x3 Course Vital Signs: Vital signs: Vital Signs Temperature 98.2 F 02/07/20 22:49 Pulse Rate 113 H 02/07/20 22:49 Respiratory Rate 16 02/07/20 22:49 Blood Pressure 140/96 02/07/20 22:49 Pulse Oximetry 96 02/07/20 22:49 Discharge Plan Discharge Prescriptions: No Action Lantus Solostar U-100 Insulin 100 unit/mL (3 mL) insulin pen 20 unit SUBCUT QPM RF: 0 oxycodone-acetaminophen 10-325 mg tablet 1 tab PO Q6H PRN (Reason: pain) 32 Days Qty: 120 RF: 0 (DME) pen needle, diabetic [TechLITE Pen Needle] 32 gauge x 1/4 needle See Rx Instructions .ROUTE .MEDSUPPLY Qty: 100 RF: 3 (DME) BD Veo Insulin Syr Half Unit 0.3 mL 31 gauge x 15/64 syringe See Rx Instructions .ROUTE .MEDSUPPLY Qty: 100 RF: 11 clonazepam 1 mg tablet 1 mg PO BID 30 Days Qty: 60 RF: 2 pregabalin [Lyrica] 150 mg capsule 150 mg PO BID 30 Days Qty: 60 RF: 2 Novolog Flexpen U-100 Insulin 100 unit/mL (3 mL) insulin pen See Rx Instructions .ROUTE .COMPLEX RF: 0 Zofran 4 mg tablet 4 mg PO Q6H PRN (Reason: nausea and vomiting) Qty: 10 RF: 0 pantoprazole 40 mg Tablet,Delayed Release (Dr/Ec) 40 mg PO DAILY Qty: 30 RF: 0 Zenpep 5,000-17,000- 24,000 unit Capsule,Delayed Release(Dr/Ec) 2 ea PO TIDWM Qty: 180 RF: 0 Coding Level of Care Code ED Student Success Advisor for Chg Angel
[2020-02-07 23:08] VITALS: RESP 18
[2020-02-07] MEDS: sodium chloride 0.9% 1,000 ML 999 ML IV (23:08)
[2020-02-07] MEDS: ondansetron 2 mg/ML SDV 2 mL 4 MG IVP (23:08)
[2020-02-07] MEDS: morphine 4 mg/mL SDV 1 mL IVP (23:08)
[2020-02-07 23:38] LABS: Basophils # 0.1 10^3/uL (0.0-0.1); Basophils % 0.6 %; Eosinophils # 0.2 10^3/uL (0.0-0.8); Eosinophils % 2.4 %; Hematocrit 47.9 % (42.0-52.0); Hemoglobin 15.4 g/dL (11.7-16.6); Lymphocytes # 2.3 10^3/uL (0.8-4.8); Lymphocytes % 28.3 %; Mean Corpuscular HGB Conc 32.2 g/dL (30.0-36.0); Mean Corpuscular Hemoglobin 27.9 pg (28.0-34.0); Mean Corpuscular Volume 86.8 fL (80-94); Mean Platelet Volume 11.7 fL (7.4-10.4); Monocytes # 0.5 10^3/uL (0.2-0.9); Monocytes % 6.3 %; Neutrophils # 4.93 10^3/uL (1.8-7.7); Nucleated Red Blood Cells % 0 %; Platelet Count 300 10^3/cmm (130-400); Red Blood Count 5.52 10^6/uL (4.1-5.3); Red Cell Distribution Width 16.9 % (12.1-15.1)
[2020-02-08 00:03] LABS: Alanine Aminotransferase 15 U/L (0-41); Albumin Level 5.2 g/dL (3.5-5.2); Alkaline Phosphatase 141 IU/L (40-130); Anion Gap 14.2 (5-19); Aspartate Amino Transferase 12 U/L (0-40); Blood Urea Nitrogen 10 mg/dL (6-20); Calcium 9.9 mg/dL (8.5-10.5); Carbon Dioxide 31 mmol/L (22-29); Chloride 92 mmol/L (98-107); Globulin 3.3 g/dL (1.3-4.6); Glomerular Filtration Rate 149.2 mL/min (90-130); Glucose 293 mg/dL (65-115); Osmolality Calculated 283 mOsm/kg (285-295); Potassium 4.2 mmol/L (3.5-5.1); Sodium 133 mmol/L (136-145); Total Bilirubin 0.5 mg/dL (0.15-1.2); Total Protein 8.5 g/dL (6.6-8.7)
[2020-02-08 00:17] LABS: Lipase 3 U/L (13-60)
[2020-02-08 00:33] VITALS: BP 133/92; PULSE 92; RESP 18; O2SAT 99
[2020-02-08 00:36] VITALS: RESP 18; O2SAT 99
[2020-02-08] MEDS: morphine 4 mg/mL SDV 1 mL IVP (00:36)
[2020-02-08 00:45] VITALS: BP 133/92; PULSE 90; RESP 18; O2SAT 98
== END 2020-02-08 00:48 | disposition home or self-care (01) ==
PROVIDERS: Emergency Provider Nurse Practitioner Family; PCP Family Medicine
DX: R10.9 Unspecified abdominal pain (principal); Z79.4 Long term (current) use of insulin; E11.9 Type 2 diabetes mellitus without complications; F17.210 Nicotine dependence, cigarettes, uncomplicated
CPT/HCPCS: 12345; 80053; 83690; 85025; 96361; 96374; 96375; 96376; 99283; J2270; J2405; J7030

== ENCOUNTER 2020-02-17 10:23 | Emergency (ER) | payer MEDICAID, SELFPAY ==
[2020-02-17] VITALS (7 sets, daily range): BP systolic 106–157; BP diastolic 78–104; PULSE 70–112; RESP 14–18; TEMP 36.9; O2SAT 98–100; BMI 19.9
--- NOTE | 2020-02-17 10:33 | W.ED.ABDPA2 ---
Documented by User: ARUN Ni 02/17/20 14:09 HPI - Abdominal Pain General: Chief Complaint: Abdominal Pain Stated Complaint: abd pain Time Seen by Provider: 02/17/20 10:24 Source: patient and EMS Mode of arrival: EMS Limitations: no limitations History of Present Illness: HPI narrative: Patient is a 40-year-old male with a history of chronic pancreatitis here for upper abdominal pain that began yesterday. He states he is having nausea without vomiting. His last bowel movement was this morning and normal. Urinary habits have been normal. He has not been running fevers. Patient states his glucose has been running high. Patient tells me he is a fragile diabetic . States his PCP Dr. Gonzalez is managing this. He was recently prescribed 120 tabs oxycodone tabs (30 day supply) from Gonzalez. States these are not helping with his pain. Patient was recently evaluated by Deepthi Wallace on Saturday. He tells me they are scheduling him for a colonoscopy and pancreatic stent placement. MD elicited complaint: abdominal pain Pertinent past history: other (chronic pancreatitis) Pain Consistency: constant Location: Epigastric, LUQ and RUQ Associated Symptoms: Reports nausea; Denies change in bowel habits, change in stool character, chills, diarrhea, dysuria, fever(s), hematochezia, melena and vomiting Review of Systems Const: Denies: fever(s), chills, body aches, fatigue or malaise Eyes: Denies: change in vision, blurry vision or photophobia ENMT: Denies: odynophagia Card: Denies: chest pain Resp: Denies: dyspnea GI: Reports: abdominal pain and nausea; Denies: vomiting, diarrhea, change in bowel habits, change in stool character, hematochezia, melena or white/light colored stool : Denies: flank pain, difficulty urinating, dysuria, urinary frequency, urinary urgency or urinary hesitancy Musc: Denies: neck pain or back pain Skin/Breast: Denies: rash Neuro: Denies: headache(s), numbness in extremities, weakness in extremities or sensory changes PFSH ED PFSH: Medical History (Updated 02/17/20 @ 13:59 by ARUN Ni) Abdominal pain Thought to be secondary to chronic pancreatitis. 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 Pichardo Family History Father CAD (coronary artery disease) Diabetes Stroke Social History Smoking and tobacco status: current every day smoker cigarettes Packs smoked per day: 0.75 Alcohol intake: former Former alcohol use details: Says has not drank any alcohol in 3 years. Lives independently: Yes Household members: family and other Details: Parents Marital status: Legally Current occupational status: unemployed Physical Exam Const: COMMON NORMALS: average body habitus, patient oriented x3, no limitations and alert GENERAL APPEARANCE: cooperative and in distress (uncomfortable due to pain) ORIENTATION/CONSCIOUSNESS: Yes oriented to person, Yes oriented to place and Yes oriented to time HENMT: COMMON NORMALS: normocephalic and atraumatic HEAD & SCALP: normocephalic and atraumatic Resp: COMMON NORMALS: normal respiratory effort and clear to auscultation bilaterally AUSCULTATION: clear to auscultation bilaterally Cardio: RATE: tachycardic RHYTHM: abnormal rhythm GI: COMMON NORMALS: Normal to inspection, nondistended, normoactive bowel sounds present, Soft to palpation, No hepatosplenomegaly present and no masses PALPATION: Yes Soft to palpation, Yes Tenderness to palpation present (GI) (throughout upper abdomen) and Yes No hepatosplenomegaly present : COMMON NORMALS: Yes no CVA tenderness BLADDER/KIDNEY EXAM: Yes no CVA tenderness Back/Pelvis: COMMON NORMALS: no CVA tenderness Extremity: COMMON NORMALS: normal to inspection, full ROM and no pedal edema GENERAL: Yes normal exam except as noted Neuro: RAMON COMA SCALE: document GCS findings Ramon coma scale eye opening: Spontaneous Commerce coma scale verbal response: Orientated Commerce coma scale motor response: Obey commands Commerce coma scale total score: 15 COMMON NORMALS: patient oriented x3 SENSORIUM/ORIENTATION: Yes alert, Yes oriented to person, Yes oriented to place and Yes oriented to time Skin: COMMON NORMALS: no rashes or lesions noted GENERAL SKIN EXAM: no rashes or lesions noted Course ED course: pt reports his pain/nausea is much improved with haldol, ativan, zofran, and fluids; insulin and fluids have pts glucose to the 300s which is about at his baseline; he has no evidence for DKA at this time; he has elevations to his LFTs which I have no explanation for; lipase is normal; US gallbladder and CT ab/pelvis normal; his hepatitis panel, coags, alcohol, and acetaminophen are all normal; UDS positive for benzos which he takes however is negative for opiates which pt tells me he has been taking his oxycodone that was prescribed by PCP; he has a lactate of 8.2; I had spoken to Dr. Guillaume who agreed that pt most likely needed admission; he spoke to hospitalist Dr. Mcclelland who felt patient was stable for DC if lactate was decreasing on redraw; this did decrease to 2.6; at this time we will go ahead and discharge pt home with instructions to follow up with his GI specialist Vital Signs: Vital signs: Vital Signs Temperature 98.4 F 02/17/20 10:24 Pulse Rate 99 02/17/20 14:10 Respiratory Rate 18 02/17/20 14:10 Blood Pressure 130/90 02/17/20 14:10 Pulse Oximetry 100 02/17/20 14:10 MDM - Abdominal Pain Lab Data: Labs: Lab Results 02/17/20 02/17/20 02/17/20 Range/Units 10:30 10:30 10:30 WBC 7.6 (4.0-10.0) 10^3/ uL RBC 4.45 (4.1-5.3) 10^6/u L Hgb 12.7 (11.7-16.6) g/dL Hct 39.4 L (42.0-52.0) % MCV 88.5 (80-94) fL MCH 28.5 (28.0-34.0) pg MCHC 32.2 (30.0-36.0) g/dL RDW 14.8 (12.1-15.1) % Plt Count 229 (130-400) 10^3/c mm MPV 12.8 H (7.4-10.4) fL Neut % (Auto) 61.5 % Lymph % (Auto) 25.4 % Summers % (Auto) 9.8 % Eos % (Auto) 1.8 % Baso % (Auto) 0.8 % Neut # (Auto) 4.69 (1.8-7.7) 10^3/u L Lymph # (Auto) 1.9 (0.8-4.8) 10^3/u L Summers # (Auto) 0.8 (0.2-0.9) 10^3/u L Eos # (Auto) 0.1 (0.0-0.8) 10^3/u L Baso # (Auto) 0.1 (0.0-0.1) 10^3/u L Nucleated RBC % (a uto) 0 % Nucleated RBCs # 0.0 /100WBC PT (12.1-14.9) SECO NDS INR (0.8-1.2) APTT (23.9-36.7) SECO NDS Specimen Type Sample Site ABG pH (7.35-7.45) ABG pCO2 (35-45) mmHg ABG pO2 (80.0-100.0) mmH g ABG HCO3 (22-26) mmol/L ABG O2 Saturation ABG Base Excess (-2.0-2.0) mmol/ L Jonathan Test A-a O2 Gradient (5-10) mmHg Hematocrit (42-52) % Hgb O2 Saturation (95-100) % Carboxyhemoglobin (0.4-20.1) %THgb Methemoglobin (0.4-1.5) % Total Hemoglobin (14-18) g/dL Ionized Calcium (1.1-1.4) mmol/L O2 Delivery Device FiO2 % Printed Circuit [employer] Panels Trimmer ID Sodium 125 L (136-145) mmol/L Potassium 4.3 (3.5-5.1) mmol/L Chloride 85 L (98-107) mmol/L Carbon Dioxide 21 L (22-29) mmol/L Anion Gap 23.3 H (5-19) BUN 11 (6-20) mg/dL Creatinine 0.9 (0.7-1.2) mg/dL GFR Calculation 93.5 (90-130) mL/min Glucose 622 H* (65-115) mg/dL POC Glucose (70-110) mg/dL Calculated Osmolal ity 285 (285-295) mOsm/k g Lactic Acid (0.5-2.2) mmol/L Lactic Acid (Sepsi s) (0.5-2.2) mmol/L Calcium 9.7 (8.5-10.5) mg/dL Total Bilirubin 0.3 (0.15-1.2) mg/dL AST 428 H (0-40) U/L ALT 295 H (0-41) U/L Alkaline Phosphata se 258 H (40-130) IU/L Creatine Kinase (39-308) U/L Total Protein 7.2 (6.6-8.7) g/dL Albumin 4.2 (3.5-5.2) g/dL Globulin 3.0 (1.3-4.6) g/dL Lipase 4 L (13-60) U/L Urine Color Straw (Yellow) Urine Appearance Clear (CLEAR) Urine pH 5 (5-7) Ur Specific Gravit y 1.005 (1.005-1.030) Urine Protein Neg (Negative) Urine Glucose (UA) 4+ H (Normal) Urine Ketones Negative (Negative) Urine Blood Neg (Negative) Urine Nitrate Negative (Negative) Urine Bilirubin Neg (Negative) Urine Urobilinogen Norm (Negative) mg/dL Ur Leukocyte Raisa ase Negative (Negative) Urine Opiates Scre en (Negative) ng/mL Acetaminophen (10-30) ug/mL Ur Barbiturates Sc reen (Negative) ng/mL Ur Phencyclidine S crn (Negative) ng/mL Ur Amphetamines Sc reen (Negative) ng/mL U Benzodiazepines Scrn (Negative) ng/mL Urine Cocaine Scre en (Negative) ng/mL U Marijuana (THC) Screen (Negative) ng/mL Ethyl Alcohol (0-10) mg/dL Serum Ketones Negative (Negative) Hepatitis A IgM Ab (Nonreactive) Hep Bs Antigen (Nonreactive) Hep B Core IgM Ab (Nonreactive) Hepatitis C Antibo dy (Nonreactive) 02/17/20 02/17/20 02/17/20 Range/Units 10:30 10:30 10:30 WBC (4.0-10.0) 10^3/ uL RBC (4.1-5.3) 10^6/u L Hgb (11.7-16.6) g/dL Hct (42.0-52.0) % MCV (80-94) fL MCH (28.0-34.0) pg MCHC (30.0-36.0) g/dL RDW (12.1-15.1) % Plt Count (130-400) 10^3/c mm MPV (7.4-10.4) fL Neut % (Auto) % Lymph % (Auto) % Summers % (Auto) % Eos % (Auto) % Baso % (Auto) % Neut # (Auto) (1.8-7.7) 10^3/u L Lymph # (Auto) (0.8-4.8) 10^3/u L Summers # (Auto) (0.2-0.9) 10^3/u L Eos # (Auto) (0.0-0.8) 10^3/u L Baso # (Auto) (0.0-0.1) 10^3/u L Nucleated RBC % (a uto) % Nucleated RBCs # /100WBC PT 12.60 (12.1-14.9) SECO NDS INR 0.92 (0.8-1.2) APTT 25.4 (23.9-36.7) SECO NDS Specimen Type Sample Site ABG pH (7.35-7.45) ABG pCO2 (35-45) mmHg ABG pO2 (80.0-100.0) mmH g ABG HCO3 (22-26) mmol/L ABG O2 Saturation ABG Base Excess (-2.0-2.0) mmol/ L Jonathan Test A-a O2 Gradient (5-10) mmHg Hematocrit (42-52) % Hgb O2 Saturation (95-100) % Carboxyhemoglobin (0.4-20.1) %THgb Methemoglobin (0.4-1.5) % Total Hemoglobin (14-18) g/dL Ionized Calcium (1.1-1.4) mmol/L O2 Delivery Device FiO2 % Printed [employer] Panels Trimmer ID Sodium (136-145) mmol/L Potassium (3.5-5.1) mmol/L Chloride (98-107) mmol/L Carbon Dioxide (22-29) mmol/L Anion Gap (5-19) BUN (6-20) mg/dL Creatinine (0.7-1.2) mg/dL GFR Calculation (90-130) mL/min Glucose (65-115) mg/dL POC Glucose (70-110) mg/dL Calculated Osmolal ity (285-295) mOsm/k g Lactic Acid 8.2 H* (0.5-2.2) mmol/L Lactic Acid (Sepsi s) (0.5-2.2) mmol/L Calcium (8.5-10.5) mg/dL Total Bilirubin (0.15-1.2) mg/dL AST (0-40) U/L ALT (0-41) U/L Alkaline Phosphata se (40-130) IU/L Creatine Kinase (39-308) U/L Total Protein (6.6-8.7) g/dL Albumin (3.5-5.2) g/dL Globulin (1.3-4.6) g/dL Lipase (13-60) U/L Urine Color (Yellow) Urine Appearance (CLEAR) Urine pH (5-7) Ur Specific Gravit y (1.005-1.030) Urine Protein (Negative) Urine Glucose (UA) (Normal) Urine Ketones (Negative) Urine Blood (Negative) Urine Nitrate (Negative) Urine Bilirubin (Negative) Urine Urobilinogen (Negative) mg/dL Ur Leukocyte Raisa ase (Negative) Urine Opiates Scre en Negative (Negative) ng/mL Acetaminophen (10-30) ug/mL Ur Barbiturates Sc reen Negative (Negative) ng/mL Ur Phencyclidine S crn Negative (Negative) ng/mL Ur Amphetamines Sc reen Negative (Negative) ng/mL U Benzodiazepines Scrn Positive H (Negative) ng/mL Urine Cocaine Scre en Negative (Negative) ng/mL U Marijuana (THC) Screen Negative (Negative) ng/mL Ethyl Alcohol (0-10) mg/dL Serum Ketones (Negative) Hepatitis A IgM Ab (Nonreactive) Hep Bs Antigen (Nonreactive) Hep B Core IgM Ab (Nonreactive) Hepatitis C Antibo dy (Nonreactive) 02/17/20 02/17/20 02/17/20 Range/Units 10:30 10:30 10:30 WBC (4.0-10.0) 10^3/ uL RBC (4.1-5.3) 10^6/u L Hgb (11.7-16.6) g/dL Hct (42.0-52.0) % MCV (80-94) fL MCH (28.0-34.0) pg MCHC (30.0-36.0) g/dL RDW (12.1-15.1) % Plt Count (130-400) 10^3/c mm MPV (7.4-10.4) fL Neut % (Auto) % Lymph % (Auto) % Summers % (Auto) % Eos % (Auto) % Baso % (Auto) % Neut # (Auto) (1.8-7.7) 10^3/u L Lymph # (Auto) (0.8-4.8) 10^3/u L Summers # (Auto) (0.2-0.9) 10^3/u L Eos # (Auto) (0.0-0.8) 10^3/u L Baso # (Auto) (0.0-0.1) 10^3/u L Nucleated RBC % (a uto) % Nucleated RBCs # /100WBC PT (12.1-14.9) SECO NDS INR (0.8-1.2) APTT (23.9-36.7) SECO NDS Specimen Type Sample Site ABG pH (7.35-7.45) ABG pCO2 (35-45) mmHg ABG pO2 (80.0-100.0) mmH g ABG HCO3 (22-26) mmol/L ABG O2 Saturation ABG Base Excess (-2.0-2.0) mmol/ L Jonathan Test A-a O2 Gradient (5-10) mmHg Hematocrit (42-52) % Hgb O2 Saturation (95-100) % Carboxyhemoglobin (0.4-20.1) %THgb Methemoglobin (0.4-1.5) % Total Hemoglobin (14-18) g/dL Ionized Calcium (1.1-1.4) mmol/L O2 Delivery Device FiO2 % Printed [employer] Panels Trimmer ID Sodium (136-145) mmol/L Potassium (3.5-5.1) mmol/L Chloride (98-107) mmol/L Carbon Dioxide (22-29) mmol/L Anion Gap (5-19) BUN (6-20) mg/dL Creatinine (0.7-1.2) mg/dL GFR Calculation (90-130) mL/min Glucose (65-115) mg/dL POC Glucose (70-110) mg/dL Calculated Osmolal ity (285-295) mOsm/k g Lactic Acid (0.5-2.2) mmol/L Lactic Acid (Sepsi s) (0.5-2.2) mmol/L Calcium (8.5-10.5) mg/dL Total Bilirubin (0.15-1.2) mg/dL AST (0-40) U/L ALT (0-41) U/L Alkaline Phosphata se (40-130) IU/L Creatine Kinase (39-308) U/L Total Protein (6.6-8.7) g/dL Albumin (3.5-5.2) g/dL Globulin (1.3-4.6) g/dL Lipase (13-60) U/L Urine Color (Yellow) Urine Appearance (CLEAR) Urine pH (5-7) Ur Specific Gravit y (1.005-1.030) Urine Protein (Negative) Urine Glucose (UA) (Normal) Urine Ketones (Negative) Urine Blood (Negative) Urine Nitrate (Negative) Urine Bilirubin (Negative) Urine Urobilinogen (Negative) mg/dL Ur Leukocyte Raisa ase (Negative) Urine Opiates Scre en (Negative) ng/mL Acetaminophen < 5.0 L (10-30) ug/mL Ur Barbiturates Sc reen (Negative) ng/mL Ur Phencyclidine S crn (Negative) ng/mL Ur Amphetamines Sc reen (Negative) ng/mL U Benzodiazepines Scrn (Negative) ng/mL Urine Cocaine Scre en (Negative) ng/mL U Marijuana (THC) Screen (Negative) ng/mL Ethyl Alcohol < 10 (0-10) mg/dL Serum Ketones (Negative) Hepatitis A IgM Ab Non-reactive (Nonreactive) Hep Bs Antigen Non-reactive (Nonreactive) Hep B Core IgM Ab Non-reactive (Nonreactive) Hepatitis C Antibo dy Non-reactive (Nonreactive) 02/17/20 02/17/20 02/17/20 Range/Units 10:30 10:38 10:53 WBC (4.0-10.0) 10^3/ uL RBC (4.1-5.3) 10^6/u L Hgb (11.7-16.6) g/dL Hct (42.0-52.0) % MCV (80-94) fL MCH (28.0-34.0) pg MCHC (30.0-36.0) g/dL RDW (12.1-15.1) % Plt Count (130-400) 10^3/c mm MPV (7.4-10.4) fL Neut % (Auto) % Lymph % (Auto) % Summers % (Auto) % Eos % (Auto) % Baso % (Auto) % Neut # (Auto) (1.8-7.7) 10^3/u L Lymph # (Auto) (0.8-4.8) 10^3/u L Summers # (Auto) (0.2-0.9) 10^3/u L Eos # (Auto) (0.0-0.8) 10^3/u L Baso # (Auto) (0.0-0.1) 10^3/u L Nucleated RBC % (a uto) % Nucleated RBCs # /100WBC PT (12.1-14.9) SECO NDS INR (0.8-1.2) APTT (23.9-36.7) SECO NDS Specimen Type Arterial Sample Site Radial, left ABG pH 7.42 (7.35-7.45) ABG pCO2 37.1 (35-45) mmHg ABG pO2 87.3 (80.0-100.0) mmH g ABG HCO3 24.0 (22-26) mmol/L ABG O2 Saturation 98.2 ABG Base Excess -0.2 (-2.0-2.0) mmol/ L Jonathan Test Pos A-a O2 Gradient 2.1 L (5-10) mmHg Hematocrit 39.4 L (42-52) % Hgb O2 Saturation 90.8 L (95-100) % Carboxyhemoglobin 6.6 (0.4-20.1) %THgb Methemoglobin 0.9 (0.4-1.5) % Total Hemoglobin 12.9 L (14-18) g/dL Ionized Calcium 1.2 (1.1-1.4) mmol/L O2 Delivery Device Room air FiO2 21.0 % Printed Circuit Board Panels Trimmer ID Amh Sodium 126.0 L (136-145) mmol/L Potassium 4.2 (3.5-5.1) mmol/L Chloride (98-107) mmol/L Carbon Dioxide (22-29) mmol/L Anion Gap (5-19) BUN (6-20) mg/dL Creatinine (0.7-1.2) mg/dL GFR Calculation (90-130) mL/min Glucose 510.0 H (65-115) mg/dL POC Glucose 566 (70-110) mg/dL Calculated Osmolal ity (285-295) mOsm/k g Lactic Acid (0.5-2.2) mmol/L Lactic Acid (Sepsi s) (0.5-2.2) mmol/L Calcium (8.5-10.5) mg/dL Total Bilirubin (0.15-1.2) mg/dL AST (0-40) U/L ALT (0-41) U/L Alkaline Phosphata se (40-130) IU/L Creatine Kinase 64 (39-308) U/L Total Protein (6.6-8.7) g/dL Albumin (3.5-5.2) g/dL Globulin (1.3-4.6) g/dL Lipase (13-60) U/L Urine Color (Yellow) Urine Appearance (CLEAR) Urine pH (5-7) Ur Specific Gravit y (1.005-1.030) Urine Protein (Negative) Urine Glucose (UA) (Normal) Urine Ketones (Negative) Urine Blood (Negative) Urine Nitrate (Negative) Urine Bilirubin (Negative) Urine Urobilinogen (Negative) mg/dL Ur Leukocyte Raisa ase (Negative) Urine Opiates Scre en (Negative) ng/mL Acetaminophen (10-30) ug/mL Ur Barbiturates Sc reen (Negative) ng/mL Ur Phencyclidine S crn (Negative) ng/mL Ur Amphetamines Sc reen (Negative) ng/mL U Benzodiazepines Scrn (Negative) ng/mL Urine Cocaine Scre en (Negative) ng/mL U Marijuana (THC) Screen (Negative) ng/mL Ethyl Alcohol (0-10) mg/dL Serum Ketones (Negative) Hepatitis A IgM Ab (Nonreactive) Hep Bs Antigen (Nonreactive) Hep B Core IgM Ab (Nonreactive) Hepatitis C Antibo dy (Nonreactive) 02/17/20 02/17/20 Range/Units 12:15 13:20 WBC (4.0-10.0) 10^3/ uL RBC (4.1-5.3) 10^6/u L Hgb (11.7-16.6) g/dL Hct (42.0-52.0) % MCV (80-94) fL MCH (28.0-34.0) pg MCHC (30.0-36.0) g/dL RDW (12.1-15.1) % Plt Count (130-400) 10^3/c mm MPV (7.4-10.4) fL Neut % (Auto) % Lymph % (Auto) % Summers % (Auto) % Eos % (Auto) % Baso % (Auto) % Neut # (Auto) (1.8-7.7) 10^3/u L Lymph # (Auto) (0.8-4.8) 10^3/u L Summers # (Auto) (0.2-0.9) 10^3/u L Eos # (Auto) (0.0-0.8) 10^3/u L Baso # (Auto) (0.0-0.1) 10^3/u L Nucleated RBC % (a uto) % Nucleated RBCs # /100WBC PT (12.1-14.9) SECO NDS INR (0.8-1.2) APTT (23.9-36.7) SECO NDS Specimen Type Sample Site ABG pH (7.35-7.45) ABG pCO2 (35-45) mmHg ABG pO2 (80.0-100.0) mmH g ABG HCO3 (22-26) mmol/L ABG O2 Saturation ABG Base Excess (-2.0-2.0) mmol/ L Jonathan Test A-a O2 Gradient (5-10) mmHg Hematocrit (42-52) % Hgb O2 Saturation (95-100) % Carboxyhemoglobin (0.4-20.1) %THgb Methemoglobin (0.4-1.5) % Total Hemoglobin (14-18) g/dL Ionized Calcium (1.1-1.4) mmol/L O2 Delivery Device FiO2 % Printed Circuit Board Panels Trimmer ID Sodium (136-145) mmol/L Potassium (3.5-5.1) mmol/L Chloride (98-107) mmol/L Carbon Dioxide (22-29) mmol/L Anion Gap (5-19) BUN (6-20) mg/dL Creatinine (0.7-1.2) mg/dL GFR Calculation (90-130) mL/min Glucose (65-115) mg/dL POC Glucose 371 (70-110) mg/dL Calculated Osmolal ity (285-295) mOsm/k g Lactic Acid (0.5-2.2) mmol/L Lactic Acid (Sepsi s) 2.6 H (0.5-2.2) mmol/L Calcium (8.5-10.5) mg/dL Total Bilirubin (0.15-1.2) mg/dL AST (0-40) U/L ALT (0-41) U/L Alkaline Phosphata se (40-130) IU/L Creatine Kinase (39-308) U/L Total Protein (6.6-8.7) g/dL Albumin (3.5-5.2) g/dL Globulin (1.3-4.6) g/dL Lipase (13-60) U/L Urine Color (Yellow) Urine Appearance (CLEAR) Urine pH (5-7) Ur Specific Gravit y (1.005-1.030) Urine Protein (Negative) Urine Glucose (UA) (Normal) Urine Ketones (Negative) Urine Blood (Negative) Urine Nitrate (Negative) Urine Bilirubin (Negative) Urine Urobilinogen (Negative) mg/dL Ur Leukocyte Raisa ase (Negative) Urine Opiates Scre en (Negative) ng/mL Acetaminophen (10-30) ug/mL Ur Barbiturates Sc reen (Negative) ng/mL Ur Phencyclidine S crn (Negative) ng/mL Ur Amphetamines Sc reen (Negative) ng/mL U Benzodiazepines Scrn (Negative) ng/mL Urine Cocaine Scre en (Negative) ng/mL U Marijuana (THC) Screen (Negative) ng/mL Ethyl Alcohol (0-10) mg/dL Serum Ketones (Negative) Hepatitis A IgM Ab (Nonreactive) Hep Bs Antigen (Nonreactive) Hep B Core IgM Ab (Nonreactive) Hepatitis C Antibo dy (Nonreactive) Imaging Data ^: US gallbladder: Radiologist's impression: [address] [place] [address] Ultrasound Report Signed Patient: Jagdish Clinton Unit #: [id number] : 1980 Age/Sex: 40 / M ADM Date: 02/17/20 Loc: ER Room/Bed: Attending Dr: Ordering Provider/Ordering MD: Savana Hale Date of Service: 02/17/20 Procedure(s): US gall bladder [id number] Accession Number(s): [id number] Report Number: [id number] WS: [id number] RIGHT UPPER QUADRANT ULTRASOUND HISTORY: pain, elevated LFTs COMPARISON: 11/04/2018 Liver: 18.8 cm in length. Mildly enlarged liver. No mass or bile duct dilatation. Gallbladder: Normally distended gallbladder with no stones or wall thickening. CBD: 0.4 cm Pancreas: Poorly visualized head and tail. Body is negative. Right kidney: 11.9 cm in length. Normal size. No hydronephrosis. Cortical cyst upper pole measures 1.0 cm. Aorta and IVC: Unremarkable abdominal aorta and IVC. No ascites. Small RIGHT pleural effusion. US/US gall bladder [id number] IMPRESSION: 1. Mild hepatomegaly. 2. Negative gallbladder. 3. Small RIGHT pleural effusion. Dictated By: Danielle Kowalski DO Signed By: Danielle Kowalski DO Signed Date/Time: 02/17/20 1157 DD/ 1156 CT Abd/Pel: Radiologist's impression: [address] [place] [id number] CT Scan Report Signed Patient: Jagdish Clinton Unit #: [id number] : 1980 Age/Sex: 40 / M ADM Date: 02/17/20 Loc: ER Room/Bed: Attending Dr: Ordering Provider/Ordering MD: Savana Hale Date of Service: 02/17/20 Procedure(s): CT abdomen pelvis w con* [id number] Accession Number(s): [id number] Report Number: [id number] WS: [id number] CT ABDOMEN AND PELVIS WITH CONTRAST HISTORY: abdominal pain, elevated LFTs, nausea, elevated lactate TECHNIQUE: Imaging performed of the abdomen and pelvis with IV contrast. Single phase imaging of the abdomen. Coronal and sagittal reformats are submitted. All CT scans at [facility] use at least one of these dose optimization techniques: automated exposure control; mA and/or kV adjustment per patient size (includes targeted exams where dose is matched to clinical indication); or iterative reconstruction. IV CONTRAST: Omnipaque 300; 95 mL IV. Oral contrast: No DLP: 300.67 mGy.cm COMPARISON: 01/15/2020 Lower thorax: Mild improvement in the wedge-shaped opacification at the RIGHT lung base. Small adjacent pleural effusion. Heart is slightly enlarged. Prior valve replacements. No pericardial effusion. No hiatal hernia. Liver/biliary system: Normal size with no intrahepatic dilatation. Gallbladder: Mildly contracted gallbladder, no stones identified. Pancreas: Atrophy of the pancreas with marked dilatation of the pancreatic duct. Scattered calcifications are most significant within the pancreatic head and uncinate process. No significant interval change. Spleen: Normal. Adrenal glands: Normal RIGHT adrenal gland. Stable LEFT adrenal nodule at 10 mm. Right kidney: Normal size RIGHT kidney. Stable cortical cyst upper pole measures 1.3 cm. There is mild dilatation of the RIGHT renal pelvis and RIGHT ureter as compared to prior studies. May be secondary to the overly distended bladder. No calcification or reason for the obstruction otherwise. Left kidney: Normal. Aorta: Normal. Lymphadenopathy: None. Free fluid: None. GI tract: Mild diffuse constipation. There is mild small bowel wall distention fluid. No mucosal thickening. The appendix is normal. Abdominal wall: Unremarkable abdominal wall. No hernia. Pelvis: Markedly distended urinary bladder stent over length of 16 cm to the umbilicus. Bones: Unremarkable. CT/CT abdomen pelvis w con* [id number] IMPRESSION: 1. Evidence for chronic pancreatitis with pancreatic duct dilatation and pancreatic calcifications which is stable. 2. Small RIGHT pleural effusion and wedge-shaped opacification at the RIGHT lung base. Similar to prior studies and may be related to scarring or chronic atelectasis. 3. Markedly distended urinary bladder. There is also mild dilatation of the RIGHT renal pelvis and ureter which may be secondary to the distended urinary bladder. 4. Mild fluid distention of small bowel with no obstruction. No free air. Dictated By: Danielle Kowalski DO Signed By: Danielle Kowalski DO Signed Date/Time: 02/17/20 1307 DD/ [id number] Discharge Plan Discharge Patient Disposition: Home Clinical Impression: Elevated LFTs, History of chronic pancreatitis Uncontrolled diabetes mellitus Qualifiers: Diabetes mellitus type: type 2 Glycemic state: with hyperglycemia Qualified Code(s): E11.65 - Type 2 diabetes mellitus with hyperglycemia Condition: Stable Prescriptions: No Action Lantus Solostar U-100 Insulin 100 unit/mL (3 mL) insulin pen 20 unit SUBCUT QPM RF: 0 oxycodone-acetaminophen 10-325 mg tablet 1 tab PO Q6H PRN (Reason: pain) 32 Days Qty: 120 RF: 0 (DME) pen needle, diabetic [TechLITE Pen Needle] 32 gauge x 1/4 needle See Rx Instructions .ROUTE .MEDSUPPLY Qty: 100 RF: 3 (DME) BD Veo Insulin Syr Half Unit 0.3 mL 31 gauge x 15/64 syringe See Rx Instructions .ROUTE .MEDSUPPLY Qty: 100 RF: 11 clonazepam 1 mg tablet 1 mg PO BID 30 Days Qty: 60 RF: 2 pregabalin [Lyrica] 150 mg capsule 150 mg PO BID 30 Days Qty: 60 RF: 2 Zofran 4 mg tablet 4 mg PO Q6H PRN (Reason: nausea and vomiting) Qty: 10 RF: 0 pantoprazole 40 mg tablet,delayed release (DR/EC) 40 mg PO DAILY Qty: 30 RF: 0 insulin aspart U-100 [Novolog Flexpen U-100 Insulin] 100 unit/mL (3 mL) insulin pen See Rx Instructions .ROUTE .COMPLEX RF: 0 Zenpep 5,000-17,000- 24,000 unit Capsule,Delayed Release(Dr/Ec) 2 ea PO TIDWM Qty: 180 RF: 0 Discharge Orders: Discharge Order (Routine); Ordered 02/17/20 Ordered By: Savana Hale Referrals: Oumar Gonzalez MD [Primary Care Provider] - Activity Restrictions/Additional Instructions: As discussed you need to follow-up with your GI specialist as directed. If your primary care provider is providing you pain medications, they can continue doing this will refer you to a paint factory worker. You may return to the emergency department for worsening/severe/uncontrollable pain, repetitive episodes of vomiting, blood in your vomit or stools, fevers, or any other concerns you may have. Primary care also needs to continue managing your diabetes as you still do not have very good control of this. Discharge Date/Time: 02/17/20 14:47 Coding Level of Care Code ED Senior Research Consultant for [employer]g Fwd Exam Comprehensive Documented by User: Jose Carlos Guillaume DO 02/17/20 14:48 HPI - Abdominal Pain General: Chief Complaint: Abdominal Pain Stated Complaint: abd pain Time Seen by Provider: 02/17/20 10:24 PFSH ED PFSH: Medical History (Updated 02/17/20 @ 13:59 by ARUN Ni) Abdominal pain Thought to be secondary to chronic pancreatitis. 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 Pichardo Family History Father CAD (coronary artery disease) Diabetes Stroke Social History Smoking and tobacco status: current every day smoker cigarettes Packs smoked per day: 0.75 Alcohol intake: former Former alcohol use details: Says has not drank any alcohol in 3 years. Lives independently: Yes Household members: family and other Details: Parents Marital status: Legally Current occupational status: unemployed Course Vital Signs: Vital signs: Vital Signs Temperature 98.4 F 02/17/20 10:24 Pulse Rate 99 02/17/20 14:10 Respiratory Rate 18 02/17/20 14:10 Blood Pressure 130/90 02/17/20 14:10 Pulse Oximetry 100 02/17/20 14:10 MDM - Abdominal Pain MDM Narrative: Medical decision making narrative: Reviewed course of care labs in chart with ARUN Ni. Also reviewed with Dr. Mcclelland we did a follow-up lactic acid which was down to 2.6 patient was able to eat working to go ahead and discharge him home based on the improvement that he has had and his ability to eat he can return if he has any further problems continue to follow-up with GI as planned. Lab Data: Labs: Lab Results 02/17/20 02/17/20 02/17/20 Range/Units 10:30 10:30 10:30 WBC 7.6 (4.0-10.0) 10^3/ uL RBC 4.45 (4.1-5.3) 10^6/u L Hgb 12.7 (11.7-16.6) g/dL Hct 39.4 L (42.0-52.0) % MCV 88.5 (80-94) fL MCH 28.5 (28.0-34.0) pg MCHC 32.2 (30.0-36.0) g/dL RDW 14.8 (12.1-15.1) % Plt Count 229 (130-400) 10^3/c mm MPV 12.8 H (7.4-10.4) fL Neut % (Auto) 61.5 % Lymph % (Auto) 25.4 % Summers % (Auto) 9.8 % Eos % (Auto) 1.8 % Baso % (Auto) 0.8 % Neut # (Auto) 4.69 (1.8-7.7) 10^3/u L Lymph # (Auto) 1.9 (0.8-4.8) 10^3/u L Summers # (Auto) 0.8 (0.2-0.9) 10^3/u L Eos # (Auto) 0.1 (0.0-0.8) 10^3/u L Baso # (Auto) 0.1 (0.0-0.1) 10^3/u L Nucleated RBC % (a uto) 0 % Nucleated RBCs # 0.0 /100WBC PT (12.1-14.9) SECO NDS INR (0.8-1.2) APTT (23.9-36.7) SECO NDS Specimen Type Sample Site ABG pH (7.35-7.45) ABG pCO2 (35-45) mmHg ABG pO2 (80.0-100.0) mmH g ABG HCO3 (22-26) mmol/L ABG O2 Saturation ABG Base Excess (-2.0-2.0) mmol/ L Jonathan Test A-a O2 Gradient (5-10) mmHg Hematocrit (42-52) % Hgb O2 Saturation (95-100) % Carboxyhemoglobin (0.4-20.1) %THgb Methemoglobin (0.4-1.5) % Total Hemoglobin (14-18) g/dL Ionized Calcium (1.1-1.4) mmol/L O2 Delivery Device FiO2 % [employer]ed Circuit [employer] Panels Trimmer ID Sodium 125 L (136-145) mmol/L Potassium 4.3 (3.5-5.1) mmol/L Chloride 85 L (98-107) mmol/L Carbon Dioxide 21 L (22-29) mmol/L Anion Gap 23.3 H (5-19) BUN 11 (6-20) mg/dL Creatinine 0.9 (0.7-1.2) mg/dL GFR Calculation 93.5 (90-130) mL/min Glucose 622 H* (65-115) mg/dL POC Glucose (70-110) mg/dL Calculated Osmolal ity 285 (285-295) mOsm/k g Lactic Acid (0.5-2.2) mmol/L Lactic Acid (Sepsi s) (0.5-2.2) mmol/L Calcium 9.7 (8.5-10.5) mg/dL Total Bilirubin 0.3 (0.15-1.2) mg/dL AST 428 H (0-40) U/L ALT 295 H (0-41) U/L Alkaline Phosphata se 258 H (40-130) IU/L Creatine Kinase (39-308) U/L Total Protein 7.2 (6.6-8.7) g/dL Albumin 4.2 (3.5-5.2) g/dL Globulin 3.0 (1.3-4.6) g/dL Lipase 4 L (13-60) U/L Urine Color Straw (Yellow) Urine Appearance Clear (CLEAR) Urine pH 5 (5-7) Ur Specific Gravit y 1.005 (1.005-1.030) Urine Protein Neg (Negative) Urine Glucose (UA) 4+ H (Normal) Urine Ketones Negative (Negative) Urine Blood Neg (Negative) Urine Nitrate Negative (Negative) Urine Bilirubin Neg (Negative) Urine Urobilinogen Norm (Negative) mg/dL Ur Leukocyte Raisa ase Negative (Negative) Urine Opiates Scre en (Negative) ng/mL Acetaminophen (10-30) ug/mL Ur Barbiturates Sc reen (Negative) ng/mL Ur Phencyclidine S crn (Negative) ng/mL Ur Amphetamines Sc reen (Negative) ng/mL U Benzodiazepines Scrn (Negative) ng/mL Urine Cocaine Scre en (Negative) ng/mL U Marijuana (THC) Screen (Negative) ng/mL Ethyl Alcohol (0-10) mg/dL Serum Ketones Negative (Negative) Hepatitis A IgM Ab (Nonreactive) Hep Bs Antigen (Nonreactive) Hep B Core IgM Ab (Nonreactive) Hepatitis C Antibo dy (Nonreactive) 02/17/20 02/17/20 02/17/20 Range/Units 10:30 10:30 10:30 WBC (4.0-10.0) 10^3/ uL RBC (4.1-5.3) 10^6/u L Hgb (11.7-16.6) g/dL Hct (42.0-52.0) % MCV (80-94) fL MCH (28.0-34.0) pg MCHC (30.0-36.0) g/dL RDW (12.1-15.1) % Plt Count (130-400) 10^3/c mm MPV (7.4-10.4) fL Neut % (Auto) % Lymph % (Auto) % Summers % (Auto) % Eos % (Auto) % Baso % (Auto) % Neut # (Auto) (1.8-7.7) 10^3/u L Lymph # (Auto) (0.8-4.8) 10^3/u L Summers # (Auto) (0.2-0.9) 10^3/u L Eos # (Auto) (0.0-0.8) 10^3/u L Baso # (Auto) (0.0-0.1) 10^3/u L Nucleated RBC % (a uto) % Nucleated RBCs # /100WBC PT 12.60 (12.1-14.9) SECO NDS INR 0.92 (0.8-1.2) APTT 25.4 (23.9-36.7) SECO NDS Specimen Type Sample Site ABG pH (7.35-7.45) ABG pCO2 (35-45) mmHg ABG pO2 (80.0-100.0) mmH g ABG HCO3 (22-26) mmol/L ABG O2 Saturation ABG Base Excess (-2.0-2.0) mmol/ L Jonathan Test A-a O2 Gradient (5-10) mmHg Hematocrit (42-52) % Hgb O2 Saturation (95-100) % Carboxyhemoglobin (0.4-20.1) %THgb Methemoglobin (0.4-1.5) % Total Hemoglobin (14-18) g/dL Ionized Calcium (1.1-1.4) mmol/L O2 Delivery Device FiO2 % Printed [employer] Panels Trimmer ID Sodium (136-145) mmol/L Potassium (3.5-5.1) mmol/L Chloride (98-107) mmol/L Carbon Dioxide (22-29) mmol/L Anion Gap (5-19) BUN (6-20) mg/dL Creatinine (0.7-1.2) mg/dL GFR Calculation (90-130) mL/min Glucose (65-115) mg/dL POC Glucose (70-110) mg/dL Calculated Osmolal ity (285-295) mOsm/k g Lactic Acid 8.2 H* (0.5-2.2) mmol/L Lactic Acid (Sepsi s) (0.5-2.2) mmol/L Calcium (8.5-10.5) mg/dL Total Bilirubin (0.15-1.2) mg/dL AST (0-40) U/L ALT (0-41) U/L Alkaline Phosphata se (40-130) IU/L Creatine Kinase (39-308) U/L Total Protein (6.6-8.7) g/dL Albumin (3.5-5.2) g/dL Globulin (1.3-4.6) g/dL Lipase (13-60) U/L Urine Color (Yellow) Urine Appearance (CLEAR) Urine pH (5-7) Ur Specific Gravit y (1.005-1.030) Urine Protein (Negative) Urine Glucose (UA) (Normal) Urine Ketones (Negative) Urine Blood (Negative) Urine Nitrate (Negative) Urine Bilirubin (Negative) Urine Urobilinogen (Negative) mg/dL Ur Leukocyte Raisa ase (Negative) Urine Opiates Scre en Negative (Negative) ng/mL Acetaminophen (10-30) ug/mL Ur Barbiturates Sc reen Negative (Negative) ng/mL Ur Phencyclidine S crn Negative (Negative) ng/mL Ur Amphetamines Sc reen Negative (Negative) ng/mL U Benzodiazepines Scrn Positive H (Negative) ng/mL Urine Cocaine Scre en Negative (Negative) ng/mL U Marijuana (THC) Screen Negative (Negative) ng/mL Ethyl Alcohol (0-10) mg/dL Serum Ketones (Negative) Hepatitis A IgM Ab (Nonreactive) Hep Bs Antigen (Nonreactive) Hep B Core IgM Ab (Nonreactive) Hepatitis C Antibo dy (Nonreactive) 02/17/20 02/17/20 02/17/20 Range/Units 10:30 10:30 10:30 WBC (4.0-10.0) 10^3/ uL RBC (4.1-5.3) 10^6/u L Hgb (11.7-16.6) g/dL Hct (42.0-52.0) % MCV (80-94) fL MCH (28.0-34.0) pg MCHC (30.0-36.0) g/dL RDW (12.1-15.1) % Plt Count (130-400) 10^3/c mm MPV (7.4-10.4) fL Neut % (Auto) % Lymph % (Auto) % Summers % (Auto) % Eos % (Auto) % Baso % (Auto) % Neut # (Auto) (1.8-7.7) 10^3/u L Lymph # (Auto) (0.8-4.8) 10^3/u L Summers # (Auto) (0.2-0.9) 10^3/u L Eos # (Auto) (0.0-0.8) 10^3/u L Baso # (Auto) (0.0-0.1) 10^3/u L Nucleated RBC % (a uto) % Nucleated RBCs # /100WBC PT (12.1-14.9) SECO NDS INR (0.8-1.2) APTT (23.9-36.7) SECO NDS Specimen Type Sample Site ABG pH (7.35-7.45) ABG pCO2 (35-45) mmHg ABG pO2 (80.0-100.0) mmH g ABG HCO3 (22-26) mmol/L ABG O2 Saturation ABG Base Excess (-2.0-2.0) mmol/ L Jonathan Test A-a O2 Gradient (5-10) mmHg Hematocrit (42-52) % Hgb O2 Saturation (95-100) % Carboxyhemoglobin (0.4-20.1) %THgb Methemoglobin (0.4-1.5) % Total Hemoglobin (14-18) g/dL Ionized Calcium (1.1-1.4) mmol/L O2 Delivery Device FiO2 % Printed [employer] Panels Trimmer ID Sodium (136-145) mmol/L Potassium (3.5-5.1) mmol/L Chloride (98-107) mmol/L Carbon Dioxide (22-29) mmol/L Anion Gap (5-19) BUN (6-20) mg/dL Creatinine (0.7-1.2) mg/dL GFR Calculation (90-130) mL/min Glucose (65-115) mg/dL POC Glucose (70-110) mg/dL Calculated Osmolal ity (285-295) mOsm/k g Lactic Acid (0.5-2.2) mmol/L Lactic Acid (Sepsi s) (0.5-2.2) mmol/L Calcium (8.5-10.5) mg/dL Total Bilirubin (0.15-1.2) mg/dL AST (0-40) U/L ALT (0-41) U/L Alkaline Phosphata se (40-130) IU/L Creatine Kinase (39-308) U/L Total Protein (6.6-8.7) g/dL Albumin (3.5-5.2) g/dL Globulin (1.3-4.6) g/dL Lipase (13-60) U/L Urine Color (Yellow) Urine Appearance (CLEAR) Urine pH (5-7) Ur Specific Gravit y (1.005-1.030) Urine Protein (Negative) Urine Glucose (UA) (Normal) Urine Ketones (Negative) Urine Blood (Negative) Urine Nitrate (Negative) Urine Bilirubin (Negative) Urine Urobilinogen (Negative) mg/dL Ur Leukocyte Raisa ase (Negative) Urine Opiates Scre en (Negative) ng/mL Acetaminophen < 5.0 L (10-30) ug/mL Ur Barbiturates Sc reen (Negative) ng/mL Ur Phencyclidine S crn (Negative) ng/mL Ur Amphetamines Sc reen (Negative) ng/mL U Benzodiazepines Scrn (Negative) ng/mL Urine Cocaine Scre en (Negative) ng/mL U Marijuana (THC) Screen (Negative) ng/mL Ethyl Alcohol < 10 (0-10) mg/dL Serum Ketones (Negative) Hepatitis A IgM Ab Non-reactive (Nonreactive) Hep Bs Antigen Non-reactive (Nonreactive) Hep B Core IgM Ab Non-reactive (Nonreactive) Hepatitis C Antibo dy Non-reactive (Nonreactive) 02/17/20 02/17/20 02/17/20 Range/Units 10:30 10:38 10:53 WBC (4.0-10.0) 10^3/ uL RBC (4.1-5.3) 10^6/u L Hgb (11.7-16.6) g/dL Hct (42.0-52.0) % MCV (80-94) fL MCH (28.0-34.0) pg MCHC (30.0-36.0) g/dL RDW (12.1-15.1) % Plt Count (130-400) 10^3/c mm MPV (7.4-10.4) fL Neut % (Auto) % Lymph % (Auto) % Summers % (Auto) % Eos % (Auto) % Baso % (Auto) % Neut # (Auto) (1.8-7.7) 10^3/u L Lymph # (Auto) (0.8-4.8) 10^3/u L Summers # (Auto) (0.2-0.9) 10^3/u L Eos # (Auto) (0.0-0.8) 10^3/u L Baso # (Auto) (0.0-0.1) 10^3/u L Nucleated RBC % (a uto) % Nucleated RBCs # /100WBC PT (12.1-14.9) SECO NDS INR (0.8-1.2) APTT (23.9-36.7) SECO NDS Specimen Type Arterial Sample Site Radial, left ABG pH 7.42 (7.35-7.45) ABG pCO2 37.1 (35-45) mmHg ABG pO2 87.3 (80.0-100.0) mmH g ABG HCO3 24.0 (22-26) mmol/L ABG O2 Saturation 98.2 ABG Base Excess -0.2 (-2.0-2.0) mmol/ L Jonathan Test Pos A-a O2 Gradient 2.1 L (5-10) mmHg Hematocrit 39.4 L (42-52) % Hgb O2 Saturation 90.8 L (95-100) % Carboxyhemoglobin 6.6 (0.4-20.1) %THgb Methemoglobin 0.9 (0.4-1.5) % Total Hemoglobin 12.9 L (14-18) g/dL Ionized Calcium 1.2 (1.1-1.4) mmol/L O2 Delivery Device Room air FiO2 21.0 % Printed [employer] Panels Trimmer ID Amh Sodium 126.0 L (136-145) mmol/L Potassium 4.2 (3.5-5.1) mmol/L Chloride (98-107) mmol/L Carbon Dioxide (22-29) mmol/L Anion Gap (5-19) BUN (6-20) mg/dL Creatinine (0.7-1.2) mg/dL GFR Calculation (90-130) mL/min Glucose 510.0 H (65-115) mg/dL POC Glucose 566 (70-110) mg/dL Calculated Osmolal ity (285-295) mOsm/k g Lactic Acid (0.5-2.2) mmol/L Lactic Acid (Sepsi s) (0.5-2.2) mmol/L Calcium (8.5-10.5) mg/dL Total Bilirubin (0.15-1.2) mg/dL AST (0-40) U/L ALT (0-41) U/L Alkaline Phosphata se (40-130) IU/L Creatine Kinase 64 (39-308) U/L Total Protein (6.6-8.7) g/dL Albumin (3.5-5.2) g/dL Globulin (1.3-4.6) g/dL Lipase (13-60) U/L Urine Color (Yellow) Urine Appearance (CLEAR) Urine pH (5-7) Ur Specific Gravit y (1.005-1.030) Urine Protein (Negative) Urine Glucose (UA) (Normal) Urine Ketones (Negative) Urine Blood (Negative) Urine Nitrate (Negative) Urine Bilirubin (Negative) Urine Urobilinogen (Negative) mg/dL Ur Leukocyte Raisa ase (Negative) Urine Opiates Scre en (Negative) ng/mL Acetaminophen (10-30) ug/mL Ur Barbiturates Sc reen (Negative) ng/mL Ur Phencyclidine S crn (Negative) ng/mL Ur Amphetamines Sc reen (Negative) ng/mL U Benzodiazepines Scrn (Negative) ng/mL Urine Cocaine Scre en (Negative) ng/mL U Marijuana (THC) Screen (Negative) ng/mL Ethyl Alcohol (0-10) mg/dL Serum Ketones (Negative) Hepatitis A IgM Ab (Nonreactive) Hep Bs Antigen (Nonreactive) Hep B Core IgM Ab (Nonreactive) Hepatitis C Antibo dy (Nonreactive) 02/17/20 02/17/20 Range/Units 12:15 13:20 WBC (4.0-10.0) 10^3/ uL RBC (4.1-5.3) 10^6/u L Hgb (11.7-16.6) g/dL Hct (42.0-52.0) % MCV (80-94) fL MCH (28.0-34.0) pg MCHC (30.0-36.0) g/dL RDW (12.1-15.1) % Plt Count (130-400) 10^3/c mm MPV (7.4-10.4) fL Neut % (Auto) % Lymph % (Auto) % Summers % (Auto) % Eos % (Auto) % Baso % (Auto) % Neut # (Auto) (1.8-7.7) 10^3/u L Lymph # (Auto) (0.8-4.8) 10^3/u L Summers # (Auto) (0.2-0.9) 10^3/u L Eos # (Auto) (0.0-0.8) 10^3/u L Baso # (Auto) (0.0-0.1) 10^3/u L Nucleated RBC % (a uto) % Nucleated RBCs # /100WBC PT (12.1-14.9) SECO NDS INR (0.8-1.2) APTT (23.9-36.7) SECO NDS Specimen Type Sample Site ABG pH (7.35-7.45) ABG pCO2 (35-45) mmHg ABG pO2 (80.0-100.0) mmH g ABG HCO3 (22-26) mmol/L ABG O2 Saturation ABG Base Excess (-2.0-2.0) mmol/ L Jonathan Test A-a O2 Gradient (5-10) mmHg Hematocrit (42-52) % Hgb O2 Saturation (95-100) % Carboxyhemoglobin (0.4-20.1) %THgb Methemoglobin (0.4-1.5) % Total Hemoglobin (14-18) g/dL Ionized Calcium (1.1-1.4) mmol/L O2 Delivery Device FiO2 % Printed Circuit [employer] Panels Trimmer ID Sodium (136-145) mmol/L Potassium (3.5-5.1) mmol/L Chloride (98-107) mmol/L Carbon Dioxide (22-29) mmol/L Anion Gap (5-19) BUN (6-20) mg/dL Creatinine (0.7-1.2) mg/dL GFR Calculation (90-130) mL/min Glucose (65-115) mg/dL POC Glucose 371 (70-110) mg/dL Calculated Osmolal ity (285-295) mOsm/k g Lactic Acid (0.5-2.2) mmol/L Lactic Acid (Sepsi s) 2.6 H (0.5-2.2) mmol/L Calcium (8.5-10.5) mg/dL Total Bilirubin (0.15-1.2) mg/dL AST (0-40) U/L ALT (0-41) U/L Alkaline Phosphata se (40-130) IU/L Creatine Kinase (39-308) U/L Total Protein (6.6-8.7) g/dL Albumin (3.5-5.2) g/dL Globulin (1.3-4.6) g/dL Lipase (13-60) U/L Urine Color (Yellow) Urine Appearance (CLEAR) Urine pH (5-7) Ur Specific Gravit y (1.005-1.030) Urine Protein (Negative) Urine Glucose (UA) (Normal) Urine Ketones (Negative) Urine Blood (Negative) Urine Nitrate (Negative) Urine Bilirubin (Negative) Urine Urobilinogen (Negative) mg/dL Ur Leukocyte Raisa ase (Negative) Urine Opiates Scre en (Negative) ng/mL Acetaminophen (10-30) ug/mL Ur Barbiturates Sc reen (Negative) ng/mL Ur Phencyclidine S crn (Negative) ng/mL Ur Amphetamines Sc reen (Negative) ng/mL U Benzodiazepines Scrn (Negative) ng/mL Urine Cocaine Scre en (Negative) ng/mL U Marijuana (THC) Screen (Negative) ng/mL Ethyl Alcohol (0-10) mg/dL Serum Ketones (Negative) Hepatitis A IgM Ab (Nonreactive) Hep Bs Antigen (Nonreactive) Hep B Core IgM Ab (Nonreactive) Hepatitis C Antibo dy (Nonreactive) Discharge Plan Discharge Patient Disposition: Home Clinical Impression: Elevated LFTs, History of chronic pancreatitis Uncontrolled diabetes mellitus Qualifiers: Diabetes mellitus type: type 2 Glycemic state: with hyperglycemia Qualified Code(s): E11.65 - Type 2 diabetes mellitus with hyperglycemia Condition: Stable Prescriptions: No Action Lantus Solostar U-100 Insulin 100 unit/mL (3 mL) insulin pen 20 unit SUBCUT QPM RF: 0 oxycodone-acetaminophen 10-325 mg tablet 1 tab PO Q6H PRN (Reason: pain) 32 Days Qty: 120 RF: 0 (DME) pen needle, diabetic [TechLITE Pen Needle] 32 gauge x 1/4 needle See Rx Instructions .ROUTE .MEDSUPPLY Qty: 100 RF: 3 (DME) BD Veo Insulin Syr Half Unit 0.3 mL 31 gauge x 15/64 syringe See Rx Instructions .ROUTE .MEDSUPPLY Qty: 100 RF: 11 clonazepam 1 mg tablet 1 mg PO BID 30 Days Qty: 60 RF: 2 pregabalin [Lyrica] 150 mg capsule 150 mg PO BID 30 Days Qty: 60 RF: 2 Zofran 4 mg tablet 4 mg PO Q6H PRN (Reason: nausea and vomiting) Qty: 10 RF: 0 pantoprazole 40 mg tablet,delayed release (DR/EC) 40 mg PO DAILY Qty: 30 RF: 0 insulin aspart U-100 [Novolog Flexpen U-100 Insulin] 100 unit/mL (3 mL) insulin pen See Rx Instructions .ROUTE .COMPLEX RF: 0 Zenpep 5,000-17,000- 24,000 unit Capsule,Delayed Release(Dr/Ec) 2 ea PO TIDWM Qty: 180 RF: 0 Discharge Orders: Discharge Order (Routine); Ordered 02/17/20 Ordered By: Savana Hale Referrals: Oumar Gonzalez MD [Primary Care Provider] - Activity Restrictions/Additional Instructions: As discussed you need to follow-up with your GI specialist as directed. If your primary care provider is providing you pain medications, they can continue doing this will refer you to a paint factory worker. You may return to the emergency department for worsening/severe/uncontrollable pain, repetitive episodes of vomiting, blood in your vomit or stools, fevers, or any other concerns you may have. Primary care also needs to continue managing your diabetes as you still do not have very good control of this. Discharge Date/Time: 02/17/20 14:47 Coding Level of Care Code ED Senior Research Consultant for [employer] Fwd Exam Comprehensive
[2020-02-17 10:50] LABS: Basophils # 0.1 10^3/uL (0.0-0.1); Basophils % 0.8 %; Eosinophils # 0.1 10^3/uL (0.0-0.8); Eosinophils % 1.8 %; Hematocrit 39.4 % (42.0-52.0); Hemoglobin 12.7 g/dL (11.7-16.6); Lymphocytes # 1.9 10^3/uL (0.8-4.8); Lymphocytes % 25.4 %; Mean Corpuscular HGB Conc 32.2 g/dL (30.0-36.0); Mean Corpuscular Hemoglobin 28.5 pg (28.0-34.0); Mean Corpuscular Volume 88.5 fL (80-94); Mean Platelet Volume 12.8 fL (7.4-10.4); Monocytes # 0.8 10^3/uL (0.2-0.9); Monocytes % 9.8 %; Neutrophils # 4.69 10^3/uL (1.8-7.7); Neutrophils % 61.5 %; Nucleated Red Blood Cells % 0 %; Platelet Count 229 10^3/cmm (130-400); Red Blood Count 4.45 10^6/uL (4.1-5.3); Red Cell Distribution Width 14.8 % (12.1-15.1); White Blood Count 7.6 10^3/uL (4.0-10.0)
[2020-02-17 10:55] LABS: Ketone (Acetest) Serum Negative (Negative)
[2020-02-17 11:02] LABS: Alanine Aminotransferase 295 U/L (0-41); Albumin Level 4.2 g/dL (3.5-5.2); Alkaline Phosphatase 258 IU/L (40-130); Anion Gap 23.3 (5-19); Aspartate Amino Transferase 428 U/L (0-40); Blood Urea Nitrogen 11 mg/dL (6-20); Calcium 9.7 mg/dL (8.5-10.5); Carbon Dioxide 21 mmol/L (22-29); Chloride 85 mmol/L (98-107); Glomerular Filtration Rate 93.5 mL/min (90-130); Lipase 4 U/L (13-60); Osmolality Calculated 285 mOsm/kg (285-295); Potassium 4.3 mmol/L (3.5-5.1); Sodium 125 mmol/L (136-145); Total Bilirubin 0.3 mg/dL (0.15-1.2); Total Protein 7.2 g/dL (6.6-8.7)
[2020-02-17 11:04] LABS: ABG PCO2 37.1 mmHg (35-45); ABG PH Result 7.42 (7.35-7.45); Alveolar-Arterial Oxygen Gradi 2.1 mmHg (5-10); Arterial Blood Gas Hematocrit 39.4 % (42-52); Base Excess ABG -0.2 mmol/L (-2.0-2.0); Blood Gas Allen Test Pos; Blood Gas Operator Identificat AMH; Blood Gas Sample Site Radial, left; Blood Gas Sample Type Arterial; Carboxyhemoglobin 6.6 %THgb (0.4-20.1); HGB O2 Sat 90.8 % (95-100); Ionized Calcium Level - ABG 1.2 mmol/L (1.1-1.4); Methemoglobin 0.9 % (0.4-1.5); Oxygen Device ROOM AIR; Oxygen Saturation ABG 98.2; PO2 ABG 87.3 mmHg (80.0-100.0); Potassium Level - ABG 4.2 mmol/L (3.5-5.0); Total Hemoglobin 12.9 g/dL (14-18)
[2020-02-17 11:10] LABS: Glucose 622 mg/dL (65-115)
--- NOTE | 2020-02-17 11:11 | US_ITS ---
WS: [id number] RIGHT UPPER QUADRANT ULTRASOUND HISTORY: pain, elevated LFTs COMPARISON: 11/04/2018 Liver: 18.8 cm in length. Mildly enlarged liver. No mass or bile duct dilatation. Gallbladder: Normally distended gallbladder with no stones or wall thickening. CBD: 0.4 cm Pancreas: Poorly visualized head and tail. Body is negative. Right kidney: 11.9 cm in length. Normal size. No hydronephrosis. Cortical cyst upper pole measures 1. 0 cm. Aorta and IVC: Unremarkable abdominal aorta and IVC. No ascites. Small RIGHT pleural effusion. US/US gall bladder [id number] IMPRESSION: 1. Mild hepatomegaly. 2. Negative gallbladder. 3. Small RIGHT pleural effusion.
[2020-02-17 11:16] LABS: Add Urine Microscopic? NO
[2020-02-17] MEDS: LORazepam 2 mg/mL INJ 1 mL 1 MG IVP (11:20)
[2020-02-17] MEDS: ondansetron 2 mg/ML SDV 2 mL 4 MG IVP (11:20)
[2020-02-17] MEDS: haloperidol inj 5 mg/mL INJ 1 mL IVP (11:20)
[2020-02-17 11:24] LABS: Bilirubin Urine Neg (Negative); Blood Urine Neg (Negative); Glucose Urine UA 4+ (Normal); Ketones Urine Negative (Negative); Leukocyte Esterase Urine Negative (Negative); Nitrate Urine Negative (Negative); Protein Urine Neg (Negative); Specific Gravity, Urine 1.005 (1.005-1.030); Urine Appearance Clear (CLEAR); Urine Color Straw (Yellow); Urobilinogen Urine Norm (Negative); pH Urine 5 (5-7)
[2020-02-17] MEDS: sodium chloride 0.9% 1,000 ML 999 ML IV ×2 (11:24→12:16)
[2020-02-17] MEDS: insulin regular-human 100 units/1 mL 5 UNIT IVP ×2 (11:29→12:16)
[2020-02-17 11:33] LABS: Amphetamines Screen Urine Negative (Negative); Barbiturates Screen Urine Negative (Negative); Benzodiazepines Screen Urine Positive (Negative); Cocaine Screen Urine Negative (Negative); Opiate Screen Urine Negative (Negative); PCP Screen Urine Negative (Negative); THC Screen Urine Negative (Negative)
--- NOTE | 2020-02-17 11:37 | PC.NURSE ---
US at bedside
[2020-02-17 12:19] LABS: Glucose Point of Care 371 mg/dL (70-110)
--- NOTE | 2020-02-17 12:19 | PC.NURSE ---
BS 371
[2020-02-17 12:32] LABS: Lactic Sepsis W/Reflex 8.2 mmol/L (0.5-2.2)
--- NOTE | 2020-02-17 12:37 | CT_ITS ---
WS: [id number] CT ABDOMEN AND PELVIS WITH CONTRAST HISTORY: abdominal pain, elevated LFTs, nausea, elevated lactate TECHNIQUE: Imaging performed of the abdomen and pelvis with IV contrast. Single phase imaging of the abdomen. Coronal and sagittal reformats are submitted. All CT scans at [facility] use at least one of these dose optimization techniques: automated exposure control; mA and/or kV adjustment per patient size (includes targeted exams where dose is matched to clinical indication); or iterativ e reconstruction. IV CONTRAST: Omnipaque 300; 95 mL IV. Oral contrast: No DLP: 300.67 mGy.cm COMPARISON: 01/15/2020 Lower thorax: Mild improvement in the wedge-shaped opacification at the RIGHT lung base. Small adjace nt pleural effusion. Heart is slightly enlarged. Prior valve replacements. No pericardial effusion. N o hiatal hernia. Liver/biliary system: Normal size with no intrahepatic dilatation. Gallbladder: Mildly contracted gallbladder, no stones identified. Pancreas: Atrophy of the pancreas with marked dilatation of the pancreatic duct. Scattered calcificat ions are most significant within the pancreatic head and uncinate process. No significant interval ch katy. Spleen: Normal. Adrenal glands: Normal RIGHT adrenal gland. Stable LEFT adrenal nodule at 10 mm. Right kidney: Normal size RIGHT kidney. Stable cortical cyst upper pole measures 1.3 cm. There is mil d dilatation of the RIGHT renal pelvis and RIGHT ureter as compared to prior studies. May be secondar y to the overly distended bladder. No calcification or reason for the obstruction otherwise. Left kidney: Normal. Aorta: Normal. Lymphadenopathy: None. Free fluid: None. GI tract: Mild diffuse constipation. There is mild small bowel wall distention fluid. No mucosal thic kening. The appendix is normal. Abdominal wall: Unremarkable abdominal wall. No hernia. Pelvis: Markedly distended urinary bladder stent over length of 16 cm to the umbilicus. Bones: Unremarkable. CT/CT abdomen pelvis w con* [id number] IMPRESSION: 1. Evidence for chronic pancreatitis with pancreatic duct dilatation and pancr eatic calcifications which is stable. 2. Small RIGHT pleural effusion and wedge-shaped opacification at the RIGHT rimma ng base. Similar to prior studies and may be related to scarring or chronic ate lectasis. 3. Markedly distended urinary bladder. There is also mild dilatation of the RI GHT renal pelvis and ureter which may be secondary to the distended urinary shell dder. 4. Mild fluid distention of small bowel with no obstruction. No free air.
[2020-02-17 12:42] LABS: Glucose Point of Care 566 mg/dL (70-110)
[2020-02-17 12:43] LABS: INR 0.92 (0.8-1.2)
[2020-02-17 12:44] LABS: Partial Thromboplastin Time 25.4 SECONDS (23.9-36.7)
[2020-02-17 12:51] LABS: Hepatitis A Antibody IgM Non-Reactive (Nonreactive); Hepatitis B Core IgM Non-Reactive (Nonreactive); Hepatitis B Surface Antigen Non-Reactive (Nonreactive); Hepatitis C Virus Antibody Non-Reactive (Nonreactive)
[2020-02-17] MEDS: iohexol 300 mg/mL 100 mL Btl IV (12:56)
[2020-02-17 13:10] LABS: Reflex Lactate Order REFLEX LACTIC ORDERD
[2020-02-17 13:11] LABS: Acetaminophen < 5.0 ug/mL (10-30)
[2020-02-17 13:12] LABS: Alcohol Level < 10 mg/dL (0-10)
[2020-02-17 13:45] LABS: Lactic Acid level (Lactate) 2.6 mmol/L (0.5-2.2)
[2020-02-17 13:53] LABS: Creatine Phosphokinase 64 U/L (39-308)
== END 2020-02-17 14:47 | disposition home or self-care (01) ==
PROVIDERS: Emergency Provider Physician Assistant; PCP Family Medicine
DX: E11.65 Type 2 diabetes mellitus with hyperglycemia (principal); K86.1 Other chronic pancreatitis; R79.89 Other specified abnormal findings of blood chemistry
CPT/HCPCS: 12345; 36415; 36416; 36600; 74177; 76705; 80051; 80053; 80074; 80306; 80307; 81003; 82009; 82550; 82810; 82962; 83605; 83690; 83986; 85025; 85610; 85730; 96361; 96374; 96375; 99284; J1630; J1815; J2060; J2405; J7030; Q9967

== ENCOUNTER 2020-02-24 16:41 | Emergency (ER) | payer MEDICAID, SELFPAY ==
[2020-02-24 16:41] VITALS: BP 124/87; PULSE 105; RESP 18; TEMP 36.8; O2SAT 95; BMI 19.9
--- NOTE | 2020-02-24 16:49 | ED_ITS ---
HPI - Back Pain/Injury General: Chief Complaint: Back Pain/Injury Stated Complaint: BACK PAIN Time Seen by Provider: 02/24/20 16:43 Source: patient and EMS Mode of arrival: EMS Limitations: no limitations History of Present Illness: HPI Narrative: 40-year-old male who is chronic back pain. He states he took his last hydrocodone this morning and has had worsening pain throughout the day and has not been able to get into his PCP. Patient states his pain is chronic and rates it a 6 out of 10. Denies any difficulty walking or bowel or bladder incontinence. He denies any fever. He states that he was hyperglycemic and did take 10 units of insulin. He is a type I diabetic. Associated symptoms: Deny abdominal pain, chills, dysuria, fever(s), nausea or vomiting Review of Systems Const: Denies: fever(s), chills, body aches or change in appetite Eyes: Denies: blurry vision or eye discomfort ENMT: Denies: throat pain or dental pain Card: Denies: chest pain Resp: Denies: dyspnea GI: Denies: abdominal pain, nausea, vomiting or diarrhea : Denies: dysuria Musc: Reports: back pain; Denies: neck pain Skin/Breast: Denies: rash Neuro: Denies: headache(s) Psych: Denies: depression Khanh/Lymph: Denies: easy bruising All/Imm: Denies: urticaria PFSH ED PFSH: Medical History (Updated 02/24/20 @ 19:41 by Padilla Frias MD) Abdominal pain Thought to be secondary to chronic pancreatitis. 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 Pichardo Family History Father CAD (coronary artery disease) Diabetes Stroke Social History Smoking and tobacco status: current every day smoker cigarettes Packs smoked per day: 0.75 Alcohol intake: former Former alcohol use details: Says has not drank any alcohol in 3 years. Lives independently: Yes Household members: family and other Details: Parents Marital status: Legally Current occupational status: unemployed Physical Exam Const: COMMON NORMALS: no acute distress, patient oriented x3 and healthy appearing HENMT: COMMON NORMALS: normocephalic and atraumatic HEAD & SCALP: normocephalic and atraumatic Eye: COMMON NORMALS: Equal, round and reactive pupils present and EOMs intact bilaterally PUPIL: Yes Equal, round and reactive pupils present Neck/C-Spine: COMMON NORMALS: full ROM and supple Chest: COMMONS NORMALS: normal inspection of the chest and normal palpation of entire chest wall Resp: COMMON NORMALS: normal respiratory effort, No retractions, No use of accessory muscles and clear to auscultation bilaterally AUSCULTATION: clear to auscultation bilaterally Cardio: COMMON NORMALS: regular rate, regular rhythm and No murmurs present (Cardio) RATE: regular rate RHYTHM: regular rhythm GI: COMMON NORMALS: Normal to inspection, nondistended, normoactive bowel sounds present, Soft to palpation, non-tender and no masses PALPATION: Yes Soft to palpation Back/Pelvis: OTHER: No midline back tenderness 5 out of 5 strength bilateral extremities no saddle anesthesia Extremity: COMMON NORMALS: normal to inspection and full ROM Neuro: COMMON NORMALS: patient oriented x3, moves all extremities and no focal motor deficits Psych: COMMON NORMALS: mental status grossly normal, Normal thought process present and cooperative THOUGHT PROCESS: Normal thought process present Skin: COMMON NORMALS: no rashes or lesions noted and no wounds GENERAL SKIN EXAM: no rashes or lesions noted Course Vital Signs: Vital signs: Vital Signs Temperature 98.3 F 02/24/20 16:41 Pulse Rate 96 02/24/20 17:22 Respiratory Rate 18 02/24/20 19:42 Blood Pressure 149/94 02/24/20 17:22 Pulse Oximetry 98 02/24/20 19:42 MDM - Back Pain/Injury MDM Narrative: Medical decision making narrative: Jagdish presents with back pain that is chronic in nature. Patient is to follow-up with his PCP for his refill of hydrocodone's. His pain is improved here. He has no signs of cord compression or epidural abscess. Patient was hyperglycemic that is improved as well. He is not in DKA. He is to return if worsening. Patient prescribed Naprosyn and Robaxin for home. Lab Data: Labs: Lab Results 02/24/20 02/24/20 02/24/20 Range/Units 16:59 17:25 17:52 Sodium 129 L (136-145) mmol/L Potassium 4.3 (3.5-5.1) mmol/L Chloride 92 L (98-107) mmol/L Carbon Dioxide 25 (22-29) mmol/L Anion Gap 16.3 (5-19) BUN 15 (6-20) mg/dL Creatinine 0.7 (0.7-1.2) mg/dL GFR Calculation 124.9 (90-130) mL/min Glucose 442 H (65-115) mg/dL POC Glucose 452 391 (70-110) mg/dL Calculated Osmolal ity 288 (285-295) mOsm/k g Calcium 9.3 (8.5-10.5) mg/dL 02/24/20 02/24/20 02/24/20 Range/Units 18:31 18:37 19:39 Sodium (136-145) mmol/L Potassium (3.5-5.1) mmol/L Chloride (98-107) mmol/L Carbon Dioxide (22-29) mmol/L Anion Gap (5-19) BUN (6-20) mg/dL Creatinine (0.7-1.2) mg/dL GFR Calculation (90-130) mL/min Glucose (65-115) mg/dL POC Glucose 436 373 210 (70-110) mg/dL Calculated Osmolal ity (285-295) mOsm/k g Calcium (8.5-10.5) mg/dL Discharge Plan Discharge Patient Disposition: Home Clinical Impression: Low back pain, Hyperglycemia Condition: Stable Prescriptions: New Robaxin-750 750 mg tablet 750 mg PO Q6H Qty: 30 RF: 0 Naprosyn 500 mg tablet 500 mg PO BID PRN (Reason: pain) Qty: 20 RF: 0 No Action Lantus Solostar U-100 Insulin 100 unit/mL (3 mL) insulin pen 20 unit SUBCUT QPM RF: 0 clonazepam 1 mg tablet 1 mg PO BID 30 Days Qty: 60 RF: 2 Zofran 4 mg tablet 4 mg PO Q6H PRN (Reason: nausea and vomiting) Qty: 10 RF: 0 pantoprazole 40 mg tablet,delayed release (DR/EC) 40 mg PO DAILY Qty: 30 RF: 0 oxycodone-acetaminophen 10-325 mg tablet 1 tab PO Q6H PRN (Reason: pain) 30 Days Qty: 120 RF: 0 insulin aspart U-100 [Novolog Flexpen U-100 Insulin] 100 unit/mL (3 mL) insulin pen See Rx Instructions .ROUTE .COMPLEX RF: 0 Zenpep 5,000-17,000- 24,000 unit Capsule,Delayed Release(Dr/Ec) 2 ea PO TIDWM Qty: 180 RF: 0 hydrocodone-acetaminophen 10-325 mg Tablet 1 tab PO QID PRN (Reason: Pain) RF: 0 Lyrica 150 mg capsule 150 mg PO TID RF: 0 Discharge Orders: Discharge Order (Routine); Ordered 02/24/20 Ordered By: Padilla Frias Referrals: Oumar Gonzalez MD [Primary Care Provider] - 1-3 days Discharge Diet: Advance as tolerated Discharge Activity: Resume usual activity Patient Instructions: Chronic Back Pain (ED) Coding Level of Care Code ED [employer] for Chg Fwd Exam Comprehensive
[2020-02-24 17:03] LABS: Glucose Point of Care 452 mg/dL (70-110)
[2020-02-24] MEDS: insulin regular-human 100 units/1 mL 8 UNIT IVP (17:12)
[2020-02-24 17:14] VITALS: RESP 18
[2020-02-24] MEDS: HYDROmorphone 1 mg/mL INJ 1 mL IVP ×2 (17:14→19:42)
[2020-02-24] MEDS: ketorolac 30 mg/mL INJ IVP (17:14)
[2020-02-24] MEDS: sodium chloride 0.9% 1,000 ML 999 ML IV ×2 (17:17→18:41)
[2020-02-24 17:19] VITALS: BP 149/94; PULSE 93; RESP 20; O2SAT 96
[2020-02-24 17:22] VITALS: BP 149/94; PULSE 96; RESP 20; O2SAT 96
[2020-02-24 17:44] LABS: Anion Gap 16.3 (5-19); Blood Urea Nitrogen 15 mg/dL (6-20); Calcium 9.3 mg/dL (8.5-10.5); Carbon Dioxide 25 mmol/L (22-29); Chloride 92 mmol/L (98-107); Glomerular Filtration Rate 124.9 mL/min (90-130); Glucose 442 mg/dL (65-115); Osmolality Calculated 288 mOsm/kg (285-295); Potassium 4.3 mmol/L (3.5-5.1); Sodium 129 mmol/L (136-145)
[2020-02-24 17:55] LABS: Glucose Point of Care 391 mg/dL (70-110)
[2020-02-24] MEDS: metoclopramide 5 mg/mL SDV 2 mL 10 MG IVP (18:10)
[2020-02-24] MEDS: diphenhydrAMINE 50 mg/mL SDV 1mL IVP (18:10)
[2020-02-24 18:35] LABS: Glucose Point of Care 436 mg/dL (70-110)
[2020-02-24 18:40] LABS: Glucose Point of Care 373 mg/dL (70-110)
[2020-02-24] MEDS: insulin regular-human 100 units/1 mL 10 UNIT IVP (18:40)
--- NOTE | 2020-02-24 19:04 | PC.NURSE ---
report received from July Santos RN
[2020-02-24 19:42] VITALS: RESP 18; O2SAT 98
[2020-02-24 19:46] LABS: Glucose Point of Care 210 mg/dL (70-110)
--- NOTE | 2020-02-24 20:26 | PC.NURSE ---
during dc instructions, pt and mother requesting pain med to take home since pharmacies may be closed tonight. orders obtained for norco to be dispensed to take home
[2020-02-24 20:29] VITALS: BP 145/94; PULSE 86; RESP 18; O2SAT 97
== END 2020-02-24 20:31 | disposition home or self-care (01) ==
PROVIDERS: Emergency Provider Emergency Medicine; PCP Family Medicine
DX: M54.5 Low back pain (principal); E11.65 Type 2 diabetes mellitus with hyperglycemia; Z79.4 Long term (current) use of insulin; E11.42 Type 2 diabetes mellitus with diabetic polyneuropathy; F17.210 Nicotine dependence, cigarettes, uncomplicated
CPT/HCPCS: 12345; 36415; 36416; 80048; 82962; 96361; 96374; 96375; 96376; 99283; 99284; J1170; J1200; J1815; J1885; J2765; J7030

== ENCOUNTER 2020-02-25 20:11 | Emergency (ER) | payer MEDICAID, SELFPAY ==
--- NOTE | 2020-02-25 20:12 | W.ED.GENADLT ---
Documented by User: Thea Dickens 02/25/20 21:04 HPI - General Adult General: Chief complaint: General Medical Stated complaint: back pain Time Seen by Provider: 02/25/20 20:12 Source: patient and EMS Mode of arrival: EMS Limitations: no limitations History of Present Illness: HPI narrative: Jagdish is a 40-year-old male who comes in complaining of low back pain. Patient states this is chronic pain just made worse. Patient states that the hydrocodone's that he takes are not cutting it for his pain. Patient denies any loss of bowel or bladder control, saddle anesthesia, abdominal pain, fever and adamantly denies any an injection drug use. Patient states this is his chronic pain just made worse. He does state that the other day he was working on a lawnmower and may have twisted his back and aggravated it. EMS relates the patient was seen here yesterday for the same. Patient states movement or exertion makes his pain worse. Said the pain was primarily located in the low lumbar spine. It is bilateral. Rest makes it better. Patient is a type I diabetic and his blood sugars been running high today but he denies any nausea, vomiting, diarrhea or other symptoms consistent with DKA. Associated symptoms: Deny chest pain, dyspnea, headache(s), nausea, rash, palpitations, syncope or vomiting Review of Systems Const: Denies: fever(s) Eyes: Denies: change in vision or blurry vision ENMT: Denies: throat pain, hoarseness or swelling of lips/tongue Card: Denies: chest pain, palpitations, syncope, pre-syncope or dyspnea on exertion Resp: Denies: dyspnea, productive cough, non-productive cough, wheezing, change in phlegm color or hemoptysis GI: Denies: abdominal pain, nausea, vomiting or diarrhea : Denies: flank pain, dysuria, urinary frequency or urinary urgency Musc: Reports: back pain; Denies: neck pain or extremity pain Skin/Breast: Denies: rash or pruritus Neuro: Denies: headache(s), numbness in extremities, weakness in extremities or dizziness Khanh/Lymph: Denies: easy bruising, easy bleeding, petechiae or purpura All/Imm: Denies: urticaria or throat swelling PFSH ED PFSH: Medical History Abdominal pain Thought to be secondary to chronic pancreatitis. 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 Pichardo Family History Father CAD (coronary artery disease) Diabetes Stroke Social History Smoking and tobacco status: current every day smoker cigarettes Packs smoked per day: 0.75 Alcohol intake: former Former alcohol use details: Says has not drank any alcohol in 3 years. Lives independently: Yes Household members: family and other Details: Parents Marital status: Legally Current occupational status: unemployed Physical Exam Const: COMMON NORMALS: no acute distress, patient oriented x3, no limitations and alert GENERAL APPEARANCE: cooperative HENMT: COMMON NORMALS: normocephalic, atraumatic, external ears normal, EAC's normal and Normal external nose present HEAD & SCALP: normal to inspection, normocephalic and atraumatic FACE & SINUS: normal facial exam and face symmetric NOSE: Normal external nose present and Normal nares present EXTERNAL EAR: Yes external ears normal EXTERNAL AUDITORY CANAL: EAC's normal MOUTH: Normal oral and palatal mucosa present, lip normal and tongue normal Eye: COMMON NORMALS: Equal, round and reactive pupils present and conjunctivae normal GENERAL EYE: appearance normal, both eyes and all related structures ALIGNMENT: Yes alignment normal PERIORBITAL: periorbital findings normal EYELID: eyelids normal CONJUNCTIVA: Yes conjunctivae normal SCLERA: sclerae normal PUPIL: Yes Equal, round and reactive pupils present Neck/C-Spine: COMMON NORMALS: full ROM, no lymphadenopathy, supple, no meningeal signs and no JVD GENERAL: Yes normal visual inspection and Yes trachea midline Chest: COMMONS NORMALS: normal inspection of the chest and normal palpation of entire chest wall Resp: COMMON NORMALS: normal respiratory effort, No retractions, No use of accessory muscles and clear to auscultation bilaterally EFFORT & INSPECTION: Yes able to speak in complete sentences and Yes symmetric chest movement AUSCULTATION: clear to auscultation bilaterally, no crackles, no rales, no rhonchi and no wheezes Cardio: COMMON NORMALS: no JVD, regular rate, regular rhythm, S1 normal heart sound present and S2 normal heart sound present RATE: regular rate RHYTHM: regular rhythm HEART SOUNDS: S1 normal heart sound present, S2 normal heart sound present, no click, no gallops, no murmurs and no rubs GI: COMMON NORMALS: Soft to palpation and No hepatosplenomegaly present PALPATION: Yes Soft to palpation, No Tenderness to palpation present (GI), No Guarding due to palpation present (GI), No Rigid due to palpation, Yes No hepatosplenomegaly present, No Hernia present, No Palpable mass present and No Pulsatile mass present RECTAL EXAM: Yes visual inspection normal and Yes normal sphincter tone OTHER: No saddle anesthesia. Extremity: COMMON NORMALS: normal to inspection, full ROM, capillary refill normal, no joint enlargement, no clubbing, cyanosis or edema and no calf tenderness Neuro: COMMON NORMALS: patient oriented x3, CN's II-XII intact bilaterally, moves all extremities, no focal motor deficits and no sensory deficits noted SENSORIUM/ORIENTATION: Yes alert MENINGEAL SIGNS: Yes no meningeal signs SPEECH: speech normal MOTOR EXAM: 5/5 motor strength present throughout, no tremor noted and Normal motor muscle tone present throughout DEEP TENDON REFLEXES: Right patellar reflex intensity grade: 2+, Left patellar reflex intensity grade: 2+, Right ankle reflex intensity grade: 2+ and Left ankle reflex intensity grade: 2+ Psych: COMMON NORMALS: mental status grossly normal, Normal thought process present, cooperative, normal affect, speech normal and activity/motor behavior normal SPEECH: Yes normal speech THOUGHT PROCESS: Normal thought process present Skin: COMMON NORMALS: no rashes or lesions noted, turgor normal, no jaundice, no petechiae and no mottling GENERAL SKIN EXAM: no rashes or lesions noted and turgor normal Course Vital Signs: Vital signs: Vital Signs Temperature 98.3 F 02/25/20 20:14 Pulse Rate 87 02/26/20 01:09 Respiratory Rate 16 02/26/20 01:09 Blood Pressure 134/87 02/26/20 01:09 Pulse Oximetry 98 02/26/20 01:09 [facility] - General Adult Medical Records: Attestation: I reviewed the patient's medical records. Medical records narrative: ER chart from yesterday reviewed. Patient claimed that he was out of his hydrocodone's at that time but now he is stating he does have them they are just not working. As patient is a return visit I will evaluate for DKA but also look further for possible other source of his pain. Lab Data: Labs: Lab Results 02/25/20 02/25/20 02/25/20 Range/Units 20:17 20:30 20:30 WBC 10.7 H (4.0-10.0) 10^3/ uL RBC 4.24 (4.1-5.3) 10^6/u L Hgb 12.1 (11.7-16.6) g/dL Hct 37.9 L (42.0-52.0) % MCV 89.4 (80-94) fL MCH 28.5 (28.0-34.0) pg MCHC 31.9 (30.0-36.0) g/dL RDW 15.0 (12.1-15.1) % Plt Count 314 (130-400) 10^3/c mm MPV 11.7 H (7.4-10.4) fL Neut % (Auto) 70.3 % Lymph % (Auto) 18.1 % [place] % (Auto) 8.3 % Eos % (Auto) 2.2 % Baso % (Auto) 0.5 % Neut # (Auto) 7.50 (1.8-7.7) 10^3/u L Lymph # (Auto) 1.9 (0.8-4.8) 10^3/u L [place] # (Auto) 0.9 (0.2-0.9) 10^3/u L Eos # (Auto) 0.2 (0.0-0.8) 10^3/u L Baso # (Auto) 0.1 (0.0-0.1) 10^3/u L Nucleated RBC % (a uto) 0 % Nucleated RBCs # 0.0 /100WBC ESR (0-10) mm/hr Specimen Type Jonathan Test VBG pH (7.32-7.42) VBG pCO2 (41-51) mmHg VBG pO2 (25-40) mmHg VBG HCO3 (24-28) mmol/L VBG Base Excess (-3.0-3.0) mmol/ L O2 Delivery Device FiO2 % Specimen Drawn By Hardware Engineering Manager ID Sodium 131 L (136-145) mmol/L Potassium 4.1 (3.5-5.1) mmol/L Chloride 93 L (98-107) mmol/L Carbon Dioxide 23 (22-29) mmol/L Anion Gap 19.1 H (5-19) BUN 6 (6-20) mg/dL Creatinine 0.6 L (0.7-1.2) mg/dL GFR Calculation 149.2 H (90-130) mL/min Glucose 329 H (65-115) mg/dL POC Glucose 325 (70-110) mg/dL Calculated Osmolal ity 282 L (285-295) mOsm/k g Calcium 9.4 (8.5-10.5) mg/dL Total Bilirubin 0.4 (0.15-1.2) mg/dL AST 13 (0-40) U/L ALT 38 (0-41) U/L Alkaline Phosphata se 170 H (40-130) IU/L C-Reactive Protein 35.3 H (0.0-4.9) mg/L Total Protein 7.0 (6.6-8.7) g/dL Albumin 4.4 (3.5-5.2) g/dL Globulin 2.6 (1.3-4.6) g/dL Urine Color (Yellow) Urine Appearance (CLEAR) Urine pH (5-7) Ur Specific Gravit y (1.005-1.030) Urine Protein (Negative) Urine Glucose (UA) (Normal) Urine Ketones (Negative) Urine Blood (Negative) Urine Nitrate (Negative) Urine Bilirubin (Negative) Urine Urobilinogen (Negative) mg/dL Ur Leukocyte Raisa ase (Negative) Urine RBC (0-2) /hpf Urine WBC (0-5) /hpf Ur Squamous Epith Cells (0-5) /hpf Amorphous Sediment Urine Bacteria (NONE) /hpf Urine Opiates Scre en (Negative) ng/mL Ur Barbiturates Sc reen (Negative) ng/mL Ur Phencyclidine S crn (Negative) ng/mL Ur Amphetamines Sc reen (Negative) ng/mL U Benzodiazepines Scrn (Negative) ng/mL Urine Cocaine Scre en (Negative) ng/mL U Marijuana (THC) Screen (Negative) ng/mL Serum Ketones Negative (Negative) 02/25/20 02/25/20 02/25/20 Range/Units 20:30 20:30 20:56 WBC (4.0-10.0) 10^3/ uL RBC (4.1-5.3) 10^6/u L Hgb (11.7-16.6) g/dL Hct (42.0-52.0) % MCV (80-94) fL MCH (28.0-34.0) pg MCHC (30.0-36.0) g/dL RDW (12.1-15.1) % Plt Count (130-400) 10^3/c mm MPV (7.4-10.4) fL Neut % (Auto) % Lymph % (Auto) % [place] % (Auto) % Eos % (Auto) % Baso % (Auto) % Neut # (Auto) (1.8-7.7) 10^3/u L Lymph # (Auto) (0.8-4.8) 10^3/u L [place] # (Auto) (0.2-0.9) 10^3/u L Eos # (Auto) (0.0-0.8) 10^3/u L Baso # (Auto) (0.0-0.1) 10^3/u L Nucleated RBC % (a uto) % Nucleated RBCs # /100WBC ESR 25 H (0-10) mm/hr Specimen Type Venous Jonathan Test N/a VBG pH 7.39 (7.32-7.42) VBG pCO2 44.0 (41-51) mmHg VBG pO2 13.9 L (25-40) mmHg VBG HCO3 26.0 (24-28) mmol/L VBG Base Excess 0.5 (-3.0-3.0) mmol/ L O2 Delivery Device Room air FiO2 21.0 % Specimen Drawn By Jet Hardware Engineering Manager ID Jet Sodium (136-145) mmol/L Potassium (3.5-5.1) mmol/L Chloride (98-107) mmol/L Carbon Dioxide (22-29) mmol/L Anion Gap (5-19) BUN (6-20) mg/dL Creatinine (0.7-1.2) mg/dL GFR Calculation (90-130) mL/min Glucose (65-115) mg/dL POC Glucose (70-110) mg/dL Calculated Osmolal ity (285-295) mOsm/k g Calcium (8.5-10.5) mg/dL Total Bilirubin (0.15-1.2) mg/dL AST (0-40) U/L ALT (0-41) U/L Alkaline Phosphata se (40-130) IU/L C-Reactive Protein (0.0-4.9) mg/L Total Protein (6.6-8.7) g/dL Albumin (3.5-5.2) g/dL Globulin (1.3-4.6) g/dL Urine Color Yellow (Yellow) Urine Appearance Clear (CLEAR) Urine pH 5 (5-7) Ur Specific Gravit y 1.020 (1.005-1.030) Urine Protein Neg (Negative) Urine Glucose (UA) 4+ H (Normal) Urine Ketones 1+ H (Negative) Urine Blood Neg (Negative) Urine Nitrate Negative (Negative) Urine Bilirubin Neg (Negative) Urine Urobilinogen Norm (Negative) mg/dL Ur Leukocyte Raisa ase Negative (Negative) Urine RBC None (0-2) /hpf Urine WBC Rare (0-5) /hpf Ur Squamous Epith Cells None (0-5) /hpf Amorphous Sediment Not Reportable Urine Bacteria None (NONE) /hpf Urine Opiates Scre en (Negative) ng/mL Ur Barbiturates Sc reen (Negative) ng/mL Ur Phencyclidine S crn (Negative) ng/mL Ur Amphetamines Sc reen (Negative) ng/mL U Benzodiazepines Scrn (Negative) ng/mL Urine Cocaine Scre en (Negative) ng/mL U Marijuana (THC) Screen (Negative) ng/mL Serum Ketones (Negative) 02/25/20 02/26/20 Range/Units 20:56 00:41 WBC (4.0-10.0) 10^3/ uL RBC (4.1-5.3) 10^6/u L Hgb (11.7-16.6) g/dL Hct (42.0-52.0) % MCV (80-94) fL MCH (28.0-34.0) pg MCHC (30.0-36.0) g/dL RDW (12.1-15.1) % Plt Count (130-400) 10^3/c mm MPV (7.4-10.4) fL Neut % (Auto) % Lymph % (Auto) % [place] % (Auto) % Eos % (Auto) % Baso % (Auto) % Neut # (Auto) (1.8-7.7) 10^3/u L Lymph # (Auto) (0.8-4.8) 10^3/u L [place] # (Auto) (0.2-0.9) 10^3/u L Eos # (Auto) (0.0-0.8) 10^3/u L Baso # (Auto) (0.0-0.1) 10^3/u L Nucleated RBC % (a uto) % Nucleated RBCs # /100WBC ESR (0-10) mm/hr Specimen Type Jonathan Test VBG pH (7.32-7.42) VBG pCO2 (41-51) mmHg VBG pO2 (25-40) mmHg VBG HCO3 (24-28) mmol/L VBG Base Excess (-3.0-3.0) mmol/ L O2 Delivery Device FiO2 % Specimen Drawn By Hardware Engineering Manager ID Sodium (136-145) mmol/L Potassium (3.5-5.1) mmol/L Chloride (98-107) mmol/L Carbon Dioxide (22-29) mmol/L Anion Gap (5-19) BUN (6-20) mg/dL Creatinine (0.7-1.2) mg/dL GFR Calculation (90-130) mL/min Glucose (65-115) mg/dL POC Glucose 307 (70-110) mg/dL Calculated Osmolal ity (285-295) mOsm/k g Calcium (8.5-10.5) mg/dL Total Bilirubin (0.15-1.2) mg/dL AST (0-40) U/L ALT (0-41) U/L Alkaline Phosphata se (40-130) IU/L C-Reactive Protein (0.0-4.9) mg/L Total Protein (6.6-8.7) g/dL Albumin (3.5-5.2) g/dL Globulin (1.3-4.6) g/dL Urine Color (Yellow) Urine Appearance (CLEAR) Urine pH (5-7) Ur Specific Gravit y (1.005-1.030) Urine Protein (Negative) Urine Glucose (UA) (Normal) Urine Ketones (Negative) Urine Blood (Negative) Urine Nitrate (Negative) Urine Bilirubin (Negative) Urine Urobilinogen (Negative) mg/dL Ur Leukocyte Raisa ase (Negative) Urine RBC (0-2) /hpf Urine WBC (0-5) /hpf Ur Squamous Epith Cells (0-5) /hpf Amorphous Sediment Urine Bacteria (NONE) /hpf Urine Opiates Scre en Positive H (Negative) ng/mL Ur Barbiturates Sc reen Negative (Negative) ng/mL Ur Phencyclidine S crn Negative (Negative) ng/mL Ur Amphetamines Sc reen Negative (Negative) ng/mL U Benzodiazepines Scrn Negative (Negative) ng/mL Urine Cocaine Scre en Negative (Negative) ng/mL U Marijuana (THC) Screen Negative (Negative) ng/mL Serum Ketones (Negative) Imaging Data^: CT Lumbar Spine: Radiologist's impression: [place] [address] CT Scan Report Signed Patient: Jagdish Clinton Unit #: [id number] : [id number] Age/Sex: 40 / M ADM Date: 02/25/20 Loc: ER Room/Bed: Attending Dr: Ordering Provider/Ordering MD: Thea Dickens DO Date of Service: 02/25/20 Procedure(s): CT lumbar spine wo con* [id number] Accession Number(s): [id number] Report Number: [id number] PROCEDURE INFORMATION: Exam: CT Lumbar Spine Without Contrast Exam date and time: 02/25/2020 8:25 PM Age: 40 years old Clinical indication: Low back pain TECHNIQUE: Imaging protocol: Computed tomography images of the lumbar spine without contrast. Radiation optimization: All CT scans at this facility use at least one of these dose optimization techniques: automated exposure control; mA and/or kV adjustment per patient size (includes targeted exams where dose is matched to clinical indication); or iterative reconstruction. COMPARISON: [place] [id number] 03/15/2019 3:02 PM RADIATION DOSE METRICS: Total DLP (mGy-cm): 1523.99 FINDINGS: Vertebrae: No acute fracture. Normal alignment. No canal stenosis or neural foraminal narrowing is seen in the lumbar spine. Soft tissues: Unremarkable. Other findings: Chronic pancreatitis changes are appreciated. CT/CT lumbar spine wo con* [id number] IMPRESSION: 1. No acute abnormality is seen. 2. Chronic pancreatitis. Radiation Dose CTDIVOL = (mGy): DLP = 1523.99 (mGy-cm) Dictated By: Dean Collado MD Signed By: Dean Collado MD Signed Date/Time: 02/25/202057 DD/ 55 Discharge Plan Discharge Patient Disposition: Home Clinical Impression: Low back pain Qualifiers: Chronicity: chronic Back pain laterality: bilateral Sciatica presence: unspecified whether sciatica present Qualified Code(s): M54.5 - Low back pain Condition: Stable Prescriptions: No Action Lantus Solostar U-100 Insulin 100 unit/mL (3 mL) insulin pen 20 unit SUBCUT QPM RF: 0 clonazepam 1 mg tablet 1 mg PO BID 30 Days Qty: 60 RF: 2 Zofran 4 mg tablet 4 mg PO Q6H PRN (Reason: nausea and vomiting) Qty: 10 RF: 0 pantoprazole 40 mg tablet,delayed release (DR/EC) 40 mg PO DAILY Qty: 30 RF: 0 oxycodone-acetaminophen 10-325 mg tablet 1 tab PO Q6H PRN (Reason: pain) 30 Days Qty: 120 RF: 0 insulin aspart U-100 [Novolog Flexpen U-100 Insulin] 100 unit/mL (3 mL) insulin pen See Rx Instructions .ROUTE .COMPLEX RF: 0 Zenpep 5,000-17,000- 24,000 unit Capsule,Delayed Release(Dr/Ec) 2 ea PO TIDWM Qty: 180 RF: 0 hydrocodone-acetaminophen 10-325 mg Tablet 1 tab PO QID PRN (Reason: Pain) RF: 0 pregabalin [Lyrica] 150 mg capsule 150 mg PO TID RF: 0 methocarbamol [Robaxin-750] 750 mg tablet 750 mg PO Q6H Qty: 30 RF: 0 Discharge Orders: Discharge Order (Routine); Ordered 02/26/20 Ordered By: Atif Melton Referrals: Oumar Gonzalez MD [Primary Care Provider] - 4-7 days Discharge Diet: Advance as tolerated Discharge Activity: Increase activity as tolerated Patient Instructions: Chronic Back Pain (ED) Activity Restrictions/Additional Instructions: We are unable to provide you more pain medication for home at this time, as you have received pain medication prescription from the ER in the past. Your MRIs of the spine were essentially negative. Follow-up with your primary care physician. Discharge Date/Time: 02/26/20 01:11 Coding Level of Care Code ED Automation Design Engineer for Chg Fwd Exam Comprehensive Documented by User: Atif Melton, 02/26/20 05:24 HPI - General Adult General: Chief complaint: General Medical Stated complaint: back pain Time Seen by Provider: 02/25/20 20:12 PFSH ED PFSH: Medical History Abdominal pain Thought to be secondary to chronic pancreatitis. 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 Pichardo Family History Father CAD (coronary artery disease) Diabetes Stroke Social History Smoking and tobacco status: current every day smoker cigarettes Packs smoked per day: 0.75 Alcohol intake: former Former alcohol use details: Says has not drank any alcohol in 3 years. Lives independently: Yes Household members: family and other Details: Parents Marital status: Legally Current occupational status: unemployed Course Vital Signs: Vital signs: Vital Signs Temperature 98.3 F 02/25/20 20:14 Pulse Rate 87 02/26/20 01:09 Respiratory Rate 16 02/26/20 01:09 Blood Pressure 134/87 02/26/20 01:09 Pulse Oximetry 98 02/26/20 01:09 MDM - General Adult MDM Narrative: Medical decision making narrative: 40-year-old male received in checkout from Dr. Lorenz. This patient complains of lumbar low back pain. He has had endocarditis in the past. His white blood cell count was mildly high as was his inflammatory markers. He has been to MR of the thoracic and lumbar spines, which are both negative for epidural abscess. He has hydrocodone at home, but states they are not working. This is a different story than he gave the ER physician last night. He has a history of chronic medication use for pain. He has presented here many times with pain complaints. He'll be discharged. Lab Data: Labs: Lab Results 02/25/20 02/25/20 02/25/20 Range/Units 20:17 20:30 20:30 WBC 10.7 H (4.0-10.0) 10^3/ uL RBC 4.24 (4.1-5.3) 10^6/u L Hgb 12.1 (11.7-16.6) g/dL Hct 37.9 L (42.0-52.0) % MCV 89.4 (80-94) fL MCH 28.5 (28.0-34.0) pg MCHC 31.9 (30.0-36.0) g/dL RDW 15.0 (12.1-15.1) % Plt Count 314 (130-400) 10^3/c mm MPV 11.7 H (7.4-10.4) fL Neut % (Auto) 70.3 % Lymph % (Auto) 18.1 % [place] % (Auto) 8.3 % Eos % (Auto) 2.2 % Baso % (Auto) 0.5 % Neut # (Auto) 7.50 (1.8-7.7) 10^3/u L Lymph # (Auto) 1.9 (0.8-4.8) 10^3/u L [place] # (Auto) 0.9 (0.2-0.9) 10^3/u L Eos # (Auto) 0.2 (0.0-0.8) 10^3/u L Baso # (Auto) 0.1 (0.0-0.1) 10^3/u L Nucleated RBC % (a uto) 0 % Nucleated RBCs # 0.0 /100WBC ESR (0-10) mm/hr Specimen Type Jonathan Test VBG pH (7.32-7.42) VBG pCO2 (41-51) mmHg VBG pO2 (25-40) mmHg VBG HCO3 (24-28) mmol/L VBG Base Excess (-3.0-3.0) mmol/ L O2 Delivery Device FiO2 % Specimen Drawn By Hardware Engineering Manager ID Sodium 131 L (136-145) mmol/L Potassium 4.1 (3.5-5.1) mmol/L Chloride 93 L (98-107) mmol/L Carbon Dioxide 23 (22-29) mmol/L Anion Gap 19.1 H (5-19) BUN 6 (6-20) mg/dL Creatinine 0.6 L (0.7-1.2) mg/dL GFR Calculation 149.2 H (90-130) mL/min Glucose 329 H (65-115) mg/dL POC Glucose 325 (70-110) mg/dL Calculated Osmolal ity 282 L (285-295) mOsm/k g Calcium 9.4 (8.5-10.5) mg/dL Total Bilirubin 0.4 (0.15-1.2) mg/dL AST 13 (0-40) U/L ALT 38 (0-41) U/L Alkaline Phosphata se 170 H (40-130) IU/L C-Reactive Protein 35.3 H (0.0-4.9) mg/L Total Protein 7.0 (6.6-8.7) g/dL Albumin 4.4 (3.5-5.2) g/dL Globulin 2.6 (1.3-4.6) g/dL Urine Color (Yellow) Urine Appearance (CLEAR) Urine pH (5-7) Ur Specific Gravit y (1.005-1.030) Urine Protein (Negative) Urine Glucose (UA) (Normal) Urine Ketones (Negative) Urine Blood (Negative) Urine Nitrate (Negative) Urine Bilirubin (Negative) Urine Urobilinogen (Negative) mg/dL Ur Leukocyte Raisa ase (Negative) Urine RBC (0-2) /hpf Urine WBC (0-5) /hpf Ur Squamous Epith Cells (0-5) /hpf Amorphous Sediment Urine Bacteria (NONE) /hpf Urine Opiates Scre en (Negative) ng/mL Ur Barbiturates Sc reen (Negative) ng/mL Ur Phencyclidine S crn (Negative) ng/mL Ur Amphetamines Sc reen (Negative) ng/mL U Benzodiazepines Scrn (Negative) ng/mL Urine Cocaine Scre en (Negative) ng/mL U Marijuana (THC) Screen (Negative) ng/mL Serum Ketones Negative (Negative) 02/25/20 02/25/20 02/25/20 Range/Units 20:30 20:30 20:56 WBC (4.0-10.0) 10^3/ uL RBC (4.1-5.3) 10^6/u L Hgb (11.7-16.6) g/dL Hct (42.0-52.0) % MCV (80-94) fL MCH (28.0-34.0) pg MCHC (30.0-36.0) g/dL RDW (12.1-15.1) % Plt Count (130-400) 10^3/c mm MPV (7.4-10.4) fL Neut % (Auto) % Lymph % (Auto) % [place] % (Auto) % Eos % (Auto) % Baso % (Auto) % Neut # (Auto) (1.8-7.7) 10^3/u L Lymph # (Auto) (0.8-4.8) 10^3/u L [place] # (Auto) (0.2-0.9) 10^3/u L Eos # (Auto) (0.0-0.8) 10^3/u L Baso # (Auto) (0.0-0.1) 10^3/u L Nucleated RBC % (a uto) % Nucleated RBCs # /100WBC ESR 25 H (0-10) mm/hr Specimen Type Venous Jonathan Test N/a VBG pH 7.39 (7.32-7.42) VBG pCO2 44.0 (41-51) mmHg VBG pO2 13.9 L (25-40) mmHg VBG HCO3 26.0 (24-28) mmol/L VBG Base Excess 0.5 (-3.0-3.0) mmol/ L O2 Delivery Device Room air FiO2 21.0 % Specimen Drawn By Jefst Hardware Engineering Manager ID Jefst Sodium (136-145) mmol/L Potassium (3.5-5.1) mmol/L Chloride (98-107) mmol/L Carbon Dioxide (22-29) mmol/L Anion Gap (5-19) BUN (6-20) mg/dL Creatinine (0.7-1.2) mg/dL GFR Calculation (90-130) mL/min Glucose (65-115) mg/dL POC Glucose (70-110) mg/dL Calculated Osmolal ity (285-295) mOsm/k g Calcium (8.5-10.5) mg/dL Total Bilirubin (0.15-1.2) mg/dL AST (0-40) U/L ALT (0-41) U/L Alkaline Phosphata se (40-130) IU/L C-Reactive Protein (0.0-4.9) mg/L Total Protein (6.6-8.7) g/dL Albumin (3.5-5.2) g/dL Globulin (1.3-4.6) g/dL Urine Color Yellow (Yellow) Urine Appearance Clear (CLEAR) Urine pH 5 (5-7) Ur Specific Gravit y 1.020 (1.005-1.030) Urine Protein Neg (Negative) Urine Glucose (UA) 4+ H (Normal) Urine Ketones 1+ H (Negative) Urine Blood Neg (Negative) Urine Nitrate Negative (Negative) Urine Bilirubin Neg (Negative) Urine Urobilinogen Norm (Negative) mg/dL Ur Leukocyte Raisa ase Negative (Negative) Urine RBC None (0-2) /hpf Urine WBC Rare (0-5) /hpf Ur Squamous Epith Cells None (0-5) /hpf Amorphous Sediment Not Reportable Urine Bacteria None (NONE) /hpf Urine Opiates Scre en (Negative) ng/mL Ur Barbiturates Sc reen (Negative) ng/mL Ur Phencyclidine S crn (Negative) ng/mL Ur Amphetamines Sc reen (Negative) ng/mL U Benzodiazepines Scrn (Negative) ng/mL Urine Cocaine Scre en (Negative) ng/mL U Marijuana (THC) Screen (Negative) ng/mL Serum Ketones (Negative) 02/25/20 02/26/20 Range/Units 20:56 00:41 WBC (4.0-10.0) 10^3/ uL RBC (4.1-5.3) 10^6/u L Hgb (11.7-16.6) g/dL Hct (42.0-52.0) % MCV (80-94) fL MCH (28.0-34.0) pg MCHC (30.0-36.0) g/dL RDW (12.1-15.1) % Plt Count (130-400) 10^3/c mm MPV (7.4-10.4) fL Neut % (Auto) % Lymph % (Auto) % [place] % (Auto) % Eos % (Auto) % Baso % (Auto) % Neut # (Auto) (1.8-7.7) 10^3/u L Lymph # (Auto) (0.8-4.8) 10^3/u L [place] # (Auto) (0.2-0.9) 10^3/u L Eos # (Auto) (0.0-0.8) 10^3/u L Baso # (Auto) (0.0-0.1) 10^3/u L Nucleated RBC % (a uto) % Nucleated RBCs # /100WBC ESR (0-10) mm/hr Specimen Type Jonathan Test VBG pH (7.32-7.42) VBG pCO2 (41-51) mmHg VBG pO2 (25-40) mmHg VBG HCO3 (24-28) mmol/L VBG Base Excess (-3.0-3.0) mmol/ L O2 Delivery Device FiO2 % Specimen Drawn By Hardware Engineering Manager ID Sodium (136-145) mmol/L Potassium (3.5-5.1) mmol/L Chloride (98-107) mmol/L Carbon Dioxide (22-29) mmol/L Anion Gap (5-19) BUN (6-20) mg/dL Creatinine (0.7-1.2) mg/dL GFR Calculation (90-130) mL/min Glucose (65-115) mg/dL POC Glucose 307 (70-110) mg/dL Calculated Osmolal ity (285-295) mOsm/k g Calcium (8.5-10.5) mg/dL Total Bilirubin (0.15-1.2) mg/dL AST (0-40) U/L ALT (0-41) U/L Alkaline Phosphata se (40-130) IU/L C-Reactive Protein (0.0-4.9) mg/L Total Protein (6.6-8.7) g/dL Albumin (3.5-5.2) g/dL Globulin (1.3-4.6) g/dL Urine Color (Yellow) Urine Appearance (CLEAR) Urine pH (5-7) Ur Specific Gravit y (1.005-1.030) Urine Protein (Negative) Urine Glucose (UA) (Normal) Urine Ketones (Negative) Urine Blood (Negative) Urine Nitrate (Negative) Urine Bilirubin (Negative) Urine Urobilinogen (Negative) mg/dL Ur Leukocyte Raisa ase (Negative) Urine RBC (0-2) /hpf Urine WBC (0-5) /hpf Ur Squamous Epith Cells (0-5) /hpf Amorphous Sediment Urine Bacteria (NONE) /hpf Urine Opiates Scre en Positive H (Negative) ng/mL Ur Barbiturates Sc reen Negative (Negative) ng/mL Ur Phencyclidine S crn Negative (Negative) ng/mL Ur Amphetamines Sc reen Negative (Negative) ng/mL U Benzodiazepines Scrn Negative (Negative) ng/mL Urine Cocaine Scre en Negative (Negative) ng/mL U Marijuana (THC) Screen Negative (Negative) ng/mL Serum Ketones (Negative) Discharge Plan Discharge Patient Disposition: Home Clinical Impression: Low back pain Qualifiers: Chronicity: chronic Back pain laterality: bilateral Sciatica presence: unspecified whether sciatica present Qualified Code(s): M54.5 - Low back pain Condition: Stable Prescriptions: No Action Lantus Solostar U-100 Insulin 100 unit/mL (3 mL) insulin pen 20 unit SUBCUT QPM RF: 0 clonazepam 1 mg tablet 1 mg PO BID 30 Days Qty: 60 RF: 2 Zofran 4 mg tablet 4 mg PO Q6H PRN (Reason: nausea and vomiting) Qty: 10 RF: 0 pantoprazole 40 mg tablet,delayed release (DR/EC) 40 mg PO DAILY Qty: 30 RF: 0 oxycodone-acetaminophen 10-325 mg tablet 1 tab PO Q6H PRN (Reason: pain) 30 Days Qty: 120 RF: 0 insulin aspart U-100 [Novolog Flexpen U-100 Insulin] 100 unit/mL (3 mL) insulin pen See Rx Instructions .ROUTE .COMPLEX RF: 0 Zenpep 5,000-17,000- 24,000 unit Capsule,Delayed Release(Dr/Ec) 2 ea PO TIDWM Qty: 180 RF: 0 hydrocodone-acetaminophen 10-325 mg Tablet 1 tab PO QID PRN (Reason: Pain) RF: 0 pregabalin [Lyrica] 150 mg capsule 150 mg PO TID RF: 0 methocarbamol [Robaxin-750] 750 mg tablet 750 mg PO Q6H Qty: 30 RF: 0 Discharge Orders: Discharge Order (Routine); Ordered 02/26/20 Ordered By: Atif Melton Referrals: Oumar Gonzalez MD [Primary Care Provider] - 4-7 days Discharge Diet: Advance as tolerated Discharge Activity: Increase activity as tolerated Patient Instructions: Chronic Back Pain (ED) Activity Restrictions/Additional Instructions: We are unable to provide you more pain medication for home at this time, as you have received pain medication prescription from the ER in the past. Your MRIs of the spine were essentially negative. Follow-up with your primary care physician. Discharge Date/Time: 02/26/20 01:11 Coding Level of Care Code ED Automation Design Engineer for Chg Fwd Exam Comprehensive
[2020-02-25 20:14] VITALS: BP 130/91; PULSE 102; RESP 19; TEMP 36.8; O2SAT 99; BMI 19.2
--- NOTE | 2020-02-25 20:18 | CTR_ITS ---
PROCEDURE INFORMATION: Exam: CT Lumbar Spine Without Contrast Exam date and time: 02/25/2020 8:25 PM Age: 40 years old Clinical indication: Low back pain TECHNIQUE: Imaging protocol: Computed tomography images of the lumbar spine without contrast. Radiation optimization: All CT scans at this facility use at least one of these dose optimization techniques: automated exposure control; mA and/or kV adjustment per patient size (includes targeted exams where dose is matched to clinical indication); or iterative reconstruction. COMPARISON: [place] [id number] 03/15/2019 3:02 PM RADIATION DOSE METRICS: Total DLP (mGy-cm): 1523.99 FINDINGS: Vertebrae: No acute fracture. Normal alignment. No canal stenosis or neural foraminal narrowing is seen in the lumbar spine. Soft tissues: Unremarkable. Other findings: Chronic pancreatitis changes are appreciated. CT/CT lumbar spine wo con* [id number] IMPRESSION: 1. No acute abnormality is seen. 2. Chronic pancreatitis. Radiation Dose CTDIVOL = (mGy): DLP = 1523.99 (mGy-cm)
[2020-02-25 20:21] LABS: Glucose Point of Care 325 mg/dL (70-110)
[2020-02-25 20:43] LABS: Basophils # 0.1 10^3/uL (0.0-0.1); Basophils % 0.5 %; Eosinophils # 0.2 10^3/uL (0.0-0.8); Eosinophils % 2.2 %; Hematocrit 37.9 % (42.0-52.0); Hemoglobin 12.1 g/dL (11.7-16.6); Lymphocytes # 1.9 10^3/uL (0.8-4.8); Lymphocytes % 18.1 %; Mean Corpuscular HGB Conc 31.9 g/dL (30.0-36.0); Mean Corpuscular Hemoglobin 28.5 pg (28.0-34.0); Mean Corpuscular Volume 89.4 fL (80-94); Mean Platelet Volume 11.7 fL (7.4-10.4); Monocytes # 0.9 10^3/uL (0.2-0.9); Monocytes % 8.3 %; Neutrophils % 70.3 %; Nucleated Red Blood Cells % 0 %; Platelet Count 314 10^3/cmm (130-400); Red Blood Count 4.24 10^6/uL (4.1-5.3); White Blood Count 10.7 10^3/uL (4.0-10.0)
[2020-02-25 20:49] LABS: Blood Gas Sample Type Venous; Oxygen Device ROOM AIR
[2020-02-25 20:53] LABS: Base Excess VBG 0.5 mmol/L (-3.0-3.0); PO2 VBG 13.9 mmHg (25-40); pH VBG 7.39 (7.32-7.42)
[2020-02-25] MEDS: HYDROmorphone 1 mg/mL INJ 1 mL 0.5 MG IVP ×2 (21:01→21:16)
[2020-02-25] MEDS: ondansetron 2 mg/ML SDV 2 mL 4 MG IVP ×2 (21:02→23:15)
[2020-02-25] MEDS: sodium chloride 0.9% 1,000 ML 999 ML IV (21:02)
[2020-02-25] MEDS: orphenadrine 30 mg/mL Inj 2 mL 60 MG IM (21:02)
[2020-02-25 21:06] VITALS: BP 139/87; PULSE 87; RESP 16; O2SAT 99
[2020-02-25 21:12] LABS: Alanine Aminotransferase 38 U/L (0-41); Albumin Level 4.4 g/dL (3.5-5.2); Alkaline Phosphatase 170 IU/L (40-130); Aspartate Amino Transferase 13 U/L (0-40); Blood Urea Nitrogen 6 mg/dL (6-20); C Reactive Protein 35.3 mg/L (0.0-4.9); Calcium 9.4 mg/dL (8.5-10.5); Carbon Dioxide 23 mmol/L (22-29); Chloride 93 mmol/L (98-107); Globulin 2.6 g/dL (1.3-4.6); Glomerular Filtration Rate 149.2 mL/min (90-130); Glucose 329 mg/dL (65-115); Osmolality Calculated 282 mOsm/kg (285-295); Sodium 131 mmol/L (136-145); Total Bilirubin 0.4 mg/dL (0.15-1.2)
[2020-02-25 21:33] LABS: Anion Gap 19.1 (5-19); Potassium 4.1 mmol/L (3.5-5.1)
[2020-02-25 21:34] LABS: Ketone (Acetest) Serum Negative (Negative)
[2020-02-25 21:40] LABS: Erythrocyte Sedimentation Rate 25 mm/hr (0-10)
--- NOTE | 2020-02-25 21:45 | MRR_ITS ---
PROCEDURE INFORMATION: Exam: MR Lumbar Spine Without and With Contrast. Exam date and time: 02/25/2020 10:41 PM Age: 40 years old Clinical indication: Low back pain; Patient HX: Looking for possible abcess TECHNIQUE: Imaging protocol: Multiplanar magnetic resonance images of the lumbar spine without and with intravenous contrast. Contrast material: PROHANCE; Contrast volume: 17 ml; Contrast route: INTRAVENOUS (IV); COMPARISON: CT lumbar spine wo con* [id number] 02/25/2020 8:28 PM FINDINGS: Vertebrae: No acute fracture. Spinal alignment is normal. Spinal cord: Normal signal. No cord compression. No epidural fluid collection or abscess is seen. L1-L2: No disc disease, canal stenosis or neural foraminal narrowing. L2-L3: No disc disease, canal stenosis or neural foraminal narrowing. L3-L4: No disc disease, canal stenosis or neural foraminal narrowing. L4-L5: No disc disease, canal stenosis or neural foraminal narrowing. L5-S1: Mild disc desiccation is seen at L5-S1. A tiny posterior annular tear is also present at this level. No canal stenosis or neural foraminal narrowing. Kidneys and ureters: A small 11 mm right renal cyst is noted. No hydronephrosis. Soft tissues: Unremarkable. MR/MR lumbar spine wo/w con [id number] IMPRESSION: 1. No acute abnormality is seen. No epidural fluid collection or abscess is seen. 2. Small right renal cyst.
--- NOTE | 2020-02-25 21:45 | MRR_ITS ---
PROCEDURE INFORMATION: Exam: MR Thoracic Spine Without and With Contrast Exam date and time: 02/25/2020 10:41 PM Age: 40 years old Clinical indication: Pain in thoracic spine TECHNIQUE: Imaging protocol: Multiplanar magnetic resonance images of the thoracic spine without and with intravenous contrast. Contrast material: PROHANCE; Contrast volume: 17 ml; Contrast route: INTRAVENOUS (IV); COMPARISON: No relevant prior studies available. FINDINGS: Vertebrae: Unremarkable. No acute fracture. Normal alignment. Spinal cord: Normal signal. No cord compression. No epidural fluid collection or abscess. T1-T2: No disc disease. No canal stenosis. T2-T3: No disc disease. No canal stenosis. T3-T4: No disc disease. No canal stenosis. T4-T5: No disc disease. No canal stenosis. T5-T6: No disc disease. No canal stenosis. T6-T7: No disc disease. No canal stenosis. T7-T8: No disc disease. No canal stenosis. T8-T9: No disc disease. No canal stenosis. T9-T10: No disc disease. No canal stenosis. T10-T11: No disc disease. No canal stenosis. T11-T12: No disc disease. No canal stenosis. Lungs: Right lung base opacity may be atelectasis or pneumonia. Soft tissues: Unremarkable. MR/MR thoracic spine wo/w [id number] IMPRESSION: 1. No acute abnormality is seen in the thoracic spine. No epidural fluid collection or abscess is seen. 2. Right lung base atelectasis versus pneumonia.
[2020-02-25 21:52] LABS: Amphetamines Screen Urine Negative (Negative); Barbiturates Screen Urine Negative (Negative); Benzodiazepines Screen Urine Negative (Negative); Bilirubin Urine Neg (Negative); Blood Urine Neg (Negative); Cocaine Screen Urine Negative (Negative); Glucose Urine UA 4+ (Normal); Ketones Urine 1+ (Negative); Leukocyte Esterase Urine Negative (Negative); Nitrate Urine Negative (Negative); Opiate Screen Urine Positive (Negative); PCP Screen Urine Negative (Negative); Protein Urine Neg (Negative); THC Screen Urine Negative (Negative); Urine Appearance Clear (CLEAR); Urine Color Yellow (Yellow); Urobilinogen Urine Norm (Negative); WBC Urine RARE /hpf (0-5); pH Urine 5 (5-7)
[2020-02-25] MEDS: HYDROmorphone 1 mg/mL INJ 1 mL IVP (23:15)
[2020-02-26 00:45] LABS: Glucose Point of Care 307 mg/dL (70-110)
[2020-02-26 00:47] VITALS: BP 132/87; PULSE 87; RESP 18; O2SAT 96
[2020-02-26 01:09] VITALS: BP 134/87; PULSE 87; RESP 16; O2SAT 98
[2020-02-26] MEDS: oxyCODONE-APAP 5-325 mg Tablet 2 TAB PO (01:09)
== END 2020-02-26 01:11 | disposition home or self-care (01) ==
PROVIDERS: Emergency Medicine; Emergency Provider Emergency Medicine; PCP Family Medicine
DX: G89.29 Other chronic pain (principal); M54.5 Low back pain; Z79.4 Long term (current) use of insulin; E11.40 Type 2 diabetes mellitus with diabetic neuropathy, unspecified; F17.210 Nicotine dependence, cigarettes, uncomplicated
CPT/HCPCS: 12345; 36416; 72131; 72157; 72158; 80053; 80306; 81001; 82009; 82803; 82962; 85025; 85651; 86140; 96372; 99283; A9579; J0131; J1170; J2360; J2405; J7030

== ENCOUNTER 2020-03-14 02:28 | Emergency (ER) | payer MEDICAID, SELFPAY ==
[2020-03-14] VITALS (9 sets, daily range): BP systolic 104–131; BP diastolic 62–87; PULSE 76–102; RESP 14–18; TEMP 36.9–37.2; O2SAT 97–100; BMI 19.2
--- NOTE | 2020-03-14 02:33 | US_ITS ---
WS: [id number] Complete ABDOMINAL ULTRASOUND HISTORY: Abdominal Pain COMPARISON: 02/17/2020 Liver: 15.7 cm in length. Liver is slightly enlarged. No mass or bile duct dilatation. Gallbladder: Normally distended with no gallstones, wall thickening or pericholecystic fluid. Gallbladder wall thickness: 0.3 cm. Pancreas: Poorly visualized pancreas. Pancreas is of decreased echogenicity and shadowing. Calcificat ions and mild duct dilatation and changes of chronic pancreatitis noted on the CT of 03/14/2020. CBD: 0.5 cm. Right kidney: 10.8 cm x 6.0 cm x 5.7 cm. No mass, cortical thickening or hydronephrosis. Left kidney: 12.9 cm x 5.5 cm x 6.5 cm. No mass, cortical thickening or hydronephrosis. Spleen: Normal size and echogenicity. Abdominal aorta and IVC are within normal limits. No ascites. US/US abdomen complete* [id number] IMPRESSION: 1. Normal gallbladder. 2. Mild stable hepatomegaly. 3. Changes of chronic pancreatitis with calcifications and duct dilatation.
--- NOTE | 2020-03-14 02:34 | ECG_ITS ---
[facility] Test Date: 2020-03-14 Pat Name: Jagdish Clinton Department: Room: Gender: Male Manager Discovery: : 1980 Requested By: Thea Draper Order Number: [id number] Kendall MD: Lidia Mahan M.D. Measurements Intervals [place] Rate: 82 P: 56 IA: 159 QRS: 18 QRSD: 94 T: 48 QT: 391 QTc: 457 Interpretive Statements SINUS RHYTHM Compared to ECG 01/16/2020 00:39:23 No significant changes Electronically Signed On 03-14-2020 19:56:43 CDT by Lidia Mahan M.D. [email or web address]
--- NOTE | 2020-03-14 02:45 | W.ED.ABDPA2 ---
Documented by User: Thea Dickens 03/14/20 05:00 HPI - Abdominal Pain General: Chief Complaint: Abdominal Pain Stated Complaint: HIGH BLOOD SUGAR Time Seen by Provider: 03/14/20 02:29 Source: patient and EMS Mode of arrival: EMS Limitations: no limitations History of Present Illness: HPI narrative: Jagdish is a 40-year-old male who comes in complaining of upper abdominal pain for the past day. He has associated nausea but has not vomited. He has had no diarrhea. Patient states his blood sugar was running high at home up to 508 but he was able to give himself a dose of insulin 10 units at approximately 930. He later checked his blood sugar and it continued to go up. He was concerned about being in diabetic ketoacidosis and having a recurrence of his pancreatitis. The patient states he is had a history of pancreatitis. Patient denies any chest pain or shortness of breath. There is been no blood in his stools. Patient denies any other complaints. Associated Symptoms: Denies chills, coffee ground emesis, constipation, GI cramping, diarrhea, dysuria, fever(s), heartburn, hematochezia, hematuria, hematemesis, melena, nausea, syncope and vomiting Review of Systems Const: Denies: fever(s), chills, body aches, fatigue, malaise or diaphoresis Eyes: Denies: change in vision, blurry vision, photophobia, eye discomfort, eye discharge, eye redness or yellow eyes ENMT: Denies: throat pain, odynophagia, hoarseness, swelling of lips/tongue, ear or mastoid pain, ear discharge, change in hearing or nasal discharge Card: Denies: chest pain, palpitations, irregular heart rhythm, edema, lightheadedness, syncope, pre-syncope, dyspnea on exertion or orthopnea Resp: Denies: dyspnea, productive cough, non-productive cough, wheezing, hemoptysis or chest congestion GI: Reports: abdominal pain; Denies: nausea, vomiting, hematemesis, coffee ground emesis, heartburn, diarrhea, constipation, GI cramping, hematochezia or melena : Denies: flank pain, dysuria, urinary frequency, urinary urgency or hematuria Musc: Denies: neck pain, back pain, extremity pain, extremity swelling, joint pain, joint swelling, joint redness, joint warmth or joint stiffness Skin/Breast: Denies: rash, pruritus, erythema, skin pain or skin tenderness Neuro: Denies: headache(s), numbness in extremities, weakness in extremities, sensory changes, lack of coordination, difficulty walking, dizziness, vertigo, confusion, Slurred speech present or seizure-like activity Khanh/Lymph: Denies: easy bruising, easy bleeding, petechiae, purpura or enlarged lymph nodes All/Imm: Denies: urticaria, throat swelling, tongue swelling, facial swelling or acute wheezing PFSH ED PFSH: Medical History Abdominal pain Thought to be secondary to chronic pancreatitis. 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 Pichardo Family History Father CAD (coronary artery disease) Diabetes Stroke Social History Smoking and tobacco status: current every day smoker cigarettes Packs smoked per day: 0.75 Alcohol intake: former Former alcohol use details: Says has not drank any alcohol in 3 years. Lives independently: Yes Household members: family and other Details: Parents Marital status: Legally Current occupational status: unemployed Course ED course: 0456 -patient's blood sugar is down to the 300s at this time. He is feeling much better. We will complete his work-up with a CT of the abdomen and pelvis. Vital Signs: Vital signs: Vital Signs Temperature 98.9 F 03/14/20 02:32 Pulse Rate 76 03/14/20 06:00 Respiratory Rate 16 03/14/20 06:00 Blood Pressure 114/78 03/14/20 06:00 Pulse Oximetry 97 03/14/20 06:00 MDM - Abdominal Pain Lab Data: Attestation: I reviewed the patient's lab results. Labs: Lab Results 03/14/20 03/14/20 03/14/20 Range/Units 02:30 02:30 02:30 WBC 7.5 (4.0-10.0) 10^3/ uL RBC 4.36 (4.1-5.3) 10^6/u L Hgb 12.7 (11.7-16.6) g/dL Hct 40.4 L (42.0-52.0) % MCV 92.7 (80-94) fL MCH 29.1 (28.0-34.0) pg MCHC 31.4 (30.0-36.0) g/dL RDW 14.6 (12.1-15.1) % Plt Count 242 (130-400) 10^3/c mm MPV 12.9 H (7.4-10.4) fL Neut % (Auto) 70.0 % Lymph % (Auto) 20.3 % [place] % (Auto) 6.8 % Eos % (Auto) 1.3 % Baso % (Auto) 0.7 % Neut # (Auto) 5.22 (1.8-7.7) 10^3/u L Lymph # (Auto) 1.5 (0.8-4.8) 10^3/u L [place] # (Auto) 0.5 (0.2-0.9) 10^3/u L Eos # (Auto) 0.1 (0.0-0.8) 10^3/u L Baso # (Auto) 0.1 (0.0-0.1) 10^3/u L Nucleated RBC % (a uto) 0 % Nucleated RBCs # 0.0 /100WBC Specimen Type Sample Site ABG pH (7.35-7.45) ABG pCO2 (35-45) mmHg ABG pO2 (80.0-100.0) mmH g ABG HCO3 (22-26) mmol/L ABG Base Excess (-2.0-2.0) mmol/ L Jonathan Test Hematocrit (42-52) % Emergency Department Technician ID Sodium 128 L (136-145) mmol/L Potassium 5.2 H (3.5-5.1) mmol/L Chloride 89 L (98-107) mmol/L Carbon Dioxide 25 (22-29) mmol/L Anion Gap 19.2 H (5-19) BUN 10 (6-20) mg/dL Creatinine 0.9 (0.7-1.2) mg/dL GFR Calculation 93.5 (90-130) mL/min Glucose 686 H* (65-115) mg/dL POC Glucose (70-110) mg/dL Calculated Osmolal ity 298 H (285-295) mOsm/k g Lactic Acid (0.5-2.2) mmol/L Calcium 9.4 (8.5-10.5) mg/dL Magnesium 1.7 (1.7-2.3) mg/dL Total Bilirubin 0.4 (0.15-1.2) mg/dL AST 58 H (0-40) U/L ALT 50 H (0-41) U/L Alkaline Phosphata se 178 H (40-130) IU/L Troponin T Gen 5 n g/L Cancelled Troponin T Baselin e (0-15) ng/L Troponin T [address] [place] Delta Troponin T Total Protein 6.6 (6.6-8.7) g/dL Albumin 4.2 (3.5-5.2) g/dL Globulin 2.4 (1.3-4.6) g/dL Lipase 4 L (13-60) U/L Urine Color (Yellow) Urine Appearance (CLEAR) Urine pH (5-7) Ur Specific Gravit y (1.005-1.030) Urine Protein (Negative) Urine Glucose (UA) (Normal) Urine Ketones (Negative) Urine Blood (Negative) Urine Nitrate (Negative) Urine Bilirubin (Negative) Urine Urobilinogen (Negative) mg/dL Ur Leukocyte Raisa ase (Negative) Urine RBC (0-2) /hpf Urine WBC (0-5) /hpf Ur Squamous Epith Cells (0-5) /hpf Amorphous Sediment Urine Bacteria (NONE) /hpf Urine Opiates Scre en (Negative) ng/mL Ur Barbiturates Sc reen (Negative) ng/mL Ur Phencyclidine S crn (Negative) ng/mL Ur Amphetamines Sc reen (Negative) ng/mL U Benzodiazepines Scrn (Negative) ng/mL Urine Cocaine Scre en (Negative) ng/mL U Marijuana (THC) Screen (Negative) ng/mL Ethyl Alcohol < 10 (0-10) mg/dL Serum Ketones Negative (Negative) 10/12/20 10/12/20 10/12/20 Range/Units 02:30 02:30 02:30 WBC (4.0-10.0) 10^3/ uL RBC (4.1-5.3) 10^6/u L Hgb (11.7-16.6) g/dL Hct (42.0-52.0) % MCV (80-94) fL MCH (28.0-34.0) pg MCHC (30.0-36.0) g/dL RDW (12.1-15.1) % Plt Count (130-400) 10^3/c mm MPV (7.4-10.4) fL Neut % (Auto) % Lymph % (Auto) % [place] % (Auto) % Eos % (Auto) % Baso % (Auto) % Neut # (Auto) (1.8-7.7) 10^3/u L Lymph # (Auto) (0.8-4.8) 10^3/u L [place] # (Auto) (0.2-0.9) 10^3/u L Eos # (Auto) (0.0-0.8) 10^3/u L Baso # (Auto) (0.0-0.1) 10^3/u L Nucleated RBC % (a uto) % Nucleated RBCs # /100WBC Specimen Type Sample Site ABG pH (7.35-7.45) ABG pCO2 (35-45) mmHg ABG pO2 (80.0-100.0) mmH g ABG HCO3 (22-26) mmol/L ABG Base Excess (-2.0-2.0) mmol/ L Jonathan Test Hematocrit (42-52) % Emergency Department Technician ID Sodium (136-145) mmol/L Potassium (3.5-5.1) mmol/L Chloride (98-107) mmol/L Carbon Dioxide (22-29) mmol/L Anion Gap (5-19) BUN (6-20) mg/dL Creatinine (0.7-1.2) mg/dL GFR Calculation (90-130) mL/min Glucose (65-115) mg/dL POC Glucose (70-110) mg/dL Calculated Osmolal ity (285-295) mOsm/k g Lactic Acid (0.5-2.2) mmol/L Calcium (8.5-10.5) mg/dL Magnesium (1.7-2.3) mg/dL Total Bilirubin (0.15-1.2) mg/dL AST (0-40) U/L ALT (0-41) U/L Alkaline Phosphata se (40-130) IU/L Troponin T Gen 5 n g/L Troponin T Baselin e 39 H (0-15) ng/L Troponin T [address] [place] Troponin T Total Protein (6.6-8.7) g/dL Albumin (3.5-5.2) g/dL Globulin (1.3-4.6) g/dL Lipase (13-60) U/L Urine Color Yellow (Yellow) Urine Appearance Clear (CLEAR) Urine pH 5 (5-7) Ur Specific Gravit y 1.010 (1.005-1.030) Urine Protein Neg (Negative) Urine Glucose (UA) 4+ H (Normal) Urine Ketones Negative (Negative) Urine Blood Neg (Negative) Urine Nitrate Negative (Negative) Urine Bilirubin Neg (Negative) Urine Urobilinogen Norm (Negative) mg/dL Ur Leukocyte Raisa ase Negative (Negative) Urine RBC None (0-2) /hpf Urine WBC None (0-5) /hpf Ur Squamous Epith Cells None (0-5) /hpf Amorphous Sediment Not Reportable Urine Bacteria Trace (NONE) /hpf Urine Opiates Scre en Positive H (Negative) ng/mL Ur Barbiturates Sc reen Negative (Negative) ng/mL Ur Phencyclidine S crn Negative (Negative) ng/mL Ur Amphetamines Sc reen Negative (Negative) ng/mL U Benzodiazepines Scrn Negative (Negative) ng/mL Urine Cocaine Scre en Negative (Negative) ng/mL U Marijuana (THC) Screen Negative (Negative) ng/mL Ethyl Alcohol (0-10) mg/dL Serum Ketones (Negative) 03/14/20 03/14/20 03/14/20 Range/Units 03:05 03:10 04:45 WBC (4.0-10.0) 10^3/ uL RBC (4.1-5.3) 10^6/u L Hgb (11.7-16.6) g/dL Hct (42.0-52.0) % MCV (80-94) fL MCH (28.0-34.0) pg MCHC (30.0-36.0) g/dL RDW (12.1-15.1) % Plt Count (130-400) 10^3/c mm MPV (7.4-10.4) fL Neut % (Auto) % Lymph % (Auto) % [place] % (Auto) % Eos % (Auto) % Baso % (Auto) % Neut # (Auto) (1.8-7.7) 10^3/u L Lymph # (Auto) (0.8-4.8) 10^3/u L [place] # (Auto) (0.2-0.9) 10^3/u L Eos # (Auto) (0.0-0.8) 10^3/u L Baso # (Auto) (0.0-0.1) 10^3/u L Nucleated RBC % (a uto) % Nucleated RBCs # /100WBC Specimen Type Arterial Sample Site Radial, right ABG pH 7.39 (7.35-7.45) ABG pCO2 45.5 H (35-45) mmHg ABG pO2 78.6 L (80.0-100.0) mmH g ABG HCO3 27.2 H (22-26) mmol/L ABG Base Excess 1.7 (-2.0-2.0) mmol/ L Jonathan Test Pos Hematocrit 35.0 L (42-52) % Emergency Department Technician ID lyle Sodium (136-145) mmol/L Potassium (3.5-5.1) mmol/L Chloride (98-107) mmol/L Carbon Dioxide (22-29) mmol/L Anion Gap (5-19) BUN (6-20) mg/dL Creatinine (0.7-1.2) mg/dL GFR Calculation (90-130) mL/min Glucose (65-115) mg/dL POC Glucose (70-110) mg/dL Calculated Osmolal ity (285-295) mOsm/k g Lactic Acid 1.5 (0.5-2.2) mmol/L Calcium (8.5-10.5) mg/dL Magnesium (1.7-2.3) mg/dL Total Bilirubin (0.15-1.2) mg/dL AST (0-40) U/L ALT (0-41) U/L Alkaline Phosphata se (40-130) IU/L Troponin T Gen 5 n g/L Troponin T Baselin e (0-15) ng/L Troponin T 120 Min [place] Cancelled Delta Troponin T Cancelled Total Protein (6.6-8.7) g/dL Albumin (3.5-5.2) g/dL Globulin (1.3-4.6) g/dL Lipase (13-60) U/L Urine Color (Yellow) Urine Appearance (CLEAR) Urine pH (5-7) Ur Specific Gravit y (1.005-1.030) Urine Protein (Negative) Urine Glucose (UA) (Normal) Urine Ketones (Negative) Urine Blood (Negative) Urine Nitrate (Negative) Urine Bilirubin (Negative) Urine Urobilinogen (Negative) mg/dL Ur Leukocyte Raisa ase (Negative) Urine RBC (0-2) /hpf Urine WBC (0-5) /hpf Ur Squamous Epith Cells (0-5) /hpf Amorphous Sediment Urine Bacteria (NONE) /hpf Urine Opiates Scre en (Negative) ng/mL Ur Barbiturates Sc reen (Negative) ng/mL Ur Phencyclidine S crn (Negative) ng/mL Ur Amphetamines Sc reen (Negative) ng/mL U Benzodiazepines Scrn (Negative) ng/mL Urine Cocaine Scre en (Negative) ng/mL U Marijuana (THC) Screen (Negative) ng/mL Ethyl Alcohol (0-10) mg/dL Serum Ketones (Negative) 03/14/20 03/14/20 03/14/20 Range/Units 04:49 05:15 05:32 WBC (4.0-10.0) 10^3/ uL RBC (4.1-5.3) 10^6/u L Hgb (11.7-16.6) g/dL Hct (42.0-52.0) % MCV (80-94) fL MCH (28.0-34.0) pg MCHC (30.0-36.0) g/dL RDW (12.1-15.1) % Plt Count (130-400) 10^3/c mm MPV (7.4-10.4) fL Neut % (Auto) % Lymph % (Auto) % [place] % (Auto) % Eos % (Auto) % Baso % (Auto) % Neut # (Auto) (1.8-7.7) 10^3/u L Lymph # (Auto) (0.8-4.8) 10^3/u L [place] # (Auto) (0.2-0.9) 10^3/u L Eos # (Auto) (0.0-0.8) 10^3/u L Baso # (Auto) (0.0-0.1) 10^3/u L Nucleated RBC % (a uto) % Nucleated RBCs # /100WBC Specimen Type Sample Site ABG pH (7.35-7.45) ABG pCO2 (35-45) mmHg ABG pO2 (80.0-100.0) mmH g ABG HCO3 (22-26) mmol/L ABG Base Excess (-2.0-2.0) mmol/ L Jonathan Test Hematocrit (42-52) % Emergency Department Technician ID Sodium (136-145) mmol/L Potassium (3.5-5.1) mmol/L Chloride (98-107) mmol/L Carbon Dioxide (22-29) mmol/L Anion Gap (5-19) BUN (6-20) mg/dL Creatinine (0.7-1.2) mg/dL GFR Calculation (90-130) mL/min Glucose (65-115) mg/dL POC Glucose 386 316 (70-110) mg/dL Calculated Osmolal ity (285-295) mOsm/k g Lactic Acid (0.5-2.2) mmol/L Calcium (8.5-10.5) mg/dL Magnesium (1.7-2.3) mg/dL Total Bilirubin (0.15-1.2) mg/dL AST (0-40) U/L ALT (0-41) U/L Alkaline Phosphata se (40-130) IU/L Troponin T Gen 5 n g/L Troponin T Baselin e (0-15) ng/L Troponin T [address] [place] 42.11 H Delta Troponin T 3.11 Total Protein (6.6-8.7) g/dL Albumin (3.5-5.2) g/dL Globulin (1.3-4.6) g/dL Lipase (13-60) U/L Urine Color (Yellow) Urine Appearance (CLEAR) Urine pH (5-7) Ur Specific Gravit y (1.005-1.030) Urine Protein (Negative) Urine Glucose (UA) (Normal) Urine Ketones (Negative) Urine Blood (Negative) Urine Nitrate (Negative) Urine Bilirubin (Negative) Urine Urobilinogen (Negative) mg/dL Ur Leukocyte Raisa ase (Negative) Urine RBC (0-2) /hpf Urine WBC (0-5) /hpf Ur Squamous Epith Cells (0-5) /hpf Amorphous Sediment Urine Bacteria (NONE) /hpf Urine Opiates Scre en (Negative) ng/mL Ur Barbiturates Sc reen (Negative) ng/mL Ur Phencyclidine S crn (Negative) ng/mL Ur Amphetamines Sc reen (Negative) ng/mL U Benzodiazepines Scrn (Negative) ng/mL Urine Cocaine Scre en (Negative) ng/mL U Marijuana (THC) Screen (Negative) ng/mL Ethyl Alcohol (0-10) mg/dL Serum Ketones (Negative) 03/14/20 Range/Units 06:07 WBC (4.0-10.0) 10^3/ uL RBC (4.1-5.3) 10^6/u L Hgb (11.7-16.6) g/dL Hct (42.0-52.0) % MCV (80-94) fL MCH (28.0-34.0) pg MCHC (30.0-36.0) g/dL RDW (12.1-15.1) % Plt Count (130-400) 10^3/c mm MPV (7.4-10.4) fL Neut % (Auto) % Lymph % (Auto) % [place] % (Auto) % Eos % (Auto) % Baso % (Auto) % Neut # (Auto) (1.8-7.7) 10^3/u L Lymph # (Auto) (0.8-4.8) 10^3/u L [place] # (Auto) (0.2-0.9) 10^3/u L Eos # (Auto) (0.0-0.8) 10^3/u L Baso # (Auto) (0.0-0.1) 10^3/u L Nucleated RBC % (a uto) % Nucleated RBCs # /100WBC Specimen Type Sample Site ABG pH (7.35-7.45) ABG pCO2 (35-45) mmHg ABG pO2 (80.0-100.0) mmH g ABG HCO3 (22-26) mmol/L ABG Base Excess (-2.0-2.0) mmol/ L Jonathan Test Hematocrit (42-52) % Emergency Department Technician ID Sodium (136-145) mmol/L Potassium (3.5-5.1) mmol/L Chloride (98-107) mmol/L Carbon Dioxide (22-29) mmol/L Anion Gap (5-19) BUN (6-20) mg/dL Creatinine (0.7-1.2) mg/dL GFR Calculation (90-130) mL/min Glucose (65-115) mg/dL POC Glucose 204 (70-110) mg/dL Calculated Osmolal ity (285-295) mOsm/k g Lactic Acid (0.5-2.2) mmol/L Calcium (8.5-10.5) mg/dL Magnesium (1.7-2.3) mg/dL Total Bilirubin (0.15-1.2) mg/dL AST (0-40) U/L ALT (0-41) U/L Alkaline Phosphata se (40-130) IU/L Troponin T Gen 5 n g/L Troponin T Baselin e (0-15) ng/L Troponin T 120 Min [place] Troponin T Total Protein (6.6-8.7) g/dL Albumin (3.5-5.2) g/dL Globulin (1.3-4.6) g/dL Lipase (13-60) U/L Urine Color (Yellow) Urine Appearance (CLEAR) Urine pH (5-7) Ur Specific Gravit y (1.005-1.030) Urine Protein (Negative) Urine Glucose (UA) (Normal) Urine Ketones (Negative) Urine Blood (Negative) Urine Nitrate (Negative) Urine Bilirubin (Negative) Urine Urobilinogen (Negative) mg/dL Ur Leukocyte Raisa ase (Negative) Urine RBC (0-2) /hpf Urine WBC (0-5) /hpf Ur Squamous Epith Cells (0-5) /hpf Amorphous Sediment Urine Bacteria (NONE) /hpf Urine Opiates Scre en (Negative) ng/mL Ur Barbiturates Sc reen (Negative) ng/mL Ur Phencyclidine S crn (Negative) ng/mL Ur Amphetamines Sc reen (Negative) ng/mL U Benzodiazepines Scrn (Negative) ng/mL Urine Cocaine Scre en (Negative) ng/mL U Marijuana (THC) Screen (Negative) ng/mL Ethyl Alcohol (0-10) mg/dL Serum Ketones (Negative) Imaging Data ^: US: My impression: Ultrasound abdomen complete, tech interpretation -chronic pancreatitis with calcifications in small pancreas noted. Gallbladder normal. Kidneys unremarkable. Liver enlargement. CXR: Attestation: I personally reviewed and interpreted this imaging study as follows: My impression: Questionable right lower lobe infiltrate. Discharge Plan Discharge Patient Disposition: Home Clinical Impression: Abdominal pain, Diabetes mellitus, Hyperglycemia, Diabetic gastroparesis Condition: Stable Prescriptions: New metoclopramide HCl 10 mg tablet 10 mg PO Q6H 7 Days Qty: 28 RF: 0 No Action pregabalin [Lyrica] 150 mg capsule 150 mg PO TID Qty: 90 RF: 2 clonazepam 1 mg tablet 1 mg PO BID 30 Days Qty: 60 RF: 2 Zofran 4 mg tablet 4 mg PO Q12H PRN (Reason: nausea and vomiting) Qty: 60 RF: 2 pantoprazole 40 mg tablet,delayed release (DR/EC) 40 mg PO DAILY Qty: 30 RF: 0 oxycodone-acetaminophen 10-325 mg tablet 1 tab PO Q6H PRN (Reason: pain) 30 Days Qty: 120 RF: 0 Lantus Solostar U-100 Insulin 100 unit/mL (3 mL) insulin pen 20 unit SUBCUT QPM Qty: 15 RF: 4 insulin aspart U-100 [Novolog Flexpen U-100 Insulin] 100 unit/mL (3 mL) insulin pen See Rx Instructions .ROUTE .COMPLEX Qty: 15 RF: 5 Zenpep 5,000-17,000- 24,000 unit Capsule,Delayed Release(Dr/Ec) 2 ea PO TIDWM Qty: 180 RF: 0 Discharge Orders: Discharge Order (Routine); Ordered 03/14/20 Ordered By: Jose Carlos Guillaume Referrals: Oumar Gonzalez MD [Primary Care Provider] - Discharge Diet: Clear Liquid Discharge Activity: Increase activity as tolerated Activity Restrictions/Additional Instructions: Clear liquid diet for 12 to 24 hours. Then advance as tolerated monitor blood sugars closely return if is worsening problem. Follow-up with your primary care doctor within the week. Sign Out Sign Out Data: Patient Sign Out occurred on 03/14/20 at 06:10. Patient's care was discussed, and care was transferred from Thea Dickens to Jose Carlos Guillaume DO. Sign Out Comment: Case turned over to Dr. Guillaume at change of shift. Last updated by Thea Dickens at 03/14/20 06:01 Coding Level of Care Code ED Auto Service Dispatcher for Chg Fwd Documented by User: Jose Carlos Guillaume DO 03/14/20 07:14 HPI - Abdominal Pain General: Chief Complaint: Abdominal Pain Stated Complaint: HIGH BLOOD SUGAR Time Seen by Provider: 03/14/20 02:29 PFSH ED PFSH: Medical History Abdominal pain Thought to be secondary to chronic pancreatitis. 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 Pichardo Family History Father CAD (coronary artery disease) Diabetes Stroke Social History Smoking and tobacco status: current every day smoker cigarettes Packs smoked per day: 0.75 Alcohol intake: former Former alcohol use details: Says has not drank any alcohol in 3 years. Lives independently: Yes Household members: family and other Details: Parents Marital status: Legally Current occupational status: unemployed Physical Exam Const: COMMON NORMALS: no acute distress ORIENTATION/CONSCIOUSNESS: Yes awake, Yes oriented to person, Yes oriented to place and Yes oriented to time Neck/C-Spine: COMMON NORMALS: no JVD Resp: COMMON NORMALS: normal respiratory effort, No retractions, No use of accessory muscles and clear to auscultation bilaterally AUSCULTATION: clear to auscultation bilaterally Cardio: COMMON NORMALS: no JVD, regular rate, regular rhythm and No murmurs present (Cardio) RATE: regular rate RHYTHM: regular rhythm GI: COMMON NORMALS: Soft to palpation and No hepatosplenomegaly present AUSCULTATION: Yes normoactive bowel sounds PALPATION: Yes Soft to palpation, No Tenderness to palpation present (GI), No Guarding due to palpation present (GI) and Yes No hepatosplenomegaly present Extremity: COMMON NORMALS: normal to inspection, capillary refill normal, no clubbing, cyanosis or edema, no calf tenderness and no pedal edema Neuro: SENSORIUM/ORIENTATION: Yes oriented to person, Yes oriented to place and Yes oriented to time Skin: COMMON NORMALS: no rashes or lesions noted GENERAL SKIN EXAM: no rashes or lesions noted Course Vital Signs: Vital signs: Vital Signs Temperature 98.9 F 03/14/20 02:32 Pulse Rate 76 03/14/20 06:00 Respiratory Rate 16 03/14/20 06:00 Blood Pressure 114/78 03/14/20 06:00 Pulse Oximetry 97 03/14/20 06:00 MDM - Abdominal Pain MDM Narrative: Medical decision making narrative: Care assumed at change of shift. Ultrasound read is pending blood sugar is improved CT shows renal cyst, but no acute changes. Patient is anxious to leave and would like to go he is already called his ride. We will go ahead and discharge. We will redraw a BMP as he was hyponatremic and hyperkalemic on arrival with suspect most of this has corrected with his blood sugar going down. Patient is anxious to go his ride is here we will follow up with a BMP when it is completed gave him Reglan to use scheduled follow-up with his primary to consider gastric emptying study. Lab Data: Attestation: I reviewed the patient's lab results. Labs: Lab Results 03/14/20 03/14/20 03/14/20 Range/Units 02:30 02:30 02:30 WBC 7.5 (4.0-10.0) 10^3/ uL RBC 4.36 (4.1-5.3) 10^6/u L Hgb 12.7 (11.7-16.6) g/dL Hct 40.4 L (42.0-52.0) % MCV 92.7 (80-94) fL MCH 29.1 (28.0-34.0) pg MCHC 31.4 (30.0-36.0) g/dL RDW 14.6 (12.1-15.1) % Plt Count 242 (130-400) 10^3/c mm MPV 12.9 H (7.4-10.4) fL Neut % (Auto) 70.0 % Lymph % (Auto) 20.3 % [place] % (Auto) 6.8 % Eos % (Auto) 1.3 % Baso % (Auto) 0.7 % Neut # (Auto) 5.22 (1.8-7.7) 10^3/u L Lymph # (Auto) 1.5 (0.8-4.8) 10^3/u L [place] # (Auto) 0.5 (0.2-0.9) 10^3/u L Eos # (Auto) 0.1 (0.0-0.8) 10^3/u L Baso # (Auto) 0.1 (0.0-0.1) 10^3/u L Nucleated RBC % (a uto) 0 % Nucleated RBCs # 0.0 /100WBC Specimen Type Sample Site ABG pH (7.35-7.45) ABG pCO2 (35-45) mmHg ABG pO2 (80.0-100.0) mmH g ABG HCO3 (22-26) mmol/L ABG Base Excess (-2.0-2.0) mmol/ L Jonathan Test Hematocrit (42-52) % Emergency Department Technician ID Sodium 128 L (136-145) mmol/L Potassium 5.2 H (3.5-5.1) mmol/L Chloride 89 L (98-107) mmol/L Carbon Dioxide 25 (22-29) mmol/L Anion Gap 19.2 H (5-19) BUN 10 (6-20) mg/dL Creatinine 0.9 (0.7-1.2) mg/dL GFR Calculation 93.5 (90-130) mL/min Glucose 686 H* (65-115) mg/dL POC Glucose (70-110) mg/dL Calculated Osmolal ity 298 H (285-295) mOsm/k g Lactic Acid (0.5-2.2) mmol/L Calcium 9.4 (8.5-10.5) mg/dL Magnesium 1.7 (1.7-2.3) mg/dL Total Bilirubin 0.4 (0.15-1.2) mg/dL AST 58 H (0-40) U/L ALT 50 H (0-41) U/L Alkaline Phosphata se 178 H (40-130) IU/L Troponin T Gen 5 n g/L Cancelled Troponin T Baselin e (0-15) ng/L Troponin T 120 Min [place] Troponin T Total Protein 6.6 (6.6-8.7) g/dL Albumin 4.2 (3.5-5.2) g/dL Globulin 2.4 (1.3-4.6) g/dL Lipase 4 L (13-60) U/L Urine Color (Yellow) Urine Appearance (CLEAR) Urine pH (5-7) Ur Specific Gravit y (1.005-1.030) Urine Protein (Negative) Urine Glucose (UA) (Normal) Urine Ketones (Negative) Urine Blood (Negative) Urine Nitrate (Negative) Urine Bilirubin (Negative) Urine Urobilinogen (Negative) mg/dL Ur Leukocyte Raisa ase (Negative) Urine RBC (0-2) /hpf Urine WBC (0-5) /hpf Ur Squamous Epith Cells (0-5) /hpf Amorphous Sediment Urine Bacteria (NONE) /hpf Urine Opiates Scre en (Negative) ng/mL Ur Barbiturates Sc reen (Negative) ng/mL Ur Phencyclidine S crn (Negative) ng/mL Ur Amphetamines Sc reen (Negative) ng/mL U Benzodiazepines Scrn (Negative) ng/mL Urine Cocaine Scre en (Negative) ng/mL U Marijuana (THC) Screen (Negative) ng/mL Ethyl Alcohol < 10 (0-10) mg/dL Serum Ketones Negative (Negative) 03/14/20 03/14/20 03/14/20 Range/Units 02:30 02:30 02:30 WBC (4.0-10.0) 10^3/ uL RBC (4.1-5.3) 10^6/u L Hgb (11.7-16.6) g/dL Hct (42.0-52.0) % MCV (80-94) fL MCH (28.0-34.0) pg MCHC (30.0-36.0) g/dL RDW (12.1-15.1) % Plt Count (130-400) 10^3/c mm MPV (7.4-10.4) fL Neut % (Auto) % Lymph % (Auto) % [place] % (Auto) % Eos % (Auto) % Baso % (Auto) % Neut # (Auto) (1.8-7.7) 10^3/u L Lymph # (Auto) (0.8-4.8) 10^3/u L [place] # (Auto) (0.2-0.9) 10^3/u L Eos # (Auto) (0.0-0.8) 10^3/u L Baso # (Auto) (0.0-0.1) 10^3/u L Nucleated RBC % (a uto) % Nucleated RBCs # /100WBC Specimen Type Sample Site ABG pH (7.35-7.45) ABG pCO2 (35-45) mmHg ABG pO2 (80.0-100.0) mmH g ABG HCO3 (22-26) mmol/L ABG Base Excess (-2.0-2.0) mmol/ L Jonathan Test Hematocrit (42-52) % Emergency Department Technician ID Sodium (136-145) mmol/L Potassium (3.5-5.1) mmol/L Chloride (98-107) mmol/L Carbon Dioxide (22-29) mmol/L Anion Gap (5-19) BUN (6-20) mg/dL Creatinine (0.7-1.2) mg/dL GFR Calculation (90-130) mL/min Glucose (65-115) mg/dL POC Glucose (70-110) mg/dL Calculated Osmolal ity (285-295) mOsm/k g Lactic Acid (0.5-2.2) mmol/L Calcium (8.5-10.5) mg/dL Magnesium (1.7-2.3) mg/dL Total Bilirubin (0.15-1.2) mg/dL AST (0-40) U/L ALT (0-41) U/L Alkaline Phosphata se (40-130) IU/L Troponin T Gen 5 n g/L Troponin T Baselin e 39 H (0-15) ng/L Troponin T 120 [address] [place] Delta Troponin T Total Protein (6.6-8.7) g/dL Albumin (3.5-5.2) g/dL Globulin (1.3-4.6) g/dL Lipase (13-60) U/L Urine Color Yellow (Yellow) Urine Appearance Clear (CLEAR) Urine pH 5 (5-7) Ur Specific Gravit y 1.010 (1.005-1.030) Urine Protein Neg (Negative) Urine Glucose (UA) 4+ H (Normal) Urine Ketones Negative (Negative) Urine Blood Neg (Negative) Urine Nitrate Negative (Negative) Urine Bilirubin Neg (Negative) Urine Urobilinogen Norm (Negative) mg/dL Ur Leukocyte Raisa ase Negative (Negative) Urine RBC None (0-2) /hpf Urine WBC None (0-5) /hpf Ur Squamous Epith Cells None (0-5) /hpf Amorphous Sediment Not Reportable Urine Bacteria Trace (NONE) /hpf Urine Opiates Scre en Positive H (Negative) ng/mL Ur Barbiturates Sc reen Negative (Negative) ng/mL Ur Phencyclidine S crn Negative (Negative) ng/mL Ur Amphetamines Sc reen Negative (Negative) ng/mL U Benzodiazepines Scrn Negative (Negative) ng/mL Urine Cocaine Scre en Negative (Negative) ng/mL U Marijuana (THC) Screen Negative (Negative) ng/mL Ethyl Alcohol (0-10) mg/dL Serum Ketones (Negative) 03/14/20 03/14/20 03/14/20 Range/Units 03:05 03:10 04:45 WBC (4.0-10.0) 10^3/ uL RBC (4.1-5.3) 10^6/u L Hgb (11.7-16.6) g/dL Hct (42.0-52.0) % MCV (80-94) fL MCH (28.0-34.0) pg MCHC (30.0-36.0) g/dL RDW (12.1-15.1) % Plt Count (130-400) 10^3/c mm MPV (7.4-10.4) fL Neut % (Auto) % Lymph % (Auto) % [place] % (Auto) % Eos % (Auto) % Baso % (Auto) % Neut # (Auto) (1.8-7.7) 10^3/u L Lymph # (Auto) (0.8-4.8) 10^3/u L [place] # (Auto) (0.2-0.9) 10^3/u L Eos # (Auto) (0.0-0.8) 10^3/u L Baso # (Auto) (0.0-0.1) 10^3/u L Nucleated RBC % (a uto) % Nucleated RBCs # /100WBC Specimen Type Arterial Sample Site Radial, right ABG pH 7.39 (7.35-7.45) ABG pCO2 45.5 H (35-45) mmHg ABG pO2 78.6 L (80.0-100.0) mmH g ABG HCO3 27.2 H (22-26) mmol/L ABG Base Excess 1.7 (-2.0-2.0) mmol/ L Jonathan Test Pos Hematocrit 35.0 L (42-52) % Emergency Department Technician ID ellpe Sodium (136-145) mmol/L Potassium (3.5-5.1) mmol/L Chloride (98-107) mmol/L Carbon Dioxide (22-29) mmol/L Anion Gap (5-19) BUN (6-20) mg/dL Creatinine (0.7-1.2) mg/dL GFR Calculation (90-130) mL/min Glucose (65-115) mg/dL POC Glucose (70-110) mg/dL Calculated Osmolal ity (285-295) mOsm/k g Lactic Acid 1.5 (0.5-2.2) mmol/L Calcium (8.5-10.5) mg/dL Magnesium (1.7-2.3) mg/dL Total Bilirubin (0.15-1.2) mg/dL AST (0-40) U/L ALT (0-41) U/L Alkaline Phosphata se (40-130) IU/L Troponin T Gen 5 n g/L Troponin T Baselin e (0-15) ng/L Troponin T 120 Min [place] Cancelled Delta Troponin T Cancelled Total Protein (6.6-8.7) g/dL Albumin (3.5-5.2) g/dL Globulin (1.3-4.6) g/dL Lipase (13-60) U/L Urine Color (Yellow) Urine Appearance (CLEAR) Urine pH (5-7) Ur Specific Gravit y (1.005-1.030) Urine Protein (Negative) Urine Glucose (UA) (Normal) Urine Ketones (Negative) Urine Blood (Negative) Urine Nitrate (Negative) Urine Bilirubin (Negative) Urine Urobilinogen (Negative) mg/dL Ur Leukocyte Raisa ase (Negative) Urine RBC (0-2) /hpf Urine WBC (0-5) /hpf Ur Squamous Epith Cells (0-5) /hpf Amorphous Sediment Urine Bacteria (NONE) /hpf Urine Opiates Scre en (Negative) ng/mL Ur Barbiturates Sc reen (Negative) ng/mL Ur Phencyclidine S crn (Negative) ng/mL Ur Amphetamines Sc reen (Negative) ng/mL U Benzodiazepines Scrn (Negative) ng/mL Urine Cocaine Scre en (Negative) ng/mL U Marijuana (THC) Screen (Negative) ng/mL Ethyl Alcohol (0-10) mg/dL Serum Ketones (Negative) 03/14/20 03/14/20 03/14/20 Range/Units 04:49 05:15 05:32 WBC (4.0-10.0) 10^3/ uL RBC (4.1-5.3) 10^6/u L Hgb (11.7-16.6) g/dL Hct (42.0-52.0) % MCV (80-94) fL MCH (28.0-34.0) pg MCHC (30.0-36.0) g/dL RDW (12.1-15.1) % Plt Count (130-400) 10^3/c mm MPV (7.4-10.4) fL Neut % (Auto) % Lymph % (Auto) % [place] % (Auto) % Eos % (Auto) % Baso % (Auto) % Neut # (Auto) (1.8-7.7) 10^3/u L Lymph # (Auto) (0.8-4.8) 10^3/u L [place] # (Auto) (0.2-0.9) 10^3/u L Eos # (Auto) (0.0-0.8) 10^3/u L Baso # (Auto) (0.0-0.1) 10^3/u L Nucleated RBC % (a uto) % Nucleated RBCs # /100WBC Specimen Type Sample Site ABG pH (7.35-7.45) ABG pCO2 (35-45) mmHg ABG pO2 (80.0-100.0) mmH g ABG HCO3 (22-26) mmol/L ABG Base Excess (-2.0-2.0) mmol/ L Jonathan Test Hematocrit (42-52) % Emergency Department Technician ID Sodium (136-145) mmol/L Potassium (3.5-5.1) mmol/L Chloride (98-107) mmol/L Carbon Dioxide (22-29) mmol/L Anion Gap (5-19) BUN (6-20) mg/dL Creatinine (0.7-1.2) mg/dL GFR Calculation (90-130) mL/min Glucose (65-115) mg/dL POC Glucose 386 316 (70-110) mg/dL Calculated Osmolal ity (285-295) mOsm/k g Lactic Acid (0.5-2.2) mmol/L Calcium (8.5-10.5) mg/dL Magnesium (1.7-2.3) mg/dL Total Bilirubin (0.15-1.2) mg/dL AST (0-40) U/L ALT (0-41) U/L Alkaline Phosphata se (40-130) IU/L Troponin T Gen 5 n g/L Troponin T Baselin e (0-15) ng/L Troponin T 120 Min [place] 42.11 H Delta Troponin T 3.11 Total Protein (6.6-8.7) g/dL Albumin (3.5-5.2) g/dL Globulin (1.3-4.6) g/dL Lipase (13-60) U/L Urine Color (Yellow) Urine Appearance (CLEAR) Urine pH (5-7) Ur Specific Gravit y (1.005-1.030) Urine Protein (Negative) Urine Glucose (UA) (Normal) Urine Ketones (Negative) Urine Blood (Negative) Urine Nitrate (Negative) Urine Bilirubin (Negative) Urine Urobilinogen (Negative) mg/dL Ur Leukocyte Raisa ase (Negative) Urine RBC (0-2) /hpf Urine WBC (0-5) /hpf Ur Squamous Epith Cells (0-5) /hpf Amorphous Sediment Urine Bacteria (NONE) /hpf Urine Opiates Scre en (Negative) ng/mL Ur Barbiturates Sc reen (Negative) ng/mL Ur Phencyclidine S crn (Negative) ng/mL Ur Amphetamines Sc reen (Negative) ng/mL U Benzodiazepines Scrn (Negative) ng/mL Urine Cocaine Scre en (Negative) ng/mL U Marijuana (THC) Screen (Negative) ng/mL Ethyl Alcohol (0-10) mg/dL Serum Ketones (Negative) 03/14/20 Range/Units 06:07 WBC (4.0-10.0) 10^3/ uL RBC (4.1-5.3) 10^6/u L Hgb (11.7-16.6) g/dL Hct (42.0-52.0) % MCV (80-94) fL MCH (28.0-34.0) pg MCHC (30.0-36.0) g/dL RDW (12.1-15.1) % Plt Count (130-400) 10^3/c mm MPV (7.4-10.4) fL Neut % (Auto) % Lymph % (Auto) % [place] % (Auto) % Eos % (Auto) % Baso % (Auto) % Neut # (Auto) (1.8-7.7) 10^3/u L Lymph # (Auto) (0.8-4.8) 10^3/u L [place] # (Auto) (0.2-0.9) 10^3/u L Eos # (Auto) (0.0-0.8) 10^3/u L Baso # (Auto) (0.0-0.1) 10^3/u L Nucleated RBC % (a uto) % Nucleated RBCs # /100WBC Specimen Type Sample Site ABG pH (7.35-7.45) ABG pCO2 (35-45) mmHg ABG pO2 (80.0-100.0) mmH g ABG HCO3 (22-26) mmol/L ABG Base Excess (-2.0-2.0) mmol/ L Jonathan Test Hematocrit (42-52) % Emergency Department Technician ID Sodium (136-145) mmol/L Potassium (3.5-5.1) mmol/L Chloride (98-107) mmol/L Carbon Dioxide (22-29) mmol/L Anion Gap (5-19) BUN (6-20) mg/dL Creatinine (0.7-1.2) mg/dL GFR Calculation (90-130) mL/min Glucose (65-115) mg/dL POC Glucose 204 (70-110) mg/dL Calculated Osmolal ity (285-295) mOsm/k g Lactic Acid (0.5-2.2) mmol/L Calcium (8.5-10.5) mg/dL Magnesium (1.7-2.3) mg/dL Total Bilirubin (0.15-1.2) mg/dL AST (0-40) U/L ALT (0-41) U/L Alkaline Phosphata se (40-130) IU/L Troponin T Gen 5 n g/L Troponin T Baselin e (0-15) ng/L Troponin T 120 Min [place] Troponin T Total Protein (6.6-8.7) g/dL Albumin (3.5-5.2) g/dL Globulin (1.3-4.6) g/dL Lipase (13-60) U/L Urine Color (Yellow) Urine Appearance (CLEAR) Urine pH (5-7) Ur Specific Gravit y (1.005-1.030) Urine Protein (Negative) Urine Glucose (UA) (Normal) Urine Ketones (Negative) Urine Blood (Negative) Urine Nitrate (Negative) Urine Bilirubin (Negative) Urine Urobilinogen (Negative) mg/dL Ur Leukocyte Raisa ase (Negative) Urine RBC (0-2) /hpf Urine WBC (0-5) /hpf Ur Squamous Epith Cells (0-5) /hpf Amorphous Sediment Urine Bacteria (NONE) /hpf Urine Opiates Scre en (Negative) ng/mL Ur Barbiturates Sc reen (Negative) ng/mL Ur Phencyclidine S crn (Negative) ng/mL Ur Amphetamines Sc reen (Negative) ng/mL U Benzodiazepines Scrn (Negative) ng/mL Urine Cocaine Scre en (Negative) ng/mL U Marijuana (THC) Screen (Negative) ng/mL Ethyl Alcohol (0-10) mg/dL Serum Ketones (Negative) Discharge Plan Discharge Patient Disposition: Home Clinical Impression: Abdominal pain, Diabetes mellitus, Hyperglycemia, Diabetic gastroparesis Condition: Stable Prescriptions: New metoclopramide HCl 10 mg tablet 10 mg PO Q6H 7 Days Qty: 28 RF: 0 No Action pregabalin [Lyrica] 150 mg capsule 150 mg PO TID Qty: 90 RF: 2 clonazepam 1 mg tablet 1 mg PO BID 30 Days Qty: 60 RF: 2 Zofran 4 mg tablet 4 mg PO Q12H PRN (Reason: nausea and vomiting) Qty: 60 RF: 2 pantoprazole 40 mg tablet,delayed release (DR/EC) 40 mg PO DAILY Qty: 30 RF: 0 oxycodone-acetaminophen 10-325 mg tablet 1 tab PO Q6H PRN (Reason: pain) 30 Days Qty: 120 RF: 0 Lantus Solostar U-100 Insulin 100 unit/mL (3 mL) insulin pen 20 unit SUBCUT QPM Qty: 15 RF: 4 insulin aspart U-100 [Novolog Flexpen U-100 Insulin] 100 unit/mL (3 mL) insulin pen See Rx Instructions .ROUTE .COMPLEX Qty: 15 RF: 5 Zenpep 5,000-17,000- 24,000 unit Capsule,Delayed Release(Dr/Ec) 2 ea PO TIDWM Qty: 180 RF: 0 Discharge Orders: Discharge Order (Routine); Ordered 03/14/20 Ordered By: Jose Carlos Guillaume Referrals: Oumar Gonzalez MD [Primary Care Provider] - Discharge Diet: Clear Liquid Discharge Activity: Increase activity as tolerated Activity Restrictions/Additional Instructions: Clear liquid diet for 12 to 24 hours. Then advance as tolerated monitor blood sugars closely return if is worsening problem. Follow-up with your primary care doctor within the week. Sign Out Sign Out Data: Patient Sign Out occurred on 03/14/20 at 06:10. Patient's care was discussed, and care was transferred from Thea Dickens to Jose Carlos Guillaume DO. Sign Out Comment: Case turned over to Dr. Guillaume at change of shift. Last updated by Thea Dickens at 03/14/20 06:01 Coding Level of Care Code ED Auto Service Dispatcher for Chg Fwdianna
[2020-03-14 02:53] LABS: Basophils # 0.1 10^3/uL (0.0-0.1); Basophils % 0.7 %; Eosinophils # 0.1 10^3/uL (0.0-0.8); Eosinophils % 1.3 %; Hematocrit 40.4 % (42.0-52.0); Hemoglobin 12.7 g/dL (11.7-16.6); Lymphocytes # 1.5 10^3/uL (0.8-4.8); Lymphocytes % 20.3 %; Mean Corpuscular HGB Conc 31.4 g/dL (30.0-36.0); Mean Corpuscular Hemoglobin 29.1 pg (28.0-34.0); Mean Corpuscular Volume 92.7 fL (80-94); Mean Platelet Volume 12.9 fL (7.4-10.4); Monocytes # 0.5 10^3/uL (0.2-0.9); Monocytes % 6.8 %; Neutrophils # 5.22 10^3/uL (1.8-7.7); Nucleated Red Blood Cells % 0 %; Platelet Count 242 10^3/cmm (130-400); Red Blood Count 4.36 10^6/uL (4.1-5.3); Red Cell Distribution Width 14.6 % (12.1-15.1); White Blood Count 7.5 10^3/uL (4.0-10.0)
[2020-03-14 03:04] LABS: Ketone (Acetest) Serum Negative (Negative)
[2020-03-14] MEDS: metoclopramide 5 mg/mL SDV 2 mL 10 MG IV (03:05)
[2020-03-14] MEDS: diphenhydrAMINE 50 mg/mL SDV 1mL 25 MG IVP (03:06)
[2020-03-14] MEDS: HYDROmorphone 1 mg/mL INJ 1 mL IVP ×2 (03:06→04:31)
[2020-03-14 03:12] LABS: Alanine Aminotransferase 50 U/L (0-41); Albumin Level 4.2 g/dL (3.5-5.2); Alcohol Level < 10 mg/dL (0-10); Alkaline Phosphatase 178 IU/L (40-130); Anion Gap 19.2 (5-19); Aspartate Amino Transferase 58 U/L (0-40); Blood Urea Nitrogen 10 mg/dL (6-20); Calcium 9.4 mg/dL (8.5-10.5); Carbon Dioxide 25 mmol/L (22-29); Chloride 89 mmol/L (98-107); Globulin 2.4 g/dL (1.3-4.6); Glomerular Filtration Rate 93.5 mL/min (90-130); Lipase 4 U/L (13-60); Magnesium 1.7 mg/dL (1.7-2.3); Osmolality Calculated 298 mOsm/kg (285-295); Potassium 5.2 mmol/L (3.5-5.1); Sodium 128 mmol/L (136-145); Total Bilirubin 0.4 mg/dL (0.15-1.2); Total Protein 6.6 g/dL (6.6-8.7)
[2020-03-14 03:13] LABS: ABG PCO2 45.5 mmHg (35-45); ABG PH Result 7.39 (7.35-7.45); Base Excess ABG 1.7 mmol/L (-2.0-2.0); Blood Gas Allen Test Pos; Blood Gas Sample Site Radial, right; Blood Gas Sample Type Arterial; HCO3 ABG 27.2 mmol/L (22-26); PO2 ABG 78.6 mmHg (80.0-100.0)
[2020-03-14 03:13] LABS: Glucose 686 mg/dL (65-115)
[2020-03-14 03:34] LABS: Amphetamines Screen Urine Negative (Negative); Barbiturates Screen Urine Negative (Negative); Benzodiazepines Screen Urine Negative (Negative); Cocaine Screen Urine Negative (Negative); Opiate Screen Urine Positive (Negative); PCP Screen Urine Negative (Negative); THC Screen Urine Negative (Negative)
[2020-03-14] MEDS: sodium chloride 0.9% 1,000 ML 999 ML IV ×2 (03:34→05:01)
[2020-03-14 03:37] LABS: Lactic Sepsis W/Reflex 1.5 mmol/L (0.5-2.2)
[2020-03-14 03:41] LABS: Bilirubin Urine Neg (Negative); Blood Urine Neg (Negative); Glucose Urine UA 4+ (Normal); Ketones Urine Negative (Negative); Leukocyte Esterase Urine Negative (Negative); Nitrate Urine Negative (Negative); Protein Urine Neg (Negative); Urine Appearance Clear (CLEAR); Urine Color Yellow (Yellow); Urobilinogen Urine Norm (Negative); pH Urine 5 (5-7)
[2020-03-14 03:42] LABS: Add Urine Culture? No; Bacteria Urine TRACE /hpf
[2020-03-14 04:02] LABS: Troponin(5th) Baseline 39 ng/L (0-15)
--- NOTE | 2020-03-14 04:40 | XR_ITS ---
WS: [id number] PORTABLE CHEST HISTORY: Upper abdominal pain COMPARISON: 01/22/2020 New mild haziness and increasing opacification at the medial RIGHT lung base otherwise lungs are nedra r. No pleural effusion or pneumothorax. Cardiac size: Normal. Prior valve replacement. Prior median sternotomy. Mediastinum/Aorta: Normal mediastinum. No osseous abnormality seen. XR/XR chest 1V portable [id number] IMPRESSION: Developing area of pneumonitis medial RIGHT lung base.
--- NOTE | 2020-03-14 04:41 | CTR_ITS ---
PROCEDURE INFORMATION: Exam: CT Abdomen And Pelvis With Contrast Exam date and time: 03/14/2020 4:41 AM Age: 40 years old Clinical indication: Abdominal pain; Prior surgery; Surgery type: Mitral valve; Patient HX: Epigastric pain. History of pancreatitis. TECHNIQUE: Imaging protocol: Computed tomography of the abdomen and pelvis with intravenous contrast. Radiation optimization: All CT scans at this facility use at least one of these dose optimization techniques: automated exposure control; mA and/or kV adjustment per patient size (includes targeted exams where dose is matched to clinical indication); or iterative reconstruction. Contrast material: OMNI 300; Contrast volume: 95 ml; Contrast route: INTRAVENOUS (IV); COMPARISON: CT abdomen pelvis w con* [id number] 02/17/2020 12:47 PM RADIATION DOSE METRICS: Total DLP (mGy-cm): 345.43 FINDINGS: Lungs: Continued apparent rounded atelectasis in the right posterior sulcus. Pleural space: Interval decrease in the right pleural effusion. Liver: Still no apparent liver disease. Gallbladder and bile ducts: No calcified stones. No ductal dilation. Pancreas: Continued presence of multiple calcifications in the pancreas and variable dilatation of the pancreatic duct. Spleen: Still no splenomegaly. Adrenals: Continued fullness of the medial left adrenal gland not definitely due to a mass. Still no right adrenal mass. Kidneys and ureters: Continued 11 mm homogeneous intracortical mass in the upper right kidney; interval decrease in the density in this mass to 23 HU. Mild bilateral hydronephrosis and bilateral hydroureter still present. No ureteral stone. Stomach and bowel: Interval appearance of the moderate rectal impaction and the prominent feces throughout the rest of the colon. Still no small bowel obstruction. Appendix: Still no appendicitis. Intraperitoneal space: Still no free air. Vasculature: Unremarkable. No abdominal aortic aneurysm. Lymph nodes: Still no enlarged nodes. Urinary bladder: Interval decrease in the amount of bladder distension. No stones. Reproductive: Still no prostatic enlargement. Bones/joints: Median sternotomy again evident. Old mild compression fractures again evident. Soft tissues: Minimal body wall edema in the pelvis still likely. CT/CT abdomen pelvis w con* [id number] IMPRESSION: 1. No acute abdominal findings. Interval appearance of the rectal impaction and constipation. 2. Chronic pancreatitis and variable pancreatic ductal dilatation again evident. 3. Continued bilateral hydronephrosis and hydroureter. Interval decrease in the amount of bladder distension. 4. Interval decrease in the right pleural effusion. Continued apparent rounded atelectasis in the right posterior sulcus. 5. No change in size of the 11 mm right renal mass containing density slightly higher than expected for a simple cyst. Report of the lumbar spine MRI on 02/25/2020 noted to indicate an 11 mm right renal cyst. Consider follow-up nonemergent MR without and with contrast in 3-6 months. Other findings detailed above. Radiation Dose CTDIVOL = (mGy): DLP = 345.43 (mGy-cm)
[2020-03-14 04:55] LABS: Glucose Point of Care 386 mg/dL (70-110)
[2020-03-14] MEDS: sodium chloride 0.9% 1,000 ML 150 ML IV (04:59)
[2020-03-14] MEDS: iohexol 300 mg/mL 100 mL Btl IV (04:59)
--- NOTE | 2020-03-14 05:00 | PC.NURSE ---
0445 FSBS 384 mg/dl reported to Dr Dickens
[2020-03-14] MEDS: HYDROmorphone 1 mg/mL INJ 1 mL 0.5 MG IVP (05:15)
[2020-03-14 05:35] LABS: Glucose Point of Care 316 mg/dL (70-110)
--- NOTE | 2020-03-14 05:37 | ECG_ITS ---
[facility] Test Date: 2020-03-14 Pat Name: Jagdish Clinton Department: Room: Gender: Male [employer]: : 1980 Requested By: Thea Draper Order Number: [id number] Kendall MD: Lidia Mahan M.D. Measurements Intervals [place] Rate: 81 P: 57 IA: 171 QRS: 32 QRSD: 96 T: 59 QT: 390 QTc: 454 Interpretive Statements SINUS RHYTHM Compared to ECG 03/14/2020 03:28:43 No significant changes Electronically Signed On 03-14-2020 20:19:29 CDT by Lidia Mahan M.D. [id number]
[2020-03-14 05:47] LABS: Troponin 5 2HR 42.11 ng/L (0-15); Troponin 5 2HR Delta 3.11 ABS# (0-10)
[2020-03-14 06:10] LABS: Glucose Point of Care 204 mg/dL (70-110)
--- NOTE | 2020-03-14 06:19 | PC.NURSE ---
604 FSBS 215 mg/dl reported to Dr Dickens 3rd 1000 of NS infused- saline locked
[2020-03-14 07:59] LABS: Anion Gap 12.1 (5-19); Blood Urea Nitrogen 8 mg/dL (6-20); Calcium 8.8 mg/dL (8.5-10.5); Carbon Dioxide 27 mmol/L (22-29); Chloride 101 mmol/L (98-107); Glomerular Filtration Rate 149.2 mL/min (90-130); Glucose 252 mg/dL (65-115); Osmolality Calculated 289 mOsm/kg (285-295); Potassium 4.1 mmol/L (3.5-5.1); Sodium 136 mmol/L (136-145)
[2020-03-14 08:03] LABS: INR 0.99 (0.8-1.2); Partial Thromboplastin Time 27.8 SECONDS (23.9-36.7)
== END 2020-03-14 07:29 | disposition home or self-care (01) ==
PROVIDERS: Emergency Medicine; Emergency Provider Family Medicine; PCP Family Medicine
DX: E11.43 Type 2 diabetes mellitus with diabetic autonomic (poly)neuropathy (principal); E11.65 Type 2 diabetes mellitus with hyperglycemia; K31.84 Gastroparesis; Z79.4 Long term (current) use of insulin; E11.42 Type 2 diabetes mellitus with diabetic polyneuropathy; F17.210 Nicotine dependence, cigarettes, uncomplicated
CPT/HCPCS: 12345; 36416; 36600; 71045; 74177; 76700; 80048; 80053; 80306; 80307; 81001; 82009; 82803; 82962; 83605; 83690; 83735; 84484; 85025; 85610; 85730; 93005; 96361; 96372; 96374; 96375; 96376; 99284; J0131; J1170; J1200; J1815; J2765; J7030; Q9967

== ENCOUNTER → 2020-03-29 15:18 | Outpatient (BNVA) | payer MEDICAID, SELFPAY | PROVIDERS: PCP Family Medicine; Visit Provider Internal Medicine | DX: K86.89 Other specified diseases of pancreas (principal); E08.42 Diabetes mellitus due to underlying condition with diabetic polyneuropathy; R60.0 Localized edema; S36.209S Unspecified injury of unspecified part of pancreas, sequela; Z95.2 Presence of prosthetic heart valve | CPT/HCPCS: 99204 ==

== ENCOUNTER → 2020-05-04 14:08 | Outpatient (BNVA) | payer MEDICAID, SELFPAY | PROVIDERS: PCP Family Medicine; Visit Provider Nurse Practitioner Family | DX: Z20.828 Contact with and (suspected) exposure to other viral communicable diseases (principal) | CPT/HCPCS: 87635 ==

== ENCOUNTER 2020-05-14 16:34 | Inpatient (IN) | payer MEDICAID, SELFPAY ==
[2020-05-14] VITALS (8 sets, daily range): BP systolic 119–153; BP diastolic 73–111; PULSE 88–124; RESP 12–20; TEMP 36.6–37; O2SAT 96–99; BMI 20.7
--- NOTE | 2020-05-14 16:46 | W.ED.ABDPA2 ---
HPI - Abdominal Pain General: Chief Complaint: Abdominal Pain Stated Complaint: ABD PAIN; Hx OF PANCREATITIS Time Seen by Provider: 05/14/20 16:36 Source: patient and EMS Mode of arrival: EMS Limitations: no limitations History of Present Illness: HPI narrative: 40-year-old male has a history of chronic abdominal pain with chronic pancreatitis. Patient states he takes hydrocodone at home for his pain but had worsening pain over the last 2 to 3 days. States pain is epigastric in nature. He has had nausea with no vomiting. Denies any fever. Denies any worsening improving factors. MD elicited complaint: abdominal pain Onset (ago): day(s) Pain Consistency: constant Location: Epigastric Severity: moderate Quality: sharp Radiation: none Migration to: no migration Associated Symptoms: Reports nausea; Denies chills, dysuria, fever(s) and vomiting Review of Systems Const: Denies: fever(s), chills, body aches or change in appetite Eyes: Denies: blurry vision or eye discomfort ENMT: Denies: throat pain or dental pain Card: Denies: chest pain Resp: Denies: dyspnea GI: Reports: abdominal pain and nausea; Denies: vomiting : Denies: dysuria Musc: Denies: neck pain or back pain Skin/Breast: Denies: rash Neuro: Denies: headache(s) Psych: Denies: depression Khanh/Lymph: Denies: easy bruising All/Imm: Denies: urticaria PFSH ED PFSH: Medical History Abdominal pain Thought to be secondary to chronic pancreatitis. 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 Pichardo Family History Father CAD (coronary artery disease) Diabetes Stroke Social History Smoking and tobacco status: current every day smoker cigarettes Packs smoked per day: 0.75 Alcohol intake: former Former alcohol use details: Says has not drank any alcohol in 3 years. Lives independently: Yes Household members: family and other Details: Parents Marital status: Legally Current occupational status: unemployed Physical Exam Const: COMMON NORMALS: no acute distress, patient oriented x3 and healthy appearing HENMT: COMMON NORMALS: normocephalic and atraumatic HEAD & SCALP: normocephalic and atraumatic Eye: COMMON NORMALS: Equal, round and reactive pupils present and EOMs intact bilaterally PUPIL: Yes Equal, round and reactive pupils present Neck/C-Spine: COMMON NORMALS: full ROM and supple Chest: COMMONS NORMALS: normal inspection of the chest and normal palpation of entire chest wall Resp: COMMON NORMALS: normal respiratory effort, No retractions, No use of accessory muscles and clear to auscultation bilaterally AUSCULTATION: clear to auscultation bilaterally Cardio: COMMON NORMALS: regular rhythm and No murmurs present (Cardio) RATE: tachycardic RHYTHM: regular rhythm GI: COMMON NORMALS: Normal to inspection, nondistended, normoactive bowel sounds present, Soft to palpation, non-tender and no masses PALPATION: Yes Soft to palpation Extremity: COMMON NORMALS: normal to inspection and full ROM Neuro: COMMON NORMALS: patient oriented x3, moves all extremities and no focal motor deficits Psych: COMMON NORMALS: mental status grossly normal, Normal thought process present and cooperative THOUGHT PROCESS: Normal thought process present Skin: COMMON NORMALS: no rashes or lesions noted and no wounds GENERAL SKIN EXAM: no rashes or lesions noted Course Vital Signs: Vital signs: Vital Signs Temperature 97.8 F 05/14/20 16:35 Pulse Rate 124 H 05/14/20 16:35 Respiratory Rate 20 H 05/14/20 17:02 Blood Pressure 135/88 05/14/20 16:35 Pulse Oximetry 98 05/14/20 17:02 MDM - Abdominal Pain MDM Narrative: Medical decision making narrative: Patient presents here with diabetic ketoacidosis. pH is mildly acidotic. He patient IV fluids here and start insulin drip and I spoke to hospitalist will admit to the ICU. Patient has been stable while in the ER. Lab Data: Labs: Lab Results 05/14/20 05/14/20 Range/Units 16:32 16:32 WBC 16.2 H (4.0-10.0) 10^3/ uL RBC 5.33 H (4.1-5.3) 10^6/u L Hgb 15.5 (11.7-16.6) g/dL Hct 49.2 (42.0-52.0) % MCV 92.3 (80-94) fL MCH 29.1 (28.0-34.0) pg MCHC 31.5 (30.0-36.0) g/dL RDW 13.0 (12.1-15.1) % Plt Count 215 (130-400) 10^3/c mm MPV 13.8 H (7.4-10.4) fL Neut % (Auto) 84.9 % Lymph % (Auto) 8.9 % Towner % (Auto) 4.9 % Eos % (Auto) 0.0 % Baso % (Auto) 0.4 % Neut # (Auto) 13.72 H (1.8-7.7) 10^3/u L Lymph # (Auto) 1.4 (0.8-4.8) 10^3/u L Towner # (Auto) 0.8 (0.2-0.9) 10^3/u L Eos # (Auto) 0.0 (0.0-0.8) 10^3/u L Baso # (Auto) 0.1 (0.0-0.1) 10^3/u L Nucleated RBC % (a uto) 0 % Nucleated RBCs # 0.0 /100WBC Sodium 127 L (136-145) mmol/L Potassium 4.6 (3.5-5.1) mmol/L Chloride 88 L (98-107) mmol/L Carbon Dioxide 12 L (22-29) mmol/L Anion Gap 31.6 H (5-19) BUN 24 H (6-20) mg/dL Creatinine 1.1 (0.7-1.2) mg/dL GFR Calculation 74.1 L (90-130) mL/min Glucose 601 H* (65-115) mg/dL Calculated Osmolal ity 296 H (285-295) mOsm/k g Calcium 10.1 (8.5-10.5) mg/dL Total Bilirubin 0.5 (0.15-1.2) mg/dL AST 23 (0-40) U/L ALT 36 (0-41) U/L Alkaline Phosphata se 211 H (40-130) IU/L Total Protein 8.4 (6.6-8.7) g/dL Albumin 4.9 (3.5-5.2) g/dL Globulin 3.5 (1.3-4.6) g/dL Lipase 5 L (13-60) U/L Imaging Data ^: CT Abd/Pel: Radiologist's impression: [facility] [address] [address] [address] Scan Report Signed Patient: Jagdish Clinton Unit #: [id number] : 1980 Age/Sex: 40 / M ADM Date: 05/14/20 Loc: ER Room/Bed: Attending Dr: Ordering Provider/Ordering MD: Padilla Frias MD Date of Service: 05/14/20 Procedure(s): CT abdomen pelvis w con* [id number] Accession Number(s): [id number] Report Number: [id number] PROCEDURE INFORMATION: Exam: CT Abdomen And Pelvis With Contrast Exam date and time: 05/14/2020 5:20 PM Age: 40 years old Clinical indication: Abdominal pain; Prior surgery; Surgery date: 6+ months; Surgery type: Valve; Patient HX: C/O epigastric pain w HX of pancreatitis and cirrhosis; Additional info: Abd pain TECHNIQUE: Imaging protocol: Computed tomography of the abdomen and pelvis with intravenous contrast. Radiation optimization: All CT scans at this facility use at least one of these dose optimization techniques: automated exposure control; mA and/or kV adjustment per patient size (includes targeted exams where dose is matched to clinical indication); or iterative reconstruction. Contrast material: OMNI 300; Contrast volume: 95 ml; Contrast route: INTRAVENOUS (IV); COMPARISON: CT abdomen pelvis w con* [id number] 03/14/2020 4:54 AM RADIATION DOSE METRICS: Total DLP (mGy-cm): 285.7 FINDINGS: Pleural space: Scant right pleural effusion. Minimal scar atelectasis posterior basal segment right lower lobe. Status post sternotomy chest. Mitral valve prosthesis. No visible pericardial effusion. Liver: Unremarkable. No mass. Gallbladder and bile ducts: Normal. No calcified stones. No ductal dilation. Pancreas: Findings of chronic pancreatitis. Mild pancreatic ductal ectasia. Numerous pancreatic dystrophic calcifications. Spleen: Normal. No splenomegaly. Adrenal glands: Normal. No mass. No interval change. Kidneys and ureters: Stable 12 mm simple cortical cysts right kidney. No follow-up recommended. No hydronephrosis or perinephric fluid bilaterally. No visible nephrolithiasis. No visible ureterolithiasis. Stomach and bowel: Assessment of the hollow viscus fails to reveal evidence of active or acute pathology. Nonobstructed bowel pattern. No visible acute diverticulitis. No visible adynamic or reactive ileus. Appendix: The appendix is visualized and appears noninflamed. Intraperitoneal space: No visible evidence of mesenteric lymphadenitis or active mesenteritis/panniculitis. No visible pneumoperitoneum. No visible ascites. Vasculature: The abdominal aorta is nonaneurysmal. Lymph nodes: No current visible evidence of active mesenteric or retroperitoneal lymphadenopathy. Urinary bladder: Unremarkable as visualized. Reproductive: Unremarkable as visualized. Bones/joints: No visible active or acute osseous pathology. Soft tissues: Unremarkable. CT/CT abdomen pelvis w con* [id number] IMPRESSION: 1. Currently no visible evidence of acute abdominal or pelvic pathologic process. 2. Scant right pleural effusion. 3. Minimal scar atelectasis posterior basal segment right lower lobe. 4. Chronic pancreatitis. Critical Care Time Critical Care Time: Critical Care Time: Yes Total Critical Care Time: 36 Attestation: This case had a high probability of a clinically significant, sudden, or life threatening deterioration of this patient's condition which required my full and direct attention, intervention and personal management. Discharge Plan Discharge Patient Disposition: Admitted As Inpatient Admit Provider: Mejia Leslie Clinical Impression: DKA (diabetic ketoacidoses) Qualifiers: Diabetes mellitus type: type 1 Diabetes mellitus complication detail: without coma Qualified Code(s): E10.10 - Type 1 diabetes mellitus with ketoacidosis without coma Condition: Stable Coding Level of Care Code ED Final Inspector Truck Trailer for g Fwd Exam Comprehensive
[2020-05-14 16:55] LABS: Basophils # 0.1 10^3/uL (0.0-0.1); Basophils % 0.4 %; Hematocrit 49.2 % (42.0-52.0); Hemoglobin 15.5 g/dL (11.7-16.6); Lymphocytes # 1.4 10^3/uL (0.8-4.8); Lymphocytes % 8.9 %; Mean Corpuscular HGB Conc 31.5 g/dL (30.0-36.0); Mean Corpuscular Hemoglobin 29.1 pg (28.0-34.0); Mean Corpuscular Volume 92.3 fL (80-94); Mean Platelet Volume 13.8 fL (7.4-10.4); Monocytes # 0.8 10^3/uL (0.2-0.9); Monocytes % 4.9 %; Neutrophils # 13.72 10^3/uL (1.8-7.7); Neutrophils % 84.9 %; Nucleated Red Blood Cells % 0 %; Platelet Count 215 10^3/cmm (130-400); Red Blood Count 5.33 10^6/uL (4.1-5.3); White Blood Count 16.2 10^3/uL (4.0-10.0)
[2020-05-14] MEDS: metoclopramide 5 mg/mL SDV 2 mL 10 MG IVP ×2 (17:02→20:18)
[2020-05-14] MEDS: HYDROmorphone 1 mg/mL INJ 1 mL 0.5 MG IVP (17:02)
[2020-05-14] MEDS: diphenhydrAMINE 50 mg/mL SDV 1mL IVP (17:02)
[2020-05-14] MEDS: sodium chloride 0.9% 1,000 ML 999 ML IV ×2 (17:02→18:03)
--- NOTE | 2020-05-14 17:02 | CTR_ITS ---
PROCEDURE INFORMATION: Exam: CT Abdomen And Pelvis With Contrast Exam date and time: 05/14/2020 5:20 PM Age: 40 years old Clinical indication: Abdominal pain; Prior surgery; Surgery date: 6+ months; Surgery type: Valve; Patient HX: C/O epigastric pain w HX of pancreatitis and cirrhosis; Additional info: Abd pain TECHNIQUE: Imaging protocol: Computed tomography of the abdomen and pelvis with intravenous contrast. Radiation optimization: All CT scans at this facility use at least one of these dose optimization techniques: automated exposure control; mA and/or kV adjustment per patient size (includes targeted exams where dose is matched to clinical indication); or iterative reconstruction. Contrast material: OMNI 300; Contrast volume: 95 ml; Contrast route: INTRAVENOUS (IV); COMPARISON: CT abdomen pelvis w con* [id number] 03/14/2020 4:54 AM RADIATION DOSE METRICS: Total DLP (mGy-cm): 285.7 FINDINGS: Pleural space: Scant right pleural effusion. Minimal scar atelectasis posterior basal segment right lower lobe. Status post sternotomy chest. Mitral valve prosthesis. No visible pericardial effusion. Liver: Unremarkable. No mass. Gallbladder and bile ducts: Normal. No calcified stones. No ductal dilation. Pancreas: Findings of chronic pancreatitis. Mild pancreatic ductal ectasia. Numerous pancreatic dystrophic calcifications. Spleen: Normal. No splenomegaly. Adrenal glands: Normal. No mass. No interval change. Kidneys and ureters: Stable 12 mm simple cortical cysts right kidney. No follow-up recommended. No hydronephrosis or perinephric fluid bilaterally. No visible nephrolithiasis. No visible ureterolithiasis. Stomach and bowel: Assessment of the hollow viscus fails to reveal evidence of active or acute pathology. Nonobstructed bowel pattern. No visible acute diverticulitis. No visible adynamic or reactive ileus. Appendix: The appendix is visualized and appears noninflamed. Intraperitoneal space: No visible evidence of mesenteric lymphadenitis or active mesenteritis/panniculitis. No visible pneumoperitoneum. No visible ascites. Vasculature: The abdominal aorta is nonaneurysmal. Lymph nodes: No current visible evidence of active mesenteric or retroperitoneal lymphadenopathy. Urinary bladder: Unremarkable as visualized. Reproductive: Unremarkable as visualized. Bones/joints: No visible active or acute osseous pathology. Soft tissues: Unremarkable. CT/CT abdomen pelvis w con* [id number] IMPRESSION: 1. Currently no visible evidence of acute abdominal or pelvic pathologic process. 2. Scant right pleural effusion. 3. Minimal scar atelectasis posterior basal segment right lower lobe. 4. Chronic pancreatitis. Radiation Dose CTDIVOL = (mGy): DLP = 285.7 (mGy-cm)
[2020-05-14] MEDS: iohexol 300 mg/mL 100 mL Btl IV (17:30)
[2020-05-14 17:35] LABS: Alanine Aminotransferase 36 U/L (0-41); Albumin Level 4.9 g/dL (3.5-5.2); Alkaline Phosphatase 211 IU/L (40-130); Anion Gap 31.6 (5-19); Aspartate Amino Transferase 23 U/L (0-40); Blood Urea Nitrogen 24 mg/dL (6-20); Calcium 10.1 mg/dL (8.5-10.5); Carbon Dioxide 12 mmol/L (22-29); Chloride 88 mmol/L (98-107); Globulin 3.5 g/dL (1.3-4.6); Glomerular Filtration Rate 74.1 mL/min (90-130); Lipase 5 U/L (13-60); Osmolality Calculated 296 mOsm/kg (285-295); Potassium 4.6 mmol/L (3.5-5.1); Sodium 127 mmol/L (136-145); Total Bilirubin 0.5 mg/dL (0.15-1.2); Total Protein 8.4 g/dL (6.6-8.7)
[2020-05-14 17:50] LABS: Glucose 601 mg/dL (65-115)
[2020-05-14] MEDS: insulin regular-human 100 units/1 mL 10 UNIT IVP (17:57)
--- NOTE | 2020-05-14 18:12 | PC.NURSE ---
bedside glucose 384. Sherita SALAZAR notified.
[2020-05-14 18:13] LABS: Glucose Point of Care 384 mg/dL (70-110)
[2020-05-14 18:16] LABS: ABG PCO2 26.8 mmHg (35-45); ABG PH Result 7.22 (7.35-7.45); Arterial Blood Gas Hematocrit 42.2 % (42-52); Base Excess ABG -15.2 mmol/L (-2.0-2.0); Blood Gas Allen Test Pos; Blood Gas Sample Type Arterial; HCO3 ABG 10.9 mmol/L (22-26)
[2020-05-14 18:17] LABS: Blood Gas Operator Identificat ED; Blood Gas Sample Site Radial, right; Oxygen Device ROOM AIR
--- NOTE | 2020-05-14 18:30 | P.HP_ITS ---
Providers/Chief Complaint Admitting Physician: Mejia Leslie Primary Care Provider: Oumar Gonzalez MD Chief Complaint: ABD PAIN; Hx OF PANCREATITIS History of Present Illness 40-year-old male with a past medical history significant for anxiety, depression, alcoholism with subsequent alcoholic liver disease, chronic pancreatitis, 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 Stated this has been ongoing for the past 24hr. Has not been able to tolerate any oral intake. Also noted nausea and non-bloody emesis. Denied any fever or chills. No reported diarrhea or constipatio. Also denied chest pain or shortness of breath. Upon arrival to hospital patient's laboratory workup showed a WBC of 16.2, hemoglobin of 15.5, hematocrit of 49.2 and platelet count of 215. sodium 127, potassium 4.6, chloride 88, bicarb 12, BUN 24 and creatinine of 1.1. Glucose was elevated at 601. AST of 23, ALT of 36 and alkaline phosphatase of 211. lipase of 5. Calculated serum osmolality was 296. Serum ketones and arterial blood gases was pending. Imaging studies included a CT abdomen pelvis which did not show any evidence of acute intra-abdominal abnormality. Was noted to have chronic pancreatitis As evident by mild Pancreatic ductal ectasia and numerous dystrophic calcifications. Patient was suspected to be in mild diabetic ketoacidosis and started on DKA treatment protocol. Review of Systems General: Reports: 10 or more systems reviewed and unremarkable except in HPI and below Medications/Allergies Home Medications Medication Instructions Recorded Confirmed Last Taken Type Zenpep 2 ea PO TIDWM #180 cap 12/22/19 05/14/20 05/14/20 12:00 Rx 1 CAP pregabalin 150 mg capsule 150 mg PO TID #90 cap 03/02/20 05/14/20 05/14/20 12:00 Rx insulin aspart U-100 100 unit/mL See Rx Instructions .ROUTE 03/08/20 05/14/20 05/14/20 16:30 Rx (3 mL) subcutaneous pen .COMPLEX #15 ml 10 UNITS insulin glargine 100 unit/mL (3 20 unit SUBCUT QPM #15 ml 03/08/20 05/14/20 05/13/20 Rx mL) subcutaneous pen flash glucose scanning reader #1 each 03/29/20 05/14/20 Unknown Rx flash glucose sensor #2 each 03/29/20 05/14/20 Unknown Rx ondansetron HCl 4 mg tablet 4 mg PO Q12H PRN #60 tab 04/05/20 05/14/20 Unknown Rx pantoprazole 40 mg tablet,delayed 40 mg PO DAILY #30 tab 05/02/20 05/14/20 05/13/20 Rx release diclofenac potassium 50 mg tablet 50 mg PO BID 15 Days #30 tab 05/09/20 05/14/20 05/13/20 Rx alprazolam See Rx Instructions .ROUTE 05/14/20 05/14/20 Unknown History .COMPLEX PRN clonazepam 1 mg PO BID 05/14/20 05/14/20 05/14/20 08:00 History hydrocodone-acetaminophen 1 tab PO Q6H PRN 05/14/20 05/14/20 05/14/20 10:00 History sildenafil 100 mg PO PRN 05/14/20 05/14/20 Unknown History Allergies Allergy/AdvReac Type Severity Reaction Status Date / Time codeine Allergy Intermediate ADR-Headach Verified 05/14/20 18:11 e morphine Allergy ADR-Headach Verified 05/14/20 18:11 e PFSH Acute PFSH: Medical History (Updated 05/14/20 @ 18:32 by Mejia Leslie MD) Abdominal pain Thought to be secondary to chronic pancreatitis. 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 Pichardo Family History Father CAD (coronary artery disease) Diabetes Stroke Social History Smoking and tobacco status: current every day smoker cigarettes Packs smoked per day: 0.75 Alcohol intake: former Former alcohol use details: Says has not drank any alcohol in 3 years. Lives independently: Yes Household members: family and other Details: Parents Marital status: Legally Current occupational status: unemployed Vitals/I&O/Wt Last Vital Signs Temp 97.8 F 05/14/20 16:35 Pulse 124 H 05/14/20 16:35 Resp 20 H 05/14/20 17:02 BP 135/88 05/14/20 16:35 Pulse Ox 98 05/14/20 17:02 Weight last 48 hrs Weight 63.503 kg Physical Exam Narrative: EXAM NARRATIVE: General : Alert, Awake and oriented however in distress due to abdominal pain HEENT : Grossly unremarkable CVS : Sinus tachycardia CHEST : non-labored respiration ABD: Non-distended - c/o epigastric pain. 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: Status: Acute (6) Anxiety and depression: Status: Inactive (7) ALC (alcoholic liver cirrhosis): Status: Inactive Qualifiers: Ascites presence: without ascites Qualified Code(s): K70.30 - Alcoholic cirrhosis of liver without ascites (8) Infective endocarditis: Status: Acute Diabetic Ketoacidosis hx of IDDM - Anion gap metabolic acidosis ( A.gap 31.6) - Started on DKA protocol - Insulin gtt per protocol - Titrate to keep BS 150-200 for now - Q1hr BS checks - Corrected sodium 139 - S/p NS bolus IVF - Will continue 0.45 NS at 150 cc/hr - Monitor BMP q6hr - Add K replacement once K < 3.4 - Add D5 once BS less than 250 - Continue until ketosis resolved / AGAP resolved - Give Long acting insulin prior to stopping IV insulin - Will keep NPO - Initiate diabetic diet once DKA resolved. Abdominal Pain due to chronic pancreatitis - On pain meds at home - Dilaudid 0.4 mg IV q4hr prn for pain - CT abd/pelvis - no acute intra-abdominal findings - Resume pancreatic enzyme replacement once on diat - Lipase 5 - Transition to PO pain meds once on diet Hyponatremia - Pseudo due to hyperglycemia - Corrected is 139 - Monitor BMP Hx of Infected Endocarditis s/p MVR - Patient was unsure regarding details of this - Unsure about which valve if also aortic - Does not follow with cardiology - Unsure if repair or replaced - Will obtain records from [facility] DVT ppx - Lovenox 40 mg SQ daily Additional Medical Problems - Infective endocarditis s/p MVR 10/2019 - Anxiety/Depression - Hx of alcoholic Liver disease - Diabetic neuropathy - Medical Non-compliance - GERD on protonix Attestations Medical Necessity Statement*: Patient required over 2 midnight stay in [facility] for treatment evaluation of DKA. Time Spent in Patient Care: Greater than 35 minutes (>than 50% of time spent in counselling and/or direct pt care on unit) . 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
[2020-05-14 19:58] LABS: Glucose Point of Care 372 mg/dL (70-110)
--- NOTE | 2020-05-14 19:59 | PC.NURSE ---
bedside glucose 372.
[2020-05-14] MEDS: insulin regular-human 250 UNIT in sodium chloride 0.9% 250 ML 9.5 UNIT IV (20:17)
[2020-05-14] MEDS: HYDROcodone-acetaminophen 5-325 mg Tablet 1 TAB PO (20:17)
[2020-05-14 20:35] LABS: Anion Gap 24.8 (5-19); Blood Urea Nitrogen 20 mg/dL (6-20); Calcium 9.2 mg/dL (8.5-10.5); Carbon Dioxide 13 mmol/L (22-29); Chloride 98 mmol/L (98-107); Glomerular Filtration Rate 107.1 mL/min (90-130); Glucose 431 mg/dL (65-115); Osmolality Calculated 293 mOsm/kg (285-295); Potassium 4.8 mmol/L (3.5-5.1); Sodium 131 mmol/L (136-145)
--- NOTE | 2020-05-14 20:36 | PC.NURSE ---
pt report called to RN in SBAR format.
[2020-05-14 20:41] LABS: Ketone (Acetest) Serum Positive (Negative)
[2020-05-14] MEDS: HYDROmorphone 1 mg/mL INJ 1 mL 0.4 MG IVP (21:20)
[2020-05-14] MEDS: pregabalin 150 mg Capsule PO (21:21)
[2020-05-14] MEDS: ondansetron 2 mg/ML SDV 2 mL 4 MG IVP (21:26)
--- NOTE | 2020-05-14 22:40 | PC.NURSE ---
Insulin Gtt Glucose 277. Contact Dr. Olivera at this time of glucose. Received telephone orders for fluids D5 1/2 NS with 20kcl at 100ml/hr.
[2020-05-14] MEDS: LORazepam 2 mg/mL INJ 1 mL 1 MG IVP (23:12)
[2020-05-14] MEDS: D5-NS 0.45% + KCL 20 mEq 20 MEQ/1,000 ML BAG 100 MEQ IV (23:18)
[2020-05-15] VITALS (21 sets, daily range): BP systolic 103–141; BP diastolic 61–93; PULSE 68–113; RESP 12–23; TEMP 36.6–37.1; O2SAT 97–99
[2020-05-15] MEDS: HYDROmorphone 1 mg/mL INJ 1 mL IVP ×5 (00:02→16:57)
[2020-05-15 00:42] LABS: Glucose Point of Care 277 mg/dL (70-110)
[2020-05-15 00:42] LABS: Glucose Point of Care 119 mg/dL (70-110)
[2020-05-15 00:42] LABS: Glucose Point of Care 91 mg/dL (70-110)
[2020-05-15 00:42] LABS: Glucose Point of Care 302 mg/dL (70-110)
[2020-05-15 00:42] LABS: Glucose Point of Care 205 mg/dL (70-110)
[2020-05-15] MEDS: dextrose 50% syringe 50 mL IVP (00:46)
--- NOTE | 2020-05-15 00:49 | PC.NURSE ---
Blood glucose At hourly glucose check 5 patient glucose had dropped from 205 to 119 with fluids containing D5 hanging. At 0 glucose rechecked and glucose now 91. Notified Dr. Olivera of fast drop in glucose. Orders received to stop insulin gtt for now, Give amp of D50. CMP obtained at this time for evaluation of Gap. Will continue to monitor.
[2020-05-15 01:04] LABS: Alanine Aminotransferase 25 U/L (0-41); Albumin Level 4.1 g/dL (3.5-5.2); Alkaline Phosphatase 163 IU/L (40-130); Anion Gap 12.9 (5-19); Aspartate Amino Transferase 14 U/L (0-40); Blood Urea Nitrogen 18 mg/dL (6-20); Calcium 9.5 mg/dL (8.5-10.5); Carbon Dioxide 22 mmol/L (22-29); Chloride 104 mmol/L (98-107); Globulin 2.9 g/dL (1.3-4.6); Glomerular Filtration Rate 124.9 mL/min (90-130); Glucose 112 mg/dL (65-115); Osmolality Calculated 283 mOsm/kg (285-295); Potassium 3.9 mmol/L (3.5-5.1); Sodium 135 mmol/L (136-145); Total Bilirubin 0.6 mg/dL (0.15-1.2)
--- NOTE | 2020-05-15 01:22 | PC.NURSE ---
Physician notified Dr. Olivera notified of recent labs. Gap now 12.9. Telephone orders received to stop insulin gtt. No orders for subcutaneous insulin due to fast drop in glucose. Verbal orders also received pt may start clear liquid diet if can tolerate.
[2020-05-15 01:51] LABS: Glucose Point of Care 145 mg/dL (70-110)
[2020-05-15 01:51] LABS: Glucose Point of Care 249 mg/dL (70-110)
[2020-05-15] MEDS: HYDROcodone-acetaminophen 5-325 mg Tablet 1 TAB PO ×2 (01:59→20:14)
[2020-05-15] MEDS: ondansetron 2 mg/ML SDV 2 mL 4 MG IVP ×3 (04:18→16:57)
[2020-05-15 04:51] LABS: Estmated Average Glucose 295; Hemoglobin A1C 11.9 % (4.0-6.0)
[2020-05-15 05:02] LABS: Glucose Point of Care 350 mg/dL (70-110)
[2020-05-15] MEDS: sodium chloride 0.9% 1,000 ML 999 ML IV (05:06)
[2020-05-15 05:14] LABS: Alanine Aminotransferase 21 U/L (0-41); Albumin Level 4.1 g/dL (3.5-5.2); Alkaline Phosphatase 147 IU/L (40-130); Aspartate Amino Transferase 13 U/L (0-40); Blood Urea Nitrogen 16 mg/dL (6-20); Calcium 9.1 mg/dL (8.5-10.5); Carbon Dioxide 19 mmol/L (22-29); Chloride 100 mmol/L (98-107); Globulin 2.5 g/dL (1.3-4.6); Glomerular Filtration Rate 124.9 mL/min (90-130); Glucose 328 mg/dL (65-115); Magnesium 1.6 mg/dL (1.7-2.3); Osmolality Calculated 286 mOsm/kg (285-295); Sodium 131 mmol/L (136-145); Total Bilirubin 0.8 mg/dL (0.15-1.2); Total Protein 6.6 g/dL (6.6-8.7)
[2020-05-15 05:19] LABS: Anion Gap 16.5 (5-19); Potassium 4.5 mmol/L (3.5-5.1)
[2020-05-15] MEDS: sodium chlor 0.9% + KCl 20 mEq 20 MEQ/1,000 ML BAG 100 MEQ IV ×2 (06:09→15:33)
[2020-05-15] MEDS: pregabalin 150 mg Capsule PO ×3 (08:15→20:15)
[2020-05-15] MEDS: pantoprazole DR 40 mg Tablet PO (08:16)
[2020-05-15 09:58] LABS: Basophils % 0.3 %; Eosinophils # 0.1 10^3/uL (0.0-0.8); Eosinophils % 1.1 %; Hematocrit 36.6 % (42.0-52.0); Hemoglobin 11.7 g/dL (11.7-16.6); Lymphocytes % 22.9 %; Mean Corpuscular Hemoglobin 29.1 pg (28.0-34.0); Mean Platelet Volume 13.4 fL (7.4-10.4); Monocytes # 0.8 10^3/uL (0.2-0.9); Monocytes % 9.4 %; Neutrophils # 5.78 10^3/uL (1.8-7.7); Nucleated Red Blood Cells % 0 %; Platelet Count 142 10^3/cmm (130-400); Red Blood Count 4.02 10^6/uL (4.1-5.3); Red Cell Distribution Width 13.2 % (12.1-15.1); White Blood Count 8.8 10^3/uL (4.0-10.0)
[2020-05-15] MEDS: insulin glargine 100 units/1 mL 20 UNIT SUBCUT (13:52)
[2020-05-15 16:41] LABS: Glucose Point of Care 279 mg/dL (70-110)
[2020-05-15 16:41] LABS: Glucose Point of Care 326 mg/dL (70-110)
[2020-05-15 16:52] LABS: Glucose Point of Care 296 mg/dL (70-110)
--- NOTE | 2020-05-15 18:05 | P.PN_ITS ---
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 Stated this has been ongoing for the past 24hr. Has not been able to tolerate any oral intake. Also noted nausea and non-bloody emesis. Denied any fever or chills. No reported diarrhea or constipatio. Also denied chest pain or shortness of breath. Upon arrival to hospital patient's laboratory workup showed a WBC of 16.2, hemoglobin of 15.5, hematocrit of 49.2 and platelet count of 215. sodium 127, potassium 4.6, chloride 88, bicarb 12, BUN 24 and creatinine of 1.1. Glucose was elevated at 601. AST of 23, ALT of 36 and alkaline phosphatase of 211. lipase of 5. Calculated serum osmolality was 296. Serum ketones and arterial blood gases was pending. Imaging studies included a CT abdomen pelvis which did not show any evidence of acute intra-abdominal abnormality. Was noted to have chronic pancreatitis As evident by mild Pancreatic ductal ectasia and numerous dystrophic calcifications. Patient was suspected to be in mild diabetic ketoacidosis and started on DKA treatment protocol. Subjective: Overnight patient was transitioned off IV insulin as DKA resolved. Was started on CLD. No fever or chills. No nasusea or vomiting. abdominal pain stable. Vitals/I&O/Wt Last Vital Signs Temp 97.9 F 05/15/20 12:00 Pulse 77 05/15/20 14:00 Resp 16 05/15/20 16:57 BP 106/72 05/15/20 14:00 Pulse Ox 98 05/15/20 14:00 05/15/20 05/15/20 05/15/20 06:59 14:59 22:59 Intake Total 1955.758 / 1971.169 480 / 480 940 / 1420 Output Total 800 / 850 850 / 850 Balance 1155.758 / 1121.169 -370 / -370 940 / 570 Weight last 48 hrs Weight 60.872 kg Weight 58.513 kg Weight 63.503 kg Physical Exam Narrative: EXAM NARRATIVE: General : Alert, Awake and oriented however in distress due to abdominal pain HEENT : Grossly unremarkable CVS : Sinus tachycardia CHEST : non-labored respiration ABD: Non-distended - c/o epigastric pain. 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: Status: Acute (6) Anxiety and depression: Status: Inactive (7) ALC (alcoholic liver cirrhosis): Status: Inactive Qualifiers: Ascites presence: without ascites Qualified Code(s): K70.30 - Alcoholic cirrhosis of liver without ascites (8) Infective endocarditis: Status: Acute Abdominal Pain due to chronic pancreatitis - On pain meds at home - Dilaudid 0.5 mg IV q6hr prn for pain - CT abd/pelvis - no acute intra-abdominal findings - Resume pancreatic enzyme replacement - Lipase 5 - Improved Insulin dependent DM with DKA POA - DKA resolved - Start Lantus 20 units daily - Sliding scale insulin - Advance diet to diabetic - A1c elevated - Diabetic education Hyponatremia - Pseudo due to hyperglycemia - Monitor BMP Hx of Infected Endocarditis s/p MVR - Patient was unsure regarding details of this - Unsure about which valve if also aortic/mitral - Does not follow with cardiology - Unsure if repair or replaced - Will obtain records from [facility] DVT ppx - Lovenox 40 mg SQ daily Additional Medical Problems - Infective endocarditis s/p MVR 10/2019 - Anxiety/Depression - Hx of alcoholic Liver disease - Diabetic neuropathy - Medical Non-compliance - GERD on protonix Disposition: Likely to discharge in AM, SW consult. Transfer to [facility] Attestations Medical Necessity Statement*: Will continue hospitalization for management of uncontrolled diabetes mellitus and intractable abdominal pain. 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
[2020-05-15 20:13] LABS: Glucose Point of Care 139 mg/dL (70-110)
--- NOTE | 2020-05-15 21:23 | PC.NURSE ---
Report called to JUSTYNA Pillai. Patient transferred to [facility] via wheelchair to room 255-1.
[2020-05-15] MEDS: HYDROmorphone 1 mg/mL INJ 1 mL 0.5 MG IVP (22:48)
[2020-05-16] MEDS: CLONazepam 1 mg Tablet PO (01:41)
[2020-05-16] MEDS: HYDROcodone-acetaminophen 5-325 mg Tablet 1 TAB PO ×2 (01:41→08:24)
[2020-05-16 03:55] LABS: Basophils % 0.7 %; Eosinophils # 0.2 10^3/uL (0.0-0.8); Hematocrit 37.8 % (42.0-52.0); Hemoglobin 12.3 g/dL (11.7-16.6); Lymphocytes # 1.9 10^3/uL (0.8-4.8); Lymphocytes % 36.3 %; Mean Corpuscular HGB Conc 32.5 g/dL (30.0-36.0); Mean Corpuscular Hemoglobin 29.1 pg (28.0-34.0); Mean Corpuscular Volume 89.6 fL (80-94); Mean Platelet Volume 13.5 fL (7.4-10.4); Monocytes # 0.5 10^3/uL (0.2-0.9); Monocytes % 9.2 %; Neutrophils # 2.68 10^3/uL (1.8-7.7); Neutrophils % 50.2 %; Nucleated Red Blood Cells % 0 %; Platelet Count 150 10^3/cmm (130-400); Red Blood Count 4.22 10^6/uL (4.1-5.3); Red Cell Distribution Width 13.5 % (12.1-15.1); White Blood Count 5.3 10^3/uL (4.0-10.0)
[2020-05-16 04:00] VITALS: BP 121/94; PULSE 60; RESP 18; TEMP 36.6; O2SAT 95
[2020-05-16 04:14] LABS: Alanine Aminotransferase 25 U/L (0-41); Albumin Level 3.6 g/dL (3.5-5.2); Alkaline Phosphatase 127 IU/L (40-130); Anion Gap 9.7 (5-19); Aspartate Amino Transferase 32 U/L (0-40); Blood Urea Nitrogen 7 mg/dL (6-20); Calcium 8.9 mg/dL (8.5-10.5); Carbon Dioxide 25 mmol/L (22-29); Chloride 105 mmol/L (98-107); Globulin 2.1 g/dL (1.3-4.6); Glomerular Filtration Rate 184.2 mL/min (90-130); Glucose 188 mg/dL (65-115); Osmolality Calculated 285 mOsm/kg (285-295); Potassium 3.7 mmol/L (3.5-5.1); Sodium 136 mmol/L (136-145); Total Bilirubin 0.6 mg/dL (0.15-1.2); Total Protein 5.7 g/dL (6.6-8.7)
[2020-05-16 05:06] VITALS: RESP 16
[2020-05-16] MEDS: HYDROmorphone 1 mg/mL INJ 1 mL 0.5 MG IVP (05:06)
[2020-05-16 05:32] VITALS: PULSE 60; BMI 19.8
[2020-05-16 07:17] VITALS: BP 147/87; PULSE 64; RESP 18; TEMP 36.9; O2SAT 98
[2020-05-16 07:48] LABS: Glucose Point of Care 177 mg/dL (70-110)
[2020-05-16] MEDS: pregabalin 150 mg Capsule PO (08:24)
[2020-05-16] MEDS: pantoprazole DR 40 mg Tablet PO (08:25)
[2020-05-16] MEDS: lipase-protease-amylase Capsule 2 EACH PO (08:25)
[2020-05-16 10:39] VITALS: BP 147/87; PULSE 64; RESP 18; TEMP 36.9; O2SAT 98
--- NOTE | 2020-05-16 14:18 | PC.RESP ---
Smoking Cessation information sent to patient.
--- NOTE | 2020-05-16 19:43 | PM.DCS ---
Discharge Providers Date of Admission: 05/14/20 18:01 Date of Discharge: May 17, 2020 Attending Provider at Admission: Mejia Leslie Attending Provider at Discharge: Mejia Leslie Primary Care Provider: Oumar Gonzalez MD Diagnoses at Discharge Discharge Diagnosis (1) DKA (diabetic ketoacidoses): Status: Resolved Qualifiers: Diabetes mellitus complication detail: without coma Diabetes mellitus type: type 1 Qualified Code(s): E10.10 - Type 1 diabetes mellitus with ketoacidosis without coma (2) Status post mitral valve annuloplasty: Status: Acute (3) Chronic pancreatitis due to acute alcohol intoxication: Status: Acute (4) Diabetic peripheral neuropathy: Status: Chronic (5) 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: Status: Acute (6) Anxiety and depression: Status: Inactive (7) ALC (alcoholic liver cirrhosis): Status: Inactive Qualifiers: Ascites presence: without ascites Qualified Code(s): K70.30 - Alcoholic cirrhosis of liver without ascites (8) Infective endocarditis: Status: Resolved Permanent problem details: Led to valve replacement Reason for Visit Reason for Visit: ABD PAIN; Hx OF PANCREATITIS Hospital Course Hospital Course 40-year-old male with a past medical history significant for anxiety, depression, alcoholism with subsequent alcoholic liver disease, chronic pancreatitis, 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 Stated this has been ongoing for the past 24hr. Has not been able to tolerate any oral intake. Also noted nausea and non-bloody emesis. Denied any fever or chills. No reported diarrhea or constipatio. Also denied chest pain or shortness of breath. Upon arrival to hospital patient's laboratory workup showed a WBC of 16.2, hemoglobin of 15.5, hematocrit of 49.2 and platelet count of 215. sodium 127, potassium 4.6, chloride 88, bicarb 12, BUN 24 and creatinine of 1.1. Glucose was elevated at 601. AST of 23, ALT of 36 and alkaline phosphatase of 211. lipase of 5. Calculated serum osmolality was 296. Serum ketones and arterial blood gases was pending. Imaging studies included a CT abdomen pelvis which did not show any evidence of acute intra-abdominal abnormality. Was noted to have chronic pancreatitis As evident by mild Pancreatic ductal ectasia and numerous dystrophic calcifications. Patient was suspected to be in mild diabetic ketoacidosis and started on DKA treatment protocol. Overnight patient was transitioned off IV insulin as DKA resolved. Was started on CLD which was advanced and tolerated. Pain had improved. He was restarted on SQ insulin. Advised to follow up with endocrinology with a week post discharge. Physical Exam Narrative: EXAM NARRATIVE: General : Alert, Awake and oriented in NAD HEENT : Grossly unremarkable CVS : NSR CHEST : non-labored respiration ABD: Non-distended - c/o epigastric pain- improved. Ext : No edema Discharge Data Data Completed and Pending: Completed Studies During Hospitalization Category Date Time Status CT abdomen pelvis w con* [id number] Urge nt Cat Scan 05/14/20 17:02 Completed Vitals: Last Vital Signs Temp 98.4 F 05/16/20 10:39 Pulse 64 05/16/20 10:39 Resp 18 05/16/20 10:39 BP 147/87 05/16/20 10:39 Pulse Ox 98 05/16/20 10:39 Discharge Plan Discharge Patient Disposition: Home Condition: Stable Prescriptions: Continued (DME) FreeStyle Louise 14 Day Sensor Kit See Rx Instructions .ROUTE .MEDSUPPLY Qty: 2 RF: 3 (DME) FreeStyle Louise 14 Day [place] Misc See Rx Instructions .ROUTE .MEDSUPPLY Qty: 1 RF: 0 diclofenac potassium 50 mg tablet 50 mg PO BID 15 Days Qty: 30 RF: 1 pregabalin [Lyrica] 150 mg capsule 150 mg PO TID Qty: 90 RF: 2 Lantus Solostar U-100 Insulin 100 unit/mL (3 mL) insulin pen 20 unit SUBCUT QPM Qty: 15 RF: 4 insulin aspart U-100 [Novolog Flexpen U-100 Insulin] 100 unit/mL (3 mL) insulin pen See Rx Instructions .ROUTE .COMPLEX Qty: 15 RF: 5 Zofran 4 mg tablet 4 mg PO Q12H PRN (Reason: nausea and vomiting) Qty: 60 RF: 2 pantoprazole 40 mg tablet,delayed release (DR/EC) 40 mg PO DAILY Qty: 30 RF: 2 Zenpep 5,000-17,000- 24,000 unit Capsule,Delayed Release(Dr/Ec) 2 ea PO TIDWM Qty: 180 RF: 0 clonazepam 1 mg tablet 1 mg PO BID RF: 0 hydrocodone-acetaminophen 10-325 mg tablet 1 tab PO Q6H PRN (Reason: Pain) RF: 0 sildenafil 100 mg tablet 100 mg PO PRN RF: 0 alprazolam 1 mg tablet See Rx Instructions .ROUTE .COMPLEX PRN (Reason: anxiety) RF: 0 Discharge Orders: Discharge Order (Routine); Ordered 05/16/20 Ordered By: Mejia Leslie Referrals: Oumar Gonzalez MD [Primary Care Provider] - 4-7 days (DR GONZALEZ OFFICE WILL CALL WITH APPOINTMENT TIME.) Kristy Gonzalez MD [Physician] - 05/31/20 1:00 pm ( ) Discharge Diet: Diabetic Discharge Activity: Resume usual activity Patient Instructions: Pancreatitis (DC), Diabetic Ketoacidosis (DC), Diabetes Mellitus Type 2 in Adults (DC), Abuse of Alcohol (DC) Activity Restrictions/Additional Instructions: Please follow up with previous GI physician. Monitor blood sugar three time daily. Call pcp if persistently above 200. Discharge Attestations Time Spent in Discharge Care*: greater than 30 min Specific Discharge Activities: educating patient, discussing with assistant case manager/social workers/dc planners, documenting/other paperwork and evaluating patient/reviewing data Status at Discharge: Cognitive status at discharge: cognitively intact, Behavioral status at discharge: cooperative, Functional status at discharge: independent ambulation Overall status at discharge: patient is back to baseline Quality Metrics Clinical Quality Measures During this hospital stay, did patient experience: None Coding Level of Care Code Acute Branch Or Department Chief Librarian for Chg Fwd Diagnoses DKA (diabetic ketoacidoses) E10.10 Diabetes mellitus complication detail: without coma Diabetes mellitus type: type 1 Status post mitral valve annuloplasty Z98.890 Chronic pancreatitis due to acute alcohol intoxication K86.0; F10.929 Diabetic peripheral neuropathy E11.42 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
== END 2020-05-16 10:40 | disposition home or self-care (01) | DRG 638 ==
LOC: ER 16:58 → ICU 18:16 → MEDSURG 05-15 21:38
PROVIDERS: Internal Medicine; Admitting Provider Hospitalist; Emergency Provider Emergency Medicine; PCP Family Medicine; Visit Provider Hospitalist
DX: E10.10 Type 1 diabetes mellitus with ketoacidosis without coma (principal); K86.0 Alcohol-induced chronic pancreatitis; F41.8 Other specified anxiety disorders; K70.30 Alcoholic cirrhosis of liver without ascites; F10.11 Alcohol abuse, in remission; Z95.2 Presence of prosthetic heart valve; F17.210 Nicotine dependence, cigarettes, uncomplicated; K21.9 Gastro-esophageal reflux disease without esophagitis; K86.9 Disease of pancreas, unspecified; Z79.891 Long term (current) use of opiate analgesic; E10.42 Type 1 diabetes mellitus with diabetic polyneuropathy; E10.51 Type 1 diabetes mellitus with diabetic peripheral angiopathy without gangrene
CPT/HCPCS: 12345; 36415; 36416; 36600; 74177; 80048; 80053; 82009; 82803; 82962; 83036; 83690; 83735; 85025; 96372; 96375; 99283; J1170; J1200; J1815 ×2; J2060; J2405; J2765; J3475; J7030; J7050; Q9967

== ENCOUNTER → 2020-05-31 10:26 | Outpatient (BNVA) | payer MEDICAID, SELFPAY | PROVIDERS: PCP Family Medicine; Visit Provider Internal Medicine | DX: E11.42 Type 2 diabetes mellitus with diabetic polyneuropathy (principal); E11.649 Type 2 diabetes mellitus with hypoglycemia without coma; Z79.4 Long term (current) use of insulin; S36.209S Unspecified injury of unspecified part of pancreas, sequela | CPT/HCPCS: 99214 ==

== ENCOUNTER 2020-06-05 21:55 | Emergency (ER) | payer MEDICAID, SELFPAY ==
[2020-06-05 22:00] VITALS: BP 116/78; PULSE 117; RESP 18; TEMP 36.8; O2SAT 98; BMI 19.2
[2020-06-05 22:14] LABS: Glucose Point of Care 571 mg/dL (70-110)
== END 2020-06-05 22:22 | disposition left against medical advice (07) ==
LOC: ER 22:01
PROVIDERS: Emergency Provider Family Medicine; PCP Family Medicine
DX: Z53.21 Procedure and treatment not carried out due to patient leaving prior to being seen by health care provider (principal)
CPT/HCPCS: 36416; 82962; 99281

== ENCOUNTER 2020-06-06 15:54 | Emergency (ER) | payer MEDICAID, SELFPAY ==
[2020-06-06 15:57] VITALS: BP 137/92; PULSE 111; RESP 18; TEMP 36.6; O2SAT 100; BMI 19.2
--- NOTE | 2020-06-06 16:03 | ECG_ITS ---
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 Measurements Intervals [place] Rate: 102 P: 61 RI: 153 QRS: 45 QRSD: 103 T: 52 QT: 367 QTc: 478 Interpretive Statements SINUS TACHYCARDIA ST ELEVATION CONSISTENT WITH INJURY, PERICARDITIS, OR EARLY REPOLARIZATION [ST ELEVATION W/O NORMALLY INFLECTED T WAVE] Compared to ECG 03/14/2020 06:52:12 ST (T wave) deviation now present Early repolarization now present Sinus rhythm no longer present Electronically Signed On 06-06-2020 18:54:37 ENDOCRINOLOGY PHYSICIAN by Conrad Pappas M.D. [email or web address].[id number]
--- NOTE | 2020-06-06 16:04 | XRR_ITS ---
PROCEDURE INFORMATION: Exam: XR Chest, 1 View Exam date and time: 06/06/2020 4:07 PM Age: 40 years old Clinical indication: Cough and dyspnea; Prior surgery; Surgery type: Cabg; Additional info: Dyspnea/cough TECHNIQUE: Imaging protocol: XR of the chest Views: 1 view. Total images: 1 COMPARISON: CR XR chest 1V portable [id number] 03/14/2020 4:40 AM FINDINGS: Lungs: No visible active interstitial or alveolar airspace disease. Pleural space: Unremarkable. No pleural effusion. No pneumothorax. Heart/Mediastinum: Cardiac structures and configuration stable with status post sternotomy chest and aortic as well as mitral valve prostheses. Bones/joints: Unremarkable. XR/XR chest 1V portable [id number] IMPRESSION: Nonacute.
--- NOTE | 2020-06-06 16:04 | CTR_ITS ---
PROCEDURE INFORMATION: Exam: CT Abdomen And Pelvis With Contrast Exam date and time: 06/06/2020 4:10 PM Age: 40 years old Clinical indication: Abdominal pain; Additional info: Abd pain TECHNIQUE: Imaging protocol: Computed tomography of the abdomen and pelvis with intravenous contrast. Total images: 217 Radiation optimization: All CT scans at this facility use at least one of these dose optimization techniques: automated exposure control; mA and/or kV adjustment per patient size (includes targeted exams where dose is matched to clinical indication); or iterative reconstruction. Contrast material: OMNI 300; Contrast volume: 95 ml; Contrast route: INTRAVENOUS (IV); COMPARISON: CT abdomen pelvis w con* [id number] 05/14/2020 5:20 PM RADIATION DOSE METRICS: Total DLP (mGy-cm): 272.59 FINDINGS: Lungs: Minimal dependent atelectasis right lung base. Pleural space: Scant right pleural effusion. Heart: Status post sternotomy chest with aortic and mitral valve prostheses. No visible pericardial effusion. Liver: Unremarkable. No mass. Gallbladder and bile ducts: Gallbladder is contracted. No visible cholelithiasis. Pancreas: Findings of chronic pancreatitis again evident. Mild pancreatic ductal ectasia remains. Numerous pancreatic dystrophic calcifications. No significant overall change. Spleen: Normal. No splenomegaly. Adrenal glands: No interval change in the appearance of the adrenal glands. Slight fullness to the medial wing of the left adrenal gland again noted but without definite nodule again stable since prior evaluations. No follow-up recommended. Kidneys and ureters: Stable simple cortical cyst equator right kidney. No follow-up recommended. Left kidney unremarkable. No visible perinephric fluid or hydronephrosis bilaterally. No visible nephrolithiasis. Stomach and bowel: The stomach is moderately ectatic. Duodenum and jejunal bowel loops also demonstrate moderate fluid-filled ectasia. Nonobstructive bowel pattern. Appendix: The appendix is visualized and appears noninflamed. Intraperitoneal space: Unremarkable. No free air. No significant fluid collection. Vasculature: The abdominal aorta is nonaneurysmal. Lymph nodes: Unremarkable. No enlarged lymph nodes. Urinary bladder: Unremarkable as visualized. Reproductive: Unremarkable as visualized. Bones/joints: No visible active or acute osseous pathology. Soft tissues: Unremarkable. CT/CT abdomen pelvis w con* [id number] IMPRESSION: Findings most consistent with moderate grade gastroenteritis. Radiation Dose CTDIVOL = (mGy): DLP = 272.59 (mGy-cm)
[2020-06-06 16:07] LABS: Glucose Point of Care 405 mg/dL (70-110)
--- NOTE | 2020-06-06 16:07 | ED_ITS ---
Documented by User: Jose Carlos Guillaume DO 06/07/20 13:01 HPI - General Adult General: Chief complaint: General Medical Stated complaint: DKA Time Seen by Provider: 06/06/20 16:03 History of Present Illness: HPI narrative: 40-year-old male presents emergency room via EMS with complaints of elevated blood sugar last 3 days with vomiting and polyuria. He denies any hematemesis or coffee-ground emesis he has been in quite a bit of vomiting now denies any diarrhea. He has some vague chest discomfort related to his vomiting. He has no radiation of pain into his neck or arms. He has not been very compliant with his insulin. Onset (ago): day(s) Location: abdomen Radiation: non-radiation Severity: moderate Quality: aching Pain Consistency: constant Relieving factors: none Exacerbating factors: none Associated symptoms: Reports chest pain, diaphoresis, decreased appetite, dyspnea, fevers/chills, headache(s), malaise, nausea, vomiting and weakness; Deny confusion, cough, rash, palpitations, seizures or short of breath Treatments prior to arrival: none Review of Systems Const: Reports: malaise and diaphoresis ENMT: Denies: throat pain, ear or mastoid pain, nasal discharge or nasal congestion Card: Reports: chest pain; Denies: palpitations Resp: Reports: dyspnea GI: Reports: nausea and vomiting : Denies: flank pain, dysuria, urinary frequency or urinary urgency Skin/Breast: Denies: rash Neuro: Reports: headache(s); Denies: confusion PFSH ED PFSH: Medical History Abdominal pain Thought to be secondary to chronic pancreatitis. 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 Pichardo Status post mitral valve annuloplasty Family History Father CAD (coronary artery disease) Diabetes Stroke Social History Smoking and tobacco status: current every day smoker cigarettes Packs smoked per day: 0.75 Alcohol intake: former Former alcohol use details: Says has not drank any alcohol in 3 years. Lives independently: Yes Household members: family and other Details: Parents Marital status: Legally Current occupational status: unemployed Physical Exam Const: GENERAL APPEARANCE: cooperative ORIENTATION/CONSCIOUSNESS: Yes awake, Yes oriented to person, Yes oriented to place and Yes oriented to time HENMT: COMMON NORMALS: normocephalic, atraumatic and hearing grossly normal bilaterally HEAD & SCALP: normocephalic and atraumatic Neck/C-Spine: COMMON NORMALS: no JVD Resp: COMMON NORMALS: normal respiratory effort, No retractions, No use of accessory muscles and clear to auscultation bilaterally AUSCULTATION: clear to auscultation bilaterally Cardio: COMMON NORMALS: no JVD, regular rhythm and No murmurs present (Cardio) RATE: tachycardic RHYTHM: regular rhythm GI: COMMON NORMALS: Soft to palpation and No hepatosplenomegaly present AUSCULTATION: Yes normoactive bowel sounds PALPATION: Yes Soft to palpation, No Tenderness to palpation present (GI), No Guarding due to palpation present (GI) and Yes No hepatosplenomegaly present Extremity: COMMON NORMALS: normal to inspection, capillary refill normal, no clubbing, cyanosis or edema, no calf tenderness and no pedal edema Neuro: SENSORIUM/ORIENTATION: Yes oriented to person, Yes oriented to place and Yes oriented to time Skin: COMMON NORMALS: no rashes or lesions noted GENERAL SKIN EXAM: no rashes or lesions noted Course Vital Signs: Vital signs: Vital Signs Temperature 97.8 F 06/06/20 15:57 Pulse Rate 110 H 06/06/20 19:30 Respiratory Rate 20 H 06/06/20 19:30 Blood Pressure 124/88 06/06/20 19:30 Pulse Oximetry 99 06/06/20 19:30 MDM - General Adult MDM Narrative: Medical decision making narrative: Turned over to Dr. Frias at change of shift see his note for final diagnosis and disposition Lab Data: Labs: Lab Results 06/06/20 06/06/20 06/06/20 Range/Units 16:03 16:26 18:05 WBC (4.0-10.0) 10^3/ uL RBC (4.1-5.3) 10^6/u L Hgb (11.7-16.6) g/dL Hct (42.0-52.0) % MCV (80-94) fL MCH (28.0-34.0) pg MCHC (30.0-36.0) g/dL RDW (12.1-15.1) % Plt Count (130-400) 10^3/c mm MPV (7.4-10.4) fL Neut % (Auto) % Lymph % (Auto) % Ashley % (Auto) % Eos % (Auto) % Baso % (Auto) % Neut # (Auto) (1.8-7.7) 10^3/u L Lymph # (Auto) (0.8-4.8) 10^3/u L Ashley # (Auto) (0.2-0.9) 10^3/u L Eos # (Auto) (0.0-0.8) 10^3/u L Baso # (Auto) (0.0-0.1) 10^3/u L Nucleated RBC % (a uto) % Nucleated RBCs # /100WBC Specimen Type Arterial Sample Site Radial, right ABG pH 7.49 H (7.35-7.45) ABG pCO2 35.4 (35-45) mmHg ABG pO2 81.6 (80.0-100.0) mmH g ABG HCO3 26.7 H (22-26) mmol/L ABG O2 Saturation 96.6 ABG Base Excess 3.4 H (-2.0-2.0) mmol/ L Jonathan Test Pos A-a O2 Gradient 3.0 L (5-10) mmHg Hematocrit 42.5 (42-52) % Hgb O2 Saturation 93.3 L (95-100) % Carboxyhemoglobin 2.8 (0.4-20.1) %THgb Methemoglobin 0.6 (0.4-1.5) % Total Hemoglobin 13.9 L (14-18) g/dL Sodium 132.0 (131-143) mmol/L Potassium 3.4 L (3.5-5.0) mmol/L Glucose 432.0 H (70-115) mg/dL Ionized Calcium 1.2 (1.1-1.4) mmol/L O2 Delivery Device Room air FiO2 21.0 % Tower [employer] Traffic [employer] Specialist ID Ed Chloride (98-107) mmol/L Carbon Dioxide (22-29) mmol/L Anion Gap (5-19) BUN (6-20) mg/dL Creatinine (0.7-1.2) mg/dL GFR Calculation (90-130) mL/min POC Glucose 405 H 234 H (70-110) mg/dL Calculated Osmolal ity (285-295) mOsm/k g Lactic Acid (0.5-2.2) mmol/L Calcium (8.5-10.5) mg/dL Magnesium (1.7-2.3) mg/dL Total Bilirubin (0.15-1.2) mg/dL AST (0-40) U/L ALT (0-41) U/L Alkaline Phosphata se (40-130) IU/L Creatine Kinase (39-308) U/L Troponin T Baselin e (0-15) ng/L Total Protein (6.6-8.7) g/dL Albumin (3.5-5.2) g/dL Globulin (1.3-4.6) g/dL Lipase (13-60) U/L Serum Ketones (Negative) 06/06/20 06/06/20 06/06/20 Range/Units 18:08 18:08 18:08 WBC 11.0 H (4.0-10.0) 10^3/ uL RBC 4.74 (4.1-5.3) 10^6/u L Hgb 13.8 (11.7-16.6) g/dL Hct 40.4 L (42.0-52.0) % MCV 85.2 (80-94) fL MCH 29.1 (28.0-34.0) pg MCHC 34.2 (30.0-36.0) g/dL RDW 12.9 (12.1-15.1) % Plt Count 181 (130-400) 10^3/c mm MPV 13.0 H (7.4-10.4) fL Neut % (Auto) 77.1 % Lymph % (Auto) 16.0 % Ashley % (Auto) 6.2 % Eos % (Auto) 0.1 % Baso % (Auto) 0.3 % Neut # (Auto) 8.45 H (1.8-7.7) 10^3/u L Lymph # (Auto) 1.8 (0.8-4.8) 10^3/u L Ashley # (Auto) 0.7 (0.2-0.9) 10^3/u L Eos # (Auto) 0.0 (0.0-0.8) 10^3/u L Baso # (Auto) 0.0 (0.0-0.1) 10^3/u L Nucleated RBC % (a uto) 0 % Nucleated RBCs # 0.0 /100WBC Specimen Type Sample Site ABG pH (7.35-7.45) ABG pCO2 (35-45) mmHg ABG pO2 (80.0-100.0) mmH g ABG HCO3 (22-26) mmol/L ABG O2 Saturation ABG Base Excess (-2.0-2.0) mmol/ L Jonathan Test A-a O2 Gradient (5-10) mmHg Hematocrit (42-52) % Hgb O2 Saturation (95-100) % Carboxyhemoglobin (0.4-20.1) %THgb Methemoglobin (0.4-1.5) % Total Hemoglobin (14-18) g/dL Sodium 134 L (131-143) mmol/L Potassium 3.2 L (3.5-5.0) mmol/L Glucose 284 H (70-115) mg/dL Ionized Calcium (1.1-1.4) mmol/L O2 Delivery Device FiO2 % [employer] Specialist ID Chloride 92 L (98-107) mmol/L Carbon Dioxide 26 (22-29) mmol/L Anion Gap 19.2 H (5-19) BUN 8 (6-20) mg/dL Creatinine 0.6 L (0.7-1.2) mg/dL GFR Calculation 149.2 H (90-130) mL/min POC Glucose (70-110) mg/dL Calculated Osmolal ity 287 (285-295) mOsm/k g Lactic Acid 3.6 H (0.5-2.2) mmol/L Calcium 9.3 (8.5-10.5) mg/dL Magnesium 1.8 (1.7-2.3) mg/dL Total Bilirubin 0.6 (0.15-1.2) mg/dL AST 14 (0-40) U/L ALT 21 (0-41) U/L Alkaline Phosphata se 149 H (40-130) IU/L Creatine Kinase 41 (39-308) U/L Troponin T Baselin e (0-15) ng/L Total Protein 6.1 L (6.6-8.7) g/dL Albumin 4.1 (3.5-5.2) g/dL Globulin 2.0 (1.3-4.6) g/dL Lipase 5 L (13-60) U/L Serum Ketones (Negative) 06/06/20 06/06/20 06/06/20 Range/Units 18:08 18:08 18:41 WBC (4.0-10.0) 10^3/ uL RBC (4.1-5.3) 10^6/u L Hgb (11.7-16.6) g/dL Hct (42.0-52.0) % MCV (80-94) fL MCH (28.0-34.0) pg MCHC (30.0-36.0) g/dL RDW (12.1-15.1) % Plt Count (130-400) 10^3/c mm MPV (7.4-10.4) fL Neut % (Auto) % Lymph % (Auto) % Ashley % (Auto) % Eos % (Auto) % Baso % (Auto) % Neut # (Auto) (1.8-7.7) 10^3/u L Lymph # (Auto) (0.8-4.8) 10^3/u L Ashley # (Auto) (0.2-0.9) 10^3/u L Eos # (Auto) (0.0-0.8) 10^3/u L Baso # (Auto) (0.0-0.1) 10^3/u L Nucleated RBC % (a uto) % Nucleated RBCs # /100WBC Specimen Type Sample Site ABG pH (7.35-7.45) ABG pCO2 (35-45) mmHg ABG pO2 (80.0-100.0) mmH g ABG HCO3 (22-26) mmol/L ABG O2 Saturation ABG Base Excess (-2.0-2.0) mmol/ L Jonathan Test A-a O2 Gradient (5-10) mmHg Hematocrit (42-52) % Hgb O2 Saturation (95-100) % Carboxyhemoglobin (0.4-20.1) %THgb Methemoglobin (0.4-1.5) % Total Hemoglobin (14-18) g/dL Sodium (131-143) mmol/L Potassium (3.5-5.0) mmol/L Glucose (70-115) mg/dL Ionized Calcium (1.1-1.4) mmol/L O2 Delivery Device FiO2 % [employer] Specialist ID Chloride (98-107) mmol/L Carbon Dioxide (22-29) mmol/L Anion Gap (5-19) BUN (6-20) mg/dL Creatinine (0.7-1.2) mg/dL GFR Calculation (90-130) mL/min POC Glucose 193 H (70-110) mg/dL Calculated Osmolal ity (285-295) mOsm/k g Lactic Acid (0.5-2.2) mmol/L Calcium (8.5-10.5) mg/dL Magnesium (1.7-2.3) mg/dL Total Bilirubin (0.15-1.2) mg/dL AST (0-40) U/L ALT (0-41) U/L Alkaline Phosphata se (40-130) IU/L Creatine Kinase (39-308) U/L Troponin T Baselin e 36 H (0-15) ng/L Total Protein (6.6-8.7) g/dL Albumin (3.5-5.2) g/dL Globulin (1.3-4.6) g/dL Lipase (13-60) U/L Serum Ketones Negative (Negative) Discharge Plan Discharge Patient Disposition: Home Clinical Impression: Abdominal pain, Hyperglycemia Condition: Stable Prescriptions: New ondansetron 4 mg tablet,disintegrating 4 mg PO Q6H PRN (Reason: nausea and vomiting) Qty: 14 RF: 0 No Action (DME) Dexcom G6 Manager Truck Misc See Rx Instructions .ROUTE .MEDSUPPLY Qty: 1 RF: 0 (DME) Dexcom G6 Transmitter Device See Rx Instructions .ROUTE .MEDSUPPLY Qty: 1 RF: 0 (DME) Dexcom G6 Sensor Device See Rx Instructions .ROUTE .MEDSUPPLY Qty: 3 RF: 0 Lantus Solostar U-100 Insulin 100 unit/mL (3 mL) insulin pen 20 unit SUBCUT QPM Qty: 15 RF: 4 insulin aspart U-100 [Novolog Flexpen U-100 Insulin] 100 unit/mL (3 mL) insulin pen See Rx Instructions .ROUTE .COMPLEX Qty: 15 RF: 5 Zofran 4 mg tablet 4 mg PO Q12H PRN (Reason: nausea and vomiting) Qty: 60 RF: 2 Zenpep 5,000-17,000- 24,000 unit Capsule,Delayed Release(Dr/Ec) 2 ea PO TIDWM Qty: 180 RF: 0 hydrocodone-acetaminophen 10-325 mg tablet 1 tab PO Q6H PRN (Reason: Pain) RF: 0 sildenafil 100 mg tablet 100 mg PO PRN RF: 0 alprazolam 1 mg tablet See Rx Instructions .ROUTE .COMPLEX PRN (Reason: anxiety) RF: 0 pantoprazole 40 mg tablet,delayed release (DR/EC) 40 mg PO DAILY@0800 RF: 0 Lyrica 150 mg capsule 150 mg PO TID@0800,1200,2000 RF: 0 Discharge Orders: Discharge ED (Routine); Ordered 06/06/20 Ordered By: Padilla Frias Referrals: Oumar Gonzalez MD [Primary Care Provider] - 1-3 days Discharge Diet: Advance as tolerated Discharge Activity: Resume usual activity Patient Instructions: Abdominal Pain (ED) Coding Level of Care Code ED [employer] for Chg Fwd Documented by User: Padilla Frias MD 06/06/20 19:15 HPI - General Adult General: Chief complaint: General Medical Stated complaint: DKA Time Seen by Provider: 06/06/20 16:03 PFSH ED PFSH: Medical History Abdominal pain Thought to be secondary to chronic pancreatitis. 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 Pichardo Status post mitral valve annuloplasty Family History Father CAD (coronary artery disease) Diabetes Stroke Social History Smoking and tobacco status: current every day smoker cigarettes Packs smoked per day: 0.75 Alcohol intake: former Former alcohol use details: Says has not drank any alcohol in 3 years. Lives independently: Yes Household members: family and other Details: Parents Marital status: Legally Current occupational status: unemployed Course 2 Vital Signs: Vital signs: Vital Signs Temperature 97.8 F 06/06/20 15:57 Pulse Rate 110 H 06/06/20 19:30 Respiratory Rate 20 H 06/06/20 19:30 Blood Pressure 124/88 06/06/20 19:30 Pulse Oximetry 99 06/06/20 19:30 MDM - General Adult MDM Narrative: Medical decision making narrative: Jagdish presents here with hyperglycemia along with vomiting that is chronic in nature. He is a nonco mpliant diabetic. Patient's blood sugar here is improved. His pH is normal and he has no anion gap and he is not in DKA. CT of his abdomen is normal. He is stable for discharge and return if worsening. His initial troponin here is 33 which is stable compared to his past troponins. I believe he has no signs of ACS and does not require a 2-hour troponin. Lab Data: Labs: Lab Results 06/06/20 06/06/20 06/06/20 Range/Units 16:03 16:26 18:05 WBC (4.0-10.0) 10^3/ uL RBC (4.1-5.3) 10^6/u L Hgb (11.7-16.6) g/dL Hct (42.0-52.0) % MCV (80-94) fL MCH (28.0-34.0) pg MCHC (30.0-36.0) g/dL RDW (12.1-15.1) % Plt Count (130-400) 10^3/c mm MPV (7.4-10.4) fL Neut % (Auto) % Lymph % (Auto) % Ashley % (Auto) % Eos % (Auto) % Baso % (Auto) % Neut # (Auto) (1.8-7.7) 10^3/u L Lymph # (Auto) (0.8-4.8) 10^3/u L Ashley # (Auto) (0.2-0.9) 10^3/u L Eos # (Auto) (0.0-0.8) 10^3/u L Baso # (Auto) (0.0-0.1) 10^3/u L Nucleated RBC % (a uto) % Nucleated RBCs # /100WBC Specimen Type Arterial Sample Site Radial, right ABG pH 7.49 H (7.35-7.45) ABG pCO2 35.4 (35-45) mmHg ABG pO2 81.6 (80.0-100.0) mmH g ABG HCO3 26.7 H (22-26) mmol/L ABG O2 Saturation 96.6 ABG Base Excess 3.4 H (-2.0-2.0) mmol/ L Jonathan Test Pos A-a O2 Gradient 3.0 L (5-10) mmHg Hematocrit 42.5 (42-52) % Hgb O2 Saturation 93.3 L (95-100) % Carboxyhemoglobin 2.8 (0.4-20.1) %THgb Methemoglobin 0.6 (0.4-1.5) % Total Hemoglobin 13.9 L (14-18) g/dL Sodium 132.0 (131-143) mmol/L Potassium 3.4 L (3.5-5.0) mmol/L Glucose 432.0 H (70-115) mg/dL Ionized Calcium 1.2 (1.1-1.4) mmol/L O2 Delivery Device Room air FiO2 21.0 % Tower [employer] Traffic [employer] Specialist ID Ed Chloride (98-107) mmol/L Carbon Dioxide (22-29) mmol/L Anion Gap (5-19) BUN (6-20) mg/dL Creatinine (0.7-1.2) mg/dL GFR Calculation (90-130) mL/min POC Glucose 405 H 234 H (70-110) mg/dL Calculated Osmolal ity (285-295) mOsm/k g Lactic Acid (0.5-2.2) mmol/L Calcium (8.5-10.5) mg/dL Magnesium (1.7-2.3) mg/dL Total Bilirubin (0.15-1.2) mg/dL AST (0-40) U/L ALT (0-41) U/L Alkaline Phosphata se (40-130) IU/L Creatine Kinase (39-308) U/L Troponin T Baselin e (0-15) ng/L Total Protein (6.6-8.7) g/dL Albumin (3.5-5.2) g/dL Globulin (1.3-4.6) g/dL Lipase (13-60) U/L Serum Ketones (Negative) 06/06/20 06/06/20 06/06/20 Range/Units 18:08 18:08 18:08 WBC 11.0 H (4.0-10.0) 10^3/ uL RBC 4.74 (4.1-5.3) 10^6/u L Hgb 13.8 (11.7-16.6) g/dL Hct 40.4 L (42.0-52.0) % MCV 85.2 (80-94) fL MCH 29.1 (28.0-34.0) pg MCHC 34.2 (30.0-36.0) g/dL RDW 12.9 (12.1-15.1) % Plt Count 181 (130-400) 10^3/c mm MPV 13.0 H (7.4-10.4) fL Neut % (Auto) 77.1 % Lymph % (Auto) 16.0 % Ashley % (Auto) 6.2 % Eos % (Auto) 0.1 % Baso % (Auto) 0.3 % Neut # (Auto) 8.45 H (1.8-7.7) 10^3/u L Lymph # (Auto) 1.8 (0.8-4.8) 10^3/u L Ashley # (Auto) 0.7 (0.2-0.9) 10^3/u L Eos # (Auto) 0.0 (0.0-0.8) 10^3/u L Baso # (Auto) 0.0 (0.0-0.1) 10^3/u L Nucleated RBC % (a uto) 0 % Nucleated RBCs # 0.0 /100WBC Specimen Type Sample Site ABG pH (7.35-7.45) ABG pCO2 (35-45) mmHg ABG pO2 (80.0-100.0) mmH g ABG HCO3 (22-26) mmol/L ABG O2 Saturation ABG Base Excess (-2.0-2.0) mmol/ L Jonathan Test A-a O2 Gradient (5-10) mmHg Hematocrit (42-52) % Hgb O2 Saturation (95-100) % Carboxyhemoglobin (0.4-20.1) %THgb Methemoglobin (0.4-1.5) % Total Hemoglobin (14-18) g/dL Sodium 134 L (131-143) mmol/L Potassium 3.2 L (3.5-5.0) mmol/L Glucose 284 H (70-115) mg/dL Ionized Calcium (1.1-1.4) mmol/L O2 Delivery Device FiO2 % Tower [employer] Traffic [employer] Specialist ID Chloride 92 L (98-107) mmol/L Carbon Dioxide 26 (22-29) mmol/L Anion Gap 19.2 H (5-19) BUN 8 (6-20) mg/dL Creatinine 0.6 L (0.7-1.2) mg/dL GFR Calculation 149.2 H (90-130) mL/min POC Glucose (70-110) mg/dL Calculated Osmolal ity 287 (285-295) mOsm/k g Lactic Acid 3.6 H (0.5-2.2) mmol/L Calcium 9.3 (8.5-10.5) mg/dL Magnesium 1.8 (1.7-2.3) mg/dL Total Bilirubin 0.6 (0.15-1.2) mg/dL AST 14 (0-40) U/L ALT 21 (0-41) U/L Alkaline Phosphata se 149 H (40-130) IU/L Creatine Kinase 41 (39-308) U/L Troponin T Baselin e (0-15) ng/L Total Protein 6.1 L (6.6-8.7) g/dL Albumin 4.1 (3.5-5.2) g/dL Globulin 2.0 (1.3-4.6) g/dL Lipase 5 L (13-60) U/L Serum Ketones (Negative) 06/06/20 06/06/20 06/06/20 Range/Units 18:08 18:08 18:41 WBC (4.0-10.0) 10^3/ uL RBC (4.1-5.3) 10^6/u L Hgb (11.7-16.6) g/dL Hct (42.0-52.0) % MCV (80-94) fL MCH (28.0-34.0) pg MCHC (30.0-36.0) g/dL RDW (12.1-15.1) % Plt Count (130-400) 10^3/c mm MPV (7.4-10.4) fL Neut % (Auto) % Lymph % (Auto) % Ashley % (Auto) % Eos % (Auto) % Baso % (Auto) % Neut # (Auto) (1.8-7.7) 10^3/u L Lymph # (Auto) (0.8-4.8) 10^3/u L Ashley # (Auto) (0.2-0.9) 10^3/u L Eos # (Auto) (0.0-0.8) 10^3/u L Baso # (Auto) (0.0-0.1) 10^3/u L Nucleated RBC % (a uto) % Nucleated RBCs # /100WBC Specimen Type Sample Site ABG pH (7.35-7.45) ABG pCO2 (35-45) mmHg ABG pO2 (80.0-100.0) mmH g ABG HCO3 (22-26) mmol/L ABG O2 Saturation ABG Base Excess (-2.0-2.0) mmol/ L Jonathan Test A-a O2 Gradient (5-10) mmHg Hematocrit (42-52) % Hgb O2 Saturation (95-100) % Carboxyhemoglobin (0.4-20.1) %THgb Methemoglobin (0.4-1.5) % Total Hemoglobin (14-18) g/dL Sodium (131-143) mmol/L Potassium (3.5-5.0) mmol/L Glucose (70-115) mg/dL Ionized Calcium (1.1-1.4) mmol/L O2 Delivery Device FiO2 % Tower [employer] Traffic Control Specialist ID Chloride (98-107) mmol/L Carbon Dioxide (22-29) mmol/L Anion Gap (5-19) BUN (6-20) mg/dL Creatinine (0.7-1.2) mg/dL GFR Calculation (90-130) mL/min POC Glucose 193 H (70-110) mg/dL Calculated Osmolal ity (285-295) mOsm/k g Lactic Acid (0.5-2.2) mmol/L Calcium (8.5-10.5) mg/dL Magnesium (1.7-2.3) mg/dL Total Bilirubin (0.15-1.2) mg/dL AST (0-40) U/L ALT (0-41) U/L Alkaline Phosphata se (40-130) IU/L Creatine Kinase (39-308) U/L Troponin T Baselin e 36 H (0-15) ng/L Total Protein (6.6-8.7) g/dL Albumin (3.5-5.2) g/dL Globulin (1.3-4.6) g/dL Lipase (13-60) U/L Serum Ketones Negative (Negative) Imaging Data^: CT Abd/Pel: Attestation: I personally reviewed and interpreted this imaging study as follows: Radiologist's impression: [address] [address] [address] Scan Report Signed Patient: Jagdish Clinton Unit #: [id number] : [id number] Age/Sex: 40 / M ADM Date: 06/06/20 Loc: ER Room/Bed: Attending Dr: Ordering Provider/Ordering MD: Jose Carlos Guillaume DO Date of Service: 06/06/20 Procedure(s): CT abdomen pelvis w con* [id number] Accession Number(s): [id number] Report Number: [id number] PROCEDURE INFORMATION: Exam: CT Abdomen And Pelvis With Contrast Exam date and time: 06/06/2020 4:10 PM Age: 40 years old Clinical indication: Abdominal pain; Additional info: Abd pain TECHNIQUE: Imaging protocol: Computed tomography of the abdomen and pelvis with intravenous contrast. Total images: 217 Radiation optimization: All CT scans at this facility use at least one of these dose optimization techniques: automated exposure control; mA and/or kV adjustment per patient size (includes targeted exams where dose is matched to clinical indication); or iterative reconstruction. Contrast material: OMNI 300; Contrast volume: 95 ml; Contrast route: INTRAVENOUS (IV); COMPARISON: CT abdomen pelvis w con* [id number] 05/14/2020 5:20 PM RADIATION DOSE METRICS: Total DLP (mGy-cm): 272.59 FINDINGS: Lungs: Minimal dependent atelectasis right lung base. Pleural space: Scant right pleural effusion. Heart: Status post sternotomy chest with aortic and mitral valve prostheses. No visible pericardial effusion. Liver: Unremarkable. No mass. Gallbladder and bile ducts: Gallbladder is contracted. No visible cholelithiasis. Pancreas: Findings of chronic pancreatitis again evident. Mild pancreatic ductal ectasia remains. Numerous pancreatic dystrophic calcifications. No significant overall change. Spleen: Normal. No splenomegaly. Adrenal glands: No interval change in the appearance of the adrenal glands. Slight fullness to the medial wing of the left adrenal gland again noted but without definite nodule again stable since prior evaluations. No follow-up recommended. Kidneys and ureters: Stable simple cortical cyst equator right kidney. No follow-up recommended. Left kidney unremarkable. No visible perinephric fluid or hydronephrosis bilaterally. No visible nephrolithiasis. Stomach and bowel: The stomach is moderately ectatic. Duodenum and jejunal bowel loops also demonstrate moderate fluid-filled ectasia. Nonobstructive bowel pattern. Appendix: The appendix is visualized and appears noninflamed. Intraperitoneal space: Unremarkable. No free air. No significant fluid collection. Vasculature: The abdominal aorta is nonaneurysmal. Lymph nodes: Unremarkable. No enlarged lymph nodes. Urinary bladder: Unremarkable as visualized. Reproductive: Unremarkable as visualized. Bones/joints: No visible active or acute osseous pathology. Soft tissues: Unremarkable. CT/CT abdomen pelvis w con* [id number] IMPRESSION: Findings most consistent with moderate grade gastroenteritis. Radiation Dose CTDIVOL = (mGy): DLP = 272.59 (mGy-cm) Discharge Plan Discharge Patient Disposition: Home Clinical Impression: Abdominal pain, Hyperglycemia Condition: Stable Prescriptions: New ondansetron 4 mg tablet,disintegrating 4 mg PO Q6H PRN (Reason: nausea and vomiting) Qty: 14 RF: 0 No Action (DME) Dexcom G6 Manager Truck Misc See Rx Instructions .ROUTE .MEDSUPPLY Qty: 1 RF: 0 (DME) Dexcom G6 Transmitter Device See Rx Instructions .ROUTE .MEDSUPPLY Qty: 1 RF: 0 (DME) Dexcom G6 Sensor Device See Rx Instructions .ROUTE .MEDSUPPLY Qty: 3 RF: 0 Lantus Solostar U-100 Insulin 100 unit/mL (3 mL) insulin pen 20 unit SUBCUT QPM Qty: 15 RF: 4 insulin aspart U-100 [Novolog Flexpen U-100 Insulin] 100 unit/mL (3 mL) insulin pen See Rx Instructions .ROUTE .COMPLEX Qty: 15 RF: 5 Zofran 4 mg tablet 4 mg PO Q12H PRN (Reason: nausea and vomiting) Qty: 60 RF: 2 Zenpep 5,000-17,000- 24,000 unit Capsule,Delayed Release(Dr/Ec) 2 ea PO TIDWM Qty: 180 RF: 0 hydrocodone-acetaminophen 10-325 mg tablet 1 tab PO Q6H PRN (Reason: Pain) RF: 0 sildenafil 100 mg tablet 100 mg PO PRN RF: 0 alprazolam 1 mg tablet See Rx Instructions .ROUTE .COMPLEX PRN (Reason: anxiety) RF: 0 pantoprazole 40 mg tablet,delayed release (DR/EC) 40 mg PO DAILY@0800 RF: 0 Lyrica 150 mg capsule 150 mg PO TID@0800,1200,2000 RF: 0 Discharge Orders: Discharge ED (Routine); Ordered 06/06/20 Ordered By: Padilla Frias Referrals: Oumar Gonzalez MD [Primary Care Provider] - 1-3 days Discharge Diet: Advance as tolerated Discharge Activity: Resume usual activity Patient Instructions: Abdominal Pain (ED) Coding Level of Care Code ED [employer] for Bladimir Ortiz
[2020-06-06] MEDS: iohexol 300 mg/mL 100 mL Btl IV (16:21)
[2020-06-06 16:37] LABS: ABG PCO2 35.4 mmHg (35-45); ABG PH Result 7.49 (7.35-7.45); Arterial Blood Gas Hematocrit 42.5 % (42-52); Base Excess ABG 3.4 mmol/L (-2.0-2.0); Blood Gas Allen Test Pos; Blood Gas Operator Identificat ED; Blood Gas Sample Site Radial, right; Blood Gas Sample Type Arterial; Carboxyhemoglobin 2.8 %THgb (0.4-20.1); HCO3 ABG 26.7 mmol/L (22-26); HGB O2 Sat 93.3 % (95-100); Ionized Calcium Level - ABG 1.2 mmol/L (1.1-1.4); Methemoglobin 0.6 % (0.4-1.5); Oxygen Device ROOM AIR; Oxygen Saturation ABG 96.6; PO2 ABG 81.6 mmHg (80.0-100.0); Potassium Level - ABG 3.4 mmol/L (3.5-5.0); Total Hemoglobin 13.9 g/dL (14-18)
[2020-06-06] MEDS: ondansetron 2 mg/ML SDV 2 mL 4 MG IVP ×2 (16:56→19:20)
[2020-06-06] MEDS: insulin regular-human 100 units/1 mL 20 UNIT IVP (16:58)
[2020-06-06] MEDS: lidocaine 2% viscous 15 ML, aluminum-mag hydrox-simethicon 30 ML, sucralfate oral liq 1 GM PO (17:03)
[2020-06-06] MEDS: sodium chloride 0.9% 1,000 ML 999 ML IV (17:04)
[2020-06-06] MEDS: insulin regular-human 250 UNIT in sodium chloride 0.9% 250 ML 5.1 UNIT IV (17:24)
[2020-06-06 18:08] LABS: Glucose Point of Care 234 mg/dL (70-110)
[2020-06-06 18:16] LABS: Basophils % 0.3 %; Eosinophils % 0.1 %; Hematocrit 40.4 % (42.0-52.0); Hemoglobin 13.8 g/dL (11.7-16.6); Lymphocytes # 1.8 10^3/uL (0.8-4.8); Mean Corpuscular HGB Conc 34.2 g/dL (30.0-36.0); Mean Corpuscular Hemoglobin 29.1 pg (28.0-34.0); Mean Corpuscular Volume 85.2 fL (80-94); Monocytes # 0.7 10^3/uL (0.2-0.9); Monocytes % 6.2 %; Neutrophils # 8.45 10^3/uL (1.8-7.7); Neutrophils % 77.1 %; Nucleated Red Blood Cells % 0 %; Platelet Count 181 10^3/cmm (130-400); Red Blood Count 4.74 10^6/uL (4.1-5.3); Red Cell Distribution Width 12.9 % (12.1-15.1)
[2020-06-06 18:34] LABS: Ketone (Acetest) Serum Negative (Negative)
[2020-06-06 18:41] LABS: Lactic Sepsis W/Reflex 3.6 mmol/L (0.5-2.2)
[2020-06-06 18:42] LABS: Alanine Aminotransferase 21 U/L (0-41); Albumin Level 4.1 g/dL (3.5-5.2); Alkaline Phosphatase 149 IU/L (40-130); Anion Gap 19.2 (5-19); Aspartate Amino Transferase 14 U/L (0-40); Blood Urea Nitrogen 8 mg/dL (6-20); Calcium 9.3 mg/dL (8.5-10.5); Carbon Dioxide 26 mmol/L (22-29); Chloride 92 mmol/L (98-107); Creatine Phosphokinase 41 U/L (39-308); Glomerular Filtration Rate 149.2 mL/min (90-130); Glucose 284 mg/dL (65-115); Lipase 5 U/L (13-60); Magnesium 1.8 mg/dL (1.7-2.3); Osmolality Calculated 287 mOsm/kg (285-295); Potassium 3.2 mmol/L (3.5-5.1); Sodium 134 mmol/L (136-145); Total Bilirubin 0.6 mg/dL (0.15-1.2); Total Protein 6.1 g/dL (6.6-8.7)
[2020-06-06 18:45] LABS: Troponin(5th) Baseline 36 ng/L (0-15)
[2020-06-06 18:45] LABS: Glucose Point of Care 193 mg/dL (70-110)
[2020-06-06] MEDS: ketorolac 30 mg/mL INJ 15 MG IVP (19:21)
[2020-06-06 19:22] VITALS: BP 130/87; PULSE 101; RESP 14; O2SAT 100
[2020-06-06 19:30] VITALS: BP 124/88; PULSE 110; RESP 20; O2SAT 99
--- NOTE | 2020-06-06 19:54 | PC.NURSE ---
Report from JUSTYNA Schneider
--- NOTE | 2020-06-06 19:55 | PC.NURSE ---
Pt stated he was not sure if he wants to take the BUM IV infusing in AM. Provided pt with paperwork and sent home with pt for review. Provider at bedside.
[2020-06-06 20:00] LABS: Reflex Lactate Order REFLEX LACTIC ORDERD
== END 2020-06-06 19:57 | disposition home or self-care (01) ==
PROVIDERS: Family Medicine; Emergency Provider Emergency Medicine; PCP Family Medicine
DX: E11.65 Type 2 diabetes mellitus with hyperglycemia (principal); R10.9 Unspecified abdominal pain; Z79.4 Long term (current) use of insulin; E11.42 Type 2 diabetes mellitus with diabetic polyneuropathy; F17.210 Nicotine dependence, cigarettes, uncomplicated
CPT/HCPCS: 12345; 36416; 36600; 71045; 74177; 80051; 80053; 82009; 82330; 82550; 82805; 82962; 83605; 83690; 83735; 84484; 85025; 93005; 96365; 96366; 96375; 96376; 99282; 99284; J1815; J1885; J2405; J7030; J7050; Q9967

== ENCOUNTER → 2020-08-15 15:12 | Outpatient (BNVA) | payer MEDICAID, SELFPAY | PROVIDERS: PCP Family Medicine; Visit Provider Internal Medicine | DX: R79.89 Other specified abnormal findings of blood chemistry (principal); R06.02 Shortness of breath; R07.9 Chest pain, unspecified; Z95.2 Presence of prosthetic heart valve | CPT/HCPCS: 80048; 83880 ==

== ENCOUNTER → 2020-08-16 10:04 | Outpatient (BNVA) | payer MEDICAID, SELFPAY | PROVIDERS: PCP Family Medicine; Visit Provider Internal Medicine | DX: E11.42 Type 2 diabetes mellitus with diabetic polyneuropathy (principal); E11.649 Type 2 diabetes mellitus with hypoglycemia without coma; Z79.4 Long term (current) use of insulin; S36.209S Unspecified injury of unspecified part of pancreas, sequela | CPT/HCPCS: 99214 ==

== ENCOUNTER → 2020-08-30 13:47 | Outpatient (BNVA) | payer MEDICAID, SELFPAY | PROVIDERS: PCP Family Medicine; Visit Provider Internal Medicine | DX: E11.42 Type 2 diabetes mellitus with diabetic polyneuropathy (principal); Z79.4 Long term (current) use of insulin; E11.649 Type 2 diabetes mellitus with hypoglycemia without coma | CPT/HCPCS: 99214 ==

== ENCOUNTER 2020-09-02 09:52 | Outpatient (CLI) | payer MEDICAID, SELFPAY ==
[2020-09-02 10:47] LABS: Anion Gap 13.3 (5-19); Blood Urea Nitrogen 18 mg/dL (6-20); Calcium 8.5 mg/dL (8.5-10.5); Carbon Dioxide 27 mmol/L (22-29); Chloride 97 mmol/L (98-107); Glomerular Filtration Rate 149.2 mL/min (90-130); Glucose 350 mg/dL (65-115); NT Pro B Type Natriuretic Pept 314 pg/mL (0-125); Osmolality Calculated 292 mOsm/kg (285-295); Potassium 4.3 mmol/L (3.5-5.1); Sodium 133 mmol/L (136-145)
== END 2020-09-02 09:53 | disposition home or self-care (01) ==
LOC: LAB 09:58
PROVIDERS: PCP Family Medicine; Visit Provider Internal Medicine
DX: E11.649 Type 2 diabetes mellitus with hypoglycemia without coma (principal); R79.89 Other specified abnormal findings of blood chemistry; Z79.4 Long term (current) use of insulin
CPT/HCPCS: 36415; 80048; 83880